=== PATIENT | female | born 1980 | race African-American/Black ===

== ENCOUNTER 2016-04-23 11:37 | Emergency (ER) | payer BC, OTHER ==
[2016-04-23 13:31] VITALS: BP 125/86
--- NOTE | 2016-04-23 13:48 | ED ---
Lower Extremity - History of Current Complaint Chief Complaint: EDExtremityLower Stated Complaint: LEFT KNEE PAIN Hx Obtained From: Patient Mechanism Of Injury: Fall From A Standing Position - tripped over toy and fell to ground this am, was able to amb with pain after fall Onset of Pain: Immediate Onset/Duration: Hours - 3-4 Severity Initially: Moderate Severity Currently: Mild Timing: Intermittent Location: Is Discrete @ - L lat knee Character Of Pain: Throbbing, Stiffness Associated Signs And Symptoms: Positive: Knee Pain. Negative: Swelling, Redness , Bruising Aggravating Factor(s): Other - "flexing knee all the way" Alleviating Factor(s): Rest Able to Bear Weight: Yes - Allergies/Home Medications Allergies/Adverse Reactions: Allergies Allergy/AdvReac Type Severity Reaction Status Date / Time No Known Allergies Allergy Verified 11/12/14 00:53 PMH/Surg Hx/FS Hx/Imm Hx Previously Healthy: Yes Endocrine/Hematology History: Denies: Hx Diabetes, Hx Thyroid Disease Cardiovascular History: Denies: Hx Hypertension Respiratory History: Denies: Hx Asthma Musculoskeletal History: Reports: Other Musculoskeletal History - had L knee surgery in past Neurological History: Denies: Hx Migraine Psychiatric History: Denies: Other Psychiatric Issues/Disorders Infectious Disease History: Denies: Traveled Outside the [place] in Last 30 Days - Social History Alcohol Use: None Substance Use Type: Reports: None Smoking Status (MU): Light Every Day Tobacco Smoker Review of Systems Constitutional: Negative Negative: Fever, Chills Cardiovascular: Negative Respiratory: Negative Positive: Other - see note Skin: Negative Negative: Rash, Bruising Neurological: Negative Negative: Weakness, Numbness Psychological: Normal All Other Systems Reviewed And Are Negative: Yes Physical Exam Triage Information Reviewed: Yes Vital Signs On Initial Exam: Initial Vitals Temp Pulse Resp BP Pulse Ox 98.5 F 65 15 125/86 98 04/23/16 13:23 04/23/16 13:23 04/23/16 13:23 04/23/16 13:23 04/23/16 13:23 Vital Signs Reviewed: Yes Appearance: Positive: Well-Appearing, No Pain Distress, Well-Nourished Skin: Positive: Warm, Skin Color Reflects Adequate Perfusion, Dry Respiratory/Lung Sounds: Positive: Clear to Auscultation Cardiovascular: Positive: Normal Musculoskeletal: Positive: Other - pt demonstrtaes full ROM L knee, with pain on full flexion no swelling, bruising, redness or laxity Neurological: Positive: Normal, Sensory/Motor Intact, Alert, Oriented to Person Place, Time Psychiatric: Positive: Normal Diagnostics - Vital Signs Vital Signs Temp Pulse Resp BP Pulse Ox 04/23/16 13:23 98.5 F 65 15 125/86 98 - Laboratory Lab Statement: Any lab studies that have been ordered have been reviewed, and results considered in the medical decision making process. Lower Extremity Course/Dx - Diagnoses Differential Diagnosis/HQI/PQRI: Positive: Contusion, Fracture (Closed), Sprain , Strain Provider Diagnoses: Knee strain Discharge - Discharge Plan Condition: Stable Disposition: HOME Patient Education Materials: Knee Pain (ED) Referrals: No Primary Care Phys,NOPCP [Primary Care Provider] - Maya Villalta MD [Medical Doctor] - (call tomorrow for appointment) Additional Instructions: Rest knee ice and elevate leg. use knee immobilizer until you see orthopedic doctor Use ibuprofen 600mg every 6 hours as needed for pain (take with food)
--- NOTE | 2016-04-23 14:44 | RAD ---
HISTORY: Left knee pain after fall COMPARISONS: None VIEWS: 4, Frontal, lateral, axial, and oblique views of the left knee FINDINGS: BONE DENSITY: Normal. BONES: There is no displaced fracture. JOINTS: There is no arthropathy. There is no suprapatellar joint effusion or lipohemarthrosis. ALIGNMENT: There is no dislocation. SOFT TISSUES: Unremarkable. OTHER FINDINGS: None. IMPRESSION: NO ACUTE OSSEOUS INJURY. IF SYMPTOMS PERSIST, RECOMMEND REPEAT IMAGING.
[2016-04-23] MEDS ORDERED: HYDROcodone/ACETAMIN 5-325 MG* 1 TAB PO ONE (15:16)
== END 2016-04-23 15:36 | disposition home or self-care (01) ==
LOC: ED 11:37
DX: S83.92XA Sprain of unspecified site of left knee, initial encounter (principal); W18.09XA Striking against other object with subsequent fall, initial encounter; Y92.9 Unspecified place or not applicable; F17.210 Nicotine dependence, cigarettes, uncomplicated

== ENCOUNTER 2016-06-02 16:41 | Emergency (ER) | payer BC, OTHER ==
--- NOTE | 2016-06-02 17:46 | UC ---
Knee Pain HPI - HPI Summary HPI Summary: known history of injury to left knee, was suppose to get surgery and then did not, slipped causing left knee pain increasing pain in the past few days, some swelling - History of Current Complaint Chief Complaint: UC Stated Complaint: KNEE PAIN Time Seen by Provider: 06/02/16 17:23 Hx Obtained From: Patient Hx Last Menstrual Period: May 26 ?: No Onset/Duration: Gradual Onset, Lasting Weeks, Worse Since - this week Severity Initially: Moderate Severity Currently: Moderate Location Of Injury: left knee Pain Intensity: 8 Pain Scale Used: 0-10 Numeric Character: Aching, Throbbing Aggravating Factor(s): Movement, Weight Bearing Alleviating Factor(s): Rest Associated Signs And Symptoms: Positive: Redness Able to Bear Weight: Yes Related History: Similar Episode/Dx as - acl, mcl and meniscus injury - Allergies/Home Medications Allergies/Adverse Reactions: Allergies Allergy/AdvReac Type Severity Reaction Status Date / Time No Known Allergies Allergy Verified 05/01/16 10:40 Home Medications: Home Medications Tramadol HCl [Ultram] 50 mg PO 06/02/16 [History] PMH/Surg Hx/FS Hx/Imm Hx Previously Healthy: No Endocrine History Of: Denies: Diabetes, Thyroid Disease Cardiovascular History Of: Denies: Hypertension, Pacemaker/ICD Respiratory History Of: Denies: Asthma GI/ History Of: Denies: Renal Disease Neurological History Of: Denies: Migraine - Surgical History Surgical History: Yes Surgery Procedure, Year, and Place: LEFT KNEE DISLOCATED/GANGLION CYST 2013. WRIST LEFT VERTICAL TEAR/GANGLION CYCT 2016 - Family History Family History: denies casrdiovascular disease in lineage - Social History Occupation: Unemployed Lives: With Family Alcohol Use: None Substance Use Type: None Smoking Status (MU): Light Every Day Tobacco Smoker Household Exposure Type: Cigarettes Review of Systems Constitutional: Negative Skin: Negative Eyes: Negative ENT: Negative Respiratory: Negative Cardiovascular: Negative Gastrointestinal: Negative Genitourinary: Negative Motor: Weakness - left knee Neurovascular: Negative Musculoskeletal: Arthralgia - left knee, Edema - left knee Neurological: Negative Psychological: Negative All Other Systems Reviewed And Are Negative: Yes Physical Exam Triage Information Reviewed: Yes Appearance: Well-Appearing, No Pain Distress, Well-Nourished Vital Signs: Initial Vital Signs Temp 98.2 F 06/02/16 17:16 Vital Signs Reviewed: Yes Eye Exam: Normal Eyes: Positive: Conjunctiva Clear ENT Exam: Normal ENT: Positive: Normal ENT inspection, Hearing grossly normal. Negative: Nasal congestion, Nasal drainage, Muffled/hoarse voice Neck exam: Normal Neck: Positive: Supple, Nontender Respiratory Exam: Normal Respiratory: Positive: Chest non-tender, No respiratory distress, No accessory muscle use Cardiovascular Exam: Normal Cardiovascular: Positive: RRR, Pulses Normal, Brisk Capillary Refill Musculoskeletal Exam: Other Musculoskeletal: Positive: Strength Limited @ - left knee, ROM Limited @ - left knee, Edema @ - left knee Neurological Exam: Normal Neurological: Positive: Alert Psychological Exam: Normal Skin Exam: Normal Knee Pain Course/Dx - Course Course Of Treatment: alex immobilize, follow sunday with ortho pain med, rice - Differential Dx/Diagnosis Differential Diagnosis/HQI/PQRI: Contusion, Internal Derangement Of Knee, Sprain , Strain Provider Diagnoses: Internal derangement of left knee Discharge - Discharge Plan Condition: Stable Disposition: HOME Prescriptions: Hydrocodone-Acetaminophen [Hydrocodone/Acetaminophen 5-325 mg] 1 tab PO Q6H PRN #15 tab MDD 4 PRN Reason: Pain Hydrocodone-Acetaminophen [Hydrocodone/Acetaminophen 5-325 mg] 1 tab PO QID PRN #15 tab MDD 4 PRN Reason: Pain Patient Education Materials: ACL Injury (ED), Swollen Knee Joint (ED), Knee Immobilizer (ED), RICE Therapy (ED), Hypertension (ED) Referrals: No Primary Care Phys,NOPCP [Primary Care Provider] - Maya Villalta MD [Medical Doctor] - 3 Days
== END 2016-06-02 18:15 | disposition home or self-care (01) ==
LOC: UCEAST 16:41
DX: S89.92XS Unspecified injury of left lower leg, sequela (principal); W18.40XS Slipping, tripping and stumbling without falling, unspecified, sequela; F17.210 Nicotine dependence, cigarettes, uncomplicated
CPT/HCPCS: 99212; G0463

== ENCOUNTER 2016-06-08 10:31 | Emergency (ER) | payer BC, OTHER ==
[2016-06-08 10:37] VITALS: BP 143/109
[2016-06-08] MEDS ORDERED: oxyCODONE/Acetamin 5/325 MG* TAB PO ONE (11:21)
[2016-06-08] MEDS ORDERED: Ibuprofen TAB* 400 MG PO ONE (11:21)
--- NOTE | 2016-06-08 11:44 | ED ---
Lower Extremity - HPI Summary HPI Summary: Patient presents with left knee swelling. She has a known history of ACL tear and had surgery scheduled but her insurance changed and the surgery had to be postponed. Today she presents after her knee locked and she had severe swelling without known insult. She is wearing her brace consistently and has been doing well as she awaited surgery. Today she can not straighten or bend the knee without severe pain, and her knee is most comfortable at 30 degrees. She denies fever, chills, calf pain or SOB. - History of Current Complaint Chief Complaint: EDExtremityLower Stated Complaint: STIFF, SWOLLEN LEG Time Seen by Provider: 06/08/16 11:03 Hx Obtained From: Patient Hx Last Menstrual Period: May 26 Mechanism Of Injury: Unknown Onset of Pain: Immediate Onset/Duration: Minutes Severity Initially: Severe Severity Currently: Severe Pain Intensity: 10 Timing: Constant Character Of Pain: Sharp, Aching, Stiffness Associated Signs And Symptoms: Positive: Swelling, Knee Pain Aggravating Factor(s): Standing, Movement Alleviating Factor(s): Nothing Able to Bear Weight: No - Allergies/Home Medications Allergies/Adverse Reactions: Allergies Allergy/AdvReac Type Severity Reaction Status Date / Time No Known Allergies Allergy Verified 05/01/16 10:40 PMH/Surg Hx/FS Hx/Imm Hx Endocrine/Hematology History: Denies: Hx Diabetes, Hx Thyroid Disease Cardiovascular History: Denies: Hx Hypertension, Hx Pacemaker/ICD Respiratory History: Denies: Hx Asthma History: Denies: Hx Renal Disease Musculoskeletal History: Reports: Other Musculoskeletal History - had L knee surgery in past: ACL and medial meniscus tear awaiting surgery Sensory History: Denies: Hx Hearing Aid Neurological History: Denies: Hx Migraine Psychiatric History: Denies: Hx Panic Disorder, Other Psychiatric Issues/Disorders - Surgical History Surgery Procedure, Year, and Place: LEFT KNEE DISLOCATED/GANGLION CYST 2013. WRIST LEFT VERTICAL TEAR/GANGLION CYCT 2016 Infectious Disease History: No Infectious Disease History: Denies: Traveled Outside the [place] in Last 30 Days - Family History Known Family History: Positive: None Family History: denies casrdiovascular disease in lineage - Social History Occupation: Unemployed Alcohol Use: None Substance Use Type: Reports: None Smoking Status (MU): Light Every Day Tobacco Smoker Cessation Counseling: Patient Advised to Stop Review of Systems Negative: Fever Positive: Arthralgia, Myalgia, Decreased ROM, Edema Negative: Bruising Negative: Weakness, Paresthesia All Other Systems Reviewed And Are Negative: Yes Physical Exam Triage Information Reviewed: Yes Vital Signs On Initial Exam: Initial Vitals Temp Pulse Resp BP Pulse Ox 98.2 F 102 20 143/109 99 06/08/16 10:33 06/08/16 10:33 06/08/16 10:33 06/08/16 10:33 06/08/16 10:33 Vital Signs Reviewed: Yes Appearance: Positive: Well-Appearing, Well-Nourished, Pain Distress Skin: Positive: Warm, Skin Color Reflects Adequate Perfusion, Dry, Soft Head/Face: Positive: Normal Head/Face Inspection Eyes: Positive: EOMI, CLIFF, Conjunctiva Clear ENT: Positive: Hearing grossly normal Respiratory/Lung Sounds: Positive: Breath Sounds Present Cardiovascular: Positive: Tachycardia Musculoskeletal: Positive: Limited @ - knee locked at 30 degree with severe pain with any movement., Pain @ - TTP anterior knee, medial joint line and in popliteal fossa, Edema Left - Severe in anterior, superior and posterior capsule Procedures - Procedure Summary Procedure Summary: Patient's left knee was cleansed with alcohol and .5 cc of 2% lidocaine with epi was injected subcutaneously on the anterolateral aspect where aspiration needle was to be placed. An 18g needle was inserted for aspiration and 100cc of bloody fluid was aspirated. 10cc of 2% lidocaine was injected. Area was cleansed and then dressed with a bandaid. Patient tolerated procedure well. Diagnostics - Vital Signs Vital Signs Temp Pulse Resp BP Pulse Ox 06/08/16 10:33 98.2 F 102 20 143/109 99 - Laboratory Lab Statement: Any lab studies that have been ordered have been reviewed, and results considered in the medical decision making process. Lower Extremity Course/Dx - Course Course Of Treatment: Dr. Friend was contacted and patient will follow-up with her office tomorrow for evaluation and surgical scheduling. - Diagnoses Differential Diagnosis/HQI/PQRI: Positive: Arthritis, Bursitis, Contusion, Dislocation, Fracture (Closed), Infection, Sprain, Strain Provider Diagnoses: Effusion, left knee, History of tear of ACL (anterior cruciate ligament) - Physician Notifications Discussed Care of Patient With: Dr. Friend, orthopedic surgeon Time Discussed With Above Provider: 12:20 Discharge - Discharge Plan Condition: Stable Disposition: HOME Prescriptions: oxyCODONE/Acetamin 5/325 MG* [Percocet 5/325 TAB*] 1 tab PO Q8H PRN #9 tab MDD 3 PRN Reason: Pain Patient Education Materials: Swollen Knee Joint (ED) Referrals: Lacey Friend MD [Medical Doctor] - Additional Instructions: Please call Dr. Friend's office today to be seen tomorrow as per her instruction. Elevate your knee above your heart and take Ibuprofen 600mg three times daily with meals for the next 3-5 days to decrease swelling and pain. Wear your brace at all times. Use the crutches to keep weight off you knee as your swelling and pain improve. Use pain pill as needed. Return to the emergency department if symptoms worsen.
--- NOTE | 2016-06-08 12:09 | RAD ---
HISTORY: History of ACL tear, swollen left leg leg COMPARISONS: May 05, 2016 VIEWS: 2, Frontal and lateral views of the left knee FINDINGS: BONE DENSITY: Normal. BONES: There is no displaced fracture. JOINTS: There is no arthropathy. There is a large suprapatellar joint effusion ALIGNMENT: There is no dislocation. SOFT TISSUES: Unremarkable. OTHER FINDINGS: None. IMPRESSION: LARGE JOINT EFFUSION. NO ACUTE OSSEOUS INJURY. IF SYMPTOMS PERSIST, RECOMMEND REPEAT IMAGING
== END 2016-06-08 13:29 | disposition home or self-care (01) ==
LOC: ED 10:31
DX: M25.462 Effusion, left knee (principal); R60.0 Localized edema; M25.562 Pain in left knee; Z87.828 Personal history of other (healed) physical injury and trauma
CPT/HCPCS: 99282; A9270-GY

== ENCOUNTER 2016-06-10 15:50 | Emergency (ER) | payer BC, OTHER ==
[2016-06-10] MEDS ORDERED: oxyCODONE/Acetamin 5/325 MG* TAB PO ONE (16:32)
[2016-06-10] MEDS ORDERED: Ketorolac INJ* 60 MG/2 ML VIAL ONE (17:05)
[2016-06-10] MEDS ORDERED: Ketorolac INJ* 60 MG/2 ML VIAL IM ONE (17:06)
[2016-06-10 18:38] VITALS: BP 116/76
--- NOTE | 2016-06-10 18:40 | ED ---
Lower Extremity - HPI Summary HPI Summary: Patient arrives to ED with CC of 01/23 left knee effusion and pain. She has a known ACL tear with surgery scheduled with Dr. Friend on June 19. She was seen in the ED 2 days ago with successful arthrocentesis of the L knee by the PA. She notes to immediate relief of pain and today comes back with return of fluid around the knee with knee pain. She desires another arthrocentesis to the knee. Patient is unable to bear weight. She is very tearful on examination and explains she cannot be discharged in this amount of pain. Provider educated patient with risks of infection of tapping the knee again and consulted with Dr. Christy who was of the opinion we should provide pain control and avoid another tap if possible. - History of Current Complaint Chief Complaint: EDExtremityLower Stated Complaint: LT KNEE SWELLING Time Seen by Provider: 06/10/16 15:57 Hx Obtained From: Patient Hx Last Menstrual Period: May 26 Mechanism Of Injury: Twisted Onset of Pain: Days Onset/Duration: Days Severity Initially: Severe Severity Currently: Severe Pain Intensity: 10 Pain Scale Used: 0-10 Numeric Timing: Constant Location: Is Discrete @ - left knee Associated Signs And Symptoms: Positive: Swelling, Knee Pain Aggravating Factor(s): Standing, Ambulation, Movement, Weight Bearing, Stairs Alleviating Factor(s): Rest - only slightly improved Able to Bear Weight: No - Risk Factors Gout Risk Factors: Obesity DVT Risk Factors: Recent Trauma - ACL tear Septic Arthritis Risk Factor: Negative - Allergies/Home Medications Allergies/Adverse Reactions: Allergies Allergy/AdvReac Type Severity Reaction Status Date / Time No Known Allergies Allergy Verified 06/10/16 15:50 PMH/Surg Hx/FS Hx/Imm Hx Previously Healthy: Yes Endocrine/Hematology History: Denies: Hx Diabetes, Hx Thyroid Disease Cardiovascular History: Denies: Hx Hypertension, Hx Pacemaker/ICD Respiratory History: Denies: Hx Asthma History: Denies: Hx Renal Disease Musculoskeletal History: Reports: Other Musculoskeletal History - had L knee surgery in past: ACL and medial meniscus tear awaiting surgery Sensory History: Denies: Hx Hearing Aid Neurological History: Denies: Hx Migraine Psychiatric History: Denies: Hx Panic Disorder, Other Psychiatric Issues/Disorders - Surgical History Surgery Procedure, Year, and Place: LEFT KNEE DISLOCATED/GANGLION CYST 2012. WRIST LEFT VERTICAL TEAR/GANGLION CYCT 2016 Hx Anesthesia Reactions: No - Immunization History Immunizations Up to Date: Unable to Obtain/Confirm Infectious Disease History: No Infectious Disease History: Denies: Traveled Outside the [place] in Last 30 Days - Family History Known Family History: Positive: None Family History: denies casrdiovascular disease in lineage - Social History Occupation: Unemployed Alcohol Use: None Hx Substance Use: No Substance Use Type: Reports: None Hx Tobacco Use: Yes Smoking Status (MU): Light Every Day Tobacco Smoker Review of Systems Constitutional: Negative Cardiovascular: Negative Respiratory: Negative Gastrointestinal: Negative Positive: see HPI Positive: Edema - left knee effusion Positive: Other - swelling/effusion over left knee Neurological: Negative Positive: Anxious All Other Systems Reviewed And Are Negative: Yes Physical Exam Triage Information Reviewed: Yes Vital Signs On Initial Exam: Initial Vitals Temp Pulse Resp BP Pulse Ox 98.2 F 110 20 149/104 100 06/10/16 15:50 06/10/16 15:50 06/10/16 15:50 06/10/16 15:50 06/10/16 15:50 Vital Signs Reviewed: Yes Appearance: Positive: Well-Nourished, Pain Distress Skin: Positive: Warm, Skin Color Reflects Adequate Perfusion, Soft, Other - edelma of left knee Head/Face: Positive: Normal Head/Face Inspection Eyes: Positive: Normal ENT: Positive: Hearing grossly normal Neck: Positive: Supple, Nontender, No Lymphadenopathy Respiratory/Lung Sounds: Positive: Clear to Auscultation, Breath Sounds Present Cardiovascular: Positive: Normal Musculoskeletal: Positive: Limited @ - unable to fully extend/flex knee, Pain @ - left knee/unable to BW, Edema Left - knee Neurological: Positive: Sensory/Motor Intact, Alert, Oriented to Person Place, Time, Speech Normal Psychiatric: Positive: Normal, Affect/Mood Appropriate Diagnostics - Vital Signs Vital Signs Temp Pulse Resp BP Pulse Ox 06/10/16 15:50 98.2 F 110 20 149/104 100 - Laboratory Lab Statement: Any lab studies that have been ordered have been reviewed, and results considered in the medical decision making process. Lower Extremity Course/Dx - Course Course Of Treatment: Patient educated about the risks of retapping the knee and risks of infection. Patient very tearful. Dr. Bullard consulted. Dr. Christy consulted at 5:30p and recommended pain control without retapping the knee. Patient unable to BW and does not want to be DC'd. Dr. Bullard and PA both agree to perform arthrocentesis for relief of pain. Patient will then follow up with Dr. Friend on Sunday and attempt to move up the surgery if possible. Dr. Bullard performed arthrocentesis. Procedure note attached. Provided relief for patient. Pain decreased from 10/10 to 3/10. Now able to walk. [facility]. She has been prescribed a few days worth of pain medication, but a lower dose. Shayne wrapped knee with pressure. Patient has crutches at home. Infections risks explained to patient and return precautions given. Patient agrees with plan. Anxiety medication given as rx as well d/t tearful and fearful presentation on arrival in association with knee injury. Assessment/Plan: Follow up Sunday with Dr. Friend. - Diagnoses Differential Diagnosis/HQI/PQRI: Positive: Bursitis, Infection, Sprain, Strain, Other Provider Diagnoses: Hemarthrosis Discharge - Discharge Plan Condition: Stable Disposition: HOME Prescriptions: LORazepam TAB(*) [Ativan TAB(*)] 1 mg PO Q6H PRN #20 tab MDD 4 PRN Reason: Anxiety oxyCODONE/Acetamin 10/325(NF) [Percocet 10/325 (NF)] 1 tab PO Q4H #30 tab MDD 6 Patient Education Materials: Swollen Knee Joint (ED) Referrals: Patrick Christy MD [Medical Doctor] - No Primary Care Phys,NOPCP [Primary Care Provider] - Lacey Friend MD [Family Provider] - Additional Instructions: Oxycodone as needed for pain. Discharge: Crutches for ambulation given. Ibuprofen 600mg three times daily with meals for pain and inflammation. Continue with shayne wrap around the knee joint until surgery. Call for follow up with orthopedic physician on Sunday. If numbness, tingling, decreased sensation, increased pain, temperature changes or pallor noted in toes, come back to ER immediately. Protect the area. For your comfort level, do not bear weight, pull or push until you can injury is somewhat healed. This may involve the need for immobilization or crutches for a period of time. Rest the involved area, but not too long. You may need to be off your injury for some time to allow for healing, however excessive immobilization of joints can lead to stiffness and delay healing time. Early mobilization is encouraged if it is pain-free. Ice. Not directly on the skin. Cover with a towel. Apply ice no more than 30 minutes at a time Compression: You may use and keep an shayne wrap bandage over the injury to decrease swelling. Again, this should be limited and be taken off periodically to encourage early range of motion and mobilization. Elevate: Try to elevate the injured area above the heart whenever possible.
--- NOTE | 2016-06-10 18:49 | ED ---
Course/Dx - Diagnoses Provider Diagnoses: Hemarthrosis Procedure Note / Orthopedic - Digital Nerve Block Location: Left Anesthesia: Lidocaine - Joint Aspiration Indication: Effusion Location: Left, Other - knee Location/Technique: ant medial Post Joint Aspiration: Fluid Bloody
== END 2016-06-10 18:36 | disposition home or self-care (01) ==
LOC: ED 15:50
DX: M25.00 Hemarthrosis, unspecified joint (principal); M25.462 Effusion, left knee; F17.210 Nicotine dependence, cigarettes, uncomplicated
CPT/HCPCS: 20600; 96374; 96375; 99282; A9270-GY; J1885

== ENCOUNTER 2016-06-17 09:46 | Emergency (ER) | payer BC, MEDICAID, OTHER ==
[2016-06-17] MEDS ORDERED: cefTRIAXone VIAL(*) 1,000 MG VIAL IM ONE (11:20)
[2016-06-17] MEDS ORDERED: Lidocaine 1% MPF* 2 ML VIAL ONE (11:23)
--- NOTE | 2016-06-17 11:52 | UC ---
Bradford Felix Janilya, scribed for Yumiko Dowling MD on 06/17/16 at 1113 . Lower Extremity/Ankle HPI - HPI Summary HPI Summary: A 36 y/o female came in to [facility] presenting w/ a graduate onset of constant left knee swelling and discomfort for about a week. Pt states she has torn ACL/MCL. She has knee surgery scheduled for next Sunday, June 19. The knee was first drained on , Jun 08. However, the fluid was not analyzed. Her knee was last drained last Sunday, Jun 10. Pt reports chills, hot sweats. Pt denies fever. She has been constantly taking Ibuprofen for swelling for a few days now, with no relief. She did not take any Ibuprofen today. She denies having any fevers or chills today. Pt is very anxious and concerned about possible knee infection. Initial blood pressure noted 154/116. Manual blood pressure is 150/100. No allergies to medicine. Pt is accompanied by her 3 kids. She moved to the area 1 month ago and does not have a PCP yet. - History of Current Complaint Stated Complaint: POSSIBLE KNEE INFECTION Hx Obtained From: Patient Hx Last Menstrual Period: 05/23/16 Onset/Duration: Gradual Onset, Lasting Days, Still Present Severity Initially: Moderate Severity Currently: Moderate Aggravating Factor(s): Nothing Alleviating Factor(s): Nothing Able to Bear Weight: Yes - Allergies/Home Medications Allergies/Adverse Reactions: Allergies Allergy/AdvReac Type Severity Reaction Status Date / Time No Known Allergies Allergy Verified 06/17/16 11:03 PMH/Surg Hx/FS Hx/Imm Hx Previously Healthy: Yes Endocrine History Of: Denies: Diabetes, Thyroid Disease Cardiovascular History Of: Denies: Hypertension, Pacemaker/ICD Respiratory History Of: Denies: Asthma GI/ History Of: Denies: Renal Disease Neurological History Of: Denies: Migraine - Surgical History Surgical History: Yes Surgery Procedure, Year, and Place: LEFT KNEE DISLOCATED/GANGLION CYST 2012. WRIST LEFT VERTICAL TEAR/GANGLION CYCT 2015 - Family History Known Family History: Positive: Cardiac Disease - [place] - mother, at 40s. - Social History Lives: With Family Alcohol Use: Rare Substance Use Type: None Smoking Status (MU): Light Every Day Tobacco Smoker Type: Cigarettes Amount Used/How Often: 1/2 ppd Household Exposure Type: Cigarettes Review of Systems Constitutional: Negative - pt denies fever, Chills, Other - pt reports hot sweats Skin: Negative Eyes: Negative ENT: Negative Respiratory: Negative Cardiovascular: Negative Gastrointestinal: Negative Genitourinary: Negative Motor: Negative Neurovascular: Negative Musculoskeletal: Other: - pt reports left knee and left leg swelling and discomfort Neurological: Negative Psychological: Negative All Other Systems Reviewed And Are Negative: Yes Physical Exam Triage Information Reviewed: Yes Appearance: Well-Appearing Vital Signs: Initial Vital Signs Temp 98.0 F 06/17/16 10:55 Pulse 110 06/17/16 10:55 Resp 18 06/17/16 10:55 BP 154/116 06/17/16 10:55 Pulse Ox 98 06/17/16 10:55 Vital Signs Reviewed: Yes Eye Exam: Normal Eyes: Positive: Conjunctiva Clear ENT: Positive: Normal ENT inspection Dental Exam: Normal Neck: Positive: Supple, Nontender, No Lymphadenopathy Respiratory: Positive: Lungs clear, Normal breath sounds, No respiratory distress, No accessory muscle use Cardiovascular: Positive: RRR, No Murmur, Pulses Normal Abdomen Description: Positive: Nontender, Soft Musculoskeletal: Positive: Other: - Mild no-pitting edema of left knee, left anterior leg, and left foot. The entire extremity is cold to touch. There is no discharge, no erythema. No tenderness or swelling of calf. Sensation intact to light touch. Neurological Exam: Normal Psychological Exam: Normal Skin Exam: Normal Lower Extremity Course/Dx - Course Course Of Treatment: Swelling in left knee, erring on side of infection to avoid septic joint. Dx is based on chills last PM, however she has not ahd any today. theer is no erythema or warmth or fever. Discussed this with pt and she is very understanding and agreeable. Dx of HTN made today and discussed in detail and medication choice, side effect and importance of follow up with PCP. - Differential Dx/Diagnosis Differential Diagnosis/HQI/PQRI: Bursitis, Cellulitis, Gout, Infection, Osteomyelitis, Septic Arthritis, Sprain, Strain Provider Diagnoses: Left knee swelling and infection. New onset HTN Discharge - Discharge Plan Condition: Stable Disposition: HOME Prescriptions: Amlodipine Besylate [Norvasc-] 5 mg PO DAILY #30 tab Sulfamethox/Trimethoprim DS* [Bactrim DS 800/160 TAB*] 1 tab PO BID #20 tab Patient Education Materials: Swollen Knee Joint (ED), Hypertension (ED) Referrals: [facility]ERR[facility] [Outside] - 5 Days No Primary Care Phys,NOPCP [Primary Care Provider] - Additional Instructions: We talked about your new diagnosis of hypertension. You have had 3 elevated blood pressures including your recent ER visits. This is meets the diagnosis of hypertension. Treating you r blood pressure is important to avoid risks of stroke, heart attack, kidney and eye disease and vascular disease. Decrease salt intake and avoid the use of NSAID class of medicines that include ibuprofen and also avoid decongestants that are in most cold medicines. Make sure to follow up with a primary care physician for your continuing prescriptions and follow up of the blood pressure. You have been given an injection with the antibiotic rocephin, and you will be starting the oral antibiotic tonight. Take a probiotic or eat yogurt while you are on the antibiotic to prevent complications. If your symptoms worsen, you should follow up in the ER. Please call the professional housing consultant ortho provider today to notify that you have been put on an antibiotic as they may postpone surgery. The documentation as recorded by the Bradford pringle Janilya accurately reflects the service I personally performed and the decisions made by me, Yumiko Dowling MD.
[2016-06-17 11:59] VITALS: BP 150/106
== END 2016-06-17 11:56 | disposition home or self-care (01) ==
LOC: UCEAST 09:46
DX: M00.9 Pyogenic arthritis, unspecified (principal); M25.462 Effusion, left knee; I10 Essential (primary) hypertension; F17.210 Nicotine dependence, cigarettes, uncomplicated
CPT/HCPCS: 96372; 99212; G0463; J0696

== ENCOUNTER 2016-06-19 12:48 | Day surgery (SDC) | payer BC, MEDICAID, OTHER ==
--- NOTE | 2016-05-12 20:03 | HP ---
PREOPERATIVE HISTORY AND PHYSICAL: DATE OF ADMISSION/SURGERY: 05/17/16 ATTENDING SURGEON: Lacey Friend MD PROCEDURE: Left knee arthroscopic partial meniscectomy. CHIEF COMPLAINT: Left knee pain and instability. HISTORY OF PRESENT ILLNESS: Yun is a 36-year-old female who presented to the clinic referred by Jeff Villalta for ongoing left knee pain and instability. The patient states that she had a fall in Dec when she felt a pop, had sudden pain in her knee with weightbearing and had swelling in h er knee. Since then, she has had a constant medial knee pain and instability of the knee. She tommy es catching or locking. She has had a history of prior injury to the knee that required surgery and had evidence of a small incomplete ACL tear. The patient has tried a brace, ibuprofen, and tramado l which have not helped relieve the pain. Since the patient has failed conservative measures, she de la rosa s agreed to undergo a left knee arthroscopic partial meniscectomy with Dr. Friend on 05/17/16. PAST MEDICAL HISTORY: Anxiety and depression. PAST SURGICAL HISTORY: Left knee surgery and right wrist surgery. MEDICATIONS: 1. Naproxen 500 mg 1 by mouth twice a day as needed for pain. 2. Tramadol 50 mg 1 by mouth every 6 hours as needed. ALLERGIES: No known drug allergies. FAMILY HISTORY: Maternal grandmother with diabetes. Mother with heart disease and CA. Maternal au nt with CVA and a maternal aunt with cancer. SOCIAL HISTORY: The patient lives with her spouse. She is a former smoker. She reports occasional alcohol use and denies illegal drug use. REVIEW OF SYSTEMS: A 14-point review of systems was reviewed with the patient and positive for cons tipation, anxiety, and left knee pain and swelling. Otherwise negative. The patient denies a histo ry of DVT, PE, prior anesthesia problems, or bleeding disorder. PHYSICAL EXAMINATION GENERAL: Well-developed, well-nourished 36-year-old female in no acute distress. VITAL SIGNS: Height 62, weight 165, respiratory rate 17, BMI 30.2. HEENT: Normocephalic, atraumatic. NECK: Supple. Throat clear. PULMONARY: Lungs are clear to auscultation bilaterally. No wheezing, rhonchi, or rales. CARDIO: Regular rate and rhythm. S1, S2. No murmurs, rubs, or gallops. No edema. ABDOMEN: Positive bowel sounds. Soft, nontender. NEUROLOGIC: Alert and oriented x3. Cranial nerves grossly intact. Sensation intact to light touch distally. MUSCULOSKELETAL: Left knee: The skin is intact. There is a mild effusion of the knee, tenderness to the medial joint line, nontender of the MCL. Range of motion about 5 to 100 degrees. Stable to varus and valgus stress, Brett, negative posterior drawer, +2 dorsalis pedis pulse. Sensat ion intact to light touch distally. STUDIES: MRI was reviewed today in clinic and revealed a complex ACL tear, high- grade MCL tear, a nd posterior medial meniscus tear. IMPRESSION: Left knee medial meniscus tear, MCL tear, and ACL tear. PLAN: The patient's pain likely is in the medial joint line and therefore, is likely due to the men iscus. Her instability is likely due to her ACL tear; however, the patient is not ready for surgica l intervention for treatment of the ACL. However, she is scheduled to undergo a left knee arthrosco pic partial meniscectomy with Dr. Friend for treatment of the knee pain. She will return to the off ice 10 to 14 days postop for followup and suture removal. Percocet will be used postoperatively for pain management and a stool softener will be used to prevent opioid-induced constipation. SORAYA PHILLIPS [id number]/[facility] #: [id number]
--- NOTE | 2016-06-09 20:09 | HP ---
PREOPERATIVE HISTORY AND PHYSICAL: DATE OF ADMISSION/SURGERY: 06/19/16 PROCEDURE: Left knee arthroscopic partial meniscectomy. CHIEF COMPLAINT: Left knee pain and instability. HISTORY OF PRESENT ILLNESS: Yun is a 36-year-old female who presents to the clinic for ongoing le ft knee pain and instability. She has a history of a fall where she heard a sudden pop and had sign ificant pain in her knee. She had also had a recent episode of swelling in her knee, so she went to the ER where they aspirated joint fluid. Since that time, her knee pain has improved. She tried P ercocet for the pain, which did not help. She also has tried tramadol at night, which helps decreas e the pain. She is using a brace as needed for stability. She denies fever, chills, numbness, ting ling or calf pain. She has failed conservative measures and has therefore, agreed to undergo a left knee arthroscopic partial meniscectomy with Dr. Friend on 06/19/16. PAST MEDICAL HISTORY: Anxiety and depression. PAST SURGICAL HISTORY: Left knee surgery and right wrist surgery. MEDICATIONS: 1. Naproxen 500 mg 1 by mouth twice a day as needed for pain. 2. Tramadol 50 mg 1 to 2 by mouth every 4 to 6 hours as needed for pain. ALLERGIES: No known drug allergies. FAMILY HISTORY: A maternal grandmother with diabetes. Mother with heart disease and AMI. Paternal aunt with CVA and a maternal uncle with cancer. 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 She is a former smoker. Occasional alcohol use. Mick es illegal drug use. REVIEW OF SYSTEMS: A 14-point review of systems was reviewed with the patient and positive for cons tipation, anxiety, and left knee pain and swelling. Otherwise, negative. Denies history of DVT, PE , prior anesthesia problems, and/or bleeding disorder. PHYSICAL EXAMINATION GENERAL: A well-developed, well-nourished 36-year-old female, in no acute distress. VITAL SIGNS: Height 62, weight 165. Pulse 72, respiratory rate 16. BMI is 30.2. HEENT: Normocephalic, atraumatic. Throat clear. NECK: Supple. PULMONARY: Lungs are clear to auscultation bilaterally. No wheezing, rhonchi, or rales. CARDIO: Regular rate and rhythm. S1 and S2. No murmurs, rubs, or gallops. No edema. ABDOMEN: Positive bowel sounds. Soft, nontender. NEURO: Alert and oriented x3. Cranial nerves grossly intact. Sensation intact to light touch dist ally. MUSCULOSKELETAL: Left knee, skin is intact. Mild effusion in the knee. Tenderness to palpation of the medial joint line. Nontender over the MCL. Range of motion for about 100 degrees. Stable to v arus and valgus stress. 2A Brett. Negative posterior drawer. +2 dorsalis pedis pulses. Sensatio n intact to light touch distally. STUDIES: MRI revealed a complex ACL tear and a high-grade MCL tear with a posterior medial meniscu s tear. ASSESSMENT: Left knee medial meniscus tear, MCL tear, and ACL tear. PLAN: The patient's MCL has healed since the injury and she believes that her instability is likely due to her ACL tear; however, her main symptoms of pain and swelling are likely due to her meniscal injury. She is not ready for ACL repair at this time, but would like her meniscus repaired. There fore, she has agreed and is scheduled to undergo a left knee arthroscopic partial meniscectomy with Dr. Friend on 06/19/16. She was given a script today for tramadol in office for pain control to get her through until the surgery. She will follow 10 to 14 days postoperatively for followup and sutu re removal. Percocet will be used postoperatively for pain management and stool softener will be us ed to prevent opioid-induced constipation. SORAYA PHILLIPS [id number]/[facility] #: [id number]
[~2016-06-19 12:48] MED LIST: Buffered Lidocaine 1% SYR 3ML* 3 ML/SYR SYRINGE INTRADERM ONE
[2016-06-19] MEDS ORDERED: ceFAZolin 2 GM PREMIX (*) 2 GM/50 ML BAG IVPB ONE ×2 (13:42)
[2016-06-19] MEDS ORDERED: Bupivacaine 0.25% SDV* 30 ML ONE ×2 (14:53)
[2016-06-19] MEDS ORDERED: Bupivacaine 0.25% EPI 200,000* 30 ML SDV ONE ×2 (14:54)
[2016-06-19] MEDS ORDERED: Propofol* 10 MG/ML 20 ML BTL IV PUSH ONE ×2 (14:57)
[2016-06-19] MEDS ORDERED: fentaNYL* 50 MCG/ML 2 ML VIAL (100 MCG VIAL) ONE ×6 (14:57→16:18)
[2016-06-19] MEDS ORDERED: Midazolam* 1 MG/ML 5 ML VIAL (5 MG) ONE ×2 (14:58)
[2016-06-19] MEDS ORDERED: Dexamethasone IV* 4 MG/ML 1 ML (4 MG) ONE ×2 (15:52)
[2016-06-19] MEDS ORDERED: Ketorolac INJ* 30 MG/ML 1 ML VIAL ONE ×2 (15:52)
[2016-06-19] MEDS ORDERED: Ondansetron INJ* 2 MG/ML VIAL ONE ×2 (15:52)
[2016-06-19] MEDS ORDERED: HYDROcodone/ACETAMIN 5-325 MG* 1 TAB PO PRN (16:12)
[2016-06-19] MEDS ORDERED: Ondansetron INJ* 2 MG/ML VIAL IV PRN (16:12)
[2016-06-19] MEDS ORDERED: HYDROmorphone INJ* 1 MG/ML CARPUJECT SYRINGE IV PRN (16:12)
[2016-06-19] MEDS ORDERED: oxyCODONE TAB* 5 MG TAB PO PRN (16:12)
[2016-06-19] MEDS ORDERED: DiMENhydriNATE IV* 50 MG/ML VIAL IV PUSH PRN (16:12)
[2016-06-19] MEDS ORDERED: fentaNYL* 50 MCG/ML 2 ML VIAL (100 MCG VIAL) IV PRN (16:12)
[2016-06-19] MEDS ORDERED: oxyCODONE/Acetamin 5/325 MG* TAB ONE ×2 (16:18)
[2016-06-19 17:09] VITALS: BP 136/87
--- NOTE | 2016-06-20 09:21 | OP ---
DATE OF OPERATION: 06/19/16 [facility] DATE OF : 84 SURGEON: Lacey Friend MD [employer] OPERATOR: SORAYA Grover. Assistance was needed for the entirety of the case to help with positioning. Retraction was utilized throughout all portions. ANESTHESIOLOGIST: Dr. Small. ANESTHESIA: General. PRE-OP DIAGNOSIS: Left knee grade 3 ACL rupture with medial meniscal tear. POST-OP DIAGNOSIS: Grade 3 ACL rupture with medial meniscal tear and partial tearing of the lateral root of the meniscus. OPERATIVE PROCEDURES: 1. Left knee arthroscopy with debridement of ACL and cyclops lesion. 2. Partial medial meniscectomy. 3. Debridement of the lateral root of the meniscus. COMPLICATIONS: None. ESTIMATED BLOOD LOSS: Minimal. INDICATIONS: Yun Orellana is a 36-year-old female. She twisted her knee falling over a box. She sustained an injury to her knee. She had a previous injury several years ago and has reinjured it subsequently. She has also had a previous history of an arthroscopy, but is unsure which procedure was done. She had persistent catching and locking, required several ED visits with drainage of her hemarthrosis. She has persistent episodes of instability. She would like to proceed with ACL reconstruction, but due to her psychosocial situation, she is unable to do that at this point. She would like to proceed with partial meniscectomy. Risks and benefits of surgery were discussed at length and the patient was advised that when you take the medial portion of the meniscus away, she has a higher risk of arthritis as well as this would function as a backup stabilizer for the ACL tissue, so theoretically increased risk of damage to the knee. Risks include but are not limited to bleeding, infection, damage to nerves, vessels, surrounding structures, wound nonhealing, persistent pain, need for further surgery, persistent instability, arthritis, risks of anesthesia, and risk of DVT. She has elected to proceed. OPERATIVE NOTE: The patient was greeted in the preoperative area by the attending surgeon. The correct extremity was marked, and the consent was confirmed. The patient was then brought back to the operating suite where she was placed in the supine position on the operating room table. She then underwent general anesthesia and LMA intubation which she tolerated without difficulty. An examination of the knee was then done. She had a moderate effusion. Range of motion was about 2 degrees to 130 degrees. Her Brett was 3B, stable to varus and valgus stress. The lateral post was placed and an unsterile tourniquet was placed high on the proximal thigh. After a minute of surgical pause indicating site and side of the procedure, the knee was intra- articularly injected with 0.25% Marcaine with epinephrine. It was noted that there was large hemarthrosis in the knee at this time. The left knee was prepped and draped in the usual sterile fashion with chlorhexidine soap and alcohol wipe and a final prep with ChloraPrep. After appropriate surgical pause indicating site and side of the procedure and administration of antibiotics, the lateral portal was made sharply with an 11 blade. The scope was introduced into the joint. The joint was examined. There was a large hemarthrosis that was apparent. There were hemosiderin deposits all along the knee. The scope was placed in the suprapatellar pouch. The patella had grade 0 to 1 changes, the trochlea had grade 0 to 1 changes. The medial and lateral gutter were intact. There was abundant synovitis anteriorly. There was a large ACL cyclops lesion as well. The medial portal was made after localization using an 18-gauge needle. The shaver was used to debride back the ACL stump and the abundant scar tissue anteriorly. The ACL was found to be completely torn off the femoral side. There was again hemarthrosis all throughout the knee. A thorough lavage was done and the hemarthrosis was carefully debrided back. The medial compartment was examined and there were grade 0 to 1 changes to the cartilage. She had torn posteriorly just adjacent to the root, which resulted in destabilization of the hoop stresses of the meniscus. There was an unstable flap that was brought into the joint that may have been amenable to repair, but the patient chose not to proceed with the repair. The biter and shaver were then used to debride back the meniscus to a stable layer. She is missing the posterior portion of the meniscus as well as part of the root, but she still has the medial aspect of the meniscus. Once the debridement of unstable flap was debrided back, the knee was placed in a [id number] position and the lateral meniscus was evaluated. The lateral meniscus was intact, but there was evidence of partial tearing of the root of the meniscus. There were unstable flaps which were debrided back using the shaver. After this was complete, the remainder of the knee was examined again. Lateral compartment had grade 0 to 1 changes in the femur and grade 1 changes with some mild grade 2 changes to the tibial plateau. The knee was copiously irrigated. All loose debris was removed. The portals were then closed with 3-0 nylon in an interrupted fashion. The knee was then intra-articularly injected with 0.25% Marcaine plain for postop pain control. Sterile dressings were applied as well as a cryo/cuff. The patient was awoken from anesthesia and transferred to the PACU in stable condition. POSTOPERATIVE PLAN: She will be weightbearing as tolerated. She will ice and elevate. She will be discharged on pain medications as well as antibiotics. She has a recent history of high blood pressure that was reasonably treated at her last ED visit. She does not have a primary care provider, so we will help her find one. She will be discharged otherwise on pain medications as well as antibiotics. DVT prophylaxis was considered, but was deferred due to no previous personal or family history. I will see the patient back in about 10 to 14 days. [id number]/[facility] #: [id number] [place]
== END 2016-06-19 17:10 | disposition home or self-care (01) ==
LOC: OR 12:48 → OREAST 12:48
PROVIDERS: ATTEND Orthopaedic Surgery
DX: S83.232A Complex tear of medial meniscus, current injury, left knee, initial encounter (principal); S83.282A Other tear of lateral meniscus, current injury, left knee, initial encounter; S83.512A Sprain of anterior cruciate ligament of left knee, initial encounter; W01.0XXA Fall on same level from slipping, tripping and stumbling without subsequent striking against object, initial encounter; Y92.9 Unspecified place or not applicable; Z87.891 Personal history of nicotine dependence
CPT/HCPCS: 88304; A9270-GY; J0690; J1100; J1885; J2250; J2405; J2704; J3010

== ENCOUNTER 2016-06-21 17:17 | Emergency (ER) | payer MEDICAID, OTHER ==
[2016-06-21 18:25] VITALS: BP 123/82
[2016-06-21] MEDS ORDERED: Al Hydrox/Mg Hydrox/Simet LIQ* 30 ML UDC PO ONE (18:37)
[2016-06-21] MEDS ORDERED: Lidocaine 2% VISCOUS* 15 ML UDC PO ONE (18:37)
--- NOTE | 2016-06-21 18:37 | UC ---
Abdominal Pain Female HPI - HPI Summary HPI Summary: Acid reflux today--has been on Prilosec in the past with good effect--- - History of Current Complaint Chief Complaint: UCGI Stated Complaint: ACID REFLUX Time Seen by Provider: 06/21/16 18:29 Hx Obtained From: Patient Hx Last Menstrual Period: May 2016 ?: No Onset/Duration: Sudden Onset, Lasting Days, Still Present Timing: Constant Severity Initially: Moderate Severity Currently: Moderate Pain Intensity: 5 Pain Scale Used: 0-10 Numeric Location: Epigastric Radiates: No Character: Burning Aggravating Factor(s): Nothing Alleviating Factor(s): Nothing Associated Signs and Symptoms: Positive: Negative Allergies/Adverse Reactions: Allergies Allergy/AdvReac Type Severity Reaction Status Date / Time No Known Allergies Allergy Verified 06/21/16 18:18 Home Medications: Home Medications Aspirin EC TAB* [Ecotrin EC TAB*] 1 tab DAILY 06/21/16 [History Confirmed ] Oxycodone W/ Acetaminophen [Endocet 5-325 mg] 1 tab PRN 06/21/16 [History] PMH/Surg Hx/FS Hx/Imm Hx Previously Healthy: No Endocrine History Of: Denies: Diabetes, Thyroid Disease Cardiovascular History Of: Reports: Hypertension Denies: Pacemaker/ICD Respiratory History Of: Denies: Asthma GI/ History Of: Denies: Renal Disease Neurological History Of: Denies: Migraine Psychological History Of: Reports: Anxiety, Depression - Surgical History Surgical History: Yes Surgery Procedure, Year, and Place: LEFT KNEE DISLOCATED/GANGLION CYST 2012. WRIST LEFT VERTICAL TEAR/GANGLION CYCT 2015. LEFT knee meniscus repair June - Family History Known Family History: Positive: None, Cardiac Disease - [place] - mother, at 40s. Family History: denies casrdiovascular disease in lineage - Social History Occupation: Unemployed Lives: With Family Alcohol Use: Rare Alcohol Amount: socially Substance Use Type: None Smoking Status (MU): Light Every Day Tobacco Smoker Type: Cigarettes Amount Used/How Often: 5 cigs Household Exposure Type: Cigarettes Cessation Counseling: Patient Advised to Stop - Immunization History Most Recent Influenza Vaccination: None Review of Systems Constitutional: Negative Skin: Negative Eyes: Negative ENT: Negative Respiratory: Negative Cardiovascular: Negative Gastrointestinal: Abdominal Pain Genitourinary: Negative Motor: Negative Neurovascular: Negative Musculoskeletal: Negative Neurological: Negative Psychological: Negative All Other Systems Reviewed And Are Negative: Yes Physical Exam Triage Information Reviewed: Yes Appearance: Well-Appearing, No Pain Distress, Well-Nourished Vital Signs: Initial Vital Signs Temp 98.6 F 06/21/16 18:19 Pulse 77 06/21/16 18:19 Resp 18 06/21/16 18:19 BP 123/82 06/21/16 18:19 Pulse Ox 98 06/21/16 18:19 Vital Signs Reviewed: Yes Eye Exam: Normal Eyes: Positive: Conjunctiva Clear ENT Exam: Normal ENT: Positive: Normal ENT inspection, Hearing grossly normal. Negative: Trismus , Muffled/hoarse voice Neck exam: Normal Neck: Positive: Supple, Nontender, No Lymphadenopathy Respiratory Exam: Normal Respiratory: Positive: Chest non-tender, Lungs clear, Normal breath sounds, No respiratory distress, No accessory muscle use Cardiovascular Exam: Normal Cardiovascular: Positive: RRR, No Murmur, Pulses Normal, Brisk Capillary Refill Abdominal Exam: Normal Abdomen Description: Positive: No Organomegaly, Soft, Other: - epigastric discomfort. Negative: CVA Tenderness (R), CVA Tenderness (L) Bowel Sounds: Positive: Present Musculoskeletal Exam: Normal Musculoskeletal: Positive: Strength Intact, ROM Intact, No Edema Neurological Exam: Normal Neurological: Positive: Alert, Muscle Tone Normal Psychological Exam: Normal Psychological: Positive: Normal Response To Family Skin Exam: Normal Re-Evaluation - Re-Evaluation First Eval Change: Improved - relief wit maalox and lidocaine Abd Pain Female Course/Dx - Course Course Of Treatment: Diet changes reccommended, prilosec follow with pcp - Differential Dx/Diagnosis Differential Diagnosis: Gall Bladder Disease, Irritable Bowel Syndrome, Peptic Ulcer Disease, Other - GERD Provider Diagnoses: GERD Discharge - Discharge Plan Condition: Stable Disposition: HOME Prescriptions: Omeprazole 40 mg PO DAILY #30 cap Patient Education Materials: Diet for Ulcers and Gastritis (ED), Gastroesophageal Reflux Disease (ED) Referrals: [facility] [Outside] No Primary Care Phys,NOPCP [Primary Care Provider] - 2 Weeks
== END 2016-06-21 19:03 | disposition home or self-care (01) ==
LOC: UCEAST 17:17
DX: K21.9 Gastro-esophageal reflux disease without esophagitis (principal); F17.210 Nicotine dependence, cigarettes, uncomplicated
CPT/HCPCS: 99212; A9270-GY; G0463

== ENCOUNTER 2016-06-23 00:07 | Emergency (ER) | payer MEDICAID ==
[2016-06-23] MEDS ORDERED: diPHENhydraMINE PO* 50 MG PO ONE (00:41)
[2016-06-23 00:57] VITALS: BP 138/88
--- NOTE | 2016-07-19 23:45 | ED ---
Allergic Reaction/Systemic - HPI Summary HPI Summary: Patient presents with an "itchy tongue" after taking a dose of Prilosec. She recently started this medication and this is only her second dose, so she believes it is the reason she is having this reaction. She denies difficulty breathing, tongue swelling, rash, nausea, abdominal pain or light headedness. She does not have a history of allergies. - History of Current Complaint Chief Complaint: EDAllergicReaction Time Seen by Provider: 06/23/16 00:23 Hx Obtained From: Patient Hx Last Menstrual Period: May 2016 Onset/Duration: Gradual Onset Timing: Constant Severity Initially: Mild Severity Currently: None Pain Intensity: 0 Pain Scale Used: 0-10 Numeric Character: Pruritus - tongue Aggravating Factor(s): Nothing Alleviating Factor(s): Nothing Associated Signs And Symptoms: Positive: Negative - Allergies/Home Medications Allergies/Adverse Reactions: Allergies Allergy/AdvReac Type Severity Reaction Status Date / Time Omeprazole [From Prilosec] Allergy Swelling Verified 07/05/16 16:31 Of Face,Lips,& Throat PMH/Surg Hx/FS Hx/Imm Hx Endocrine/Hematology History: Denies: Hx Diabetes, Hx Thyroid Disease Cardiovascular History: Reports: Hx Hypertension Denies: Hx Pacemaker/ICD Respiratory History: Denies: Hx Asthma GI History: Reports: Hx Gastroesophageal Reflux Disease - on occassion History: Denies: Hx Renal Disease Musculoskeletal History: Reports: Other Musculoskeletal History - had L knee surgery in past: ACL and medial meniscus tear awaiting surgery Sensory History: Denies: Hx Contacts or Glasses, Hx Hearing Aid Opthamlomology History: Denies: Hx Contacts or Glasses Neurological History: Denies: Hx Migraine Psychiatric History: Reports: Hx Anxiety, Hx Depression Denies: Hx Panic Disorder, Other Psychiatric Issues/Disorders - Surgical History Surgery Procedure, Year, and Place: LEFT KNEE DISLOCATED/GANGLION CYST 2012. WRIST LEFT VERTICAL TEAR/GANGLION CYCT 2015. LEFT knee meniscus repair June Hx Anesthesia Reactions: No Infectious Disease History: No Infectious Disease History: Denies: Traveled Outside the [place] in Last 30 Days - Family History Known Family History: Positive: None, Cardiac Disease - [place] - mother, at 40s. Family History: denies casrdiovascular disease in lineage - Social History Occupation: Unemployed Lives: With Family Alcohol Use: Rare Alcohol Amount: socially Hx Substance Use: No Substance Use Type: Reports: None Hx Tobacco Use: Yes Smoking Status (MU): Light Every Day Tobacco Smoker Type: Cigarettes Amount Used/How Often: 5 cigs Review of Systems Positive: Other - "itchy tongue" All Other Systems Reviewed And Are Negative: Yes Physical Exam Triage Information Reviewed: Yes Vital Signs On Initial Exam: Initial Vitals Temp Pulse Resp BP Pulse Ox 98 F 98 18 134/85 99 06/23/16 00:14 06/23/16 00:14 06/23/16 00:14 06/23/16 00:14 06/23/16 00:14 Vital Signs Reviewed: Yes Appearance: Positive: Well-Appearing, No Pain Distress, Well-Nourished Skin: Positive: Warm, Skin Color Reflects Adequate Perfusion, Dry, Soft Head/Face: Positive: Normal Head/Face Inspection Eyes: Positive: EOMI, CLIFF, Conjunctiva Clear ENT: Positive: Hearing grossly normal, Pharynx normal, Other - no swelling of the tongue, uvula or palate. Negative: Tonsillar swelling Neck: Positive: Supple, Nontender, No Lymphadenopathy Respiratory/Lung Sounds: Positive: Clear to Auscultation, Breath Sounds Present Cardiovascular: Positive: RRR Abdomen Description: Positive: Nontender, Soft Bowel Sounds: Positive: Present Musculoskeletal: Negative: Edema Left, Edema Right Neurological: Positive: Sensory/Motor Intact, Alert, Oriented to Person Place, Time, [place] Bundle Intact Distally, Normal Gait Psychiatric: Positive: Affect/Mood Appropriate AVPU Assessment: Alert Diagnostics - Vital Signs Vital Signs Temp Pulse Resp BP Pulse Ox 06/23/16 00:53 104 18 138/88 06/23/16 00:14 98 F 98 18 134/85 99 - Laboratory Lab Statement: Any lab studies that have been ordered have been reviewed, and results considered in the medical decision making process. Allergic Reaction Course/Dx - Diagnoses Differential Diagnosis/HQI/PQRI: Positive: Airway Obstruction, Anaphylaxis, Angioedema, Erythema Multiforme, Local Allergic Reaction, Urticaria Provider Diagnoses: generalized allergic reaction Discharge - Discharge Plan Condition: Stable Disposition: HOME Patient Education Materials: General Allergic Reaction (ED) Referrals: [facility]ang [facility] [employer]INTE[employer]CE [employer]PER[employer]OR [Primary Care Provider] - Additional Instructions: Please take the benadryl once your home. You can use this until your symptoms resolve. Discontinue using the prilosec and discuss your visit with your new PCP tomorrow. Call 911 or return to the emergency department if symptoms worsen.
== END 2016-06-23 00:53 | disposition home or self-care (01) ==
LOC: ED 00:07
DX: T78.40XA Allergy, unspecified, initial encounter (principal); X58.XXXA Exposure to other specified factors, initial encounter; F17.210 Nicotine dependence, cigarettes, uncomplicated
CPT/HCPCS: 99282; A9270-GY

== ENCOUNTER 2016-06-25 12:25 | Emergency (ER) | payer MEDICAID ==
[2016-06-25 12:39] VITALS: BP 111/82
== END 2016-06-25 14:24 | disposition left against medical advice (07) ==
LOC: UCEAST 12:25
DX: R06.02 Shortness of breath (principal)
CPT/HCPCS: 99212; G0463

== ENCOUNTER 2016-06-25 16:51 | Emergency (ER) | payer MEDICAID, OTHER ==
[2016-06-25 18:39] LABS: Albumin 4.5 g/dL (3.2-5.2); BUN/Creatinine Ratio 22.6 (8-20); Calcium 9.8 mg/dL (8.6-10.3); EGFR African American 88.8 (>60); Globulin 3.6 g/dL (2-4); Potassium 4.1 mmol/L (3.5-5.0); Total Bilirubin 0.3 mg/dL (0.2-1.0); Total Protein 8.1 g/dL (6.4-8.9)
[2016-06-25] MEDS ORDERED: Iohexol 350* (CONTRAST) 500 ML MDV IV ONE (18:56)
--- NOTE | 2016-06-25 20:18 | RAD ---
Indication: Evaluate for pulmonary embolus. Contrast:Administered 65.0 ml of OMNIPAQUE 300 mgi/ml CTA of the chest was performed after IV contrast administration. Coronal and sagittal reconstructed images were obtained. The pulmonary arterial tree is well opacified. There are no filling defects present to suggest pulmonary embolus. No evidence of aortic dissection is noted. No aneurysmal dilatation of the aorta is noted. There is no mediastinal or hilar adenopathy noted. The heart demonstrates no pericardial effusion. The trachea and major bronchi appear patent. The lung greenwood demonstrate no evidence of pleural fluid, nodules or masses. The visualized abdominal organs are unremarkable. IMPRESSION: No evidence of pulmonary embolus is noted.
[2016-06-25] MEDS ORDERED: Albuterol HFA INHALER* 8 gm MDI INH ONE (20:24)
[2016-06-25 21:03] VITALS: BP 116/82
--- NOTE | 2016-06-25 21:10 | ED ---
HPI Chest Pain - HPI Summary HPI Summary: Patient arrives to ED with CC of chest pressure and SOB while inhaling for 2 days. She recently had surgery on her knee and is afraid of a blood clot. Patient is otherwise healthy and takes no medications. She has been currently on antibiotics for which she stopped thinking it could be a cause of why she has been having this heaviness in her chest. Denies drug use or control. no recent travel. denies ROGERS, fever, N/V or palpitations. she admits she is a hypochondriac and would like reassurance. Patient is very anxious on exam. - History of Current Complaint Chief Complaint: EDGeneral Time Seen by Provider: 06/25/16 17:12 Hx Obtained From: Patient Onset/Duration: Started Days Ago Timing: Intermittent Initial Severity: Mild Current Severity: Mild Pain Intensity: 0 Pain Scale Used: 0-10 Numeric Chest Pain Location: Mid Sternal Chest Pain Radiates: No Character: Tightness Aggravating Factor(s): Exertion Alleviating Factor(s): Rest Associated Signs and Symptoms: Positive: Shortness of Breath - Risk Factors Pulmonary Embolism Risk Factors: Recent Bedrest, Recent Surgery TAD Risk Factors: Negative AMI/ACS Risk Factors: Obesity - Allergy/Home Medications Allergies/Adverse Reactions: Allergies Allergy/AdvReac Type Severity Reaction Status Date / Time Omeprazole [From Prilosec] Allergy Swelling Verified 06/25/16 12:39 Of Face,Lips,& Throat PMH/Surg Hx/FS Hx/Imm Hx Previously Healthy: Yes Endocrine/Hematology History: Denies: Hx Diabetes, Hx Thyroid Disease Cardiovascular History: Reports: Hx Hypertension Denies: Hx Pacemaker/ICD Respiratory History: Denies: Hx Asthma GI History: Reports: Hx Gastroesophageal Reflux Disease - on occassion History: Denies: Hx Renal Disease Musculoskeletal History: Reports: Other Musculoskeletal History - had L knee surgery in past: ACL and medial meniscus tear awaiting surgery Sensory History: Denies: Hx Contacts or Glasses, Hx Hearing Aid Opthamlomology History: Denies: Hx Contacts or Glasses Neurological History: Denies: Hx Migraine Psychiatric History: Reports: Hx Anxiety, Hx Depression Denies: Hx Panic Disorder, Other Psychiatric Issues/Disorders - Surgical History Surgery Procedure, Year, and Place: LEFT KNEE DISLOCATED/GANGLION CYST 2012. WRIST LEFT VERTICAL TEAR/GANGLION CYCT 2015. LEFT knee meniscus repair June Hx Anesthesia Reactions: No Infectious Disease History: Denies: Traveled Outside the [place] in Last 30 Days - Family History Known Family History: Positive: None, Cardiac Disease - [place] - mother, at 40s. Family History: denies casrdiovascular disease in lineage - Social History Occupation: Unemployed Lives: With Family Alcohol Use: Rare Alcohol Amount: socially Hx Substance Use: No Substance Use Type: Reports: None Hx Tobacco Use: Yes Smoking Status (MU): Light Every Day Tobacco Smoker Type: Cigarettes Amount Used/How Often: 5 cigs Review of Systems Constitutional: Negative Eyes: Negative Cardiovascular: Negative Positive: Shortness Of Breath Gastrointestinal: Negative Positive: no symptoms reported, see HPI Musculoskeletal: Negative Skin: Negative Neurological: Negative Positive: Anxious All Other Systems Reviewed And Are Negative: Yes Physical Exam Triage Information Reviewed: Yes Vital Signs On Initial Exam: Initial Vitals Temp Pulse Resp BP Pulse Ox 97.7 F 98 16 103/88 99 06/25/16 17:00 06/25/16 17:00 06/25/16 17:00 06/25/16 17:00 06/25/16 17:00 Vital Signs Reviewed: Yes Appearance: Positive: Well-Appearing, No Pain Distress, Well-Nourished Skin: Positive: Warm, Skin Color Reflects Adequate Perfusion Eyes: Positive: EOMI, CLIFF, Conjunctiva Clear Neck: Positive: Supple, No Lymphadenopathy Respiratory/Lung Sounds: Positive: Clear to Auscultation, Breath Sounds Present Cardiovascular: Positive: Normal, RRR, Pulses are Symmetrical in both Upper and Lower Extremities Musculoskeletal: Positive: Normal, Strength/ROM Intact Neurological: Positive: Normal, Sensory/Motor Intact Psychiatric: Positive: Affect/Mood Appropriate, Anxious AVPU Assessment: Alert Diagnostics - Vital Signs Vital Signs Temp Pulse Resp BP Pulse Ox 06/25/16 21:01 97.8 F 100 17 116/82 06/25/16 17:00 97.7 F 98 16 103/88 99 - Laboratory Lab Results: Lab Results 06/25/16 06/25/16 Range/Units 18:12 18:12 D-Dimer, Quantitative 565 H (Less Than 230) ng/mL Sodium 132 L (133-145) mmol/L Potassium 4.1 (3.5-5.0) mmol/L Chloride 101 (101-111) mmol/L Carbon Dioxide 23 (22-32) mmol/L Anion Gap 8 (2-11) mmol/L BUN 21 (6-24) mg/dL Creatinine 0.93 (0.51-0.95) mg/dL Est GFR ( Amer) 88.8 (>60) Est GFR (Non-Af Amer) 69.0 (>60) BUN/Creatinine Ratio 22.6 H (8-20) Glucose 93 (70-100) mg/dL Calcium 9.8 (8.6-10.3) mg/dL Total Bilirubin 0.30 (0.2-1.0) mg/dL AST 14 (13-39) U/L ALT 11 (7-52) U/L Alkaline Phosphatase 71 (34-104) U/L Total Protein 8.1 (6.4-8.9) g/dL Albumin 4.5 (3.2-5.2) g/dL Globulin 3.6 (2-4) g/dL Albumin/Globulin Ratio 1.3 (1-3) Result Diagrams: 06/25/16 18:12 Lab Statement: Any lab studies that have been ordered have been reviewed, and results considered in the medical decision making process. Chest Pain Course/Dx - Course Course Of Treatment: d/t recent surgery and bedrest, will r/o PE. low suspician for PE based on wells criteria. D-dimer positive at 534. CT shows: IMPRESSION: No evidence of pulmonary embolus is noted. Patient made aware of results. D/t recent bedrest from surgery, will give albuterol inhaler. patient encouraged to use only if she feels SOB. follow up with PCP this week. Patient agreeable to plan and will be discharged with inhaler. - Chest Pain Differential Diagnosis/HQI/PQRI: ACS, Chest Wall, Lower Respiratory Infection - Diagnoses Provider Diagnoses: Chest wall pain Discharge - Discharge Plan Condition: Stable Disposition: HOME Patient Education Materials: Chest Wall Pain (ED) Referrals: No Primary Care Phys,NOPCP [Primary Care Provider] - Additional Instructions: Follow up with PCP. Use albuterol inhaler as you feel chest heaviness or shortness of breath. If you develop fever, come back to ED.
== END 2016-06-25 21:01 | disposition home or self-care (01) ==
LOC: ED 16:51
DX: R07.89 Other chest pain (principal); R06.02 Shortness of breath; F17.210 Nicotine dependence, cigarettes, uncomplicated
CPT/HCPCS: 36415; 71275; 80053; 85379; 99282; A9270-GY; Q9967

== ENCOUNTER 2016-07-05 16:18 | Emergency (ER) | payer MEDICAID ==
[2016-07-05 16:30] VITALS: BP 138/89
--- NOTE | 2016-07-05 17:14 | UC ---
Skin Complaint HPI - HPI Summary HPI Summary: PT HAS HAD AN ITCHY SPOT ON HER TONGUE SINCE THIS MORNING. HAD SIMILAR SX ABOUT 10 DAYS AGO THAT RESOLVED. WAS SUSPECTED TO BE A REACTION TO PPI. NO RESPIRATORY DISTRESS OR SWELLING. PT IS REALLY CONCERNED ABOUT ALLERGY AND IS REQUESTING AN EPIPEN. - History of Current Complaint Chief Complaint: UCSkin Time Seen by Provider: 07/05/16 17:12 Stated Complaint: ALLERGIC REACTION -TONGUE SWELL Hx Obtained From: Patient Hx Last Menstrual Period: one week Onset/Duration: Sudden Onset, Lasting Hours, Still Present Timing: Constant Onset Severity: Mild Current Severity: Mild Pain Intensity: 0 Pain Scale Used: 0-10 Numeric Location: Other - TIP OF TONGUE Character: Pain Aggravating: Touch Alleviating: Nothing Associated Signs & Symptoms: Positive: Negative - Allergy/Home Medications Allergies/Adverse Reactions: Allergies Allergy/AdvReac Type Severity Reaction Status Date / Time Omeprazole [From Prilosec] Allergy Swelling Verified 07/05/16 16:31 Of Face,Lips,& Throat Home Medications: Home Medications oxyCODONE TAB* [Roxycodone TAB 5 mg*] 07/05/16 [History Confirmed 07/05/16] Review of Systems Constitutional: Negative Skin: Other - ITCHY SPOT ON TIP OF TONGUE Respiratory: Negative Cardiovascular: Negative Gastrointestinal: Negative All Other Systems Reviewed And Are Negative: Yes PMH/Surg Hx/FS Hx/Imm Hx Endocrine History Of: Denies: Diabetes, Thyroid Disease Cardiovascular History Of: Reports: Hypertension Denies: Pacemaker/ICD Respiratory History Of: Denies: Asthma GI/ History Of: Denies: Renal Disease Neurological History Of: Denies: Migraine Psychological History Of: Reports: Anxiety, Depression - Surgical History Surgical History: Yes Surgery Procedure, Year, and Place: LEFT KNEE DISLOCATED/GANGLION CYST 2012. WRIST LEFT VERTICAL TEAR/GANGLION CYCT 2016. LEFT knee meniscus repair June - Family History Known Family History: Positive: Cardiac Disease - [place] - mother, at 40s. - Social History Alcohol Use: Rare Alcohol Amount: socially Substance Use Type: Prescribed Smoking Status (MU): Light Every Day Tobacco Smoker Type: Cigarettes Amount Used/How Often: 5 cigs Household Exposure Type: Cigarettes - Immunization History Most Recent Influenza Vaccination: None Physical Exam Triage Information Reviewed: Yes Appearance: Well-Appearing, No Pain Distress Vital Signs: Initial Vital Signs Temp 97.9 F 07/05/16 16:27 Pulse 104 07/05/16 16:27 Resp 18 07/05/16 16:27 BP 138/89 07/05/16 16:27 Pulse Ox 100 07/05/16 16:27 Vital Signs Reviewed: Yes Eyes: Positive: Conjunctiva Clear ENT: Positive: Hearing grossly normal, Pharynx normal, Other: - 3MM TENDER NODULE TIP OF TONGUE RIGHT SIDE Neck: Positive: Supple Respiratory Exam: Normal Cardiovascular Exam: Normal Abdomen Description: Positive: Soft Musculoskeletal: Positive: No Edema Neurological: Positive: Alert Psychological: Positive: Age Appropriate Behavior Skin: Negative: rashes Course/Dx - Diagnoses Provider Diagnoses: TONGUE LESION Discharge - Discharge Plan Condition: Stable Disposition: HOME Prescriptions: Epinephrine [Epipen 2-Marcelo] 0.3 mg IM ONCE PRN #1 inj PRN Reason: Allergy Symptoms Referrals: No Primary Care Phys,NOPCP [Primary Care Provider] - Additional Instructions: UNCLEAR CAUSE OF LESION ON TONGUE. MAY BE A SIMPLE INFLAMMATORY REACTION AND HOPEFULLY WILL SPONTANEOUSLY RESOLVE. KEEP YOUR FOLLOW-UP APPT WITH YOUR PCP IN 6 DAYS. OKAY TO TAKE ANTIHISTAMINE DAILY. MAINTAIN GOOD ORAL HYGIENE. GO TO ER WITHOUT FAIL IF YOU DEVELOP RESPIRATORY DISTRESS, TONGUE SWELLING, LIP SWELLING OR ANY OTHER CONCERNING SYMPTOMS. EPIPEN RX PER REQUEST SENT TO PHARMACY.
== END 2016-07-05 17:51 | disposition home or self-care (01) ==
LOC: UCEAST 16:18
DX: K13.70 Unspecified lesions of oral mucosa (principal); Z88.8 Allergy status to other drugs, medicaments and biological substances; F17.210 Nicotine dependence, cigarettes, uncomplicated
CPT/HCPCS: 99212; G0463

== ENCOUNTER 2016-07-27 12:22 | Emergency (ER) | payer MEDICAID, OTHER ==
[2016-07-27] MEDS ORDERED: Losartan TAB* 25 MG PO ONE (13:50)
[2016-07-27 14:14] VITALS: BP 141/83
--- NOTE | 2016-07-27 14:28 | ED ---
Belle Felix Alok, scribed for Luis Carlos Barron MD on 07/27/16 at 1332 . Hypertension - HPI Summary HPI Summary: 36 y/o female presents to the ED for HTN following change in HTN medication. Pt has a hx of HTN and was taking Amlodipine until 2 days ago where she was taken off due to allergic reaction consisting of tongue swelling and pruritus. Pt now takes 12.5 mg BID metoprolol and is suppose to move up to 25 mg metoprolol BID tomorrow. However, since starting Amlodipine pt reports dizziness, lightheadedness, diffuse ROGERS, and fatigue consistent with past experiences with HTN. Pt also notes CP on the right side yesterday thought today denies CP as well as neck pain or urinary symptoms. Pt states that she has been eating a relatively healthy low sodium diet. Pt is a tobacco smoker and drinks ETOH rarely. Pt last saw her PCP Dr. Jenkins two days ago and has a follow up for blood pressure in two weeks. - History of Current Complaint Chief Complaint: EDGeneral Stated Complaint: HIGH BLOOD PRESSURE Time Seen by Provider: 07/27/16 13:08 Hx Obtained From: Patient Hx Last Menstrual Period: one week Onset/Duration: Started Days Ago, Atraumatic, Still Present Aggravating Factor(s): Nothing Alleviating Factor(s): Nothing Associated Signs & Symptoms: Chest Pain, Headaches, Dizziness - Allergies/Home Medications Allergies/Adverse Reactions: Allergies Allergy/AdvReac Type Severity Reaction Status Date / Time Amlodipine Allergy Swelling Verified 07/27/16 12:57 Of Face,Lips,& Throat Omeprazole [From Prilosec] Allergy Swelling Verified 07/27/16 12:57 Of Face,Lips,& Throat PMH/Surg Hx/FS Hx/Imm Hx Endocrine/Hematology History: Denies: Hx Diabetes, Hx Thyroid Disease Cardiovascular History: Reports: Hx Hypertension Denies: Hx Pacemaker/ICD Respiratory History: Denies: Hx Asthma GI History: Reports: Hx Gastroesophageal Reflux Disease - on occassion History: Denies: Hx Renal Disease Musculoskeletal History: Reports: Other Musculoskeletal History - had L knee surgery in past: ACL and medial meniscus tear awaiting surgery Sensory History: Denies: Hx Contacts or Glasses, Hx Hearing Aid Opthamlomology History: Denies: Hx Contacts or Glasses Neurological History: Denies: Hx Migraine Psychiatric History: Reports: Hx Anxiety, Hx Depression Denies: Hx Panic Disorder, Other Psychiatric Issues/Disorders - Surgical History Surgery Procedure, Year, and Place: LEFT KNEE DISLOCATED/GANGLION CYST 2012. WRIST LEFT VERTICAL TEAR/GANGLION CYCT 2015. LEFT knee meniscus repair June Hx Anesthesia Reactions: No Infectious Disease History: No Infectious Disease History: Denies: Traveled Outside the [place] in Last 30 Days - Family History Known Family History: Positive: Cardiac Disease - [place] - mother, at 40s. - Social History Occupation: Employed Full-time Lives: With Family Alcohol Use: Rare Alcohol Amount: socially Hx Substance Use: No Substance Use Type: Reports: Prescribed Hx Tobacco Use: Yes Smoking Status (MU): Light Every Day Tobacco Smoker Type: Cigarettes Amount Used/How Often: 5 cigs Review of Systems Negative: Fever Positive: Chest Pain - Yesterday Positive: no symptoms reported Negative: Other - Neck Pain Neurological: Other - Dizziness Positive: Headache All Other Systems Reviewed And Are Negative: Yes Physical Exam - Summary Physical Exam Summary: The patient is well-nourished in no acute distress and in no acute pain. The skin is warm and dry and skin color reflects adequate perfusion. HEENT: The head is normocephalic and atraumatic. The pupils are equal and reactive. The conjunctivae are clear and without drainage. Nares are patent and without drainage. Mouth reveals moist mucous membranes and the throat is without erythema and exudate. The external ears are intact. The ear canals are patent and without drainage. The tympanic membranes are intact. Neck is supple with full range of motion and non-tender. There are no carotid bruits. There is no neck vein distension. Respiratory: Chest is non-tender. Lungs are clear to auscultation and breath sounds are symmetrical and equal. Cardiovascular: Hear is regular rate and rhythm at about 60 or 70 bpm. There is no murmur or rub auscultated. There is no peripheral edema and pulses are symmetrical and equal. Abdomen: The abdomen is obese, sofe and non-tender. There are normal bowel sounds heard in all four quadrants and there is no organomegaly palpated. Musculoskeletal: There is no back pain noted. Extremities are non-tender with full range of motion. There is good capillary refill. There is no peripheral edema or calf tenderness elicited. Neurological: Patient is alert and oriented to person, place and time. The patient has symmetrical motor strength in all four extremities. Cranial nerves are grossly intact. Deep tendon reflexes are symmetrical and equal in all four extremities. Psychiatric: The patient has an appropriate affect. Pt exhibits slight anxiety. Triage Information Reviewed: Yes Vital Signs On Initial Exam: Initial Vitals Temp Pulse Resp BP Pulse Ox 98.3 F 72 20 159/107 100 07/27/16 12:28 07/27/16 12:28 07/27/16 12:28 07/27/16 12:28 07/27/16 12:28 Vital Signs Reviewed: Yes - Lake Coma Scale Coma Scale Total: 15 Diagnostics - Vital Signs Vital Signs Temp Pulse Resp BP Pulse Ox 07/27/16 13:01 98.7 F 62 18 151/88 100 07/27/16 12:28 98.3 F 72 20 159/107 100 - Laboratory Lab Statement: Any lab studies that have been ordered have been reviewed, and results considered in the medical decision making process. Re-Evaluation - Re-Evaluation First Eval Re-Evaluation Time: 14:00 Hypertension Course/Dx - Course Course Of Treatment: Will switch the pt from Metroplol to Losartan and have her fu with PCP. - Diagnoses Provider Diagnoses: Chronic hypertension, Adverse reaction to metoprolol Provider Diagnoses: (Ruled Out): - Physician Notifications Discussed Care Of Patient With: Dr Jenkins (Pt PCP) @ 1340 and he recommends Losartan 50 mg daily. pt is to stop metoprolol. pt was given the first dose in the ED. Discharge - Discharge Plan Condition: Stable Disposition: HOME Prescriptions: Losartan TAB* [Cozaar TAB*] 50 mg PO DAILY #30 tab Patient Education Materials: Losartan (By mouth), Chronic Hypertension (ED) Referrals: Pedrito Jenkins MD [Primary Care Provider] - The documentation as recorded by the Belle pringle Alok accurately reflects the service I personally performed and the decisions made by , Luis Carlos Barron MD.
== END 2016-07-27 14:11 | disposition home or self-care (01) ==
LOC: ED 12:22
DX: I10 Essential (primary) hypertension (principal); T44.7X5A Adverse effect of beta-adrenoreceptor antagonists, initial encounter; Y92.9 Unspecified place or not applicable; F17.210 Nicotine dependence, cigarettes, uncomplicated
CPT/HCPCS: 99282; A9270-GY

== ENCOUNTER 2016-08-07 15:54 | Emergency (ER) | payer OTHER ==
[2016-08-07] MEDS ORDERED: NS 0.9% 1000 ML* 1,000 ML IV ONE (19:55)
[2016-08-07] MEDS ORDERED: Acetaminophen TAB* 325 MG PO ONE (20:22)
--- NOTE | 2016-08-07 20:23 | RAD ---
INDICATION: Weakness. COMPARISON: There are no prior studies available for comparison. TECHNIQUE: A portable view of the chest was obtained. FINDINGS: Cardiac and mediastinal contours appear to be within normal limits. The lungs are clear. No pleural effusion is seen. IMPRESSION: NO EVIDENCE FOR ACUTE DISEASE.
[2016-08-07 20:24] LABS: Hematocrit 43 % (35-47); Hemoglobin 14.2 g/dl (12.0-16.0); Mean Corpuscular HGB Conc 33 g/dl (31-36); Mean Corpuscular Hemoglobin 28 pg (27-31); Mean Corpuscular Volume 85 fL (80-97); Mean Platelet Volume 8 um3 (7.4-10.4); Red Blood Count 5.03 10^6/ul (4.0-5.4); Red Cell Distribution Width 14 % (10.5-15); White Blood Count 8.4 10^3/ul (3.5-10.8)
[2016-08-07 20:42] LABS: Anion Gap 8 mmol/L (2-11); BUN/Creatinine Ratio 24.6 (8-20); Blood Urea Nitrogen 17 mg/dL (6-24); CO2 Carbon Dioxide 27 mmol/L (22-32); Chloride 100 mmol/L (101-111); EGFR Non-African American 97.4 (>60); Glucose 90 mg/dL (70-100); Potassium 3.8 mmol/L (3.5-5.0); Sodium 135 mmol/L (133-145)
[2016-08-07 20:43] LABS: ALT 10 U/L (7-52); AST 14 U/L (13-39); Albumin 4.5 g/dL (3.2-5.2); Alkaline Phosphatase 75 U/L (34-104); EGFR African American 125.3 (>60); Globulin 3.5 g/dL (2-4)
[2016-08-07 21:09] LABS: TSH (Thyroid Stimulating Horm) 0.36 mcIU/mL (0.34-5.60)
[2016-08-07 22:04] LABS: Urine Bacteria Absent (Absent); Urine Bilirubin Negative (Negative); Urine Glucose Negative (Negative); Urine Nitrite Negative (Negative)
[2016-08-07 22:26] VITALS: BP 132/85
--- NOTE | 2016-08-10 20:52 | ED ---
I, Oh,Sosolomon, scribed for Martina Bullard MD on 08/07/16 at 1945 . Dizziness - HPI Summary HPI Summary: This 36 y/o female presents to ED for lightheaded dizziness since 1400 PM. Pt was shopping at [employer] at time of onset. Positive near syncope, dyspnea, palpitation, and nausea. Negative vomiting, fever, or chills. Lying down did not make dizziness better. PMHx include HTN with hx of med change. Pt states that it feels similar to dizziness she experienced when she was on metoprolol as her old hypertension medications. . Pt denies any likelihood of . - History Of Current Complaint Chief Complaint: EDDizziness Stated Complaint: HEADACHE/PALPITATION/DIZZY Time Seen by Provider: 08/07/16 17:45 Hx Obtained From: Patient Onset/Duration: Still Present Timing: Constant Severity Initially: Moderate Severity Currently: Moderate Character: Lightheaded Aggravating Factor(s): Nothing Alleviating Factor(s): Nothing Associated Signs And Symptoms: Positive: Nausea, Palpitations. Negative: Vomiting, Chest Pain, Fever - Allergies/Home Medications Allergies/Adverse Reactions: Allergies Allergy/AdvReac Type Severity Reaction Status Date / Time Amlodipine Allergy Swelling Verified 07/27/16 12:57 Of Face,Lips,& Throat Omeprazole [From Prilosec] Allergy Swelling Verified 07/27/16 12:57 Of Face,Lips,& Throat PMH/Surg Hx/FS Hx/Imm Hx Endocrine/Hematology History: Denies: Hx Diabetes, Hx Thyroid Disease Cardiovascular History: Reports: Hx Hypertension Denies: Hx Pacemaker/ICD Respiratory History: Denies: Hx Asthma GI History: Reports: Hx Gastroesophageal Reflux Disease - on occassion History: Denies: Hx Renal Disease Musculoskeletal History: Reports: Other Musculoskeletal History - had L knee surgery in past: ACL and medial meniscus tear awaiting surgery Sensory History: Denies: Hx Contacts or Glasses, Hx Hearing Aid Opthamlomology History: Denies: Hx Contacts or Glasses Neurological History: Denies: Hx Migraine Psychiatric History: Reports: Hx Anxiety, Hx Depression Denies: Hx Panic Disorder, Other Psychiatric Issues/Disorders - Surgical History Surgery Procedure, Year, and Place: LEFT KNEE DISLOCATED/GANGLION CYST 2012. WRIST LEFT VERTICAL TEAR/GANGLION CYCT 2015. LEFT knee meniscus repair June Hx Anesthesia Reactions: No Infectious Disease History: No Infectious Disease History: Denies: Traveled Outside the US in Last 30 Days - Family History Known Family History: Positive: Cardiac Disease - [place] - mother, at 40s. - Social History Alcohol Use: Rare Alcohol Amount: socially Hx Substance Use: No Substance Use Type: Reports: Prescribed Hx Tobacco Use: Yes Smoking Status (MU): Light Every Day Tobacco Smoker Type: Cigarettes Amount Used/How Often: 5 cigs Review of Systems Negative: Fever Positive: Palpitations Positive: Nausea. Negative: Vomiting Neurological: Other - Positive for lightheaded dizziness All Other Systems Reviewed And Are Negative: Yes Physical Exam Triage Information Reviewed: Yes Vital Signs On Initial Exam: Initial Vitals Temp Pulse Resp BP Pulse Ox 98.2 F 116 20 135/85 100 08/07/16 15:55 08/07/16 15:55 08/07/16 15:55 08/07/16 15:55 08/07/16 15:55 Vital Signs Reviewed: Yes Appearance: Positive: Well-Appearing, No Pain Distress Skin: Positive: Warm, Skin Color Reflects Adequate Perfusion, Dry Head/Face: Positive: Normal Head/Face Inspection Eyes: Positive: EOMI, CLIFF Neck: Positive: Supple, Nontender Respiratory/Lung Sounds: Positive: Clear to Auscultation, Breath Sounds Present Cardiovascular: Positive: RRR, Pulses are Symmetrical in both Upper and Lower Extremities. Negative: Murmur, Rub, Other - gallops Musculoskeletal: Positive: Strength/ROM Intact Neurological: Positive: Sensory/Motor Intact, Alert, Oriented to Person Place, Time, CN Intact II-III - Lake Coma Scale Coma Scale Total: 15 Diagnostics - Vital Signs Vital Signs Temp Pulse Resp BP Pulse Ox 08/07/16 18:07 97.5 F 102 20 124/94 99 08/07/16 18:05 71 17 100 08/07/16 15:55 98.2 F 116 20 135/85 100 - Laboratory Lab Results: Lab Results 08/07/16 08/07/16 08/07/16 Range/Units 19:45 19:45 21:35 WBC 8.4 (3.5-10.8) 10^3/ul RBC 5.03 (4.0-5.4) 10^6/ul Hgb 14.2 (12.0-16.0) g/dl Hct 43 (35-47) % MCV 85 (80-97) fL MCH 28 (27-31) pg MCHC 33 (31-36) g/dl RDW 14 (10.5-15) % Plt Count 239 (150-450) 10^3/ul MPV 8 (7.4-10.4) um3 Neut % (Auto) 50.2 (38-83) % Lymph % (Auto) 40.6 (25-47) % Sunflower % (Auto) 6.4 (1-9) % Eos % (Auto) 2.4 (0-6) % Baso % (Auto) 0.4 (0-2) % Absolute Neuts (auto) 4.2 (1.5-7.7) 10^3/ul Absolute Lymphs (auto) 3.4 (1.0-4.8) 10^3/ul Absolute Monos (auto) 0.5 (0-0.8) 10^3/ul Absolute Eos (auto) 0.2 (0-0.6) 10^3/ul Absolute Basos (auto) 0 (0-0.2) 10^3/ul Absolute Nucleated RBC 0.02 10^3/ul Nucleated RBC % 0.2 Sodium 135 (133-145) mmol/L Potassium 3.8 (3.5-5.0) mmol/L Chloride 100 L (101-111) mmol/L Carbon Dioxide 27 (22-32) mmol/L Anion Gap 8 (2-11) mmol/L BUN 17 (6-24) mg/dL Creatinine 0.69 (0.51-0.95) mg/dL Est GFR ( Amer) 125.3 (>60) Est GFR (Non-Af Amer) 97.4 (>60) BUN/Creatinine Ratio 24.6 H (8-20) Glucose 90 (70-100) mg/dL Calcium 10.0 (8.6-10.3) mg/dL Magnesium 2.0 (1.9-2.7) mg/dL Total Bilirubin 0.30 (0.2-1.0) mg/dL AST 14 (13-39) U/L ALT 10 (7-52) U/L Alkaline Phosphatase 75 (34-104) U/L Troponin I 0.00 (<0.04) ng/mL Total Protein 8.0 (6.4-8.9) g/dL Albumin 4.5 (3.2-5.2) g/dL Globulin 3.5 (2-4) g/dL Albumin/Globulin Ratio 1.3 (1-3) TSH 0.36 (0.34-5.60) mcIU/mL Beta HCG, Quant < 0.60 mIU/mL Urine Color Straw Urine Appearance Clear Urine pH 6.0 (5-9) Ur Specific [place] 1.010 (1.010-1.030) Urine Protein Negative (Negative) Urine Ketones Negative (Negative) Urine Blood 1+ H (Negative) Urine Nitrate Negative (Negative) Urine Bilirubin Negative (Negative) Urine Urobilinogen Negative (Negative) Ur Leukocyte Esterase Negative (Negative) Urine WBC (Auto) Trace(0-5/hpf) (Absent) Urine RBC (Auto) Absent (Absent) Ur Squamous Epith Cells Present H (Absent) Urine Bacteria Absent (Absent) Urine Glucose Negative (Negative) Result Diagrams: 08/07/16 19:45 08/07/16 19:45 Lab Statement: Any lab studies that have been ordered have been reviewed, and results considered in the medical decision making process. - Radiology CXR Radiology Interpretation Completed By: Radiologist - EKG 1603 Cardiac Rate: NL - 82 bpm EKG Rhythm: Sinus Rhythm 2015 Cardiac Rate: NL - 67 bpm EKG Rhythm: Sinus Rhythm Re-Evaluation - Re-Evaluation First Eval Re-Evaluation Time: 21:47 Comment: in room to update pt on bloodwork results. Plan of care involving discharge and outpatient f/u with primary care provider is discussed. Dizzy Course/Dx - Course Course Of Treatment: pt feels much better after fluids, normal neuro exam, symptoms seem very tied to near syncope as opposed to vertigo. Upon questioning pt admits to a big change in her diet eating healthy but much less despite the fact that she is still breast feeding her toddler and that today was hot out. Pt agrees to eat a bit more but will continue to eat healthy - Diagnoses Provider Diagnoses: Dizziness Discharge - Discharge Plan Condition: Stable Disposition: HOME Patient Education Materials: Dizziness (ED) Referrals: Pedrito Jenkins MD [Primary Care Provider] - 2 Days The documentation as recorded by the Rudolph pringle Soohyun accurately reflects the service I personally performed and the decisions made by me, Martina Bullard MD.
== END 2016-08-07 22:25 | disposition home or self-care (01) ==
LOC: ED 15:54
DX: R42 Dizziness and giddiness (principal); R11.0 Nausea; R00.2 Palpitations; F17.210 Nicotine dependence, cigarettes, uncomplicated
CPT/HCPCS: 36415; 71010; 80053; 81003; 81015; 83735; 84443; 84484; 84702; 85025; 93005; 99283; A9270-GY

== ENCOUNTER 2016-09-26 21:07 | Emergency (ER) | payer OTHER ==
[2016-09-26] MEDS ORDERED: NS 0.9% 1000 ML* 1,000 ML IV ONE (21:51)
[2016-09-26 22:08] LABS: Hematocrit 39 % (35-47); Hemoglobin 13.3 g/dl (12.0-16.0); Mean Corpuscular HGB Conc 34 g/dl (31-36); Mean Corpuscular Hemoglobin 29 pg (27-31); Mean Corpuscular Volume 85 fL (80-97); Mean Platelet Volume 8 um3 (7.4-10.4); Red Blood Count 4.63 10^6/ul (4.0-5.4); Red Cell Distribution Width 14 % (10.5-15); White Blood Count 7.4 10^3/ul (3.5-10.8)
[2016-09-26 22:19] LABS: ALT 11 U/L (7-52); Albumin 4.1 g/dL (3.2-5.2); Alkaline Phosphatase 76 U/L (34-104); BUN/Creatinine Ratio 23.9 (8-20); Blood Urea Nitrogen 16 mg/dL (6-24); CO2 Carbon Dioxide 24 mmol/L (22-32); Calcium 9.4 mg/dL (8.6-10.3); Chloride 107 mmol/L (101-111); EGFR African American 129.6 (>60); EGFR Non-African American 100.8 (>60); Glucose 99 mg/dL (70-100); Magnesium 1.8 mg/dL (1.9-2.7); Sodium 140 mmol/L (133-145); Total Protein 7.1 g/dL (6.4-8.9)
[2016-09-26 22:51] LABS: AST 16 U/L (13-39); Anion Gap 9 mmol/L (2-11); Potassium 3.4 mmol/L (3.5-5.0)
[2016-09-26] MEDS ORDERED: Potassium Chlor TAB* 20 MEQ TAB.ER PO ONE (22:52)
[2016-09-26 22:57] LABS: TSH (Thyroid Stimulating Horm) 0.63 mcIU/mL (0.34-5.60)
[2016-09-26 23:05] VITALS: BP 116/83
--- NOTE | 2016-09-27 11:01 | ED ---
Jennifer Felix Edward, scribed for Tl Márquez MD on 09/26/16 at 2133 . Palpitations / Dysrhythmia - HPI Summary HPI Summary: 36 y/o female presents to ED with palpitations and tachycardia. Patient stated that she felt palpitations and her "heart pounding out of her chest" while cleaning her house a little over an hour ago. Patient found her HR to be 177, measured at home. Patient's heart rate calmed down [address] drive to the ED, and in ED, she states she feels much better. Assoc sx: ROGERS at noon earlier today (took an aspirin). Denies CP, SOB, weakness in arms and recent travel. Patient states her home is warm. - History of Current Complaint Chief Complaint: EDDysrhythmPalp Time Seen by Provider: 09/26/16 21:21 Hx Obtained From: Patient Onset/Duration: Sudden Onset - A little over an hour ago, Resolved - Calmed down [address] to ED Character: Fast - HR 177 (measured at home), Pounding - "Pounding out of chest" Aggravating: Exertion - Cleaning home - mopping, sweeping Associated Signs & Symptoms: Negative - Allergy/Home Medications Allergies/Adverse Reactions: Allergies Allergy/AdvReac Type Severity Reaction Status Date / Time Amlodipine Allergy Swelling Verified 09/26/16 22:06 Of Face,Lips,& Throat Omeprazole [From Prilosec] Allergy Swelling Verified 09/26/16 22:06 Of Face,Lips,& Throat Home Medications: Home Medications NK [No Home Medications Reported] 09/26/16 [History Confirmed 09/26/16] PMH/Surg Hx/FS Hx/Imm Hx Previously Healthy: No Endocrine/Hematology History: Denies: Hx Diabetes, Hx Thyroid Disease Cardiovascular History: Reports: Hx Hypertension - CONTROLLED W/MEDS Denies: Hx Pacemaker/ICD Respiratory History: Denies: Hx Asthma GI History: Reports: Hx Gastroesophageal Reflux Disease - on occassion History: Denies: Hx Renal Disease Musculoskeletal History: Reports: Other Musculoskeletal History - had L knee surgery in past: ACL and medial meniscus tear awaiting surgery Sensory History: Denies: Hx Contacts or Glasses, Hx Hearing Aid Opthamlomology History: Denies: Hx Contacts or Glasses Neurological History: Denies: Hx Migraine Psychiatric History: Reports: Hx Anxiety, Hx Depression Denies: Hx Panic Disorder, Other Psychiatric Issues/Disorders - Surgical History Surgery Procedure, Year, and Place: LEFT KNEE DISLOCATED/GANGLION CYST 2012. WRIST LEFT VERTICAL TEAR/GANGLION CYCT 2015. LEFT knee meniscus repair June Hx Anesthesia Reactions: No Infectious Disease History: Denies: Traveled Outside the US in Last 30 Days - Family History Known Family History: Positive: Cardiac Disease - [place] - mother, at 40s. - Social History Occupation: Unemployed - OTHER Lives: With Family Alcohol Use: Rare Alcohol Amount: socially Hx Substance Use: Yes Substance Use Type: Reports: Prescribed Hx Tobacco Use: Yes Smoking Status (MU): Light Every Day Tobacco Smoker Type: Cigarettes Amount Used/How Often: 5 cigs Review of Systems Constitutional: Negative Eyes: Negative ENT: Negative Positive: Palpitations - Heart "pounding out of chest". Negative: Chest Pain Respiratory: Negative Negative: Shortness Of Breath Gastrointestinal: Negative Genitourinary: Negative Musculoskeletal: Negative Skin: Negative Positive: Headache - earlier in day, hours prior to palpitations. Negative: Weakness Psychological: Normal All Other Systems Reviewed And Are Negative: Yes Physical Exam Triage Information Reviewed: Yes Vital Signs On Initial Exam: Initial Vitals Temp Pulse Resp BP Pulse Ox 97.5 F 106 20 134/92 100 09/26/16 21:11 09/26/16 21:11 09/26/16 21:11 09/26/16 21:11 09/26/16 21:11 Vital Signs Reviewed: Yes Appearance: Positive: Well-Appearing, No Pain Distress Skin: Positive: Warm, Skin Color Reflects Adequate Perfusion, Dry Head/Face: Positive: Normal Head/Face Inspection Eyes: Positive: Normal ENT: Positive: Normal ENT inspection Neck: Positive: Supple, Nontender Respiratory/Lung Sounds: Positive: Clear to Auscultation, Breath Sounds Present Cardiovascular: Positive: Tachycardia Abdomen Description: Positive: Nontender, Soft Bowel Sounds: Positive: Present Musculoskeletal: Positive: Normal Neurological: Positive: Normal Psychiatric: Positive: Normal Diagnostics - Vital Signs Vital Signs Temp Pulse Resp BP Pulse Ox 09/26/16 21:11 97.5 F 106 20 134/92 100 - Laboratory Lab Results: Lab Results 09/26/16 09/26/16 09/26/16 Range/Units 21:55 21:55 21:55 WBC 7.4 (3.5-10.8) 10^3/ul RBC 4.63 (4.0-5.4) 10^6/ul Hgb 13.3 (12.0-16.0) g/dl Hct 39 (35-47) % MCV 85 (80-97) fL MCH 29 (27-31) pg MCHC 34 (31-36) g/dl RDW 14 (10.5-15) % Plt Count 191 (150-450) 10^3/ul MPV 8 (7.4-10.4) um3 Neut % (Auto) 43.7 (38-83) % Lymph % (Auto) 45.6 (25-47) % Wal[place] % (Auto) 6.5 (1-9) % Eos % (Auto) 3.1 (0-6) % Baso % (Auto) 1.1 (0-2) % Absolute Neuts (auto) 3.2 (1.5-7.7) 10^3/ul Absolute Lymphs (auto) 3.4 (1.0-4.8) 10^3/ul Absolute Monos (auto) 0.5 (0-0.8) 10^3/ul Absolute Eos (auto) 0.2 (0-0.6) 10^3/ul Absolute Basos (auto) 0.1 (0-0.2) 10^3/ul Absolute Nucleated RBC 0.01 10^3/ul Nucleated RBC % 0.2 D-Dimer, Quantitative (Less Than 230) ng/mL Sodium 140 (133-145) mmol/L Potassium 3.4 L (3.5-5.0) mmol/L Chloride 107 (101-111) mmol/L Carbon Dioxide 24 (22-32) mmol/L Anion Gap 9 (2-11) mmol/L BUN 16 (6-24) mg/dL Creatinine 0.67 (0.51-0.95) mg/dL Est GFR ( Amer) 129.6 (>60) Est GFR (Non-Af Amer) 100.8 (>60) BUN/Creatinine Ratio 23.9 H (8-20) Glucose 99 (70-100) mg/dL Lactic Acid 0.7 (0.5-2.0) mmol/L Calcium 9.4 (8.6-10.3) mg/dL Magnesium 1.8 L (1.9-2.7) mg/dL Total Bilirubin 0.20 (0.2-1.0) mg/dL AST 16 (13-39) U/L ALT 11 (7-52) U/L Alkaline Phosphatase 76 (34-104) U/L Troponin I 0.00 (<0.04) ng/mL Total Protein 7.1 (6.4-8.9) g/dL Albumin 4.1 (3.2-5.2) g/dL Globulin 3.0 (2-4) g/dL Albumin/Globulin Ratio 1.4 (1-3) TSH 0.63 (0.34-5.60) mcIU/mL Beta HCG, Quant < 0.60 mIU/mL 09/26/16 Range/Units 21:55 WBC (3.5-10.8) 10^3/ul RBC (4.0-5.4) 10^6/ul Hgb (12.0-16.0) g/dl Hct (35-47) % MCV (80-97) fL MCH (27-31) pg MCHC (31-36) g/dl RDW (10.5-15) % Plt Count (150-450) 10^3/ul MPV (7.4-10.4) um3 Neut % (Auto) (38-83) % Lymph % (Auto) (25-47) % [place] % (Auto) (1-9) % Eos % (Auto) (0-6) % Baso % (Auto) (0-2) % Absolute Neuts (auto) (1.5-7.7) 10^3/ul Absolute Lymphs (auto) (1.0-4.8) 10^3/ul Absolute Monos (auto) (0-0.8) 10^3/ul Absolute Eos (auto) (0-0.6) 10^3/ul Absolute Basos (auto) (0-0.2) 10^3/ul Absolute Nucleated RBC 10^3/ul Nucleated RBC % D-Dimer, Quantitative < 200 (Less Than 230) ng/mL Sodium (133-145) mmol/L Potassium (3.5-5.0) mmol/L Chloride (101-111) mmol/L Carbon Dioxide (22-32) mmol/L Anion Gap (2-11) mmol/L BUN (6-24) mg/dL Creatinine (0.51-0.95) mg/dL Est GFR ( Amer) (>60) Est GFR (Non-Af Amer) (>60) BUN/Creatinine Ratio (8-20) Glucose (70-100) mg/dL Lactic Acid (0.5-2.0) mmol/L Calcium (8.6-10.3) mg/dL Magnesium (1.9-2.7) mg/dL Total Bilirubin (0.2-1.0) mg/dL AST (13-39) U/L ALT (7-52) U/L Alkaline Phosphatase (34-104) U/L Troponin I (<0.04) ng/mL Total Protein (6.4-8.9) g/dL Albumin (3.2-5.2) g/dL Globulin (2-4) g/dL Albumin/Globulin Ratio (1-3) TSH (0.34-5.60) mcIU/mL Beta HCG, Quant mIU/mL Result Diagrams: 09/26/16 21:55 09/26/16 21:55 Lab Statement: Any lab studies that have been ordered have been reviewed, and results considered in the medical decision making process. - EKG 1 EKG Interpretation: 21:19 Sinus Tachycardia Course/Dx - Course Course Of Treatment: Yun Orellana felt her heart race and timed it at 177, got worried and came to the ED. She was otherwise asymptomatic. She had been out in the heat without drinking much and was found to be a bit dehydrated and to have a slightly low potassium. She was kept on the monitor, rehydrated and her. k was replaced and she felt fine and had no dysrythmia. I encouraged hydration, lots of fruits and vegetables and return for any recurrence. - Diagnoses Provider Diagnoses: Palpitations, Dehydration, Hypokalemia Discharge - Discharge Plan Condition: Stable Disposition: HOME Patient Education Materials: Palpitations (ED), Dehydration (ED), Hypokalemia ( ED) Referrals: Pedrito Jenkins MD [Primary Care Provider] - 3 Days (Please follow up in 2-3 days) The documentation as recorded by the Jennifer pringle Edward accurately reflects the service I personally performed and the decisions made by me, Tl Márquez MD.
== END 2016-09-26 23:06 | disposition home or self-care (01) ==
LOC: ED 21:07
DX: R00.2 Palpitations (principal); E87.6 Hypokalemia; E86.0 Dehydration; Z32.02 Encounter for pregnancy test, result negative; I10 Essential (primary) hypertension; K21.9 Gastro-esophageal reflux disease without esophagitis; Z88.8 Allergy status to other drugs, medicaments and biological substances; F17.210 Nicotine dependence, cigarettes, uncomplicated
CPT/HCPCS: 36415; 80053; 83605; 83735; 84443; 84484; 84702; 85025; 85379; 93005; 96360; 99284; A9270-GY

== ENCOUNTER 2016-10-08 22:00 | Emergency (ER) | payer OTHER ==
[2016-10-08] MEDS ORDERED: NS 0.9% 1000 ML* 1,000 ML IV ONE (22:45)
--- NOTE | 2016-10-08 22:46 | ED ---
Jennifer Felix Edward, scribed for Sukhdev Mckeon MD on 10/08/16 at 2214 . Palpitations / Dysrhythmia - HPI Summary HPI Summary: 36 y/o female presents to ED c/o palpitations throughout the day. Patient states she usually only has 1-2 episodes per day. PMHx palpitations, heart murmurs and HTN (medication-controlled). - History of Current Complaint Chief Complaint: EDDysrhythmPalp Time Seen by Provider: 10/08/16 22:12 Hx Obtained From: Patient Onset/Duration: Lasting Days - All day long Timing: Constant Related History: Similar Episode/Dx as - Usually only has one or two episodes of palpitations per day - Allergy/Home Medications Allergies/Adverse Reactions: Allergies Allergy/AdvReac Type Severity Reaction Status Date / Time Amlodipine Allergy Swelling Verified 09/26/16 22:06 Of Face,Lips,& Throat Omeprazole [From Prilosec] Allergy Swelling Verified 09/26/16 22:06 Of Face,Lips,& Throat PMH/Surg Hx/FS Hx/Imm Hx Previously Healthy: No Endocrine/Hematology History: Denies: Hx Diabetes, Hx Thyroid Disease Cardiovascular History: Reports: Hx Hypertension - CONTROLLED W/MEDS Denies: Hx Pacemaker/ICD Respiratory History: Denies: Hx Asthma GI History: Reports: Hx Gastroesophageal Reflux Disease - on occassion History: Denies: Hx Renal Disease Musculoskeletal History: Reports: Other Musculoskeletal History - had L knee surgery in past: ACL and medial meniscus tear awaiting surgery Sensory History: Denies: Hx Contacts or Glasses, Hx Hearing Aid Opthamlomology History: Denies: Hx Contacts or Glasses Neurological History: Denies: Hx Migraine Psychiatric History: Reports: Hx Anxiety, Hx Depression Denies: Hx Panic Disorder, Other Psychiatric Issues/Disorders - Surgical History Surgery Procedure, Year, and Place: LEFT KNEE DISLOCATED/GANGLION CYST 2013. WRIST LEFT VERTICAL TEAR/GANGLION CYCT 2016. LEFT knee meniscus repair June Hx Anesthesia Reactions: No Infectious Disease History: Denies: Traveled Outside the [place] in Last 30 Days - Family History Known Family History: Positive: Cardiac Disease - [place] - mother, at 40s. - Social History Alcohol Use: Rare Alcohol Amount: socially Hx Substance Use: Yes Substance Use Type: Reports: Prescribed Hx Tobacco Use: Yes Smoking Status (MU): Light Every Day Tobacco Smoker Type: Cigarettes Amount Used/How Often: 5 cigs Review of Systems Constitutional: Negative Eyes: Negative ENT: Negative Positive: Palpitations - "All day long" Respiratory: Negative Gastrointestinal: Negative Genitourinary: Negative Musculoskeletal: Negative Skin: Negative Neurological: Negative Psychological: Normal All Other Systems Reviewed And Are Negative: Yes Physical Exam Triage Information Reviewed: Yes Vital Signs On Initial Exam: Initial Vitals Temp Pulse Resp BP Pulse Ox 98 F 92 20 139/95 99 10/08/16 22:02 10/08/16 22:02 10/08/16 22:02 10/08/16 22:02 10/08/16 22:02 Vital Signs Reviewed: Yes Appearance: Positive: No Pain Distress, Thin Skin: Positive: Warm Head/Face: Positive: Normal Head/Face Inspection Eyes: Positive: CLIFF ENT: Positive: Hearing grossly normal Neck: Positive: Supple Respiratory/Lung Sounds: Positive: Clear to Auscultation, Breath Sounds Present Cardiovascular: Positive: RRR. Negative: Murmur Abdomen Description: Positive: Nontender, Soft Bowel Sounds: Positive: Present Musculoskeletal: Positive: Strength/ROM Intact Neurological: Positive: Alert, Oriented to Person Place, Time Psychiatric: Positive: Affect/Mood Appropriate Diagnostics - Vital Signs Vital Signs Temp Pulse Resp BP Pulse Ox 10/08/16 22:02 98 F 92 20 139/95 99 - Laboratory Result Diagrams: 10/08/16 22:42 10/08/16 22:42 Lab Statement: Any lab studies that have been ordered have been reviewed, and results considered in the medical decision making process. Re-Evaluation - Re-Evaluation First Eval Change: Improved - no ectopy, results d/w pt Course/Dx - Course Assessment/Plan: 36 y/o female presents to ED c/o palpitations throughout the day. Patient states she usually only has 1-2 episodes per day. PMHx palpitations , heart murmurs and HTN (medication-controlled). EKG showed NSR. Patient will be discharged with Palpitations and instructed to follow-up with her PCP in 2-3 days. - Diagnoses Provider Diagnoses: Palpitations Discharge - Discharge Plan Condition: Stable Disposition: HOME Patient Education Materials: Palpitations (ED) Referrals: Pedrito Jenkins MD [Primary Care Provider] - 3 Days (F/U with PCP in 2-3 days please.) The documentation as recorded by the tiaibJennifer amaya Edward accurately reflects the service I personally performed and the decisions made by me, Sukhdev Mckeon MD.
[2016-10-08 22:52] LABS: Hematocrit 37 % (35-47); Hemoglobin 12.6 g/dl (12.0-16.0); Mean Corpuscular HGB Conc 34 g/dl (31-36); Mean Corpuscular Hemoglobin 29 pg (27-31); Mean Corpuscular Volume 87 fL (80-97); Mean Platelet Volume 8 um3 (7.4-10.4); Red Blood Count 4.28 10^6/ul (4.0-5.4); Red Cell Distribution Width 15 % (10.5-15); White Blood Count 8.1 10^3/ul (3.5-10.8)
[2016-10-08 23:18] LABS: ALT 9 U/L (7-52); AST 12 U/L (13-39); Albumin 3.7 g/dL (3.2-5.2); Alkaline Phosphatase 66 U/L (34-104); Anion Gap 5 mmol/L (2-11); Blood Urea Nitrogen 18 mg/dL (6-24); CO2 Carbon Dioxide 25 mmol/L (22-32); Calcium 8.9 mg/dL (8.6-10.3); Chloride 107 mmol/L (101-111); EGFR African American 102.6 (>60); EGFR Non-African American 79.8 (>60); Globulin 2.7 g/dL (2-4); Glucose 88 mg/dL (70-100); Magnesium 1.8 mg/dL (1.9-2.7); Potassium 3.5 mmol/L (3.5-5.0); Sodium 137 mmol/L (133-145); Total Protein 6.4 g/dL (6.4-8.9)
[2016-10-08 23:34] LABS: TSH (Thyroid Stimulating Horm) 0.63 mcIU/mL (0.34-5.60)
[2016-10-09 00:05] VITALS: BP 131/80
== END 2016-10-09 00:05 | disposition home or self-care (01) ==
LOC: ED 22:00
DX: R00.2 Palpitations (principal); Z32.02 Encounter for pregnancy test, result negative; I10 Essential (primary) hypertension; K21.9 Gastro-esophageal reflux disease without esophagitis; F41.9 Anxiety disorder, unspecified; F32.9 Major depressive disorder, single episode, unspecified; Z88.8 Allergy status to other drugs, medicaments and biological substances; F17.210 Nicotine dependence, cigarettes, uncomplicated
CPT/HCPCS: 36415; 80053; 83605; 83735; 84443; 84484; 84702; 85025; 93005; 96360; 99284

== ENCOUNTER 2016-10-10 03:14 | Emergency (ER) | payer OTHER ==
[2016-10-10 05:08] LABS: Magnesium 1.9 mg/dL (1.9-2.7); Potassium 3.4 mmol/L (3.5-5.0)
[2016-10-10] MEDS ORDERED: Potassium Chlor TAB* 20 MEQ TAB.ER PO ONE (05:28)
[2016-10-10] MEDS ORDERED: Magnesium Oxide TAB* 400 MG PO ONE (05:29)
[2016-10-10] MEDS ORDERED: LORazepam TAB(*) 0.5 MG PO ONE (05:34)
--- NOTE | 2016-10-10 05:34 | ED ---
Jennifer Felix Edward, scribed for Martina Bullard MD on 10/10/16 at 0327 . Palpitations / Dysrhythmia - HPI Summary HPI Summary: 36 y/o female presents to ED with palpitations tonight. The palpitations have been going on for 2 days and she notices them more at night. However, the patient says the palpitations are resolved whenever the patient is in the ED. Patient was seen last night in the ED for the same sx. PMHx anxiety. SHx knee surgery, wrist surgery (vertical tear). No HTN, no HLD. FHx patient's mother had a ND at 47 y/o. - History of Current Complaint Chief Complaint: EDDysrhythmPalp Hx Obtained From: Patient Onset/Duration: Lasting Days - 2 days straight, Resolved - Resolved whenever she is in the ED Timing: Constant Character: Fast - Allergy/Home Medications Allergies/Adverse Reactions: Allergies Allergy/AdvReac Type Severity Reaction Status Date / Time Amlodipine Allergy Swelling Verified 09/26/16 22:06 Of Face,Lips,& Throat Omeprazole [From Prilosec] Allergy Swelling Verified 09/26/16 22:06 Of Face,Lips,& Throat PMH/Surg Hx/FS Hx/Imm Hx Previously Healthy: No Endocrine/Hematology History: Denies: Hx Diabetes, Hx Thyroid Disease Cardiovascular History: Reports: Hx Hypertension - CONTROLLED W/MEDS Denies: Hx Pacemaker/ICD Respiratory History: Denies: Hx Asthma GI History: Reports: Hx Gastroesophageal Reflux Disease - on occassion History: Denies: Hx Renal Disease Musculoskeletal History: Reports: Other Musculoskeletal History - had L knee surgery in past: ACL and medial meniscus tear awaiting surgery Sensory History: Denies: Hx Contacts or Glasses, Hx Hearing Aid Opthamlomology History: Denies: Hx Contacts or Glasses Neurological History: Denies: Hx Migraine Psychiatric History: Reports: Hx Anxiety, Hx Depression Denies: Hx Panic Disorder, Other Psychiatric Issues/Disorders - Surgical History Surgery Procedure, Year, and Place: LEFT KNEE DISLOCATED/GANGLION CYST 2012. WRIST LEFT VERTICAL TEAR/GANGLION CYCT 2015. LEFT knee meniscus repair June Hx Anesthesia Reactions: No Infectious Disease History: No Infectious Disease History: Denies: Traveled Outside the [place] in Last 30 Days - Family History Known Family History: Positive: Cardiac Disease - [place] - mother, at 40s. - Social History Lives: With Family - Lives with her children Alcohol Use: Rare Alcohol Amount: socially Hx Substance Use: Yes Substance Use Type: Reports: Prescribed Hx Tobacco Use: Yes Smoking Status (MU): Light Every Day Tobacco Smoker Type: Cigarettes Amount Used/How Often: 5 cigs Review of Systems Constitutional: Negative Eyes: Negative ENT: Negative Positive: Palpitations Respiratory: Negative Gastrointestinal: Negative Genitourinary: Negative Musculoskeletal: Negative Skin: Negative Neurological: Negative Positive: Anxious All Other Systems Reviewed And Are Negative: Yes Physical Exam Triage Information Reviewed: Yes Vital Signs On Initial Exam: Initial Vitals Temp Pulse Resp BP Pulse Ox 98.5 F 89 16 133/92 100 10/10/16 03:22 10/10/16 03:22 10/10/16 03:22 10/10/16 03:22 10/10/16 03:22 Vital Signs Reviewed: Yes Appearance: Positive: Well-Appearing, No Pain Distress Skin: Positive: Warm, Skin Color Reflects Adequate Perfusion, Dry Eyes: Positive: EOMI, CLIFF ENT: Positive: Pharynx normal, TMs normal Neck: Positive: Supple, Nontender Respiratory/Lung Sounds: Positive: Clear to Auscultation, Breath Sounds Present. Negative: Rales, Rhonchi, Wheezes Cardiovascular: Positive: RRR, Other - No gallops. Negative: Murmur, Rub Abdomen Description: Positive: Nontender, Soft, Other: - No rebound. Negative: Distended, Guarding Bowel Sounds: Positive: Present Musculoskeletal: Positive: Strength/ROM Intact. Negative: Edema Left, Edema Right Neurological: Positive: Sensory/Motor Intact, Alert, Oriented to Person Place, Time, CN Intact II-III Psychiatric: Positive: Affect/Mood Appropriate Diagnostics - Vital Signs Vital Signs Temp Pulse Resp BP Pulse Ox 10/10/16 03:22 98.5 F 89 16 133/92 100 - Laboratory Lab Results: Lab Results 10/10/16 Range/Units 04:32 Potassium 3.4 L (3.5-5.0) mmol/L Magnesium 1.9 (1.9-2.7) mg/dL Result Diagrams: 10/10/16 04:32 Lab Statement: Any lab studies that have been ordered have been reviewed, and results considered in the medical decision making process. - Radiology No standard instances Xray Interpretation: No Acute Changes Radiology Interpretation Completed By: ED Physician - EKG 1 EKG Interpretation: 04:00 - Normal, especially when compared to previous EKG () Course/Dx - Course Course Of Treatment: 36 yo female who describes palpitations and anxiety after long discussion the plan is for the pt to get potassium and mag here to replete her borderline low values. She will also be given low dose ativan to help in the short term with her anxiety and then start her on low dose zoloft. Her mom had early cad, she reports a recent normal holter monitor but need an echo/ stress test to feel better about her own situation - Diagnoses Provider Diagnoses: Palpitations, Anxiety Discharge - Discharge Plan Condition: Stable Disposition: HOME Prescriptions: LORazepam TAB(*) [Ativan 0.5 MG TAB (*)] 0.5 mg PO QID PRN #10 tab MDD 2 PRN Reason: Anxiety Potassium Chlor TAB* [Klor Con ER TAB*] 20 meq PO DAILY #7 tab.er Sertraline* [Zoloft*] 25 mg PO BEDTIME #14 tab The documentation as recorded by the Jennifer pringle Edward accurately reflects the service I personally performed and the decisions made by me, Martina Bullard MD.
[2016-10-10 05:55] VITALS: BP 113/73
--- NOTE | 2016-10-10 07:47 | RAD ---
INDICATION: Palpitations COMPARISON: Chest x-ray dated August 07, 2016 TECHNIQUE: Single AP portable view of the chest was obtained. FINDINGS: Image quality is compromised due to the relative inferiority of a portable chest x-ray. The heart and mediastinum exhibit normal size and contour. The lungs are grossly clear. There is no evidence of a large pleural effusion. Visualized bones are normal for the patient's age. IMPRESSION: No radiographic evidence for acute cardiopulmonary abnormality on this portable chest x-ray.
== END 2016-10-10 05:54 | disposition home or self-care (01) ==
LOC: ED 03:14
DX: R00.2 Palpitations (principal); F41.9 Anxiety disorder, unspecified; F17.210 Nicotine dependence, cigarettes, uncomplicated
CPT/HCPCS: 36415; 71010; 83735; 84132; 93005; 99283; A9270-GY

== ENCOUNTER 2016-11-02 23:17 | Emergency (ER) | payer OTHER ==
[2016-11-03 00:47] LABS: Hematocrit 38 % (35-47); Hemoglobin 12.7 g/dl (12.0-16.0); Mean Corpuscular HGB Conc 33 g/dl (31-36); Mean Corpuscular Hemoglobin 29 pg (27-31); Mean Corpuscular Volume 88 fL (80-97); Mean Platelet Volume 8 um3 (7.4-10.4); Red Blood Count 4.36 10^6/ul (4.0-5.4); Red Cell Distribution Width 15 % (10.5-15)
[2016-11-03 01:02] LABS: ALT 9 U/L (7-52); AST 13 U/L (13-39); Albumin 3.8 g/dL (3.2-5.2); Alkaline Phosphatase 74 U/L (34-104); Anion Gap 5 mmol/L (2-11); BUN/Creatinine Ratio 21.3 (8-20); Blood Urea Nitrogen 13 mg/dL (6-24); CO2 Carbon Dioxide 24 mmol/L (22-32); Calcium 8.9 mg/dL (8.6-10.3); Chloride 105 mmol/L (101-111); EGFR African American 144.4 (>60); EGFR Non-African American 112.3 (>60); Globulin 2.8 g/dL (2-4); Glucose 83 mg/dL (70-100); Potassium 3.9 mmol/L (3.5-5.0); Sodium 134 mmol/L (133-145); Total Protein 6.6 g/dL (6.4-8.9)
[2016-11-03 01:24] LABS: TSH (Thyroid Stimulating Horm) 0.99 mcIU/mL (0.34-5.60)
[2016-11-03 02:27] VITALS: BP 115/74
--- NOTE | 2016-11-03 02:35 | ED ---
leatha Felix Timothy, scribed for Alok Coulter on 11/02/16 at 2352 . HPI Chest Pain - HPI Summary HPI Summary: Yun Orellana is a 36 yo female presenting to [facility] with 3/10 intermittent CP lasting seconds for the past 2 days. Pt states she was told she has mitral prolapse and a heart murmur. She has an EKG scheduled for a few weeks from now. Her MHx includes , delivered at 33 and 35 weeks, HTN, heart murmur, GERD, depression, anxiety, substance use, tobacco use. - History of Current Complaint Chief Complaint: EDChestPainROMI Time Seen by Provider: 11/02/16 23:48 Hx Obtained From: Patient Onset/Duration: Started Days Ago, Still Present Timing: Intermittent, Lasting Seconds Initial Severity: Moderate Current Severity: Moderate Pain Intensity: 3 Pain Scale Used: 0-10 Numeric Chest Pain Location: Diffuse Chest Pain Radiates: Yes Chest Pain Radiates To:: Back, Arm - right Associated Signs and Symptoms: Positive: Chest Pain - Allergy/Home Medications Allergies/Adverse Reactions: Allergies Allergy/AdvReac Type Severity Reaction Status Date / Time Amlodipine Allergy Swelling Verified 11/02/16 23:27 Of Face,Lips,& Throat Omeprazole [From Prilosec] Allergy Swelling Verified 11/02/16 23:27 Of Face,Lips,& Throat PMH/Surg Hx/FS Hx/Imm Hx Endocrine/Hematology History: Denies: Hx Diabetes, Hx Thyroid Disease Cardiovascular History: Reports: Hx Hypertension - CONTROLLED W/MEDS Denies: Hx Pacemaker/ICD Respiratory History: Denies: Hx Asthma GI History: Reports: Hx Gastroesophageal Reflux Disease - on occassion History: Denies: Hx Renal Disease Musculoskeletal History: Reports: Other Musculoskeletal History - had L knee surgery in past: ACL and medial meniscus tear awaiting surgery Sensory History: Denies: Hx Contacts or Glasses, Hx Hearing Aid Opthamlomology History: Denies: Hx Contacts or Glasses Neurological History: Denies: Hx Migraine Psychiatric History: Reports: Hx Anxiety, Hx Depression Denies: Hx Panic Disorder, Other Psychiatric Issues/Disorders - Surgical History Surgery Procedure, Year, and Place: LEFT KNEE DISLOCATED/GANGLION CYST 2012. WRIST LEFT VERTICAL TEAR/GANGLION CYCT 2015. LEFT knee meniscus repair June Hx Anesthesia Reactions: No Infectious Disease History: No Infectious Disease History: Denies: Traveled Outside the [place] in Last 30 Days - Family History Known Family History: Positive: Cardiac Disease - [place] - mother, at 40s., Hypertension - both parents, Diabetes - Social History Alcohol Use: Rare Alcohol Amount: socially Hx Substance Use: Yes Substance Use Type: Reports: Prescribed Hx Tobacco Use: Yes Smoking Status (MU): Light Every Day Tobacco Smoker Type: Cigarettes Amount Used/How Often: 5 cigs Review of Systems Constitutional: Negative Eyes: Negative ENT: Negative Positive: Chest Pain Respiratory: Negative Gastrointestinal: Negative Genitourinary: Negative Musculoskeletal: Negative Skin: Negative Neurological: Negative Psychological: Normal All Other Systems Reviewed And Are Negative: Yes Physical Exam Triage Information Reviewed: Yes Vital Signs On Initial Exam: Initial Vitals Temp Pulse Resp BP Pulse Ox 98.1 F 74 16 130/84 99 11/02/16 23:27 11/02/16 23:27 11/02/16 23:27 11/02/16 23:27 11/02/16 23:27 Vital Signs Reviewed: Yes Appearance: Positive: Well-Appearing, No Pain Distress, Well-Nourished Skin: Positive: Warm, Skin Color Reflects Adequate Perfusion, Dry Head/Face: Positive: Normal Head/Face Inspection Eyes: Positive: EOMI, CLIFF ENT: Positive: Normal ENT inspection, Hearing grossly normal. Negative: Muffled /hoarse voice Neck: Positive: Supple, Nontender Respiratory/Lung Sounds: Positive: Clear to Auscultation, Breath Sounds Present Cardiovascular: Positive: RRR, Pulses are Symmetrical in both Upper and Lower Extremities, Murmur Abdomen Description: Positive: Nontender, Soft Bowel Sounds: Positive: Present Musculoskeletal: Positive: Normal, Strength/ROM Intact Neurological: Positive: Normal, Sensory/Motor Intact, Alert, Oriented to Person Place, Time Psychiatric: Positive: Normal, Affect/Mood Appropriate Diagnostics - Vital Signs Vital Signs Temp Pulse Resp BP Pulse Ox 11/02/16 23:30 98.1 F 74 16 130/84 99 11/02/16 23:27 98.1 F 74 16 130/84 99 - Laboratory Result Diagrams: 11/03/16 00:35 11/03/16 00:35 Lab Statement: Any lab studies that have been ordered have been reviewed, and results considered in the medical decision making process. - Radiology CXR Xray Interpretation: No Acute Changes - No active cardiopulmonary disease Radiology Interpretation Completed By: ED Physician - EKG 9323 Cardiac Rate: NL - 70 BPM EKG Interpretation: NSR @ 70 BPM, no acute changes Chest Pain Course/Dx - Course Assessment/Plan: Yun Orellana is a 36 yo female presenting to [facility] with 3/10 intermittent CP lasting 3-4 seconds, radiating to her back and right arm for the past 2 days. Pt medication list reviewed this visit. Her EKG suggests NSR with no acute changes. Her CXR suggests no active cardiopulmonary disease. After clinical examination and review of her lab and imaging studies, she will be discharged home with atypical chest pain with appropriate instructions and follow up. - Chest Pain Differential Diagnosis/HQI/PQRI: Other: - chest pain - Diagnoses Provider Diagnoses: Atypical chest pain Discharge - Discharge Plan Condition: Stable Disposition: HOME Patient Education Materials: Chest Pain (ED) Referrals: Pedrito Jenkins MD [Primary Care Provider] - 2 Days Additional Instructions: Please follow up with your primary care physician regarding your visit to the emergency department today. Return to the emergency department with any new or recurring symptoms. The documentation as recorded by the leatha pringle Timothy accurately reflects the service I personally performed and the decisions made by , Alok Coulter.
--- NOTE | 2016-11-03 07:37 | RAD ---
INDICATION: Chest pain. COMPARISON: Comparison is made with prior study from October 10, 2016. TECHNIQUE: A portable view of the chest was obtained. FINDINGS: Cardiac and mediastinal contours appear to be within normal limits. The lungs are clear. No pleural effusion is seen. IMPRESSION: NO EVIDENCE FOR ACUTE DISEASE.
== END 2016-11-03 02:29 | disposition home or self-care (01) ==
LOC: ED 23:17
DX: R07.89 Other chest pain (principal); F17.210 Nicotine dependence, cigarettes, uncomplicated
CPT/HCPCS: 36415; 71010; 80053; 83036; 83880; 84443; 84484; 84702; 85025; 85379; 85610; 85730; 93005; 99282

== ENCOUNTER 2016-11-27 20:54 | Emergency (ER) | payer OTHER ==
--- NOTE | 2016-11-27 21:46 | ED ---
I, Oh,Mendy, scribed for Sukhdev Mckeon MD on 11/27/16 at 2130 . Palpitations / Dysrhythmia - HPI Summary HPI Summary: This 36 y/o female presents to ED for acute onset of racing palpitation and chest tightness since an hour ago. Positive anxiety. Pt states that she was very busy today. Pt is currently following up with a clinical pharmacologist and recently had echocardiogram done 3 days ago. PMHx includes HTN and known anxiety with palpitations. - History of Current Complaint Chief Complaint: EDDysrhythmPalp Time Seen by Provider: 11/27/16 21:21 Hx Obtained From: Patient, Medical Records Onset/Duration: Sudden Onset Character: Fast Aggravating: Nothing Alleviating: Nothing Associated Signs & Symptoms: Chest Pain - chest tightness - Allergy/Home Medications Allergies/Adverse Reactions: Allergies Allergy/AdvReac Type Severity Reaction Status Date / Time Amlodipine Allergy Swelling Verified 11/02/16 23:27 Of Face,Lips,& Throat PMH/Surg Hx/FS Hx/Imm Hx Endocrine/Hematology History: Denies: Hx Diabetes, Hx Thyroid Disease Cardiovascular History: Reports: Hx Hypertension - CONTROLLED W/MEDS Denies: Hx Pacemaker/ICD Respiratory History: Denies: Hx Asthma GI History: Reports: Hx Gastroesophageal Reflux Disease - on occassion History: Denies: Hx Renal Disease Musculoskeletal History: Reports: Other Musculoskeletal History - had L knee surgery in past: ACL and medial meniscus tear awaiting surgery Sensory History: Denies: Hx Contacts or Glasses, Hx Hearing Aid Opthamlomology History: Denies: Hx Contacts or Glasses Neurological History: Denies: Hx Migraine Psychiatric History: Reports: Hx Anxiety, Hx Depression Denies: Hx Panic Disorder, Other Psychiatric Issues/Disorders - Surgical History Surgery Procedure, Year, and Place: LEFT KNEE DISLOCATED/GANGLION CYST 2013. WRIST LEFT VERTICAL TEAR/GANGLION CYCT 2016. LEFT knee meniscus repair June Hx Anesthesia Reactions: No Infectious Disease History: No Infectious Disease History: Denies: Traveled Outside the [place] in Last 30 Days - Family History Known Family History: Positive: Cardiac Disease - [place] - mother, at 40s., Hypertension - both parents, Diabetes - Social History Alcohol Use: Rare Alcohol Amount: socially Hx Substance Use: Yes Substance Use Type: Reports: Prescribed Hx Tobacco Use: Yes Smoking Status (MU): Light Every Day Tobacco Smoker Type: Cigarettes Amount Used/How Often: 5 cigs Review of Systems Negative: Fever Positive: Palpitations - racing, Chest Pain Positive: Anxious All Other Systems Reviewed And Are Negative: Yes Physical Exam Triage Information Reviewed: Yes Vital Signs On Initial Exam: Initial Vitals Temp Pulse Resp BP Pulse Ox 98.1 F 121 16 134/91 99 11/27/16 20:57 11/27/16 20:57 11/27/16 20:57 11/27/16 20:57 11/27/16 20:57 Vital Signs Reviewed: Yes Appearance: Positive: Well-Appearing, No Pain Distress Skin: Positive: Warm Head/Face: Positive: Normal Head/Face Inspection Eyes: Positive: CLIFF ENT: Positive: Hearing grossly normal Neck: Positive: Supple Respiratory/Lung Sounds: Positive: Clear to Auscultation, Breath Sounds Present Cardiovascular: Positive: RRR Abdomen Description: Positive: Nontender, Soft Bowel Sounds: Positive: Present Musculoskeletal: Positive: Strength/ROM Intact Neurological: Positive: Alert, Oriented to Person Place, Time Diagnostics - Vital Signs Vital Signs Temp Pulse Resp BP Pulse Ox 11/27/16 20:57 98.1 F 121 16 134/91 99 - Laboratory Result Diagrams: 11/27/16 22:06 11/27/16 22:06 Lab Statement: Any lab studies that have been ordered have been reviewed, and results considered in the medical decision making process. 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 PMHx is significant for HTN and known anxiety with palpitations. EKG is noted normal. Bloodwork is unremarkable. Pt stays stable throughout ED course. - Diagnoses Provider Diagnoses: Palpitation Discharge - Discharge Plan Condition: Stable Disposition: HOME Patient Education Materials: Palpitations (ED) Referrals: Pedrito Jenkins MD [Primary Care Provider] - 2 Days The documentation as recorded by the Rudolph pringle Soohyun accurately reflects the service I personally performed and the decisions made by me, Sukhdev Mckeon MD.
[2016-11-27 22:19] LABS: Hematocrit 43 % (35-47); Hemoglobin 14.6 g/dl (12.0-16.0); Mean Corpuscular HGB Conc 34 g/dl (31-36); Mean Corpuscular Hemoglobin 29 pg (27-31); Mean Corpuscular Volume 86 fL (80-97); Mean Platelet Volume 8 um3 (7.4-10.4); Red Blood Count 5.05 10^6/ul (4.0-5.4); Red Cell Distribution Width 14 % (10.5-15); White Blood Count 8.9 10^3/ul (3.5-10.8)
[2016-11-27 22:33] LABS: Albumin 4.6 g/dL (3.2-5.2); BUN/Creatinine Ratio 21.1 (8-20); Calcium 9.7 mg/dL (8.6-10.3); EGFR Non-African American 87.1 (>60); Globulin 3.3 g/dL (2-4); Potassium 3.7 mmol/L (3.5-5.0); Total Bilirubin 0.3 mg/dL (0.2-1.0); Total Protein 7.9 g/dL (6.4-8.9)
[2016-11-27 22:59] VITALS: BP 131/76
== END 2016-11-27 22:58 | disposition home or self-care (01) ==
LOC: ED 20:54
DX: R00.2 Palpitations (principal); R07.89 Other chest pain; F41.9 Anxiety disorder, unspecified; I10 Essential (primary) hypertension; K21.9 Gastro-esophageal reflux disease without esophagitis; F17.210 Nicotine dependence, cigarettes, uncomplicated
CPT/HCPCS: 36415; 80053; 83735; 85025; 93005; 99282

== ENCOUNTER 2017-01-11 08:43 | Emergency (ER) | payer OTHER ==
[2017-01-11 09:16] VITALS: BP 125/84
--- NOTE | 2017-01-11 10:06 | UC ---
Skin Complaint HPI - HPI Summary HPI Summary: 36 yo female went on deck to briefly yesterday bent over they laid down on couch and undid her niya took a nap on left side awoke with 6 pruritic insect bites on right hip no pain redness has worsened states she has alway been sensitive to insect bites - History of Current Complaint Chief Complaint: UCSkin Time Seen by Provider: 01/11/17 09:48 Stated Complaint: SKIN ISSUE Hx Obtained From: Patient Hx Last Menstrual Period: 12/21/16 Onset/Duration: Sudden Onset, Lasting Hours Skin Exposure Onset/Duration: Hours Ago Timing: Constant Onset Severity: Mild Current Severity: Mild Pain Intensity: 0 Character: Pruritus, Redness, Raised Aggravating Factor(s): Nothing Alleviating Factor(s): Nothing Associated Signs & Symptoms: Positive: Rash Related History: Insect Bite/Sting - Allergy/Home Medications Allergies/Adverse Reactions: Allergies Allergy/AdvReac Type Severity Reaction Status Date / Time Amlodipine Allergy Swelling Verified 11/02/16 23:27 Of Face,Lips,& Throat Losartan Allergy Hives/Diff. Verified 01/11/17 09:16 Breathing/I tching Review of Systems Constitutional: Negative Skin: Rash Eyes: Negative ENT: Negative Respiratory: Negative Cardiovascular: Negative Gastrointestinal: Negative Genitourinary: Negative Motor: Negative Neurovascular: Negative Musculoskeletal: Negative Neurological: Negative Psychological: Negative Is Patient Immunocompromised?: No All Other Systems Reviewed And Are Negative: Yes PMH/Surg Hx/FS Hx/Imm Hx Previously Healthy: Yes Psychological History: Anxiety - Surgical History Surgical History: Yes Surgery Procedure, Year, and Place: LEFT KNEE DISLOCATED/GANGLION CYST 2012. WRIST LEFT VERTICAL TEAR/GANGLION CYCT 2015. LEFT knee meniscus repair June - Family History Known Family History: Positive: Cardiac Disease - [place] - mother, at 40s., Hypertension - both parents, Diabetes - Social History Alcohol Use: Rare Alcohol Amount: socially Substance Use Type: None Smoking Status (MU): Light Every Day Tobacco Smoker Type: Cigarettes Amount Used/How Often: 5 cigs Household Exposure Type: Cigarettes - Immunization History Most Recent Influenza Vaccination: None Physical Exam Triage Information Reviewed: Yes Appearance: Well-Appearing, No Pain Distress, Well-Nourished Vital Signs: Initial Vital Signs Temp 97.8 F 01/11/17 09:09 Pulse 86 01/11/17 09:09 Resp 20 01/11/17 09:09 BP 125/84 01/11/17 09:09 Pulse Ox 100 01/11/17 09:09 Vital Signs Reviewed: Yes Eyes: Positive: Conjunctiva Clear ENT: Positive: Hearing grossly normal. Negative: Nasal congestion, Nasal drainage, Trismus, Muffled/hoarse voice Neck: Positive: Supple, Nontender Respiratory: Positive: Lungs clear, Normal breath sounds, No respiratory distress Cardiovascular: Positive: RRR, No Murmur Musculoskeletal: Positive: ROM Intact, No Edema Neurological: Positive: Alert Psychological Exam: Normal Skin Exam: Other - see imabe Course/Dx - Diagnoses Provider Diagnoses: local reaction to insect stings Discharge - Discharge Plan Condition: Stable Disposition: HOME Patient Education Materials: Insect Bite or Sting (ED) Referrals: Pedrito Jenkins MD [Primary Care Provider] - If Needed Images Front/Back of Body, Lg ([place]): 1 - red/slightly indurated 2 - red slightly indurated/no vesicle
== END 2017-01-11 10:10 | disposition home or self-care (01) ==
LOC: UCEAST 08:43
DX: T63.481A Toxic effect of venom of other arthropod, accidental (unintentional), initial encounter (principal); F41.9 Anxiety disorder, unspecified; F17.210 Nicotine dependence, cigarettes, uncomplicated; W57.XXXA Bitten or stung by nonvenomous insect and other nonvenomous arthropods, initial encounter; Y92.89 Other specified places as the place of occurrence of the external cause
CPT/HCPCS: 99211; G0463

== ENCOUNTER 2017-01-19 12:10 | Emergency (ER) | payer OTHER ==
[2017-01-19 12:17] VITALS: BP 150/99
== END 2017-01-19 13:11 | disposition left against medical advice (07) ==
LOC: ED 12:10
DX: R42 Dizziness and giddiness (principal); R51 Headache; Z53.21 Procedure and treatment not carried out due to patient leaving prior to being seen by health care provider

== ENCOUNTER 2017-01-19 20:38 | Emergency (ER) | payer OTHER ==
[2017-01-19 23:16] LABS: Hematocrit 40 % (35-47); Hemoglobin 13.7 g/dl (12.0-16.0); Mean Corpuscular HGB Conc 35 g/dl (31-36); Mean Corpuscular Hemoglobin 29 pg (27-31); Mean Corpuscular Volume 85 fL (80-97); Mean Platelet Volume 7 um3 (7.4-10.4); Red Blood Count 4.67 10^6/ul (4.0-5.4); Red Cell Distribution Width 14 % (10.5-15); White Blood Count 6.8 10^3/ul (3.5-10.8)
[2017-01-19 23:32] LABS: ALT 10 U/L (7-52); AST 13 U/L (13-39); Albumin 4.1 g/dL (3.2-5.2); Alkaline Phosphatase 55 U/L (34-104); Anion Gap 7 mmol/L (2-11); BUN/Creatinine Ratio 15.3 (8-20); Blood Urea Nitrogen 11 mg/dL (6-24); CO2 Carbon Dioxide 27 mmol/L (22-32); Calcium 9.3 mg/dL (8.6-10.3); Chloride 102 mmol/L (101-111); EGFR African American 119.2 (>60); EGFR Non-African American 92.7 (>60); Globulin 3.1 g/dL (2-4); Glucose 119 mg/dL (70-100); Potassium 3.8 mmol/L (3.5-5.0); Sodium 136 mmol/L (133-145); Total Protein 7.2 g/dL (6.4-8.9)
[2017-01-20] MEDS ORDERED: Butalb/Acetamin/Caff TAB* 1 TAB PO ONE (01:05)
[2017-01-20 01:20] VITALS: BP 149/87
--- NOTE | 2017-01-20 06:30 | ED ---
Germán Felix Rebecca, scribed for Hamida Coulteruel on 01/19/17 at 2222 . Complex/Multi-Sys Presentation - HPI Summary HPI Summary: Pt is a 36 y/o F who presents to ED c/o ROGERS, generalized weakness and fatigue. Sx have been present for about 4 days, gradually worsening. On triage, pt reported that her pain was not present, ranked 0/10. Pt reports ROGERS to have been located in the bilateral orthodox, facial and frontal regions. Sx aggravated and alleviated by nothing. Additionally c/o mild CP and SOB. Denies fever. Pt report she is on Amoxicillin and has been for 2 days, prescribed by her dentist for a possible dental infection. Is not on oral contraceptives. PMHx anxiety with the pt stating 'I just always feel like there is something wrong with me." - History Of Current Complaint Chief Complaint: EDGeneral Time Seen by Provider: 01/19/17 22:05 Hx Obtained From: Patient Onset/Duration: Still Present Severity Currently: None - On triage Location: Pain At: - ROGERS - bilateral temporal, frontal and facial Aggravating Factor(s): Nothing Alleviating Factor(s): Nothing Associated Signs And Symptoms: Positive: Weakness - Generalized, SOB, Chest Pain - mild, Other - Fatigue - Allergies/Home Medications Allergies/Adverse Reactions: Allergies Allergy/AdvReac Type Severity Reaction Status Date / Time Amlodipine Allergy Swelling Verified 01/19/17 12:17 Of Face,Lips,& Throat Losartan Allergy Hives/Diff. Verified 01/19/17 12:17 Breathing/I tching PMH/Surg Hx/FS Hx/Imm Hx Endocrine/Hematology History: Denies: Hx Diabetes, Hx Thyroid Disease Cardiovascular History: Reports: Hx Hypertension - Is not on medication Denies: Hx Pacemaker/ICD Respiratory History: Denies: Hx Asthma GI History: Reports: Hx Gastroesophageal Reflux Disease - on occassion History: Denies: Hx Renal Disease Musculoskeletal History: Reports: Other Musculoskeletal History - had L knee surgery in past: ACL and medial meniscus tear awaiting surgery Sensory History: Denies: Hx Contacts or Glasses, Hx Hearing Aid Opthamlomology History: Denies: Hx Contacts or Glasses Neurological History: Denies: Hx Migraine Psychiatric History: Reports: Hx Anxiety, Hx Depression Denies: Hx Panic Disorder, Other Psychiatric Issues/Disorders - Surgical History Surgery Procedure, Year, and Place: LEFT KNEE DISLOCATED/GANGLION CYST 2013. WRIST LEFT VERTICAL TEAR/GANGLION CYCT 2016. LEFT knee meniscus repair June Hx Anesthesia Reactions: No Infectious Disease History: No Infectious Disease History: Denies: Traveled Outside the [place] in Last 30 Days - Family History Known Family History: Positive: Cardiac Disease - [place] - mother, at 40s., Hypertension - both parents, Diabetes - Social History Alcohol Use: Rare Alcohol Amount: socially Hx Substance Use: Yes Substance Use Type: Reports: None Hx Tobacco Use: Yes Smoking Status (MU): Light Every Day Tobacco Smoker Type: Cigarettes Amount Used/How Often: 5 cigs Review of Systems Positive: Fatigue. Negative: Fever Positive: Chest Pain - mild Positive: Shortness Of Breath Positive: Headache, Weakness - Generalized All Other Systems Reviewed And Are Negative: Yes Physical Exam - Summary Physical Exam Summary: Appearance: Well appearing, no pain distress Skin: warm, dry, reflects adequate perfusion Head/face: normal Eyes: EOMI, CLIFF ENT: normal Neck: supple, nontender Respiratory: CTA, breath sounds present Cardiovascular: RRR, pulses symmetrical Abdomen: nontender, soft Bowel: present Musculoskeletal: normal, strength/ROM intact Neuro: normal, sensory motor intact, A&Ox3 Triage Information Reviewed: Yes Vital Signs On Initial Exam: Initial Vitals Temp Pulse Resp BP Pulse Ox 97.8 F 88 14 157/107 98 01/19/17 20:42 01/19/17 20:42 01/19/17 20:42 01/19/17 20:42 01/19/17 20:42 Vital Signs Reviewed: Yes - [place] Com[place] Scale Best Eye Response: 4 - Spontaneous Best Motor Response: 6 - Obeys Commands Best Verbal Response: 5 - Oriented [place] Coma Scale Comments: 15 Diagnostics - Vital Signs Vital Signs Temp Pulse Resp BP Pulse Ox 01/19/17 20:42 97.8 F 88 14 157/107 98 - Laboratory Result Diagrams: 01/19/17 23:06 01/19/17 23:06 Lab Statement: Any lab studies that have been ordered have been reviewed, and results considered in the medical decision making process. - Radiology CXR Xray Interpretation: No Acute Changes Radiology Interpretation Completed By: ED Physician - CT Brain CT CT Interpretation: No Acute Changes - No acute brain parenchymal abnormality. No hemorrhage, mass or acute territorial infarct. Clear visualized paranasal sinuses. Visualzied mastoid air cells clear. ED physician reviewed radiology report and agrees. CT Interpretation Completed By: Radiologist - EKG 2233 Cardiac Rate: NL - 73 bpm EKG Rhythm: Sinus Rhythm EKG Interpretation: No acute changes Re-Evaluation - Re-Evaluation First Eval Re-Evaluation Time: 01:05 Comment: Discussed results and D/C plan with the pt. She is feeling improved. Complex Multi-Symp Course/Dx Assessment/Plan: Pt is a 36 y/o F who presents to ED c/o ROGERS, generalized weakness and fatigue for about 4 days, gradually worsening. On triage, pt reported that her pain was not present, ranked 0/10. Pt reports ROGERS to have been located in the bilateral orthodox, facial and frontal regions. Additionally c/o mild CP and SOB. Denies fever. Pt report she is on Amoxicillin and has been for 2 days, prescribed by her dentist for a possible dental infection. Is not on oral contraceptives. PMHx anxiety with the pt stating 'I just always feel like there is something wrong with me." Brain CT and CXR reveal no acute findings. In the ED course, pt was given Fioricet which improved sx. She will be D/C to home with Dx of ROGERS and anxiety with Rx for Fioricet and a follow up with her PCP. She understands and agrees. Allergies noted. Elevated BP noted. - Diagnoses Provider Diagnoses: Headache, Anxiety Discharge - Discharge Plan Condition: Stable Disposition: HOME Prescriptions: Butalb/Acetamin/Caff TAB* [Fioricet TAB*] 1 tab PO TID #15 tab MDD 3 Patient Education Materials: Acute Headache (ED), Anxiety (ED) Referrals: Pedrito Jenkins MD [Primary Care Provider] - 3 Days The documentation as recorded by the Germán pringle Rebecca accurately reflects the service I personally performed and the decisions made by me, Alok Coulter.
--- NOTE | 2017-01-20 08:09 | RAD ---
HISTORY: Chest pain COMPARISONS: November 02, 2016 VIEWS: 4: Frontal dual-energy and lateral views of the chest. FINDINGS: CARDIOMEDIASTINAL SILHOUETTE: The cardiomediastinal silhouette is normal. RAVI: The ravi are normal. PLEURA: The costophrenic angles are sharp. No pleural abnormalities are noted. LUNG PARENCHYMA: The lungs are clear. A density overlying the left lung apex is felt to represent superposition artifact. ABDOMEN: The upper abdomen is clear. There is no subphrenic gas. BONES AND SOFT TISSUES: No bone or soft tissue abnormalities are noted. OTHER: None. IMPRESSION: NO ACTIVE CARDIOPULMONARY DISEASE.
--- NOTE | 2017-01-20 08:13 | RAD ---
HISTORY: Headache, dizziness, weakness COMPARISONS: None TECHNIQUE: Multiple contiguous axial CT scans were obtained of the head without intravenous contrast. FINDINGS: HEMORRHAGE/INFARCT: There is no hemorrhage or acute infarct. MASSES/SHIFT: There is no mass or shift. EXTRA-AXIAL SPACES: There are no extra-axial fluid collections. SULCI AND VENTRICLES: The sulci and ventricles are normal in size and position for the patient's stated age. CEREBRUM: There are no focal parenchymal abnormalities. BRAINSTEM: There are no focal parenchymal abnormalities. CEREBELLUM: There are no focal parenchymal abnormalities. VESSELS: The vessels are grossly normal. PARANASAL SINUSES: The paranasal sinuses are clear. ORBITS: The orbits are unremarkable. BONES AND SOFT TISSUE: No bone or soft tissue abnormalities are noted. OTHER: None IMPRESSION: NO ACUTE INTRACRANIAL PATHOLOGY.
== END 2017-01-20 01:22 | disposition home or self-care (01) ==
LOC: ED 20:38
DX: R51 Headache (principal); R06.02 Shortness of breath; R07.9 Chest pain, unspecified; F17.210 Nicotine dependence, cigarettes, uncomplicated; R53.83 Other fatigue; F41.9 Anxiety disorder, unspecified
CPT/HCPCS: 36415; 70450; 71020; 80053; 84484; 84702; 85025; 93005; 99283; A9270-GY

== ENCOUNTER 2017-01-24 11:06 | Emergency (ER) | payer OTHER ==
[2017-01-24 11:31] VITALS: BP 109/73
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
== END 2017-01-24 12:09 | disposition home or self-care (01) ==
LOC: UCEAST 11:06
DX: T26.02XA Burn of left eyelid and periocular area, initial encounter (principal); X08.8XXA Exposure to other specified smoke, fire and flames, initial encounter; Y92.9 Unspecified place or not applicable; R68.84 Jaw pain
CPT/HCPCS: 99212; G0463

== ENCOUNTER 2017-01-30 00:17 | Emergency (ER) | payer OTHER ==
[2017-01-30 00:21] VITALS: BP 138/97
[2017-01-30] MEDS ORDERED: oxyCODONE/Acetamin 5/325 MG* TAB PO ONE (01:59)
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
== END 2017-01-30 02:17 | disposition home or self-care (01) ==
LOC: ED 00:17
DX: R51 Headache (principal); M54.2 Cervicalgia; I10 Essential (primary) hypertension; K21.9 Gastro-esophageal reflux disease without esophagitis; F41.9 Anxiety disorder, unspecified; F32.9 Major depressive disorder, single episode, unspecified; Z87.891 Personal history of nicotine dependence
CPT/HCPCS: 99282; A9270-GY

== ENCOUNTER 2017-02-02 17:44 | Emergency (ER) | payer OTHER ==
--- NOTE | 2017-02-02 20:48 | RAD ---
Indication: Headaches and blurry vision. CT of the brain was performed without IV contrast. Ventricular structures are midline. No midline shift is noted. The extraction spaces are unremarkable. There is no evidence of intracranial mass or hemorrhage. No other high or low density lesions are identified. When compared to previous exam of January 19, 2017 no significant change is noted. Mastoid air cells and paranasal sinuses are otherwise unremarkable. IMPRESSION: No intracranial mass or hemorrhage is noted.
[2017-02-02] MEDS ORDERED: Ibuprofen TAB* 800 MG PO ONE (21:27)
[2017-02-02 22:10] VITALS: BP 131/86
--- NOTE | 2017-02-03 05:24 | ED ---
Christin Felix Emily, scribed for Alok Coulter on 02/02/17 at 1928 . Headache - HPI Summary HPI Summary: This patient is a 36 year old F presenting to [facility] accompanied by family with a chief complaint of daily temporal headaches that began 2 weeks ago. The patient rates the pain 6/10 in severity. Symptoms aggravated by nothing. Symptoms not alleviated by ibuprofen. Patient reports L peripheral blurriness, neck pain, heavy L eye upon movement of head. Patient denies photophobia and difficulty seeing. PMHx includes anxiety. - History Of Current Complaint Chief Complaint: EDHeadache Stated Complaint: HEADACHE/2 WEEKS, LEFT EYE HEAVINESS Time Seen by Provider: 02/02/17 19:17 Hx Obtained From: Patient Hx Last Menstrual Period: 01/22/17 Onset/Duration: Sudden Onset, Started weeks ago, Still Present Initially Headache Was: Moderate Currently Pain Is: Moderate Timing: Constant, Weeks Location of Headache: Temporal Aggravating Factor: Nothing Allevating Factors: Nothing Associated Signs And Symptoms: Neck Pain, Other (Noted In Comments) - Positive L peripheral blurriness and heavy L eye upon movement of head. Negative photophobia and difficulty seeing - Allergies/Home Medications Allergies/Adverse Reactions: Allergies Allergy/AdvReac Type Severity Reaction Status Date / Time Amlodipine Allergy Swelling Verified 01/30/17 00:22 Of Face,Lips,& Throat Losartan Allergy Hives/Diff. Verified 01/30/17 00:22 Breathing/I tching PMH/Surg Hx/FS Hx/Imm Hx Previously Healthy: No Endocrine/Hematology History: Denies: Hx Diabetes, Hx Thyroid Disease Cardiovascular History: Reports: Hx Hypertension - Is not on medication Denies: Hx Pacemaker/ICD Respiratory History: Denies: Hx Asthma GI History: Reports: Hx Gastroesophageal Reflux Disease - on occassion History: Denies: Hx Renal Disease Musculoskeletal History: Reports: Other Musculoskeletal History - had L knee surgery in past: ACL and medial meniscus tear awaiting surgery Sensory History: Denies: Hx Contacts or Glasses, Hx Hearing Aid Opthamlomology History: Denies: Hx Contacts or Glasses Neurological History: Denies: Hx Migraine Psychiatric History: Reports: Hx Anxiety, Hx Depression Denies: Hx Panic Disorder, Other Psychiatric Issues/Disorders - Surgical History Surgery Procedure, Year, and Place: LEFT KNEE DISLOCATED/GANGLION CYST 2012. WRIST LEFT VERTICAL TEAR/GANGLION CYCT 2016. LEFT knee meniscus repair June Hx Anesthesia Reactions: No Infectious Disease History: No Infectious Disease History: Denies: History Other Infectious Disease, Traveled Outside the [place] in Last 30 Days - Family History Known Family History: Positive: Cardiac Disease - [place] - mother, at 40s., Hypertension - both parents, Diabetes - Social History Lives: Alone Alcohol Use: Occasionally Alcohol Amount: socially Hx Substance Use: Yes Substance Use Type: Reports: None Hx Tobacco Use: Yes Smoking Status (MU): Former Smoker Type: Cigarettes Amount Used/How Often: 5 cigs Review of Systems Positive: Blurred Vision - L peripheral, Other - Positive "heavy L eye". Negative: Photophobia Positive: Other - Positive neck pain Neurological: Other - Negative photophobia Positive: Headache All Other Systems Reviewed And Are Negative: Yes Physical Exam Triage Information Reviewed: Yes Vital Signs On Initial Exam: Initial Vitals Temp Pulse Resp BP Pulse Ox 98.3 F 99 20 143/96 99 02/02/17 17:52 02/02/17 17:52 02/02/17 17:52 02/02/17 17:52 02/02/17 17:52 Vital Signs Reviewed: Yes Appearance: Positive: Well-Appearing, No Pain Distress Skin: Positive: Warm, Skin Color Reflects Adequate Perfusion, Dry Head/Face: Positive: Normal Head/Face Inspection Eyes: Positive: EOMI, CLIFF ENT: Positive: Normal ENT inspection Neck: Positive: Supple, Nontender Respiratory/Lung Sounds: Positive: Clear to Auscultation, Breath Sounds Present Cardiovascular: Positive: RRR, Pulses are Symmetrical in both Upper and Lower Extremities Abdomen Description: Positive: Nontender, Soft Bowel Sounds: Positive: Present Musculoskeletal: Positive: Normal, Strength/ROM Intact Neurological: Positive: Normal, Sensory/Motor Intact, Alert, Oriented to Person Place, Time Diagnostics - Vital Signs Vital Signs Temp Pulse Resp BP Pulse Ox 02/02/17 17:52 98.3 F 99 20 143/96 99 - Laboratory Lab Statement: Any lab studies that have been ordered have been reviewed, and results considered in the medical decision making process. - CT Brain CT Interpretation Completed By: Radiologist - A CT brain read by radiologist reveals no intracranial mass or hemorrhage is noted. ED physician has reviewed this radiology report and agrees. Headache Course/Dx - Course Assessment/Plan: This patient is a 36 year old F presenting to [facility] accompanied by family with a chief complaint of daily temporal headaches that began 2 weeks ago. The patient rates the pain 6/10 in severity. Symptoms aggravated by nothing. Symptoms not alleviated by ibuprofen. Patient reports L peripheral blurriness, neck pain, heavy L eye upon movement of head. Patient denies photophobia and difficulty seeing. PMHx includes anxiety. Physical Exam Findings. Negative exam. Medical Decision Making. A CT brain read by radiologist reveals no intracranial mass or hemorrhage is noted. Patient will be discharged with a prescription for ibuprofen and with follow up from Dr. Hooks (neurology). The patient is agreeable with this plan. - Diagnoses Differential Diagnosis/HQI/PQRI: TIA, Migraine, Sinus Headache, Tension Headache Provider Diagnoses: Headache Discharge - Discharge Plan Condition: Stable Disposition: HOME Prescriptions: Ibuprofen TAB* [Motrin TAB* 600 MG] 600 mg PO Q8H PRN #20 tab MDD 3 PRN Reason: Pain Patient Education Materials: General Headache (ED), Ibuprofen (By mouth) Referrals: Pavithra Hooks MD [Medical Doctor] - 3 Days Pedrito Jenkins MD [Primary Care Provider] - 3 Days Additional Instructions: RETURN TO THE EMERGENCY DEPARTMENT FOR CHANGING OR WORSENING SYMPTOMS. The documentation as recorded by the Christin pringle Emily accurately reflects the service I personally performed and the decisions made by , Alok Coulter.
== END 2017-02-02 22:09 | disposition home or self-care (01) ==
LOC: ED 17:44
DX: R51 Headache (principal); Z87.891 Personal history of nicotine dependence; I10 Essential (primary) hypertension; Z88.8 Allergy status to other drugs, medicaments and biological substances
CPT/HCPCS: 70450; 99282; A9270-GY

== ENCOUNTER 2017-05-06 18:35 | Emergency (ER) | payer OTHER ==
[2017-05-06 20:05] VITALS: BP 0/0
== END 2017-05-06 20:05 | disposition left against medical advice (07) ==
LOC: ED 18:35
DX: R42 Dizziness and giddiness (principal); Z53.21 Procedure and treatment not carried out due to patient leaving prior to being seen by health care provider

== ENCOUNTER 2017-05-06 20:03 | Emergency (ER) | payer OTHER ==
[2017-05-06 20:13] VITALS: BP 125/73
--- NOTE | 2017-05-06 21:00 | UC ---
Throat Pain/Nasal Yevgeniy HPI - HPI Summary HPI Summary: Nasal congestion, heaviness in the chest, fatigue starting 3 days ago. Was exposed to sick partner 7 days ago; subjective fever last night. Denies cough or wheezing. Reports she often has anxiety about her breathing and illness. Children have had nasal congestion and coughing on and off. - History of Current Complaint Chief Complaint: UCRespiratory Stated Complaint: FLU-LIKE SYMPTOMS Time Seen by Provider: 05/06/17 20:34 Hx Obtained From: Patient Hx Last Menstrual Period: 04/11/17 ?: No Onset/Duration: Gradual Onset, Lasting Days Severity: Mild Cough: None Associated Signs & Symptoms: Positive: Nasal Discharge, Fever - not measured, "felt hot" - Allergies/Home Medications Allergies/Adverse Reactions: Allergies Allergy/AdvReac Type Severity Reaction Status Date / Time Amlodipine Allergy Swelling Verified 05/06/17 20:13 Of Face,Lips,& Throat Losartan Allergy Hives/Diff. Verified 05/06/17 20:13 Breathing/I tching PMH/Surg Hx/FS Hx/Imm Hx Previously Healthy: Yes - Surgical History Surgical History: Yes Surgery Procedure, Year, and Place: LEFT KNEE DISLOCATED/GANGLION CYST 2012. WRIST LEFT VERTICAL TEAR/GANGLION CYCT 2015. LEFT knee meniscus repair June - Family History Known Family History: Positive: Cardiac Disease - [place] - mother, at 40s., Hypertension - both parents, Diabetes - Social History Lives: With Family Alcohol Use: Occasionally Alcohol Amount: socially Substance Use Type: None Smoking Status (MU): Light Every Day Tobacco Smoker Type: Cigarettes Amount Used/How Often: 5 cigs Household Exposure Type: Cigarettes - Immunization History Most Recent Influenza Vaccination: None Review of Systems Constitutional: Fatigue Skin: Negative Eyes: Negative ENT: Nasal Discharge Respiratory: Shortness Of Breath Cardiovascular: Negative Gastrointestinal: Negative Genitourinary: Negative Motor: Negative Neurovascular: Negative Musculoskeletal: Negative Neurological: Negative Psychological: Negative Is Patient Immunocompromised?: No All Other Systems Reviewed And Are Negative: Yes Physical Exam Triage Information Reviewed: Yes Appearance: Well-Appearing, No Pain Distress, Well-Nourished Vital Signs: Initial Vital Signs Temp 98.5 F 05/06/17 20:10 Pulse 86 05/06/17 20:10 Resp 18 05/06/17 20:10 BP 125/73 05/06/17 20:10 Pulse Ox 100 05/06/17 20:10 Vital Signs Reviewed: Yes Eye Exam: Normal Eyes: Positive: Conjunctiva Clear ENT: Positive: Pharynx normal, Nasal congestion, TMs normal Dental Exam: Normal Neck exam: Normal Neck: Positive: Supple, Nontender, No Lymphadenopathy Respiratory Exam: Other - no cough noted Respiratory: Positive: Chest non-tender, Lungs clear, Normal breath sounds, No respiratory distress, No accessory muscle use Cardiovascular Exam: Normal Cardiovascular: Positive: RRR, No Murmur Musculoskeletal Exam: Normal Musculoskeletal: Positive: Strength Intact, ROM Intact Neurological Exam: Normal Neurological: Positive: Alert Psychological Exam: Normal Skin Exam: Normal Throat Pain/Nasal Course/Dx - Differential Dx/Diagnosis Provider Diagnoses: URI, likely viral Discharge - Discharge Plan Condition: Stable Disposition: HOME Patient Education Materials: Upper Respiratory Infection (ED) Referrals: Pedrito Jenkins MD [Primary Care Provider] - Additional Instructions: Your symptoms appear viral and should eventually go away on their own. As you fight the illness, it is normal to have many days of symptoms. However, if you have new fevers over 100.5F, trouble breathing, or sudden worsening, please see your primary care provider or return here.
== END 2017-05-06 21:04 | disposition home or self-care (01) ==
LOC: UCEAST 20:03
DX: J06.9 Acute upper respiratory infection, unspecified (principal); F17.210 Nicotine dependence, cigarettes, uncomplicated
CPT/HCPCS: 99211; G0463

== ENCOUNTER 2017-05-10 19:39 | Emergency (ER) | payer OTHER ==
[2017-05-10 20:34] VITALS: BP 124/88
--- NOTE | 2017-05-10 20:41 | UC ---
Respiratory Complaint HPI - HPI Summary HPI Summary: Pt presents with runny nose and body aches for the last 4 days. She developed a dry "annoying" cough that began this morning. She tells me that she was seen her about 4 days ago and was told she had a viral URI and her symptoms would improve. She is quite upset that she was not tested for anything and not given any treatment - per her. She admits that she is a very anxious person in general and has been trying not to "freak out" about all the "stuff on the news about flu outbreaks". She has not taken anything for her symptoms. Denies fever , chills, SOB, chest pain, abdominal pain, n/v/d/c. - History of Current Complaint Chief Complaint: UCRespiratory Stated Complaint: cough Time Seen by Provider: 05/10/17 20:36 Hx Obtained From: Patient Hx Last Menstrual Period: 04/12/17 Onset/Duration: Gradual Onset Timing: Constant Severity Currently: None Pain Intensity: 0 Character: Cough: Nonproductive - Allergies/Home Medications Allergies/Adverse Reactions: Allergies Allergy/AdvReac Type Severity Reaction Status Date / Time Amlodipine Allergy Swelling Verified 05/10/17 20:34 Of Face,Lips,& Throat Losartan Allergy Hives/Diff. Verified 05/10/17 20:34 Breathing/I tching PMH/Surg Hx/FS Hx/Imm Hx Previously Healthy: Yes Psychological History: Anxiety - Surgical History Surgical History: Yes Surgery Procedure, Year, and Place: LEFT KNEE DISLOCATED/GANGLION CYST 2012. WRIST LEFT VERTICAL TEAR/GANGLION CYCT 2015. LEFT knee meniscus repair June - Family History Known Family History: Positive: Cardiac Disease - [place] - mother, at 40s., Hypertension - both parents, Diabetes - Social History Alcohol Use: Occasionally Alcohol Amount: socially Substance Use Type: None Smoking Status (MU): Former Smoker Type: Cigarettes Amount Used/How Often: 5 cigs Household Exposure Type: Cigarettes - Immunization History Most Recent Influenza Vaccination: None Review of Systems Constitutional: Other - Body aches Skin: Negative Eyes: Negative ENT: Negative Respiratory: Cough Cardiovascular: Negative Gastrointestinal: Negative Musculoskeletal: Negative Neurological: Negative Psychological: Negative All Other Systems Reviewed And Are Negative: Yes Physical Exam Triage Information Reviewed: Yes Appearance: Well-Appearing, No Pain Distress, Well-Nourished Vital Signs: Initial Vital Signs Temp 99.4 F 05/10/17 20:31 Pulse 89 05/10/17 20:31 Resp 18 05/10/17 20:31 BP 124/88 05/10/17 20:31 Pulse Ox 100 05/10/17 20:31 Vital Signs Reviewed: Yes Eyes: Positive: Conjunctiva Clear. Negative: Conjunctiva Inflamed, Discharge ENT: Positive: Hearing grossly normal, Pharynx normal, TMs normal, Uvula midline. Negative: Pharyngeal erythema, Nasal congestion, Nasal drainage, TM bulging, TM dull, TM red, Tonsillar swelling, Tonsillar exudate, Hoarse voice, Sinus tenderness Neck: Positive: Supple, Nontender, No Lymphadenopathy Respiratory: Positive: Chest non-tender, Lungs clear, Normal breath sounds, No respiratory distress, No accessory muscle use Cardiovascular: Positive: RRR, No Murmur, Pulses Normal Neurological: Positive: Alert Psychological: Positive: Age Appropriate Behavior Skin: Negative: rashes UC Diagnostic Evaluation - Laboratory O2 Sat by Pulse Oximetry: 100 Respiratory Course/Dx - Course Course Of Treatment: Reference #: [id number] iSTOP ok. POC flu negative. CXR: IMPRESSION: No active cardiopulmonary disease is noted. Suspect viral URI - Differential Dx/Diagnosis Provider Diagnoses: Viral URI Discharge - Discharge Plan Condition: Stable Disposition: HOME Prescriptions: Benzonatate CAP* [Tessalon 100 MG CAP*] 100 mg PO TID PRN #21 cap PRN Reason: Cough Guaifenesin-Codeine [G Tussin AC 100-10 mg/5Ml] 5 ml PO BEDTIME PRN #35 ml MDD 5 mL PRN Reason: Cough Patient Education Materials: Acute Bronchitis (ED) Referrals: Pedrito Jenkins MD [Primary Care Provider] - Additional Instructions: If you develop a fever, shortness of breath, chest pain, new or worsening symptoms - please call your PCP or go to the ED.
--- NOTE | 2017-05-10 21:11 | RAD ---
Indication: Cough. 2 views of the chest including dual energy PA views demonstrate no mediastinal shift. Heart is of normal size and configuration. Lung greenwood are clear. When compared to previous exam dated January 19, 2017 no significant change is noted. IMPRESSION: No active cardiopulmonary disease is noted.
== END 2017-05-10 21:29 | disposition home or self-care (01) ==
LOC: UCEAST 19:39
DX: J06.9 Acute upper respiratory infection, unspecified (principal); Z87.891 Personal history of nicotine dependence; Z88.8 Allergy status to other drugs, medicaments and biological substances
CPT/HCPCS: 71046; 87502; 99212; G0463

== ENCOUNTER 2017-06-07 09:38 | Emergency (ER) | payer OTHER ==
[2017-06-07 09:52] VITALS: BP 127/85
--- NOTE | 2017-06-07 11:14 | UC ---
Yosef Felix Gabriel, scribed for Mary Gómez MD on 06/07/17 at 1017 . Abdominal Pain Female HPI - HPI Summary HPI Summary: This patient is a 37 year old F presenting to [facility] accompanied by her children with a chief complaint of epigastric pain since 06-04-17. The patient rates the pain 4/10 in severity. Symptoms aggravated by eating and lying down. Patient reports ABD bloating, RUQ pain that radiates into her back, irregular BM, trouble urinating, nausea, and GERD. Patient denies sleep disturbance. Pt had a prior UTI 15 years ago. LNMP was 3 weeks ago; she denies any chance of . - History of Current Complaint Chief Complaint: UCAbdominalPain Stated Complaint: ABD PAIN BACK PAIN Time Seen by Provider: 06/07/17 09:53 Hx Obtained From: Patient Hx Last Menstrual Period: 05/13/17 Onset/Duration: Lasting Days, Still Present Timing: Constant Severity Initially: Moderate Severity Currently: Moderate Pain Intensity: 4 Pain Scale Used: 0-10 Numeric Location: Discrete At: RUQ, Epigastric Radiates: Yes Radiates to: Flank Aggravating Factor(s): Food, Other: - lying down Associated Signs and Symptoms: Positive: Negative - sleep disturbance,, Other: - ABD bloating, pain under her right breast that radiates into her back, irregular BM, trouble urinating, nausea, GERD, Allergies/Adverse Reactions: Allergies Allergy/AdvReac Type Severity Reaction Status Date / Time amlodipine Allergy Rash Verified 06/07/17 09:48 losartan Allergy Swelling Verified 06/07/17 09:48 PMH/Surg Hx/FS Hx/Imm Hx Cardiovascular History: Other Other Cardiovascular History: mitral valve prolapse murmur GI/ History: Gastroesophageal Reflux - treated in past with PPI Psychological History: Anxiety - Surgical History Surgical History: Yes Surgery Procedure, Year, and Place: LEFT KNEE DISLOCATED/GANGLION CYST 2012. WRIST LEFT VERTICAL TEAR/GANGLION CYCT 2015. LEFT knee meniscus repair June - Family History Known Family History: Positive: Cardiac Disease - [place] - mother, at 40s., Hypertension - both parents, Diabetes - Social History Lives: With Family Alcohol Use: Occasionally Alcohol Amount: socially Substance Use Type: None Smoking Status (MU): Former Smoker Type: Cigarettes Amount Used/How Often: 5 cigs Household Exposure Type: Cigarettes - Immunization History Most Recent Influenza Vaccination: None Review of Systems Constitutional: Negative - fever Gastrointestinal: Abdominal Pain, Nausea, Other - ABD bloating, irregular BM and GERD Genitourinary: Dysuria All Other Systems Reviewed And Are Negative: Yes Physical Exam Triage Information Reviewed: Yes Appearance: Well-Appearing, Pain Distress - mild Vital Signs: Initial Vital Signs Temp 97.2 F 06/07/17 09:49 Pulse 90 06/07/17 09:49 Resp 16 06/07/17 09:49 BP 127/85 06/07/17 09:49 Pulse Ox 100 06/07/17 09:49 Eyes: Positive: Conjunctiva Clear ENT: Positive: Pharynx normal Neck: Positive: Supple, Nontender, No Lymphadenopathy Respiratory: Positive: Lungs clear, Normal breath sounds Cardiovascular: Positive: RRR, No Murmur Abdomen Description: Positive: Nontender, No Organomegaly, Soft. Negative: Guarding Bowel Sounds: Positive: Present Musculoskeletal: Positive: Strength Intact, ROM Intact Neurological Exam: Normal Skin Exam: Normal Diagnostics - Laboratory Diagnostic Studies Completed/Ordered: trace blood on UA (nearly ready to menstruate) Abd Pain Female Course/Dx - Course Course Of Treatment: Patients medication reviewed during this visit. ranitidine for possible acid reflux. low fat diet. follow up with pmd after labs - Differential Dx/Diagnosis Differential Diagnosis: Gall Bladder Disease, Renal Colic, Urinary Tract Infection Provider Diagnoses: reflux esophagitis. possible gallbladder disease. Discharge - Discharge Plan Condition: Stable Disposition: HOME Prescriptions: Ranitidine TAB (NF) [Zantac TAB (NF)] 300 mg PO DAILY #30 tab Patient Education Materials: Esophagitis (ED), Biliary Colic (ED) Referrals: Pedrito Jnekins MD [Primary Care Provider] - Additional Instructions: Follow up with Dr. Zazueta to review labs and consider further testing. Because of increased reflux, you have been given a prescription for ranitidine. Eat lightly, low fats in your diet, and increase fluids. If the pain becomes severe, please go to the emergency room. The documentation as recorded by the Yosef pringle Gabriel accurately reflects the service I personally performed and the decisions made by me, Mary Gómez MD.
[2017-06-07 16:36] LABS: ABS Basophils 0 10^3/ul (0-0.2); ABS Eosinophils 0.1 10^3/ul (0-0.6); ABS Lymphocytes 2.6 10^3/ul (1.0-4.8); ABS Monocytes 0.6 10^3/ul (0-0.8); ABS Neutrophils 2.7 10^3/ul (1.5-7.7); ABS Nucleated RBC 0 10^3/ul; Eosinophil % 1.6 % (0-6); Hematocrit 40 % (35-47); Hemoglobin 13.7 g/dl (12.0-16.0); Lymphocyte % 43.3 % (25-47); Mean Corpuscular HGB Conc 34 g/dl (31-36); Mean Corpuscular Hemoglobin 29 pg (27-31); Mean Corpuscular Volume 87 fL (80-97); Mean Platelet Volume 8 um3 (7.4-10.4); Nucleated Red Blood Cells % 0.1; Platelet Count 188 10^3/ul (150-450); Red Blood Count 4.64 10^6/ul (4.0-5.4); Red Cell Distribution Width 14 % (10.5-15)
[2017-06-07 16:52] LABS: EGFR Non-African American 96.8 (>60)
== END 2017-06-07 11:41 | disposition home or self-care (01) ==
LOC: UCEAST 09:38
DX: K21.9 Gastro-esophageal reflux disease without esophagitis (principal); Z87.891 Personal history of nicotine dependence
CPT/HCPCS: 36415; 80053; 81003; 85025; 86140; 99212; G0463

== ENCOUNTER 2017-07-15 11:21 | Emergency (ER) | payer OTHER ==
[2017-07-15] MEDS ORDERED: Ketorolac INJ* 60 MG/2 ML VIAL IM ONE (12:26)
--- NOTE | 2017-07-15 12:32 | ED ---
Headache - HPI Summary HPI Summary: Pt here w/ ROGERS x 5 days. Reports this started as muscle tension about her neck and shoulder region and progressed up the back of her head and feels like a band around her forehead. She has tried ibuprofen, naproxen and acetaminophen without relief. No change with position. Today she is starting to have nausea along with the headache but denies vomiting. Denies are, visual change, numbness, tingling, weakness, slurred speech, neck stiffness, fever, chills, URI symptoms. She admits she's had headaches on and off for the past few years - her PCP and neurologist have not identified the source of her headaches. She admits she's under a great deal of stress with 3 small children and 2 teenagers and her sole care as her is incarcerated and has been for the past 3 years. Furthermore, patient reveals she participates in keeping her kids active with sports, clubs, volunteering, etc. She has limited support - her mother helps for about a day at a time occasionally however her mother has her own issues to deal with so as not a consecutively helpful person in her life. She denies head injury and no history of aneurysms of which she is aware. No family history of aneurysm. Mom had a heart attack in her late 40s however patient admits mom abused alcohol, tobacco and crack cocaine. Patient denies chest pain, shortness of breath, dental pain, dyspnea on exertion, fatigue. She admits she has excessive anxiety and is afraid to take medication for this as she had an allergic reaction in the past to losartan and amlodipine. She reports her tongue and lips swelled and she was told she was having allergic reaction. She denies history of angioedema and has used NSAIDs since this episode without lip or tongue swelling. She had tried these medications about a year ago for a brief stent of hypertension - BP has improved since she's made lifestyle changes including but not limited to exercise and weight loss through better nutrition. 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 - 3 children present w/ her today Hx Last Menstrual Period: 05/13/17 - Allergies/Home Medications Allergies/Adverse Reactions: Allergies Allergy/AdvReac Type Severity Reaction Status Date / Time amlodipine Allergy Rash Verified 07/15/17 11:23 losartan Allergy Swelling Verified 07/15/17 11:23 PMH/Surg Hx/FS Hx/Imm Hx Previously Healthy: Yes Endocrine/Hematology History: Denies: Hx Anticoagulant Therapy, Hx Blood Disorders, Hx Diabetes, Hx Thyroid Disease Cardiovascular History: Reports: Hx Hypertension - h/o - controlled w/ lifetsyle changes (weight loss, nutritional changes) Denies: Hx Aneurysm, Hx Myocardial Infarction, Hx Pacemaker/ICD Respiratory History: Denies: Hx Asthma GI History: Reports: Hx Gastroesophageal Reflux Disease - on occassion History: Denies: Hx Renal Disease Musculoskeletal History: Reports: Other Musculoskeletal History - had L knee surgery in past: ACL and medial meniscus tear awaiting surgery Sensory History: Denies: Hx Contacts or Glasses, Hx Hearing Aid Opthamlomology History: Denies: Hx Contacts or Glasses Neurological History: Denies: Hx Migraine Psychiatric History: Reports: Hx Anxiety - untreated - felt "fight or flight" w / sertraline 25mg - reluctant to try , Hx Depression Denies: Hx Panic Disorder, Other Psychiatric Issues/Disorders - Surgical History Surgery Procedure, Year, and Place: LEFT KNEE DISLOCATED/GANGLION CYST 2012. WRIST LEFT VERTICAL TEAR/GANGLION CYCT 2016. LEFT knee meniscus repair June Hx Anesthesia Reactions: No Infectious Disease History: No Infectious Disease History: Denies: History Other Infectious Disease, Traveled Outside the [place] in Last 30 Days - Family History Known Family History: Positive: Cardiac Disease - [place] - mother, at 40s - heavy use of ETOH, tob and crack cocaine, Hypertension - both parents, Diabetes - Social History Occupation: Unemployed - disabled from ACL tear - can't have surgery until is out of long term Lives: With Family - children Alcohol Use: Occasionally Alcohol Amount: socially once a month Hx Substance Use: Yes Substance Use Type: Reports: None Hx Tobacco Use: Yes Smoking Status (MU): Current Some Day Smoker Type: Cigarettes Amount Used/How Often: 3-5 cigs Review of Systems Constitutional: Negative Negative: Fever, Chills, Fatigue Eyes: Negative - no aura Negative: Photophobia, Blurred Vision, Diplopia, Drainage, Erythema ENT: Negative Negative: Epistaxis, Dental Pain, Sore Throat, Ear Ache, Nasal Discharge Cardiovascular: Negative Negative: Palpitations, Chest Pain Respiratory: Negative Negative: Shortness Of Breath, Cough Positive: Nausea - has improved since here. Negative: Abdominal Pain, Vomiting , Diarrhea Positive: no symptoms reported Positive: Arthralgia, Myalgia. Negative: Decreased ROM Skin: Negative Positive: Headache. Negative: Weakness, Paresthesia, Numbness, Syncope, Slurred Speech Positive: Anxious - no SI/HI All Other Systems Reviewed And Are Negative: Yes Physical Exam Triage Information Reviewed: Yes Vital Signs On Initial Exam: Initial Vitals Temp Pulse Resp BP Pulse Ox 97.9 F 83 14 108/71 95 07/15/17 11:23 07/15/17 11:23 07/15/17 11:23 07/15/17 11:23 07/15/17 11:23 Vital Signs Reviewed: Yes Appearance: Positive: Well-Appearing, No Pain Distress, Well-Nourished Skin: Positive: Warm, Skin Color Reflects Adequate Perfusion, Dry Head/Face: Positive: Normal Head/Face Inspection - atraumatic. Negative: TMJ Tenderness Eyes: Positive: Normal, EOMI, CLIFF - no photophobia, Conjunctiva Clear. Negative: Conjunctiva Inflammed, Discharge ENT: Positive: Normal ENT inspection, Hearing grossly normal, Pharynx normal, TMs normal, Uvula midline. Negative: Sinus tenderness Neck: Positive: Supple, No Lymphadenopathy, Tenderness @ - paracervical mm and trapezius mm TTP and hyerptonic, Lt > Rt Respiratory/Lung Sounds: Positive: Clear to Auscultation, Breath Sounds Present Cardiovascular: Positive: RRR, S1, S2. Negative: Rub, Leg Edema Left, Leg Edema Right Abdomen Description: Positive: Soft Bowel Sounds: Positive: Present Musculoskeletal: Positive: Strength/ROM Intact, Pain @ - paracervical muscle tenderness as above. Negative: Limited @ Neurological: Positive: Normal, Sensory/Motor Intact, Alert, Oriented to Person Place, Time, CN Intact II-III, Facial Symmetry, Speech Normal. Negative: Pronator Drift Present Psychiatric: Positive: Anxious - admits she's anxious, hyperverbal, pressured speech however pt is pleasant, cooperative - juggling 3 kids while in room - 1 is a toddler and climbing aroud room - other 2 interrupt her on occasion but she is able to respectfully redirect them. Everyone is well kempt w/ good hygiene. Diagnostics - Vital Signs Vital Signs Temp Pulse Resp BP Pulse Ox 07/15/17 11:23 97.9 F 83 14 108/71 95 - Laboratory Lab Statement: Any lab studies that have been ordered have been reviewed, and results considered in the medical decision making process. Headache Course/Dx - Course Course Of Treatment: Suspect tension ROGERS based on pt's HPI and PE (anxieyt w/ neck/shoulder pain/tension leading to band-like ROGERS). No neuro deficits nor s/sx of hemorrhage, infection, mass, etc. Explained we may try toradol and a muscle relaxer for a couple of nights to help w/ pain and anxiety however she needs to f/u with PCP to report outcomes of treatment (i.e. if helpful, provider may agree to continue some form of anxiety medication/muscle relaxation medication; if not helpful, continue to assist patient with controlling her pain and anxiety - may refer to PT or massage as needed). Currently, she reports her nausea has dissipated since arriving to the hospital and her headache pain is about a 4 out of 10. We did discuss her history of anaphylaxis with losartan and amlodipine - she denies being diagnosed with angioedema and her labs do not reveal testing for this condition. She also admits she's had ibuprofen and Aleve since this episode of allergic reaction and has not had any lip or tongue or face swelling with these NSAIDs. Will trial Toradol IM today and patient will try diazepam tonight. She declined, migraine cocktail and I think this is fine as some of her symptoms have resolved and reduced. Explained danger signs and symptoms of adverse reactions to medications along with worsening of headache, neuro deficits, etc. - she will return to the ED if these present. Pt is happy with care plan. - Diagnoses Provider Diagnoses: Tension headache, Anxiety Discharge - Sign-Out/Discharge Documenting (check all that apply): Discharge - Discharge Plan Condition: Stable Disposition: HOME Prescriptions: Diazepam TAB(*) [Valium TAB(*)] 5 mg PO BEDTIME PRN #5 tab MDD 1 PRN Reason: Pain Ibuprofen TAB* [Motrin TAB* 600 MG] 600 mg PO Q6H PRN #20 tab PRN Reason: Pain Patient Education Materials: Tension Headache (ED), Anxiety (ED) Referrals: Pedrito Jenkins MD [Primary Care Provider] - Additional Instructions: Stay hydrated - avoid caffeine - try heat packs with gentle neck stretches and massage Use medications as directed Follow-up with PCP this week - call tomorrow to schedule an appointment NOTE: Diazepam may make you sleepy - do not drive while taking and do not take with alcohol *If you develop drooping face, slurred speech, change in vision, weakness, numbness, facial swelling, chest pain, shortness of breath or vomiting, return to ED - Billing Disposition and Condition Condition: STABLE Disposition: HOME
[2017-07-15 13:16] VITALS: BP 121/84
== END 2017-07-15 13:12 | disposition home or self-care (01) ==
LOC: ED 11:21
DX: G44.209 Tension-type headache, unspecified, not intractable (principal); I10 Essential (primary) hypertension; F41.9 Anxiety disorder, unspecified; F17.210 Nicotine dependence, cigarettes, uncomplicated; Z88.8 Allergy status to other drugs, medicaments and biological substances
CPT/HCPCS: 96372; 99282; J1885

== ENCOUNTER 2017-10-19 22:28 | Emergency (ER) | payer OTHER ==
[2017-10-20 01:24] VITALS: BP 123/74
--- NOTE | 2017-10-20 01:25 | ED ---
Christin Felix Emily, scribed for Carlos Deluna MD on 10/20/17 at 0048 . Complex/Multi-Sys Presentation - HPI Summary HPI Summary: This patient is a 37 year old F presenting to [facility] accompanied by children with a chief complaint of cold and wet feeling in RLE that began yesterday. The patient rates the pain 0/10 in severity. Symptoms aggravated by nothing. Symptoms alleviated by nothing. Patient reports L eye twitch (began 3 months ago ). - History Of Current Complaint Chief Complaint: EDExtremityLower Time Seen by Provider: 10/20/17 00:40 Hx Obtained From: Patient Onset/Duration: Sudden Onset, Lasting Days, Still Present Timing: Constant Severity Currently: Mild Severity Initially: Mild Aggravating Factor(s): Nothing Alleviating Factor(s): Nothing Associated Signs And Symptoms: Positive: Other - Positive L eye twitch - Allergies/Home Medications Allergies/Adverse Reactions: Allergies Allergy/AdvReac Type Severity Reaction Status Date / Time amlodipine Allergy Rash Verified 07/15/17 11:23 losartan Allergy Swelling Verified 07/15/17 11:23 PMH/Surg Hx/FS Hx/Imm Hx Previously Healthy: No Endocrine/Hematology History: Denies: Hx Anticoagulant Therapy, Hx Blood Disorders, Hx Diabetes, Hx Thyroid Disease Cardiovascular History: Reports: Hx Hypertension - h/o - controlled w/ lifetsyle changes (weight loss, nutritional changes) Denies: Hx Aneurysm, Hx Myocardial Infarction, Hx Pacemaker/ICD Respiratory History: Denies: Hx Asthma GI History: Reports: Hx Gastroesophageal Reflux Disease - on occassion History: Denies: Hx Renal Disease Musculoskeletal History: Reports: Other Musculoskeletal History - had L knee surgery in past: ACL and medial meniscus tear awaiting surgery Sensory History: Denies: Hx Contacts or Glasses, Hx Hearing Aid Opthamlomology History: Denies: Hx Contacts or Glasses Neurological History: Denies: Hx Migraine Psychiatric History: Reports: Hx Anxiety - untreated - felt "fight or flight" w / sertraline 25mg - reluctant to try , Hx Depression Denies: Hx Panic Disorder, Other Psychiatric Issues/Disorders - Surgical History Surgery Procedure, Year, and Place: LEFT KNEE DISLOCATED/GANGLION CYST 2012. WRIST LEFT VERTICAL TEAR/GANGLION CYCT 2015. LEFT knee meniscus repair June Hx Anesthesia Reactions: No - Immunization History Immunizations Up to Date: Yes Infectious Disease History: No Infectious Disease History: Denies: History Other Infectious Disease, Traveled Outside the US in Last 30 Days - Family History Known Family History: Positive: Cardiac Disease - [place] - mother, at 40s - heavy use of ETOH, tob and crack cocaine, Hypertension - both parents, Diabetes - Social History Occupation: Employed Full-time Lives: With Family Alcohol Use: Occasionally Alcohol Amount: socially once a month Hx Substance Use: Yes Substance Use Type: Reports: None Hx Tobacco Use: Yes Smoking Status (MU): Current Some Day Smoker Type: Cigarettes Amount Used/How Often: 3-5 cigs Review of Systems Positive: Other - Positive L eye twitch Positive: Other - Positive "cold and wet feeling" in RLE All Other Systems Reviewed And Are Negative: Yes Physical Exam - Summary Physical Exam Summary: VITAL SIGNS: Reviewed. GENERAL: Patient is a well-developed and nourished female who is lying comfortable in the stretcher. Patient is not in any acute respiratory distress. HEAD AND FACE: No signs of trauma. No ecchymosis, hematomas or skull depressions. No sinus tenderness. EYES: PERRLA, EOMI x 2, No injected conjunctiva, no nystagmus. EARS: Hearing grossly intact. Ear canals and tympanic membranes are within normal limits. MOUTH: Oropharynx within normal limits. NECK: Supple, trachea is midline, no adenopathy, no JVD, no carotid bruit, no c- spine tenderness, neck with full ROM. CHEST: Symmetric, no tenderness at palpation LUNGS: Clear to auscultation bilaterally. No wheezing or crackles. CVS: Regular rate and rhythm, S1 and S2 present, no murmurs or gallops appreciated. ABDOMEN: Soft, non-tender. No signs of distention. No rebound no guarding, and no masses palpated. Bowel sounds are normal. EXTREMITIES: FROM in all major joints, no edema, no cyanosis or clubbing. NEURO: Alert and oriented x 3. No acute neurological deficits. Speech is normal and follows commands. SKIN: Dry and warm Triage Information Reviewed: Yes Vital Signs On Initial Exam: Initial Vitals Temp Pulse Resp BP Pulse Ox 98.1 F 89 16 132/93 100 10/19/17 22:37 10/19/17 22:37 10/19/17 22:37 10/19/17 22:37 10/19/17 22:37 Vital Signs Reviewed: Yes Diagnostics - Vital Signs Vital Signs Temp Pulse Resp BP Pulse Ox 10/19/17 22:37 98.1 F 89 16 132/93 100 - Laboratory Lab Statement: Any lab studies that have been ordered have been reviewed, and results considered in the medical decision making process. Complex Multi-Symp Course/Dx Course Of Treatment: This patient is a 37 year old F presenting to [facility] accompanied by children with a chief complaint of cold and wet feeling in RLE that began yesterday. Pt has a history of anxiety. The physical exam was normal. Patient will be discharged with follow up from PCP. The patient is agreeable with this plan. - Diagnoses Provider Diagnoses: Anxiety Discharge - Sign-Out/Discharge Documenting (check all that apply): Discharge/Admit/Transfer - Discharge home - Discharge Plan Condition: Stable Disposition: HOME Patient Education Materials: Anxiety (ED) Referrals: Pedrito Jenkins MD [Primary Care Provider] - 3 Days Additional Instructions: RETURN TO THE EMERGENCY DEPARTMENT FOR THE NEW OR WORSENING SYMPTOMS The documentation as recorded by the Christin pringle Emily accurately reflects the service I personally performed and the decisions made by , Carlos Deluna MD.
== END 2017-10-20 01:05 | disposition home or self-care (01) ==
LOC: ED 22:28
DX: F41.9 Anxiety disorder, unspecified (principal); Z72.0 Tobacco use; I10 Essential (primary) hypertension
CPT/HCPCS: 99282

== ENCOUNTER 2017-10-23 09:42 | Emergency (ER) | payer OTHER ==
[2017-10-23 09:57] VITALS: BP 144/93
--- NOTE | 2017-10-23 10:01 | UC ---
Abdominal Pain Female HPI - HPI Summary HPI Summary: 37 yo female presents with epigastric abdominal pain. She had 4-5 instances of loose stools and felt nauseous. Didn't eat much yesterday. Woke up this morning and had one loose still and is still nauseous, but abdominal pain is gone. She admits to being very anxious about this and is concerned she has salmonella, shigella, or some other bacteria. Denies fever, chills, SOB, chest pain, vomiting, blood in stool, dysuria, or flank pain. She is also concerned that she might be . Her LMP was 2 weeks ago, but about a week ago had unprotected intercourse and did not take plan B. - History of Current Complaint Chief Complaint: UCGI Stated Complaint: NAUSEA ABD PAIN Hx Obtained From: Patient Hx Last Menstrual Period: 10/11/17 Severity Initially: Mild Severity Currently: Mild Pain Intensity: 3 Pain Scale Used: 0-10 Numeric Allergies/Adverse Reactions: Allergies Allergy/AdvReac Type Severity Reaction Status Date / Time amlodipine Allergy Rash Verified 10/23/17 09:58 losartan Allergy Swelling Verified 10/23/17 09:58 Home Medications: Home Medications Butalb/Acetamin/Caff TAB* [Fioricet TAB*] 1 tab PO ONCE 10/23/17 [History Confirmed 10/23/17] Potassium Bicarbonate/Cit AC [Potassium 25 Meq Tablet Eff] 1 unit PO DAILY 10/23 [History Confirmed 10/23/17] PMH/Surg Hx/FS Hx/Imm Hx - Additional Past Medical History Additional PMH: Migraines Anxiety Other History Of: Negative For: Anticoagulant Therapy - Surgical History Surgical History: Yes Surgery Procedure, Year, and Place: LEFT KNEE DISLOCATED/GANGLION CYST 2012. WRIST LEFT VERTICAL TEAR/GANGLION CYCT 2015. LEFT knee meniscus repair June - Family History Known Family History: Positive: Cardiac Disease - [place] - mother, at 40s - heavy use of ETOH, tob and crack cocaine, Hypertension - both parents, Diabetes - Social History Occupation: Unemployed Lives: With Family Alcohol Use: Rare Alcohol Amount: socially once a month Substance Use Type: None Smoking Status (MU): Current Some Day Smoker Type: Cigarettes Amount Used/How Often: 2-3 cigs Household Exposure Type: Cigarettes - Immunization History Most Recent Influenza Vaccination: None Review of Systems Constitutional: Negative Skin: Negative Respiratory: Negative Cardiovascular: Negative Gastrointestinal: Abdominal Pain, Nausea Genitourinary: Negative Neurovascular: Negative Neurological: Negative Psychological: Negative All Other Systems Reviewed And Are Negative: Yes Physical Exam - Summary Physical Exam Summary: GENERAL: NAD. WDWN. No pain distress. SKIN: No rashes, sores, lesions, or open wounds. NECK: Supple. Nontender. No lymphadenopathy. CHEST: CTAB. No r/r/w. No accessory muscle use. Breathing comfortably and in no distress. CV: RRR. Without m/r/g. Pulses intact. Brisk cap refill. ABDOMEN: Soft. NTTP. No distention or guarding. No organomegaly. No CVA tenderness. Bowel sounds present NEURO: Alert. CN II-XII grossly intact. PSYCH: Age appropriate behavior. Triage Information Reviewed: Yes Vital Signs: Initial Vital Signs Temp 97.9 F 10/23/17 09:49 Pulse 83 10/23/17 09:49 Resp 18 10/23/17 09:49 BP 144/93 10/23/17 09:49 Pulse Ox 98 10/23/17 09:49 Laboratory Tests 10/23/17 10/23/17 10:24 10:26 POC Urine Color Yellow POC Urine Clarity Clear POC Urine pH 6.0 POC Ur Specif [place] <= 1.005 L POC Urine Protein Negative POC Ur Glucose (UA) Negative POC Urine Ketones Negative POC Urine Blood Trace-lysed A POC Urine Nitrite Negative POC Urine Bilirubin Negative POC Urine Urobilinogen 0.2 POC U Leukocyte Esteras Negative POC Ur Test Negative Abd Pain Female Course/Dx - Course Course Of Treatment: Suspect gastroenteritis. She is asking for blood work and for a blood test. Will rx for Zofran and draw CBC, CMP, and HCG. - Differential Dx/Diagnosis Provider Diagnoses: Gastroenteritis Discharge - Sign-Out/Discharge Documenting (check all that apply): Discharge/Admit/Transfer - Discharge Plan Condition: Stable Disposition: HOME Prescriptions: Ondansetron ODT TAB* [Zofran 4 MG Odt TAB*] 4 mg PO Q8H PRN #12 tab.odt PRN Reason: Nausea Patient Education Materials: Gastroenteritis (DC) Referrals: Pedrito eJnkins MD [Primary Care Provider] - Additional Instructions: If you develop a fever, shortness of breath, chest pain, new or worsening symptoms - please call your PCP or go to the ED. Your blood pressure was mildly elevated at todays visit. Please see your primary provider within 4 weeks for recheck and re-evaluation. - Billing Disposition and Condition Condition: STABLE Disposition: Home
[2017-10-23] MEDS ORDERED: Ondansetron ODT TAB* 4 MG PO ONE (10:27)
[2017-10-23 15:42] LABS: ABS Basophils 0.1 10^3/ul (0-0.2); ABS Eosinophils 0.1 10^3/ul (0-0.6); ABS Lymphocytes 2.3 10^3/ul (1.0-4.8); ABS Monocytes 0.6 10^3/ul (0-0.8); ABS Neutrophils 3.4 10^3/ul (1.5-7.7); ABS Nucleated RBC 0 10^3/ul; Eosinophil % 1.9 % (0-6); Hematocrit 40 % (35-47); Hemoglobin 13.6 g/dl (12.0-16.0); Lymphocyte % 35.4 % (25-47); Mean Corpuscular HGB Conc 34 g/dl (31-36); Mean Corpuscular Hemoglobin 29 pg (27-31); Mean Corpuscular Volume 87 fL (80-97); Mean Platelet Volume 8.4 um3 (7.4-10.4); Nucleated Red Blood Cells % 0.1; Platelet Count 198 10^3/ul (150-450); Red Blood Count 4.63 10^6/ul (4.00-5.40); Red Cell Distribution Width 15 % (10.5-15); White Blood Count 6.4 10^3/ul (3.5-10.8)
[2017-10-23 16:10] LABS: EGFR Non-African American 90.7 (>60)
== END 2017-10-23 10:45 | disposition home or self-care (01) ==
LOC: UCEAST 09:42
DX: K52.9 Noninfective gastroenteritis and colitis, unspecified (principal); Z88.8 Allergy status to other drugs, medicaments and biological substances; F17.210 Nicotine dependence, cigarettes, uncomplicated
CPT/HCPCS: 36415; 80053; 81003; 84702; 85025; 99212; A9270-GY; G0463

== ENCOUNTER → 2017-10-24 09:49 | Emergency (ER) | payer OTHER | END | disposition home or self-care (01) | LOC: ED 09:49 | DX: R11.0 Nausea (principal); Z53.21 Procedure and treatment not carried out due to patient leaving prior to being seen by health care provider ==

== ENCOUNTER 2017-11-26 20:08 | Emergency (ER) | payer OTHER ==
--- OUTSIDE RECORDS SUMMARY | 2017-11-26 21:12 | XMS REPORT ---
:1980 External Reference #:[id number] Author Organization [facility] [employer] Address [address] [place] [address] Phone [phone] Care Team Providers Name Role Phone Pedrito Jenkins M.D. Primary Care Physician Unavailable Payers Type Date Identification Numbers Payment Provider Subscriber Commercial Policy Number: [id number] [employer] Yun Orellana PayID: [id number] [email or web address] [address] Problems Date Description Provider Status Onset: Anxiety Active Onset: Heart murmur Active Onset: 11/23/2017 Generalized visual field constriction Mary Azul O.D. Active Family History Date Family Member(s) Problem(s) Comments Father No Current Problems Mother No Current Problems Grandfather Glaucoma cataract Social History Type Date Description Comments Marital Status Single Work Status Unemployed ETOH Use Occasionally consumes alcohol Smoking Light tobacco smoker (10 or fewer cigarettes/day) Recreational Drug Use Denies Drug Use Daily Caffeine Does Not Consume Caffeine Allergies, Adverse Reactions, Alerts Date Description Reaction Status Severity Comments 11/23/2017 Amlodipine active 11/23/2017 Losartan active 11/23/2017 NKDA inactive Medications Medication Date Status Form Strength Qnty SIG Indications Ordering Provider Norethindrone Active Tablets 0.35mg Unknown 0 Diazepam Active Tablets 5mg David Jenkins M.D. K-Effervescent Active Tablets 25Meq Unknown 0 Efferv Results Description No Information Procedures Description No Information Plan of Care 11/23/2017 - Mary Azul O.D.[id number] Generalized contraction of visual field , left eyeComments:Smoking can increase the risk of developing or worsening any eye related disease, as well as affect your overall health. If you are a smoker , we strongly recommend that you quit.If you are not a smoker, we strongly recommend that you do not start. I did not find any cause for the headaches, the visual field loss or your lid spasm on your examination today. I recommend following up with a neurologist.Follow up:next available VF 30-2 only next available neuro eval
[2017-11-26] MEDS ORDERED: ALPRAZolam TAB* 0.5 MG PO ONE (22:28)
[2017-11-26 22:44] LABS: ABS Basophils 0.1 10^3/ul (0-0.2); ABS Eosinophils 0.1 10^3/ul (0-0.6); ABS Lymphocytes 2.3 10^3/ul (1.0-4.8); ABS Monocytes 0.6 10^3/ul (0-0.8); ABS Neutrophils 4.9 10^3/ul (1.5-7.7); ABS Nucleated RBC 0 10^3/ul; Eosinophil % 1.1 % (0-6); Hematocrit 39 % (35-47); Hemoglobin 13.1 g/dl (12.0-16.0); Lymphocyte % 29.3 % (25-47); Mean Corpuscular HGB Conc 34 g/dl (31-36); Mean Corpuscular Hemoglobin 30 pg (27-31); Mean Corpuscular Volume 88 fL (80-97); Mean Platelet Volume 7.5 um3 (7.4-10.4); Nucleated Red Blood Cells % 0.1; Platelet Count 184 10^3/ul (150-450); Red Blood Count 4.45 10^6/ul (4.00-5.40); Red Cell Distribution Width 15 % (10.5-15)
[2017-11-26 22:55] LABS: INR 0.87 (0.77-1.02)
[2017-11-26 22:59] LABS: EGFR Non-African American 64.6 (>60)
--- NOTE | 2017-11-26 23:00 | ED ---
HPI Chest Pain - HPI Summary HPI Summary: This is scribe Juve Maciel documenting for attending Carlos Deluna MD. A 37 y/o female presents to ED c/o mild chest pain reaching 2/10 in severity. In the ED room, the patient has a pulse of 66 BPM, O2 saturation of 99% and blood pressure fo 171/101 (although coming down). As per triage, "Pt brought immediately to for EKG. Pt c/o left chest wall pain radiating to her left arm since this weekend. States she was seen and treated at [facility] early Sunday morning for "SVT" EKg completed with noted NSR and HR 67". She noted that she has been experiencing mild chest since yesterday coupled with weakness, but she believes it could be due to her anxiety. She noted that she was treated 2 days ago in [place], [place] for SVT. She came into ED today because she wants to make sure everything is alright and she is normal. She had SVT a year ago (only one) when she was drinking very heavily at a democr[employer] as her alcohol level was 4x the normal amount. She was given no prescribed medications for her SVT, although she was given something in the hospital. Current medications include Potassium tablets. PMHx of Mitral valve, murmer and anxiety (since 17 y/o), denies HBP. Capture Manager is Dr. Kiran. I, Dr. Deluna, personally performed the services described in this documentation as scribed in my presence and it is both accurate and complete. - History of Current Complaint Chief Complaint: EDChestWallPain Time Seen by Provider: 11/26/17 22:10 Hx Obtained From: Patient Hx Last Menstrual Period: 10/11/17 Onset/Duration: Started Days Ago, Still Present Timing: Constant Initial Severity: Mild Current Severity: Mild Pain Intensity: 2 Pain Scale Used: 0-10 Numeric Chest Pain Location: Discrete at: - Left Chest Pain Radiates: Yes Chest Pain Radiates To:: Arm - Left Aggravating Factor(s): Nothing Alleviating Factor(s): Nothing Associated Signs and Symptoms: Positive: Chest Pain, Weakness - Allergy/Home Medications Allergies/Adverse Reactions: Allergies Allergy/AdvReac Type Severity Reaction Status Date / Time amlodipine Allergy Rash Verified 11/26/17 20:24 losartan Allergy Swelling Verified 11/26/17 20:24 PMH/Surg Hx/FS Hx/Imm Hx Endocrine/Hematology History: Denies: Hx Anticoagulant Therapy, Hx Blood Disorders, Hx Diabetes, Hx Thyroid Disease Cardiovascular History: Reports: Hx Hypertension - h/o - controlled w/ lifetsyle changes (weight loss, nutritional changes) Denies: Hx Aneurysm, Hx Myocardial Infarction, Hx Pacemaker/ICD Respiratory History: Denies: Hx Asthma GI History: Reports: Hx Gastroesophageal Reflux Disease - on occassion History: Denies: Hx Renal Disease Musculoskeletal History: Reports: Other Musculoskeletal History - had L knee surgery in past: ACL and medial meniscus tear awaiting surgery Sensory History: Denies: Hx Contacts or Glasses, Hx Hearing Aid Opthamlomology History: Denies: Hx Contacts or Glasses Neurological History: Denies: Hx Migraine Psychiatric History: Reports: Hx Anxiety - untreated - felt "fight or flight" w / sertraline 25mg - reluctant to try , Hx Depression Denies: Hx Panic Disorder, Other Psychiatric Issues/Disorders - Surgical History Surgery Procedure, Year, and Place: LEFT KNEE DISLOCATED/GANGLION CYST 2012. WRIST LEFT VERTICAL TEAR/GANGLION CYCT 2015. LEFT knee meniscus repair June Hx Anesthesia Reactions: No Infectious Disease History: No Infectious Disease History: Denies: History Other Infectious Disease, Traveled Outside the [place] in Last 30 Days - Family History Known Family History: Positive: Cardiac Disease - [place] - mother, at 40s - heavy use of ETOH, tob and crack cocaine, Hypertension - both parents, Diabetes - Social History Alcohol Use: Rare Alcohol Amount: socially once a month Hx Substance Use: Yes Substance Use Type: Reports: None Hx Tobacco Use: Yes Smoking Status (MU): Light Every Day Tobacco Smoker Type: Cigarettes Amount Used/How Often: 2-3 cigs Review of Systems Negative: Fever Positive: Chest Pain Positive: Weakness Positive: Anxious All Other Systems Reviewed And Are Negative: Yes Physical Exam - Summary Physical Exam Summary: VITAL SIGNS: Reviewed. GENERAL: Patient is a well-developed and nourished female who is lying comfortable in the stretcher. Patient is not in any acute respiratory distress. Patient is somewhat anxious. HEAD AND FACE: No signs of trauma. No ecchymosis, hematomas or skull depressions. No sinus tenderness. EYES: PERRLA, EOMI x 2, No injected conjunctiva, no nystagmus. EARS: Hearing grossly intact. Ear canals and tympanic membranes are within normal limits. MOUTH: Oropharynx within normal limits. NECK: Supple, trachea is midline, no adenopathy, no JVD, no carotid bruit, no c- spine tenderness, neck with full ROM. CHEST: Symmetric, no tenderness at palpation LUNGS: Clear to auscultation bilaterally. No wheezing or crackles. CVS: Regular rate and rhythm, S1 and S2 present, no murmurs or gallops appreciated. ABDOMEN: Soft, non-tender. No signs of distention. No rebound no guarding, and no masses palpated. Bowel sounds are normal. EXTREMITIES: FROM in all major joints, no edema, no cyanosis or clubbing. NEURO: Alert and oriented x 3. No acute neurological deficits. Speech is normal and follows commands. SKIN: Dry and warm Triage Information Reviewed: Yes Vital Signs On Initial Exam: Initial Vitals Temp Pulse Resp BP Pulse Ox 98.0 F 67 20 157/104 100 11/26/17 20:18 11/26/17 20:18 11/26/17 20:18 11/26/17 20:18 11/26/17 20:18 Vital Signs Reviewed: Yes Diagnostics - Vital Signs Vital Signs Temp Pulse Resp BP Pulse Ox 11/26/17 22:26 29 149/94 11/26/17 22:24 70 19 171/107 100 11/26/17 20:18 98.0 F 67 20 157/104 100 - Laboratory Lab Results: Lab Results 11/26/17 11/26/17 Range/Units 22:35 22:36 WBC 8.0 (3.5-10.8) 10^3/ul RBC 4.45 (4.00-5.40) 10^6/ul Hgb 13.1 (12.0-16.0) g/dl Hct 39 (35-47) % MCV 88 (80-97) fL MCH 30 (27-31) pg MCHC 34 (31-36) g/dl RDW 15 (10.5-15) % Plt Count 184 (150-450) 10^3/ul MPV 7.5 (7.4-10.4) um3 Neut % (Auto) 61.3 (38-83) % Lymph % (Auto) 29.3 (25-47) % Routt % (Auto) 7.3 H (0-7) % Eos % (Auto) 1.1 (0-6) % Baso % (Auto) 1.0 (0-2) % Absolute Neuts (auto) 4.9 (1.5-7.7) 10^3/ul Absolute Lymphs (auto) 2.3 (1.0-4.8) 10^3/ul Absolute Monos (auto) 0.6 (0-0.8) 10^3/ul Absolute Eos (auto) 0.1 (0-0.6) 10^3/ul Absolute Basos (auto) 0.1 (0-0.2) 10^3/ul Absolute Nucleated RBC 0 10^3/ul Nucleated RBC % 0.1 INR (Anticoag Therapy) 0.87 (0.77-1.02) APTT 36.0 (26.0-36.3) seconds Result Diagrams: 11/26/17 22:36 11/26/17 22:36 Lab Statement: Any lab studies that have been ordered have been reviewed, and results considered in the medical decision making process. - EKG 2014 Cardiac Rate: NL - 67 BPM EKG Rhythm: Sinus Rhythm EKG Interpretation: Normal axis, normal interval, no ischemic changes. Re-Evaluation - Re-Evaluation First Eval Re-Evaluation Time: 23:49 Comment: Patient is refusing medications (Clonidine) as per nursing staff. Chest Pain Course/Dx - Course Course Of Treatment: A 37 y/o female presents to ED c/o mild chest pain reaching 2/10 in severity. In the ED room, the patient has a pulse of 66 BPM, O2 saturation of 99% and blood pressure fo 171/101 (although coming down). An EKG revealed NSR of 67 BPM, normal axis, normal interval, no ischemic changes. Patient refused some medications in ED course. In the ED course, the patient recieved Catapres and Xanax. Patient will be discharged with a diagnosis of palpitations and anxiety. Patient is to follow up with her opener, Dr. Kiran, in 1-2 days. Patient is agreeable with this plan. - Diagnoses Provider Diagnoses: Palpitations, Anxiety Discharge - Sign-Out/Discharge Documenting (check all that apply): Patient Departure - DISCHARGE - Discharge Plan Condition: Stable Disposition: HOME Patient Education Materials: Heart Palpitations (ED), Anxiety (ED) Referrals: Pedrito Jenkins MD [Primary Care Provider] - Arnaud Kiran MD [Medical Doctor] - 2 Days Additional Instructions: FOLLOW UP WITH CHANNEL PROGRAM MANAGER, DR. KIRAN, IN 1-2 DAYS. RETURN TO ED FOR ANY NEW OR WORSENING SYMPTOMS.
[2017-11-26] MEDS ORDERED: cloNIDine TAB* 0.1 MG PO ONE (23:40)
[2017-11-26] MEDS ORDERED: cloNIDine TAB* 0.1 MG ONE (23:42)
[2017-11-27 00:57] VITALS: BP 146/87
== END 2017-11-27 00:55 | disposition home or self-care (01) ==
LOC: ED 20:08
DX: R07.9 Chest pain, unspecified (principal); R00.2 Palpitations; F41.9 Anxiety disorder, unspecified; R53.1 Weakness; F17.210 Nicotine dependence, cigarettes, uncomplicated
CPT/HCPCS: 36415; 80053; 83735; 84484; 84702; 85025; 85610; 85730; 93005; 99284; A9270-GY

== ENCOUNTER 2017-12-11 13:05 | Emergency (ER) | payer OTHER ==
--- NOTE | 2017-12-11 13:10 | UC ---
General HPI - HPI Summary HPI Summary: 37 yo female presents with 4 days late on her period. She tells me that 1 month ago she started the minipill and admits that she hasn't been great at taking it everyday or at the same time everyday. 2 weeks ago she had unprotected sex at a [employer] party. Over the last 3 days has been feeling more tired and dizzy at times. She tells me that about a month or two ago she was at a [employer] party and drank "way too much" and developed SVT that converted chemically at the hospital. She was due for her menstrual cycle on 12/07, but it did not happen. She took two OTC tests and one was negative and says the other one had a "super faint" line on the positive section, but only if you held it in the right light. She is asking for a blood test today. Currently, denies fever, chills, headache, dizziness, SOB, chest pain, palpitations, abdominal pain, n/v/d/c, dysuria, or vaginal discharge. - History of Current Complaint Stated Complaint: FATIGUED DIZZY Time Seen by Provider: 12/11/17 13:08 Hx Obtained From: Patient Hx Last Menstrual Period: 10/11/17 Current Severity: None - Allergy/Home Medications Allergies/Adverse Reactions: Allergies Allergy/AdvReac Type Severity Reaction Status Date / Time amlodipine Allergy Rash Verified 12/11/17 13:14 losartan Allergy Swelling Verified 12/11/17 13:14 PMH/Surg Hx/FS Hx/Imm Hx - Additional Past Medical History Additional PMH: SVT Migraines Anxiety Other History Of: Negative For: Anticoagulant Therapy - Surgical History Surgical History: Yes Surgery Procedure, Year, and Place: LEFT KNEE DISLOCATED/GANGLION CYST 2012. WRIST LEFT VERTICAL TEAR/GANGLION CYCT 2015. LEFT knee meniscus repair June - Family History Known Family History: Positive: Cardiac Disease - [place] - mother, at 40s - heavy use of ETOH, tob and crack cocaine, Hypertension - both parents, Diabetes - Social History Occupation: Employed Full-time Lives: With Family Alcohol Use: Rare Alcohol Amount: socially once a month Substance Use Type: None Smoking Status (MU): Light Every Day Tobacco Smoker Type: Cigarettes Amount Used/How Often: 2-3 cigs Household Exposure Type: Cigarettes - Immunization History Most Recent Influenza Vaccination: None Review of Systems Constitutional: Negative Skin: Negative Eyes: Negative ENT: Negative Respiratory: Negative Cardiovascular: Negative Gastrointestinal: Negative Neurovascular: Negative Musculoskeletal: Negative Neurological: Negative Psychological: Negative All Other Systems Reviewed And Are Negative: Yes Physical Exam - Summary Physical Exam Summary: GENERAL: NAD. Anxious and speaking quickly. SKIN: No rashes, sores, lesions, or open wounds. NECK: Supple. Nontender. No lymphadenopathy. CHEST: CTAB. No r/r/w. No accessory muscle use. Breathing comfortably and in no distress. CV: RRR. Without m/r/g. Pulses intact. Cap refill <2seconds ABDOMEN: Soft. NTTP. No distention or guarding. No CVA tenderness. Bowel sounds present NEURO: Alert. CN II-XII grossly intact. PSYCH: Age appropriate behavior. Triage Information Reviewed: Yes Vital Signs: Vital Signs: Temp Pulse Resp BP Pulse Ox 98.1 F 79 18 125/83 100 12/11/17 13:11 12/11/17 13:11 12/11/17 13:11 12/11/17 13:11 12/11/17 13:11 Laboratory Tests 12/11/17 12/11/17 13:33 13:35 POC Urine Color Yellow POC Urine Clarity Clear POC Urine pH 7.0 POC Ur Specif [place] 1.010 POC Urine Protein Negative POC Ur Glucose (UA) Negative POC Urine Ketones Negative POC Urine Blood Trace-lysed A POC Urine Nitrite Negative POC Urine Bilirubin Negative POC Urine Urobilinogen 0.2 POC U Leukocyte Esteras Negative POC Ur Test Negative Vital Signs Reviewed: Yes Course/Dx - Course Course Of Treatment: EKG compared to 11/26/17 NSR rate of 70bpm. No ST changes as read by Dr. Valdez. UA and urine preg negative. Will draw for blood HCG and call pt with results. - Differential Dx - Multi-Symptom Provider Diagnoses: Missed period. Fatigue Discharge - Sign-Out/Discharge Documenting (check all that apply): Patient Departure All imaging exams completed and their final reports reviewed: No Studies - Discharge Plan Condition: Stable Disposition: HOME Referrals: Pedrito Jenkins MD [Medical Doctor] - Additional Instructions: If you develop a fever, shortness of breath, chest pain, new or worsening symptoms - please call your PCP or go to the ED. 1) Call us tomorrow evening to ask about your lab results - Billing Disposition and Condition Condition: STABLE Disposition: Home
--- OUTSIDE RECORDS SUMMARY | 2017-12-11 13:11 | XMS REPORT ---
:1980 External Reference #:[id number] Author Organization [employer] Address [address] [place] [address] Phone [phone] Care Team Providers Name Role Phone Pedrito Jenkins M.D. Primary Care Physician Unavailable Payers Type Date Identification Numbers Payment Provider Subscriber Commercial Policy Number: [id number] [employer] Yun Orellana PayID: [id number] [place] [address] Problems Date Description Provider Status Onset: Anxiety [...] 0 Efferv Results Description No Information Procedures Date CPT Code Description Status 11/23/2017 54368 New Patient Comprehensive Exam Completed
--- OUTSIDE RECORDS SUMMARY | 2017-12-11 13:11 | XMS REPORT ---
:1980 External Reference #:[id number] Author Organization [employer] Address [address] [place] [address] Phone [phone] Care Team Providers Name Role Phone Pedrito Jenkins MD Primary Care Physician Unavailable Payers Type Date Identification Numbers Payment Provider Subscriber Commercial Policy Number: [id number] [employer] Medicaid Jean Claude Orellana PayID: [id number] [address] [address] [place] [address] Medigap Part B Effective: 2016 Policy Number: [id number] Medicaid Jean Claude Orellana Expires: 2016 PayID: [id number] [address] [place] [address] Advance Directives Type Date Description Status Comment Other Directive 02/06/2017 Health Care Proxy Current and Verified Problems Date Description Provider Status Onset: 04/24/2016 Sprain of medial collateral ligament Maya Villalta M.D. Active of knee Onset: 05/10/2016 Derangement of knee Maya Villalta M.D. Active Onset: 05/12/2016 Current tear of medial cartilage Lacey Friend MD Active AND/OR meniscus of knee Onset: 06/29/2016 Sprain of anterior cruciate ligament Lacey Friend MD Active of left knee, subs Onset: 07/11/2016 Angioedema Pedrito Jenkins M.D. Active Onset: 07/11/2016 Essential hypertension Pedrito Jenkins M.D. Active Onset: 07/11/2016 Skin sensation disturbance Pedrito Jenkins M.D. Active Onset: 08/01/2016 Pain in limb Pedrito Jenkins M.D. Active Onset: 08/08/2016 Dizziness and giddiness Pedrito Jenkins M.D. Active Onset: 08/29/2016 Anxiety state Pedrito Jenkins M.D. Active Onset: 10/16/2016 Panic disorder with agoraphobia Pedrito Jenkins M.D. Active Onset: 01/09/2017 Eruption Pedrito Jenkins M.D. Active Onset: 01/25/2017 Headache Pedrito Jenkins M.D. Active Onset: 02/16/2017 Obesity Pedrito Jenkins M.D. Active Onset: 05/01/2017 HPV - Human papillomavirus test Elise Tripp M.D. Active positive Family History Date Family Member(s) Problem(s) Comments General Diabetes General Heart Disease General Stroke General Cancer Father Hypertension Father Osteoarthritis Mother [place] Mother Hypercholesterolemia Mother Hypertension Siblings 1 No known CAD Social History Type Date Description Comments Marital Status Lives With Spouse Occupation Unemployed getting job at [employer] Cigarette Use Former Cigarette Smoker 1-5 quit August 2017 Cigarettes Daily ETOH Use Occasionally consumes alcohol 1x month Recreational Drug Use Denies Drug Use Smoking Patient is a former smoker quit August 2017 Smoking Light tobacco smoker (10 or fewer cigarettes/day) Daily Caffeine Does Not Consume Caffeine Exercise Type/Frequency Exercises regularly walking 4 days a week. no less than 2 miles. General Hx Text 4 kids Allergies, Adverse Reactions, Alerts Date Description Reaction Status Severity Comments 10/31/2016 Losartan Anaphylaxis active 10/31/2016 Amlodipine Anaphylaxis active 04/24/2016 NKDA inactive Medications Medication Date Status Form Strength Qnty SIG Indications Ordering Provider Effer-K 11/29/ Active Tablets 25Meq 90tab Dissolve one E87.6 Lesley Richey 2018 Efferv s tab daily Reji, N.P. Magnesium Oxide 11/29/ Active Capsules 500mg 30cap 1 tab by E87.6 Lesley Richey (Antacid) 2018 s mouth daily Reji, N.P. Alprazolam 11/27/ Active Tablets 0.5mg 20tab take 1 Estuardo 2018 s tablet by Colleen Harris, mouth 2 M.DMonae,FACP times daily as needed Pantoprazole 10/26/ Active Tablets DR 40mg 30tab 1 in the R10.10 Pedrito Sodium 2018 s morning Gregory moran M.D. stomach Epipen 2-Marcelo 07/11/ Active Solution 0.3mg/0.3 2unit use as T78.3xxA Pedrito 2017 Auto-Injec ML s directed Gregory santo M.D. Blood Pressure 07/11/ Active Misc 1unit check bp I10 Pedrito Monitor Auto 2017 s daily Gregory Harrison M.D. Butalbital/Acet / Active Tablets 50-325-40 14tab take 1 Pedrito aminophen/Caffe 0000 mg s tablets by Gregory ine mouth every , M.D. 6 hours if needed max 4/day Plan B One-Step 10/16/ Hx Tablets 1.5mg 1tabs by mouth x 1 Pedrito 2018 - Pachikara 10/26/ , M.DMonae 2018 Triamcinolone 08/29/ Hx Cream 0.1% 80gm apply thin R21 Abner Acetonide 2018 - film twice Marquita, [place] 10/26/ daily 2018 Diazepam 07/30/ Hx Tablets 5mg 30tab may take 1 Pedrito 2017 - tab by mouth Mitraikara 11/27/ 1-2 times a , M.D. 2017 day for anxiety as needed (30day supply) Oseltamivir 05/14/ Hx Capsules 75mg 10cap 1 tab twice J06.9 Elise Phosphate 2017 - s a day x 5 Tripp, 05/19/ days M.D. 2018 Guaifenesin-Cod 05/14/ Hx Syrup 100-10mg/ 120ml 5 J06.9 Elise eine 2018 - 5ML milliliters Qasim, 09/17/ every 8 M.D. 2018 hours as needed for cough Naproxen 03/13/ Hx Tablets 500mg 60tab 1 twice a R51 Niko S. 2016 - s day as Va 10/26/ needed for M.D. 2018 headache Escitalopram 01/31/ Hx Tablets 5mg 30tab 1 by mouth Pedrito Oxalate 2016 - s every day Pachchantell 03/12/ , M.D. 2017 Sumatriptan 01/25/ Hx Tablets 100mg 9tabs use at onset R51 [place] Succinate 2017 - of head Pachikara 03/12/ ache,august , M.DMonae 2016 repeat after 2h as needed Amitriptyline 01/25/ Hx Tablets 25mg 30tab 1 by mouth R51 [place] HCL 2017 - s every night Pachikara 01/25/ at bedtime , M.Colleen 2017 Metoprolol 01/25/ Hx Tablets 25mg 60tab 1 by mouth R51 Pedrito Tartrate 2016 twice a day Pachikara 03/12/ Jorge 2016 Docusate Sodium 01/09/ Hx Capsules 100mg 60cap 2 cap at R10.9 [place] 2017 bedtime as Pachikara 05/14/ needed , Jorge 2018 Effer-K 10/31/ Hx Tablets 25Meq 90tab 1 by mouth E87.6 Arnaud 2017 - Efferv s daily F. 03/13/ Magno, 2017 MMonaeD. Sertraline HCL 10/18/ Hx Tablets 50mg 30tab 1 by mouth F40.01 Pedrito 2016 - every day Pachikara 01/31/ Jorge 2017 Sertraline HCL 10/16/ Hx Tablets 25mg 60tab 1 by mouth F40.01 Pedrito 2016 every day x Pachikara 10/18/ week then Jorge 2017 2 tab daily Lorazepam 10/16/ Hx Tablets 0.5mg 30tab 1 tablet F40.01 Perdito 2016 - every 12 Pachikara 08/08/ hours as Jorge 2018 needed(30 day supply) mdd 2 Tramadol HCL 09/01/ Hx Tablets 50mg 40tab 1 tablet by Lacey 2016 mouth every Yase, 03/12/ 8 hours as 2016 needed pain Acetaminophen 08/08/ Hx Tablets 500mg 180ta 1-2 tab 3 Estuardo 2017 - bs times daily Colleen Harris, 05/14/ as needed Jorge,FACP 2018 Triamterene/Hyd 08/04/ Hx Tablets 37.5-25mg 14tab 1/2 tab by Pedrito rochlorothiazid 2016 - mouth every Pachikara e 08/29/ day in am , MCatherine. 2017 Losartan 07/27/ Hx Tablets 50mg 30tab 1 by mouth Other Potassium 2017 - s every day Ordering 08/08/ Provider 2017 Metoprolol 07/25/ Hx Tablets 25mg 60tab 1 by mouth I10 Pedrito Tartrate 2016 - twice a day Pachikara 07/28/ Jorge 2017 Ibuprofen 06/29/ Hx Tablets 600mg 60tab Not taking S83.231D Zaneb 2017 - s take 1 by Ronna, 07/11/ mouth every MD 2016 8 hours as needed for pain Keflex 06/19/ Hx Capsules 500mg 40cap 1 tab by Pino 2016 - s mouth four Tad, 07/11/ times a day M.DMonae 2017 Tramadol HCL 06/09/ Hx Tablets 50mg 60tab 1-2 tablet Joelleneb 2016 - s by mouth Ronna, 07/11/ every 4-6 MD 2016 hours as needed pain Oxycodone-Aceta 05/12/ Hx Tablets 5-325mg 40tab take 1 tab M23.612 Zapanchob minophen 2016 - s every 8 Ronna, 10/16/ hours as 2016 needed for pain Naproxen 04/24/ Hx Tablets 500mg 30tab Not taking. M25.562 Maya 2017 - s 1 tablet Pawan, 07/11/ with food by Jorge 2017 mouth twice a day Tramadol HCL 04/24/ Hx Tablets 50mg 60tab 1 tablet by M25.562 Maya 2017 - s mouth every Pawan, 04/11/ 6 hours as M.Colleen 2017 needed pain Modere Burn / Hx 2 tablets Unknown 0000 - daily 2016 Oxycodone-Aceta / Hx Solution 5-325mg/5 take 5-10 Unknown minophen 0000 - ML milliliters 03/12/ every 4-6 2016 hours as needed for pain. mdd of 40 milliliters- all out K-Effervescent / Hx Tablets 25Meq 30tab 1 by mouth Pedrito 0000 - Efferv s every day Pachika 11/29/ , Jorge 2017 Benzonatate / Hx Capsules 100mg prn Unknown 0000 - 2017 Cheratussin ac / Hx Syrup 100-10mg/ prn Unknown 0000 - 5ML 2017 Vital Signs Date Vital Result Comment 11/29/2017 Height 61 inches 5'1" Weight 155.31 lb with shoes Heart Rate 70 /min BP Systolic Sitting 140 mmHg Lue reg cuff BP Diastolic Sitting 90 mmHg Lue reg cuff BP Systolic Standing 132 mmHg Lue reg cuff BP Diastolic Standing 90 mmHg Lue reg cuff Respiratory Rate 16 /min BMI (Body Mass Index) 29.3 kg/m2 10/26/2017 Height 61 inches 5'1" Weight 154.00 lb Heart Rate 77 /min BP Systolic Sitting 110 mmHg BP Diastolic Sitting 68 mmHg Body Temperature 97.9 F O2 % BldC Oximetry 99 % BMI (Body Mass Index) 29.1 kg/m2 09/18/2017 Height 61 inches 5'1" Weight 153.00 lb w/shoes Heart Rate 80 /min BP Systolic Sitting 110 mmHg LA reg cuff BP Diastolic Sitting 84 mmHg LA reg cuff BMI (Body Mass Index) 28.9 kg/m2 Ejection Fraction 55-60% Echo 11/24/16 08/29/2017 Height 61 inches 5'1" Weight 156.00 lb Heart Rate 79 /min BP Systolic Sitting 115 mmHg BP Diastolic Sitting 84 mmHg Body Temperature 97.9 F O2 % BldC Oximetry 98 % BMI (Body Mass Index) 29.5 kg/m2 07/30/2017 Weight 155.00 lb Heart Rate 94 /min BP Systolic 124 mmHg BP Diastolic 80 mmHg Body Temperature 97.0 F O2 % BldC Oximetry 98 % 06/13/2017 Weight 156.00 lb Heart Rate 91 /min BP Systolic Sitting 120 mmHg BP Diastolic Sitting 70 mmHg Body Temperature 97.7 F O2 % BldC Oximetry 97 % 05/15/2017 Height 62 inches 5'2" Weight 158.75 lb Heart Rate 62 /min BP Systolic Sitting 120 mmHg LA, reg cuff BP Diastolic Sitting 80 mmHg LA, reg cuff BMI (Body Mass Index) 29.0 kg/m2 Ejection Fraction 55%-60% echo 11/24/16 05/14/2017 Heart Rate 88 /min BP Systolic Sitting 102 mmHg BP Diastolic Sitting 64 mmHg O2 % BldC Oximetry 98 % 03/13/2017 Height 61 inches 5'1" Weight 161.00 lb Heart Rate 70 /min BP Systolic Sitting 112 mmHg BP Diastolic Sitting 66 mmHg Respiratory Rate 16 /min BMI (Body Mass Index) 30.4 kg/m2 02/16/2017 Height 61 inches 5'1" Weight 165.50 lb Heart Rate 82 /min BP Systolic 126 mmHg BP Diastolic 72 mmHg Body Temperature 97.2 F O2 % BldC Oximetry 99 % BMI (Body Mass Index) 31.3 kg/m2 02/06/2017 Weight 164.00 lb Heart Rate 82 /min BP Systolic Sitting 117 mmHg BP Diastolic Sitting 83 mmHg Body Temperature 98.4 F O2 % BldC Oximetry 99 % 01/25/2017 Height 61 inches 5'1" Weight 166.38 lb Heart Rate 69 /min BP Systolic 128 mmHg BP Diastolic 76 mmHg Body Temperature 98.4 F O2 % BldC Oximetry 98 % BMI (Body Mass Index) 31.4 kg/m2 01/09/2017 Height 61 inches 5'1" Weight 164.00 lb Heart Rate 102 /min BP Systolic 112 mmHg BP Diastolic 72 mmHg Body Temperature 97.8 F O2 % BldC Oximetry 97 % BMI (Body Mass Index) 31.0 kg/m2 12/28/2016 Height 61 inches 5'1" Weight 160.00 lb Heart Rate 87 /min BP Systolic 127 mmHg BP Diastolic 81 mmHg Body Temperature 96.4 F Pain Level 6 BMI (Body Mass Index) 30.2 kg/m2 12/13/2016 Height 61 inches 5'1" Weight 163.00 lb with shoes Heart Rate 81 /min BP Systolic Sitting 116 mmHg LA reg cuff BP Diastolic Sitting 82 mmHg LA reg cuff BMI (Body Mass Index) 30.8 kg/m2 Ejection Fraction 55% - 60% echo 11/24/16 11/23/2016 Weight 161.00 lb Heart Rate 78 /min BP Systolic Sitting 136 mmHg BP Diastolic Sitting 84 mmHg Body Temperature 97.0 F O2 % BldC Oximetry 98 % 10/31/2016 Height 61 inches 5'1" Weight 159.25 lb with shoes Heart Rate 74 /min BP Systolic Sitting 128 mmHg LA reg cuff BP Diastolic Sitting 84 mmHg LA reg cuff BMI (Body Mass Index) 30.1 kg/m2 10/16/2016 Weight 159.12 lb Heart Rate 93 /min BP Systolic 124 mmHg BP Diastolic 78 mmHg Body Temperature 97.7 F O2 % BldC Oximetry 98 % 08/29/2016 Weight 157.38 lb Heart Rate 90 /min BP Systolic 118 mmHg BP Diastolic 80 mmHg Body Temperature 96.7 F O2 % BldC Oximetry 98 % 08/08/2016 Weight 159.50 lb Heart Rate 94 /min BP Systolic Sitting 122 mmHg BP Diastolic Sitting 80 mmHg Body Temperature 96.9 F O2 % BldC Oximetry 99 % 08/01/2016 Heart Rate 88 /min BP Systolic Sitting 124 mmHg BP Diastolic Sitting 78 mmHg Body Temperature 97.9 F O2 % BldC Oximetry 99 % 07/27/2016 Height 62 inches 5'2" Weight 160.00 lb Heart Rate 79 /min BP Systolic 134 mmHg BP Diastolic 98 mmHg Respiratory Rate 16 /min Pain Level 7 BMI (Body Mass Index) 29.3 kg/m2 07/25/2016 Height 62 inches 5'2" Weight 163.38 lb Heart Rate 72 /min BP Systolic Sitting 142 mmHg BP Diastolic Sitting 93 mmHg Body Temperature 97.7 F O2 % BldC Oximetry 98 % BMI (Body Mass Index) 29.9 kg/m2 07/11/2016 Height 62 inches 5'2" Weight 162.25 lb Heart Rate 68 /min BP Systolic Sitting 127 mmHg BP Diastolic Sitting 99 mmHg Body Temperature 96.8 F O2 % BldC Oximetry 98 % BMI (Body Mass Index) 29.7 kg/m2 06/29/2016 Height 62 inches 5'2" Weight 165.00 lb Heart Rate 72 /min BP Systolic Sitting 126 mmHg BP Diastolic Sitting 82 mmHg Respiratory Rate 16 /min Body Temperature 96.8 F Pain Level 0 BMI (Body Mass Index) 30.2 kg/m2 06/09/2016 Height 62 inches 5'2" Weight 165.00 lb Heart Rate 72 /min Respiratory Rate 16 /min Pain Level 2 BMI (Body Mass Index) 30.2 kg/m2 05/12/2016 Height 62 inches 5'2" Weight 165.00 lb Respiratory Rate 17 /min Pain Level 9 BMI (Body Mass Index) 30.2 kg/m2 05/10/2016 Height 61 inches 5'1" Weight 165.00 lb Pain Level 5 BMI (Body Mass Index) 31.2 kg/m2 04/24/2016 Height 61 inches 5'1" Weight 165.00 lb Heart Rate 83 /min BP Systolic 122 mmHg BP Diastolic 85 mmHg BMI (Body Mass Index) 31.2 kg/m2 Results Test Date Test Result H/L Range Note CBC Auto Diff 11/26/2017 White Blood Count 8.0 10^3/uL 3.5-10.8 Red Blood Count 4.45 10^6/uL 4.00-5.40 Hemoglobin 13.1 g/dL 12.0-16.0 Hematocrit 39 % 35-47 Mean Corpuscular Volume 88 fL 80-97 Mean Corpuscular Hemoglobin 30 pg 27-31 Mean Corpuscular HGB Conc 34 g/dL 31-36 Red Cell Distribution Width 15 % 10.5-15 Platelet Count 184 10^3/uL 150-450 Mean Platelet Volume 7.5 um3 7.4-10.4 Abs Neutrophils 4.9 10^3/uL 1.5-7.7 Abs Lymphocytes 2.3 10^3/uL 1.0-4.8 Abs Monocytes 0.6 10^3/uL 0-0.8 Abs Eosinophils 0.1 10^3/uL 0-0.6 Abs Basophils 0.1 10^3/uL 0-0.2 Abs Nucleated RBC 0 10^3/uL Granulocyte % 61.3 % 38-83 Lymphocyte % 29.3 % 25-47 Monocyte % 7.3 % High 0-7 Eosinophil % 1.1 % 0-6 Basophil % 1.0 % 0-2 Nucleated Red Blood Cells % 0.1 Inr/Protime 11/26/2017 Inr 0.87 0.77-1.02 Laboratory test finding 11/26/2017 Partial Thrombo Time 36.0 seconds 26.0 -36.3 PTT Comp Metabolic Panel 11/26/2017 Sodium 137 mmol/L 135-145 Potassium 3.6 mmol/L 3.5-5.0 Chloride 105 mmol/L 101-111 Co2 Carbon Dioxide 27 mmol/L 22-32 Anion Gap 5 mmol/L 2-11 Glucose 101 mg/dL High 70-100 Blood Urea Nitrogen 18 mg/dL 6-24 Creatinine 0.98 mg/dL High 0.51-0.95 BUN/Creatinine Ratio 18.4 8-20 Calcium 9.0 mg/dL 8.6-10.3 Total Protein 6.9 g/dL 6.4-8.9 Albumin 4.1 g/dL 3.2-5.2 Globulin 2.8 g/dL 2-4 Albumin/Globulin Ratio 1.5 1-3 Total Bilirubin 0.30 mg/dL 0.2-1.0 Alkaline Phosphatase 54 U/L 34-104 Alt 10 U/L 7-52 Ast 14 U/L 13-39 Egfr Non- 64.6 >60 Egfr 78.1 >60 1 Laboratory test finding 11/26/2017 Magnesium 1.9 mg/dL 1.9-2.7 Troponin-I (TnI) 0.00 ng/mL <0.04 HCG < 0.60 mIU/mL 2 Laboratory test finding 10/23/2017 Poc , Urine Negative Negative 3 Poc Urinalysis 10/23/2017 Poc Glucose, Urine Negative Negative Poc Bilirubin, Urine Negative Negative Poc Ketone, Urine Negative Negative Poc Specific [place], Urine <=1.005 Low 1.010-1.030 Poc Blood, Urine Trace-lysed Negative Poc pH, Urine 6.0 5-9 Poc Protein, Urine Negative Negative Poc Urobilinogen, Urine 0.2 Negative Poc Nitrite, Urine Negative Negative Poc Leukocytes, Urine Negative Negative Poc Color, Urine Yellow Poc Clarity, Urine Clear 4 CBC Auto Diff 09/28/2017 White Blood Count 6.9 10^3/uL 3.5-10.8 Red Blood Count 4.58 10^6/uL 4.00-5.40 Hemoglobin 13.3 g/dL 12.0-16.0 Hematocrit 40 % 35-47 Mean Corpuscular Volume 87 fL 80-97 Mean Corpuscular Hemoglobin 29 pg 27-31 Mean Corpuscular HGB Conc 34 g/dL 31-36 Red Cell Distribution Width 14 % 10.5-15 Platelet Count 194 10^3/uL 150-450 Mean Platelet Volume 8.1 um3 7.4-10.4 Abs Neutrophils 2.8 10^3/uL 1.5-7.7 Abs Lymphocytes 3.3 10^3/uL 1.0-4.8 Abs Monocytes 0.7 10^3/uL 0-0.8 Abs Eosinophils 0.1 10^3/uL 0-0.6 Abs Basophils 0.1 10^3/uL 0-0.2 Abs Nucleated RBC 0 10^3/uL Granulocyte % 40.4 % 38-83 Lymphocyte % 47.7 % High 25-47 Monocyte % 9.5 % High 0-7 Eosinophil % 1.4 % 0-6 Basophil % 1.0 % 0-2 Nucleated Red Blood Cells % 0.1 Comp Metabolic Panel 09/28/2017 Sodium 137 mmol/L 135-145 Potassium 4.2 mmol/L 3.5-5.0 Chloride 104 mmol/L 101-111 Co2 Carbon Dioxide 25 mmol/L 22-32 Anion Gap 8 mmol/L 2-11 Glucose 73 mg/dL 70-100 Blood Urea Nitrogen 14 mg/dL 6-24 Creatinine 0.77 mg/dL 0.51-0.95 BUN/Creatinine Ratio 18.2 8-20 Calcium 9.3 mg/dL 8.6-10.3 Total Protein 7.0 g/dL 6.4-8.9 Albumin 4.2 g/dL 3.2-5.2 Globulin 2.8 g/dL 2-4 Albumin/Globulin Ratio 1.5 1-3 Total Bilirubin 0.50 mg/dL 0.2-1.0 Alkaline Phosphatase 46 U/L 34-104 Alt 10 U/L 7-52 Ast 14 U/L 13-39 Egfr Non- 85.3 >60 Egfr 109.7 >60 5 Laboratory test finding 09/28/2017 Magnesium 2.0 mg/dL 1.9-2.7 TSH (Thyroid Stim Horm) 0.42 mcIU/mL 0.34-5.60 CBC Auto Diff 06/07/2017 White Blood Count 6.0 10^3/uL 3.5-10.8 6 Red Blood Count 4.64 10^6/uL 4.0-5.4 6 Hemoglobin 13.7 g/dL 12.0-16.0 6 Hematocrit 40 % 35-47 6 Mean Corpuscular Volume 87 fL 80-97 6 Mean Corpuscular Hemoglobin 29 pg 27-31 6 Mean Corpuscular HGB Conc 34 g/dL 31-36 6 Red Cell Distribution Width 14 % 10.5-15 6 Platelet Count 188 10^3/uL 150-450 6 Mean Platelet Volume 8 um3 7.4-10.4 6 Abs Neutrophils 2.7 10^3/uL 1.5-7.7 6 Abs Lymphocytes 2.6 10^3/uL 1.0-4.8 6 Abs Monocytes 0.6 10^3/uL 0-0.8 6 Abs Eosinophils 0.1 10^3/uL 0-0.6 6 Abs Basophils 0 10^3/uL 0-0.2 6 Abs Nucleated RBC 0 10^3/uL 6 Granulocyte % 45.0 % 38-83 6 Lymphocyte % 43.3 % 25-47 6 Monocyte % 9.4 % High 0-7 6 Eosinophil % 1.6 % 0-6 6 Basophil % 0.7 % 0-2 6 Nucleated Red Blood Cells % 0.1 6 Comp Metabolic Panel 06/07/2017 Sodium 135 mmol/L 133-145 6 Potassium 4.4 mmol/L 3.5-5.0 6 Chloride 105 mmol/L 101-111 6 Co2 Carbon Dioxide 26 mmol/L 22-32 6 Anion Gap 4 mmol/L 2-11 6 Glucose 85 mg/dL 70-100 6 Blood Urea Nitrogen 14 mg/dL 6-24 6 Creatinine 0.69 mg/dL 0.51-0.95 6 BUN/Creatinine Ratio 20.3 High 8-20 6 Calcium 9.5 mg/dL 8.6-10.3 6 Total Protein 7.2 g/dL 6.4-8.9 6 Albumin 4.3 g/dL 3.2-5.2 6 Globulin 2.9 g/dL 2-4 6 Albumin/Globulin Ratio 1.5 1-3 6 Total Bilirubin 0.50 mg/dL 0.2-1.0 6 Alkaline Phosphatase 55 U/L 34-104 6 Alt 10 U/L 7-52 6 Ast 14 U/L 13-39 6 Egfr Non- 96.8 >60 6 Egfr 124.5 >60 6, 7 Laboratory test finding 06/07/2017 C Reactive Protein 1.50 mg/L < 5.00 6 , 8 Poc Urinalysis 06/07/2017 Poc Glucose, Urine Negative Negative Poc Bilirubin, Urine Negative Negative Poc Ketone, Urine Negative Negative Poc Specific [place], Urine 1.010 1.010-1.030 Poc Blood, Urine Trace-intact Negative Poc pH, Urine 6.0 5-9 Poc Protein, Urine Negative Negative Poc Urobilinogen, Urine 0.2 Negative Poc Nitrite, Urine Negative Negative Poc Leukocytes, Urine Negative Negative Poc Color, Urine Yellow Poc Clarity, Urine Clear 9 CBC Auto Diff 05/28/2017 White Blood Count 5.9 10^3/uL 3.5-10.8 Red Blood Count 4.66 10^6/uL 4.0-5.4 Hemoglobin 13.6 g/dL 12.0-16.0 Hematocrit 40 % 35-47 Mean Corpuscular Volume 86 fL 80-97 Mean Corpuscular Hemoglobin 29 pg 27-31 Mean Corpuscular HGB Conc 34 g/dL 31-36 Red Cell Distribution Width 14 % 10.5-15 Platelet Count 202 10^3/uL 150-450 Mean Platelet Volume 8 um3 7.4-10.4 Abs Neutrophils 2.8 10^3/uL 1.5-7.7 Abs Lymphocytes 2.3 10^3/uL 1.0-4.8 Abs Monocytes 0.5 10^3/uL 0-0.8 Abs Eosinophils 0.1 10^3/uL 0-0.6 Abs Basophils 0.1 10^3/uL 0-0.2 Abs Nucleated RBC 0 10^3/uL Granulocyte % 48.1 % 38-83 Lymphocyte % 39.8 % 25-47 Monocyte % 8.8 % 1-9 Eosinophil % 2.2 % 0-6 Basophil % 1.1 % 0-2 Nucleated Red Blood Cells % 0 Basic Metabolic Panel 05/28/2017 Sodium 136 mmol/L 133-145 Potassium 4.5 mmol/L 3.5-5.0 Chloride 103 mmol/L 101-111 Co2 Carbon Dioxide 27 mmol/L 22-32 Anion Gap 6 mmol/L 2-11 Glucose 78 mg/dL 70-100 Blood Urea Nitrogen 15 mg/dL 6-24 Creatinine 0.66 mg/dL 0.51-0.95 BUN/Creatinine Ratio 22.7 High 8-20 Calcium 9.3 mg/dL 8.6-10.3 Egfr Non- 101.9 >60 Egfr 131.1 >60 10 Laboratory test finding 05/28/2017 Magnesium 1.9 mg/dL 1.9-2.7 Rapid Influenza A & B 05/14/2017 Influenza A Molecular NEGATIVE Negative 11 Molecular Influenza B Molecular POSITIVE Negative Laboratory test 05/14/2017 Influenza A & B SEE RESULT BELOW 12 finding Request Rapid Influenza A & B 05/10/2017 Influenza A NEGATIVE Negative 13 Molecular Molecular Influenza B Molecular NEGATIVE Negative GC/Chlamydia Amplified Rna 04/26/2017 Chlamydia trachomatis Negative Negative 14 Rna Neisseria gonorrhoeae (GC) Rna Negative Negative 14 HPV 16, 18/45 Genotype 04/26/2017 HPV 16 Genotype Negative Negative 14 HPV 18/45 Genotype Negative Negative 14 Laboratory test finding 04/26/2017 Cytology SEE RESULT BELOW 14, 15 Laboratory test finding 02/16/2017 Hemoglobin A1c 5.8 5-7 Comp Metabolic Panel 01/19/2017 Sodium 136 mmol/L 133-145 Potassium 3.8 mmol/L 3.5-5.0 Chloride 102 mmol/L 101-111 Co2 Carbon Dioxide 27 mmol/L 22-32 Anion Gap 7 mmol/L 2-11 Glucose 119 mg/dL High 70-100 Blood Urea Nitrogen 11 mg/dL 6-24 Creatinine 0.72 mg/dL 0.51-0.95 BUN/Creatinine Ratio 15.3 8-20 Calcium 9.3 mg/dL 8.6-10.3 Total Protein 7.2 g/dL 6.4-8.9 Albumin 4.1 g/dL 3.2-5.2 Globulin 3.1 g/dL 2-4 Albumin/Globulin Ratio 1.3 1-3 Total Bilirubin 0.40 mg/dL 0.2-1.0 Alkaline Phosphatase 55 U/L 34-104 Alt 10 U/L 7-52 Ast 13 U/L 13-39 Egfr Non- 92.7 >60 Egfr 119.2 >60 16 Laboratory test finding 01/19/2017 Troponin-I (TnI) 0.00 ng/mL <0.04 HCG < 0.60 mIU/mL 17 CBC Auto Diff 11/27/2016 White Blood Count 8.9 10^3/uL 3.5-10.8 Red Blood Count 5.05 10^6/uL 4.0-5.4 Hemoglobin 14.6 g/dL 12.0-16.0 Hematocrit 43 % 35-47 Mean Corpuscular Volume 86 fL 80-97 Mean Corpuscular Hemoglobin 29 pg 27-31 Mean Corpuscular HGB Conc 34 g/dL 31-36 Red Cell Distribution Width 14 % 10.5-15 Platelet Count 207 10^3/uL 150-450 Mean Platelet Volume 8 um3 7.4-10.4 Abs Neutrophils 4.6 10^3/uL 1.5-7.7 Abs Lymphocytes 3.4 10^3/uL 1.0-4.8 Abs Monocytes 0.6 10^3/uL 0-0.8 Abs Eosinophils 0.2 10^3/uL 0-0.6 Abs Basophils 0.1 10^3/uL 0-0.2 Abs Nucleated RBC 0.01 10^3/uL Granulocyte % 51.5 % 38-83 Lymphocyte % 37.7 % 25-47 Monocyte % 7.2 % 1-9 Eosinophil % 2.5 % 0-6 Basophil % 1.1 % 0-2 Nucleated Red Blood Cells % 0.1 Comp Metabolic Panel 11/27/2016 Sodium 138 mmol/L 133-145 Potassium 3.7 mmol/L 3.5-5.0 Chloride 104 mmol/L 101-111 Co2 Carbon Dioxide 27 mmol/L 22-32 Anion Gap 7 mmol/L 2-11 Glucose 96 mg/dL 70-100 Blood Urea Nitrogen 16 mg/dL 6-24 Creatinine 0.76 mg/dL 0.51-0.95 BUN/Creatinine Ratio 21.1 High 8-20 Calcium 9.7 mg/dL 8.6-10.3 Total Protein 7.9 g/dL 6.4-8.9 Albumin 4.6 g/dL 3.2-5.2 Globulin 3.3 g/dL 2-4 Albumin/Globulin Ratio 1.4 1-3 Total Bilirubin 0.30 mg/dL 0.2-1.0 Alkaline Phosphatase 82 U/L 34-104 Alt 9 U/L 7-52 Ast 15 U/L 13-39 Egfr Non- 87.1 >60 Egfr 112.0 >60 18 Laboratory test finding 11/27/2016 Magnesium 2.0 mg/dL 1.9-2.7 Basic Metabolic Panel 11/14/2016 Sodium 135 mmol/L 133-145 Potassium 4.3 mmol/L 3.5-5.0 Chloride 104 mmol/L 101-111 Co2 Carbon Dioxide 24 mmol/L 22-32 Anion Gap 7 mmol/L 2-11 Glucose 85 mg/dL 70-100 Blood Urea Nitrogen 13 mg/dL 6-24 Creatinine 0.67 mg/dL 0.51-0.95 BUN/Creatinine Ratio 19.4 8-20 Calcium 9.0 mg/dL 8.6-10.3 Egfr Non- 100.8 >60 Egfr 129.6 >60 19 CBC Auto Diff 11/03/2016 White Blood Count 8.0 10^3/uL 3.5-10.8 Red Blood Count 4.36 10^6/uL 4.0-5.4 Hemoglobin 12.7 g/dL 12.0-16.0 Hematocrit 38 % 35-47 Mean Corpuscular Volume 88 fL 80-97 Mean Corpuscular Hemoglobin 29 pg 27-31 Mean Corpuscular HGB Conc 33 g/dL 31-36 Red Cell Distribution Width 15 % 10.5-15 Platelet Count 191 10^3/uL 150-450 Mean Platelet Volume 8 um3 7.4-10.4 Abs Neutrophils 3.4 10^3/uL 1.5-7.7 Abs Lymphocytes 3.6 10^3/uL 1.0-4.8 Abs Monocytes 0.7 10^3/uL 0-0.8 Abs Eosinophils 0.3 10^3/uL 0-0.6 Abs Basophils 0.1 10^3/uL 0-0.2 Abs Nucleated RBC 0.01 10^3/uL Granulocyte % 42.3 % 38-83 Lymphocyte % 44.3 % 25-47 Monocyte % 9.2 % High 1-9 Eosinophil % 3.3 % 0-6 Basophil % 0.9 % 0-2 Nucleated Red Blood Cells % 0.1 Laboratory test 11/03/2016 B-Type Natriuretic 11 pg/mL 20 finding Peptide BNP Inr/Protime 11/03/2016 Inr 0.84 Low 0.89-1.11 Laboratory test 11/03/2016 Partial Thrombo Time 38.6 seconds High 26.0- 36.3 finding PTT D Dimer Quantitative < 200 ng/mL Less Than 230 21 Comp Metabolic Panel 11/03/2016 Sodium 134 mmol/L 133-145 Potassium 3.9 mmol/L 3.5-5.0 Chloride 105 mmol/L 101-111 Co2 Carbon Dioxide 24 mmol/L 22-32 Anion Gap 5 mmol/L 2-11 Glucose 83 mg/dL 70-100 Blood Urea Nitrogen 13 mg/dL 6-24 Creatinine 0.61 mg/dL 0.51-0.95 BUN/Creatinine Ratio 21.3 High 8-20 Calcium 8.9 mg/dL 8.6-10.3 Total Protein 6.6 g/dL 6.4-8.9 Albumin 3.8 g/dL 3.2-5.2 Globulin 2.8 g/dL 2-4 Albumin/Globulin Ratio 1.4 1-3 Total Bilirubin 0.20 mg/dL 0.2-1.0 Alkaline Phosphatase 74 U/L 34-104 Alt 9 U/L 7-52 Ast 13 U/L 13-39 Egfr Non- 112.3 >60 Egfr 144.4 >60 22 Laboratory test finding 11/03/2016 Troponin-I (TnI) 0.00 ng/mL <0.04 TSH (Thyroid Stim Horm) 0.99 mcIU/mL 0.34-5.60 HCG < 0.60 mIU/mL 23 Hemoglobin A1c (Glyco HGB) 8.7 % High Less than 6.0 24 Laboratory test finding 10/10/2016 Potassium 3.4 mmol/L Low 3.5-5.0 Magnesium 1.9 mg/dL 1.9-2.7 Laboratory test finding 10/08/2016 Lactic Acid 1.0 mmol/L 0.5-2.0 25 CBC Auto Diff 10/08/2016 White Blood Count 8.1 10^3/uL 3.5-10.8 Red Blood Count 4.28 10^6/uL 4.0-5.4 Hemoglobin 12.6 g/dL 12.0-16.0 Hematocrit 37 % 35-47 Mean Corpuscular Volume 87 fL 80-97 Mean Corpuscular Hemoglobin 29 pg 27-31 Mean Corpuscular HGB Conc 34 g/dL 31-36 Red Cell Distribution Width 15 % 10.5-15 Platelet Count 190 10^3/uL 150-450 Mean Platelet Volume 8 um3 7.4-10.4 Abs Neutrophils 3.7 10^3/uL 1.5-7.7 Abs Lymphocytes 3.3 10^3/uL 1.0-4.8 Abs Monocytes 0.7 10^3/uL 0-0.8 Abs Eosinophils 0.3 10^3/uL 0-0.6 Abs Basophils 0.1 10^3/uL 0-0.2 Abs Nucleated RBC 0.01 10^3/uL Granulocyte % 45.4 % 38-83 Lymphocyte % 41.2 % 25-47 Monocyte % 8.6 % 1-9 Eosinophil % 3.7 % 0-6 Basophil % 1.1 % 0-2 Nucleated Red Blood Cells % 0.1 Comp Metabolic Panel 10/08/2016 Sodium 137 mmol/L 133-145 Potassium 3.5 mmol/L 3.5-5.0 Chloride 107 mmol/L 101-111 Co2 Carbon Dioxide 25 mmol/L 22-32 Anion Gap 5 mmol/L 2-11 Glucose 88 mg/dL 70-100 Blood Urea Nitrogen 18 mg/dL 6-24 Creatinine 0.82 mg/dL 0.51-0.95 BUN/Creatinine Ratio 22.0 High 8-20 Calcium 8.9 mg/dL 8.6-10.3 Total Protein 6.4 g/dL 6.4-8.9 Albumin 3.7 g/dL 3.2-5.2 Globulin 2.7 g/dL 2-4 Albumin/Globulin Ratio 1.4 1-3 Total Bilirubin 0.20 mg/dL 0.2-1.0 Alkaline Phosphatase 66 U/L 34-104 Alt 9 U/L 7-52 Ast 12 U/L Low 13-39 Egfr Non- 79.8 >60 Egfr 102.6 >60 26 Laboratory test finding 10/08/2016 Magnesium 1.8 mg/dL Low 1.9-2.7 Troponin-I (TnI) 0.00 ng/mL <0.04 TSH (Thyroid Stim Horm) 0.63 mcIU/mL 0.34-5.60 HCG < 0.60 mIU/mL 27 CBC Auto Diff 08/07/2016 White Blood Count 8.4 10^3/uL 3.5-10.8 Red Blood Count 5.03 10^6/uL 4.0-5.4 Hemoglobin 14.2 g/dL 12.0-16.0 Hematocrit 43 % 35-47 Mean Corpuscular Volume 85 fL 80-97 Mean Corpuscular Hemoglobin 28 pg 27-31 Mean Corpuscular HGB Conc 33 g/dL 31-36 Red Cell Distribution Width 14 % 10.5-15 Platelet Count 239 10^3/uL 150-450 Mean Platelet Volume 8 um3 7.4-10.4 Abs Neutrophils 4.2 10^3/uL 1.5-7.7 Abs Lymphocytes 3.4 10^3/uL 1.0-4.8 Abs Monocytes 0.5 10^3/uL 0-0.8 Abs Eosinophils 0.2 10^3/uL 0-0.6 Abs Basophils 0 10^3/uL 0-0.2 Abs Nucleated RBC 0.02 10^3/uL Granulocyte % 50.2 % 38-83 Lymphocyte % 40.6 % 25-47 Monocyte % 6.4 % 1-9 Eosinophil % 2.4 % 0-6 Basophil % 0.4 % 0-2 Nucleated Red Blood Cells % 0.2 Laboratory test finding 08/07/2016 Troponin-I (TnI) 0.00 ng/mL <0.04 28 Comp Metabolic Panel 08/07/2016 Sodium 135 mmol/L 133-145 Potassium 3.8 mmol/L 3.5-5.0 Chloride 100 mmol/L Low 101-111 Co2 Carbon Dioxide 27 mmol/L 22-32 Anion Gap 8 mmol/L 2-11 Glucose 90 mg/dL 70-100 Blood Urea Nitrogen 17 mg/dL 6-24 Creatinine 0.69 mg/dL 0.51-0.95 BUN/Creatinine Ratio 24.6 High 8-20 Calcium 10.0 mg/dL 8.6-10.3 Total Protein 8.0 g/dL 6.4-8.9 Albumin 4.5 g/dL 3.2-5.2 Globulin 3.5 g/dL 2-4 Albumin/Globulin Ratio 1.3 1-3 Total Bilirubin 0.30 mg/dL 0.2-1.0 Alkaline Phosphatase 75 U/L 34-104 Alt 10 U/L 7-52 Ast 14 U/L 13-39 Egfr Non- 97.4 >60 Egfr 125.3 >60 29 Laboratory test finding 08/07/2016 Magnesium 2.0 mg/dL 1.9-2.7 TSH (Thyroid Stim Horm) 0.36 mcIU/mL 0.34-5.60 HCG < 0.60 mIU/mL 30 Urinalysis Profile 08/07/2016 Urine Color Straw Urine Appearance Clear Urine Specific [place] 1.010 1.010-1.030 Urine pH 6.0 5-9 Urine Urobilinogen Negative Negative Urine Ketones Negative Negative Urine Protein Negative Negative Urine Leukocytes Negative Negative Urine Blood 1+ Negative Urine Nitrite Negative Negative Urine Bilirubin Negative Negative Urine Glucose Negative Negative Urine White Blood Cell Trace(0-5/hpf) Absent Urine Red Blood Cell Absent Absent Urine Bacteria Absent Absent Urine Squamous Epithelial Cell Present Absent Laboratory test finding 08/02/2016 Uric Acid 5.9 mg/dL 2.3-6.6 Vitamin B12 And Folate Serum 07/19/2016 Vitamin B12 424 pg/mL 180-914 31 Folic Acid (Folate) > 20.00 ng/mL >3.99 CBC Auto Diff 07/12/2016 White Blood Count 6.4 10^3/uL 3.5-10.8 Red Blood Count 4.48 10^6/uL 4.0-5.4 Hemoglobin 12.7 g/dL 12.0-16.0 Hematocrit 39 % 35-47 Mean Corpuscular Volume 86 fL 80-97 Mean Corpuscular Hemoglobin 28 pg 27-31 Mean Corpuscular HGB Conc 33 g/dL 31-36 Red Cell Distribution Width 14 % 10.5-15 Platelet Count 215 10^3/uL 150-450 Mean Platelet Volume 8 um3 7.4-10.4 Abs Neutrophils 2.8 10^3/uL 1.5-7.7 Abs Lymphocytes 2.9 10^3/uL 1.0-4.8 Abs Monocytes 0.5 10^3/uL 0-0.8 Abs Eosinophils 0.1 10^3/uL 0-0.6 Abs Basophils 0 10^3/uL 0-0.2 Abs Nucleated RBC 0.01 10^3/uL Granulocyte % 44.6 % 38-83 Lymphocyte % 45.2 % 25-47 Monocyte % 7.9 % 1-9 Eosinophil % 1.9 % 0-6 Basophil % 0.4 % 0-2 Nucleated Red Blood Cells % 0.1 Connective Tissue Panel 07/12/2016 Anti-Nuclear Antibody 0.4 U 32 Cyclic Citrullinated Peptide <15.6 U 33 Interpretation See Comment 34 Comp Metabolic Panel 07/12/2016 Sodium 135 mmol/L 133-145 Potassium 3.7 mmol/L 3.5-5.0 Chloride 103 mmol/L 101-111 Co2 Carbon Dioxide 26 mmol/L 22-32 Anion Gap 6 mmol/L 2-11 Glucose 86 mg/dL 70-100 Blood Urea Nitrogen 9 mg/dL 6-24 Creatinine 0.64 mg/dL 0.51-0.95 BUN/Creatinine Ratio 14.1 8-20 Calcium 9.2 mg/dL 8.6-10.3 Total Protein 6.9 g/dL 6.4-8.9 Albumin 4.2 g/dL 3.2-5.2 Globulin 2.7 g/dL 2-4 Albumin/Globulin Ratio 1.6 1-3 Total Bilirubin 0.40 mg/dL 0.2-1.0 Alkaline Phosphatase 64 U/L 34-104 Alt 10 U/L 7-52 Ast 13 U/L 13-39 Egfr Non- 106.2 >60 Egfr 136.6 >60 35 Lipid Profile (Trig/Chol/HDL) 07/12/2016 Triglycerides 63 mg/dL 36 Cholesterol 144 mg/dL 37 HDL Cholesterol 53.4 mg/dL 38 LDL Cholesterol 78 mg/dL 39 Laboratory test finding 06/19/2016 Surgical Pathology SEE RESULT BELOW 40 1 Because ethnic data is not always readily available, this report includes an eGFR for both -Americans and non- Americans. The National Kidney Disease Education Program (NKDEP) does not endorse the use of the MDRD equation for patients that are not between the ages of 18 and 70, are , have extremes of body size, muscle mass, or nutritional status, or are non- or non-. According to the National Kidney Foundation, irrespective of diagnosis, the stage of the disease is based on the level of kidney function: Stage Description GFR(mL/min/1.73 m(2)) 1 Kidney damage with normal or decreased GFR 90 2 Kidney damage with mild decrease in GFR 60-89 3 Moderate decrease in GFR 30-59 4 Severe decrease in GFR 15-29 5 Kidney failure <15 (or dialysis) 2 <5.0 Negative 5.0 - 25.0 Indeterminate (Repeat testing recommended after 72 hours) >25.0 Positive Perimenopausal women can display HCG levels of up to 20 mIU/mL 3 Procedures Nurse: [id number] If is still suspected, please repeat test after 48 to 72 hours. 4 Procedures Nurse: [id number] 5 Because ethnic data is not always readily available, this report includes an eGFR for both -Americans and non- Americans. The National Kidney Disease Education Program (NKDEP) does not endorse the use of the MDRD equation for patients that are not between the ages of 18 and 70, are , have extremes of body size, muscle mass, or nutritional status, or are non- or non-. According to the National Kidney Foundation, irrespective of diagnosis, the stage of the disease is based on the level of kidney function: Stage Description GFR(mL/min/1.73 m(2)) 1 Kidney damage with normal or decreased GFR 90 2 Kidney damage with mild decrease in GFR 60-89 3 Moderate decrease in GFR 30-59 4 Severe decrease in GFR 15-29 5 Kidney failure <15 (or dialysis) 6 [id number] 7 Because ethnic data is not always readily available, this report includes an eGFR for both -Americans and non- Americans. The National Kidney Disease Education Program (NKDEP) does not endorse the use of the MDRD equation for patients that are not between the ages of 18 and 70, are , have extremes of body size, muscle mass, or nutritional status, or are non- or non-. According to the National Kidney Foundation, irrespective of diagnosis, the stage of the disease is based on the level of kidney function: Stage Description GFR(mL/min/1.73 m(2)) 1 Kidney damage with normal or decreased GFR 90 2 Kidney damage with mild decrease in GFR 60-89 3 Moderate decrease in GFR 30-59 4 Severe decrease in GFR 15-29 5 Kidney failure <15 (or dialysis) 8 Acute inflammation: >10.00 9 Procedures Nurse: [id number] 10 Because ethnic data is not always readily available, this report includes an eGFR for both -Americans and non- Americans. The National Kidney Disease Education Program (NKDEP) does not endorse the use of the MDRD equation for patients that are not between the ages of 18 and 70, are , have extremes of body size, muscle mass, or nutritional status, or are non- or non-. According to the National Kidney Foundation, irrespective of diagnosis, the stage of the disease is based on the level of kidney function: Stage Description GFR(mL/min/1.73 m(2)) 1 Kidney damage with normal or decreased GFR 90 2 Kidney damage with mild decrease in GFR 60-89 3 Moderate decrease in GFR 30-59 4 Severe decrease in GFR 15-29 5 Kidney failure <15 (or dialysis) 11 Procedures Nurse: [id number] 12 SEE RESULT BELOW Name: JEAN CLAUDE ORELLANA : [address]: Elise Tripp MD Acct: [id number] Unit: [id number] AGE: 37 Location: [facility] Re05/14/17 SEX: F Status: REG REF SPEC: [id number] JIMMY: 05/14/17-1150 [facility] DR: Elise Tripp MD REQ: [id number] RECD: 05/14/17 STATUS: COMP _ SOURCE: [facility]: ORDERED: Flu A B Request COMMENTS: [id number] Procedure Result Reported Site Rapid Influenza A B Request Final 05/14/171927 ML Specimen received for Influenza A/B Molecular testing * ML - MAIN LAB (PSC1) . END OF REPORT * ML=Testing performed at Main Lab DEPARTMENT OF PATHOLOGY, [address] [place] [address] Remington Pruitt M.D. Director [facility] # [id number] 13 Procedures Nurse: [id number] 15 SEE RESULT BELOW Name: JEAN CLAUDE ORELLANA : [address]: Alexander Sands MD Acct: [id number] Unit: [id number] AGE: 37 Location: [facility] Re04/26/17 SEX: F Status: REG REF SPEC: [id number] JIMMY: 04/26/17-[address]: Alexander Sands MD REQ: [id number] RECD: 04/26/17 STATUS: MAGO YANEZ DR: Pedrito Jenkins MD _ ORDERED: TP IMAGE ANAL, HPV/Thin Prep, HPV 16/18 GENE COMMENTS: [id number] Negative for Intraepithelial lesion or Malignancy A. Ectocervical/Endocervical Specimen Adequacy: Satisfactory of evaluation Transformation zone component identified Patient Information: HPV: High risk HPV RNA testing regardless of pap results. HPV 16/18 Genotype Reflex Actual Specimen Date: 04/26/17 Last Menstrual Date: 04/12/17 ?: N Post Menopausal?: N Hysterectomy?: N Previous Abnormal Pap Smears?:N Date Time Test Result Flag (u) Normal Range 04/26/17 1430 @ HPV RNA RFLX GE POSITIVE H Negative @ @ The high-risk HPV types detected by the assay include: 16, @ 18, 31, 33, 35, 39, 45, 51, 52, 56, 58, 59, 66, and 68. Signed (signature on file) LSIA Mckeon(ASC) 04/30 9986 This Pap test was evaluated with the assistance of the ?Prep Test Imaging System. Due to cytologic findings at the gericare aide teacher microscope, comprehensive manual rescreening by a Clinical Quality Rn may be required. The Pap Smear is a screening test designed to aid in the detection of premalignant and malignant conditions of the uterine cervix. It is not a diagnostic procedure and should not be used as the sole means of detecting cervical cancer. Both false- positive and false- negative reports do occur. Depending on your risk status, a Pap smear should be obtained and evaluated every 1-3 years. END OF REPORT * ML=Testing performed at [facility] DEPARTMENT OF PATHOLOGY, [address] [place] [address] Remington Pruitt M.D. Director [facility] # [id number] 16 Because ethnic data is not always readily available, this report includes an eGFR for both -Americans and non- Americans. The National Kidney Disease Education Program (NKDEP) does not endorse the use of the MDRD equation for patients that are not between the ages of 18 and 70, are , have extremes of body size, muscle mass, or nutritional status, or are non- or non-. According to the National Kidney Foundation, irrespective of diagnosis, the stage of the disease is based on the level of kidney function: Stage Description GFR(mL/min/1.73 m(2)) 1 Kidney damage with normal or decreased GFR 90 2 Kidney damage with mild decrease in GFR 60-89 3 Moderate decrease in GFR 30-59 4 Severe decrease in GFR 15-29 5 Kidney failure <15 (or dialysis) 17 <5.0 Negative 5.0 - 25.0 Indeterminate (Repeat testing recommended after 72 hours) >25.0 Positive Perimenopausal women can display HCG levels of up to 20 mIU/mL 18 Because ethnic data is not always readily available, this report includes an eGFR for both -Americans and non- Americans. The National Kidney Disease Education Program (NKDEP) does not endorse the use of the MDRD equation for patients that are not between the ages of 18 and 70, are , have extremes of body size, muscle mass, or nutritional status, or are non- or non-. According to the National Kidney Foundation, irrespective of diagnosis, the stage of the disease is based on the level of kidney function: Stage Description GFR(mL/min/1.73 m(2)) 1 Kidney damage with normal or decreased GFR 90 2 Kidney damage with mild decrease in GFR 60-89 3 Moderate decrease in GFR 30-59 4 Severe decrease in GFR 15-29 5 Kidney failure <15 (or dialysis) 19 Because ethnic data is not always readily available, this report includes an eGFR for both -Americans and non- Americans. The National Kidney Disease Education Program (NKDEP) does not endorse the use of the MDRD equation for patients that are not between the ages of 18 and 70, are , have extremes of body size, muscle mass, or nutritional status, or are non- or non-. According to the National Kidney Foundation, irrespective of diagnosis, the stage of the disease is based on the level of kidney function: Stage Description GFR(mL/min/1.73 m(2)) 1 Kidney damage with normal or decreased GFR 90 2 Kidney damage with mild decrease in GFR 60-89 3 Moderate decrease in GFR 30-59 4 Severe decrease in GFR 15-29 5 Kidney failure <15 (or dialysis) 20 >100 to <200 pg/mL: likely compensated congestive heart failure (CHF) 200 to 400 pg/mL: likely moderate CHF >400 pg/mL: likely moderate to severe CHF 21 Please note: The following may produce a false positive D Dimer test: - Rheumatoid factor greater than 60 IU/ml - Plasma hemoglobin greater than 0.05 gm/dl - Bilirubin greater than 50 mg/dl - Lipids greater than 1000 mg/dl - FDP greater than 20 ug/ml 22 Because ethnic data is not always readily available, this report includes an eGFR for both -Americans and non- Americans. The National Kidney Disease Education Program (NKDEP) does not endorse the use of the MDRD equation for patients that are not between the ages of 18 and 70, are , have extremes of body size, muscle mass, or nutritional status, or are non- or non-. According to the National Kidney Foundation, irrespective of diagnosis, the stage of the disease is based on the level of kidney function: Stage Description GFR(mL/min/1.73 m(2)) 1 Kidney damage with normal or decreased GFR 90 2 Kidney damage with mild decrease in GFR 60-89 3 Moderate decrease in GFR 30-59 4 Severe decrease in GFR 15-29 5 Kidney failure <15 (or dialysis) 23 <5.0 Negative 5.0 - 25.0 Indeterminate (Repeat testing recommended after 72 hours) >25.0 Positive Perimenopausal women can display HCG levels of up to 20 mIU/mL 24 Therapeutic target for the treatment of diabetes Mellitus patients is <7% HBA1C, and in selective patients <6.0%.Please refer to [place] [employer] Diabetic care guidelines for further information. 25 [facility] Severe Sepsis and Septic Shock Management Bundle Measure requires all lactic acids initially measuring >2.0 mmol/L be repeated. 26 Because ethnic data is not always readily available, this report includes an eGFR for both -Americans and non- Americans. The National Kidney Disease Education Program (NKDEP) does not endorse the use of the MDRD equation for patients that are not between the ages of 18 and 70, are , have extremes of body size, muscle mass, or nutritional status, or are non- or non-. According to the National Kidney Foundation, irrespective of diagnosis, the stage of the disease is based on the level of kidney function: Stage Description GFR(mL/min/1.73 m(2)) 1 Kidney damage with normal or decreased GFR 90 2 Kidney damage with mild decrease in GFR 60-89 3 Moderate decrease in GFR 30-59 4 Severe decrease in GFR 15-29 5 Kidney failure <15 (or dialysis) 27 <5.0 Negative 5.0 - 25.0 Indeterminate (Repeat testing recommended after 72 hours) >25.0 Positive Perimenopausal women can display HCG levels of up to 20 mIU/mL 28 99th percentile=0.04 ng/mL Troponin results at [facility] and [facility] are not interchangeable. 29 Because ethnic data is not always readily available, this report includes an eGFR for both -Americans and non- Americans. The National Kidney Disease Education Program (NKDEP) does not endorse the use of the MDRD equation for patients that are not between the ages of 18 and 70, are , have extremes of body size, muscle mass, or nutritional status, or are non- or non-. According to the National Kidney Foundation, irrespective of diagnosis, the stage of the disease is based on the level of kidney function: Stage Description GFR(mL/min/1.73 m(2)) 1 Kidney damage with normal or decreased GFR 90 2 Kidney damage with mild decrease in GFR 60-89 3 Moderate decrease in GFR 30-59 4 Severe decrease in GFR 15-29 5 Kidney failure <15 (or dialysis) 30 <5.0 Negative 5.0 - 25.0 Indeterminate (Repeat testing recommended after 72 hours) >25.0 Positive Perimenopausal women can display HCG levels of up to 20 mIU/mL 31 Normal Range 180 to 914 Indeterminate Range 145 to 180 Deficient Range <145 32 REFERENCE VALUE <=1.0 (Negative) 33 REFERENCE VALUE <20.0 (Negative) 34 Tests for antibodies to dsDNA and LEON antigens are not performed automatically unless the ALINA result is > or= 3.0 U. Studies performed at [facility] indicate that positive ALINA results <3.0 U are rarely accompanied by positive second order tests. Test Performed by: [facility] - [address] [address] 35 Because ethnic data is not always readily available, this report includes an eGFR for both -Americans and non- Americans. The National Kidney Disease Education Program (NKDEP) does not endorse the use of the MDRD equation for patients that are not between the ages of 18 and 70, are , have extremes of body size, muscle mass, or nutritional status, or are non- or non-. According to the National Kidney Foundation, irrespective of diagnosis, the stage of the disease is based on the level of kidney function: Stage Description GFR(mL/min/1.73 m(2)) 1 Kidney damage with normal or decreased GFR 90 2 Kidney damage with mild decrease in GFR 60-89 3 Moderate decrease in GFR 30-59 4 Severe decrease in GFR 15-29 5 Kidney failure <15 (or dialysis) 36 Desirable <150 Borderline high 150-199 High 200-499 Very High >500 37 Desirable <200 Borderline high 200-239 High >239 38 Low <40 Desirable: 40-60 High: >60 39 Desirable: <100 mg/dL Near Optimal: 100-129 mg/dL Borderline High: 130-159 mg/dL High: 160-189 mg/dL Very High: >189 mg/dL 40 SEE RESULT BELOW Name: JEAN CLAUDE ORELLANA : [address]: Lacey Friend MD Acct: [id number] Unit: [id number] AGE: 36 Location: [facility] Re06/19/16 SEX: F Status: REG SD SPEC: JIMMY: 06/19/[address]: Lacey Friend MD REQ: [id number] RECD: 06/19/16 STATUS: SOUT _ ORDERED: LEVEL III FINAL DIAGNOSIS Knee, left, arthroscopic shavings: -- Benign synovial tissue fragments with reactive change. CLINICAL HISTORY No history given GROSS DESCRIPTION The specimen is received in formalin labeled, Left Knee Shavings, and consists of a 3.5 x 2.7 x 0.5 cm aggregate of yellow-white to brown tissue fragments. 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 Signed (signature on file) Peggy Palafox MD 11/30 1312 END OF REPORT * ML=Testing performed at Main Lab DEPARTMENT OF PATHOLOGY, [address] [place] [address] Remington Pruitt M.D. Director [facility] # [id number] Procedures Date CPT Code Description Status Comment 11/29/2017 66469 EKG Tracing & Interpretation Completed 11/23/2017 Diabetic Retinal Eye Exam Completed Document: 11/23/17 - Consult Ophthalmology-Jorge Alberto 09/18/2017 49784 EKG Tracing & Interpretation Completed 05/15/2017 70513 EKG Tracing & Interpretation Completed 12/13/2016 49046 EKG Tracing & Interpretation Completed 11/24/2016 44173 ECHO Transthoracic, Real-Time 2D Completed With Doppler And Color Flow 10/31/2016 54241 EKG Tracing & Interpretation Completed 08/15/2016 67801 Holter Monitor Review (24 hr)dr Completed review & interp only 08/09/2016 29319 ECG Monitor/Recording W/Visual Completed Superimposition Scanning 06/19/2016 25892 Arthroscopy,Unlisted Procedure Completed 06/19/2016 89716 Arthroscopy,Knee,Meniscectomy Completed Media & Lateral 06/19/2016 58721 Arthroscopy,Knee,Meniscectomy Completed Media & Lateral Encounters Type Date Location Provider CPT E/M Dx Office Visit 10/26/2017 10:00a [facility] Internal [place], [address] R10.10 Medicine - Tboralia Cee M.D. K59.09 Office Visit 09/18/2017 10:40a [facility] Arnaud Kiran M.D. 79274 F41.9 R00.2 I49.3 Office Visit 08/29/2017 9:00a [facility] Internal [place] - Abner Juá[place] [address] R25.3 [place] R21 Office Visit 07/30/2017 1:40p [facility] [place] [address] F41.9 - [address] Office Visit 06/13/2017 9:40a [facility] Internal Medicine JEANETTE Nicholson [address] R14.3 - [address] R10.13 Office Visit 05/15/2017 10:20a [facility] Arnaud Kiran M.D. 58610 R00.2 I49.3 I34.0 Office Visit 05/14/2017 11:30a [facility] Internal Medicine - Elise Tripp, 01557 J06.9 Alecia Patel Office Visit 03/13/2017 9:00a [facility] Niko De Dios, [address] R51 Services Of Linda Patel Office Visit 02/16/2017 8:40a [facility] Internal Medicine Bayron Jenkins, [address]46 F41.9 [place] Patel F40.01 E66.8 R79.9 Office Visit 01/25/2017 9:40a [facility] Internal Medicine Pedrito Jenkins M.D. 77635 R51 - [address] M67.442 F41.9 Office Visit 01/10/2017 10:00a [facility] [place] [address] L21.8 L70.0 Office Visit 01/09/2017 1:40p [facility] Internal Medicine Pedrito Jenkins M.D. 05483 R21 - [address] R10.9 F41.9 Office Visit 12/28/2016 10:15a [facility] [place] [address] S83.512D C.M.A. Office Visit 12/13/2016 9:00a [facility] SORAYA Tuttle 05168 R00.2 I34.0 E87.6 Office Visit 11/23/2016 10:20a [facility] Internal Estuardo Harris, [address]99 S83.512D Medicine - [place] Coleman aPtel,FACP R00.2 Office Visit 10/31/2016 2:00p [facility] Arnaud Kiran M.D. 62361 E87.6 R00.2 F41.9 F17.210 G47.9 R01.1 Office Visit 10/16/2016 3:00p [facility] Internal Pedrito Jenkins 00660 F40.01 Medicine - [place] Coleman Patel E87.6 R00.2 Office Visit 08/29/2016 9:20a [facility] Internal Pedrito Jenkins M.D. 00780 F41.9 Medicine - [address] F17.210 Office Visit 08/08/2016 8:40a [facility] Internal Elyssa Jenkins M.D. 75905 I10 - [address] R42 Office Visit 08/01/2016 2:20p [facility] Internal Elyssa Jenkins M.D. 88659 I10 - [address] M79.676 Office Visit 07/25/2016 9:40a [facility] Elyssa Jenkins M.D. 22555 I10 - [address] G63 Office Visit 07/11/2016 1:40p [facility] Network Internal Pedrito Jenkins, [address] T78.3xxA Medicine - [place] Patel I10 R20.2 Office Visit 06/09/2016 8:15a [facility] [place] [address] S83.231A C.M.A. S83.412A S83.512A S83.232A Office Visit 05/12/2016 11:00a [facility] [place] [address] S83.231A C.M.A. S83.242A S83.412A S83.512A Office Visit 05/10/2016 11:15a [facility]alta M.D. 87175 M25.562 C.M.A. M25.462 S83.412D M23.612 Office Visit 04/24/2016 10:15a [facility] M.D. 87714 M25.562 C.M.A. M25.462 S83.412A Plan of Care Future Appointment(s):01/29/2018 11:00 am - Lesley Mendoza N.P. at [facility]12/14/2017 2:00 pm - Nurse Visit IC at [facility]12/13/2017 2:15 pm - Nurse Visit IC at [facility]02/19/2018 9 :00 am - Niko De Dios M.D. at [facility]11/29/2017 - Lesley Mendoza N.P.I47.1 Supraventricular tachycardiaNew Orders:Holter MonitorFollow up:2 mo Lesley after holterRecommendations:Limit alcohol intake. Take KCl and MG Continue anxiety medication.E87.6 HypokalemiaNew Medication: Effer-K 25 MeqMagnesium Oxide (Antacid) 500 mgR00.2 YyxtzslqrpulA04.3 Ventricular premature depolarization
--- OUTSIDE RECORDS SUMMARY | 2017-12-11 13:12 | XMS REPORT ---
:1980 External Reference #:[id number] Author Organization [employer] Address [address] [place] [address] [place] [address] Phone [phone] Care Team Providers Name Role Phone Pedrito Jenkins MD Primary Care Physician Unavailable Payers Type Date Identification Numbers Payment Provider Subscriber Commercial Policy Number: [id number] [employer] Medicaid Jean Claude Orellana PayID: [id number] [address] [address] [place] [address] Medigap Part B Effective: 2016 Policy Number: [id number] Medicaid Jean Claude Orellana Expires: 2016 PayID: [id number] [address] [place] [address] Advance Directives Type Date Description Status Comment [...] General Cancer Father Hypertension Father Osteoarthritis Mother [place] Mother Hypercholesterolemia Mother Hypertension Siblings 1 No known CAD Social History Type Date Description Comments Marital Status Lives With Spouse Occupation Unemployed getting job at [employer] Cigarette Use Former Cigarette Smoker 1-5 quit [...] Tablets 100mg 9tabs use at onset R51 [place] Succinate 2017 - of head Pachikara 03/12/ ache,august , M.DMonae 2016 repeat after 2h as needed Amitriptyline 01/25/ Hx Tablets 25mg 30tab 1 by mouth R51 [place] HCL 2017 - s every night Pachikara 01/25/ at bedtime , M.Colleen 2017 Metoprolol 01/25/ Hx Tablets 25mg 60tab 1 by mouth R51 Pedrito Tartrate 2016 twice a day Pachikara 03/12/ Jorge 2016 Docusate Sodium 01/09/ Hx Capsules 100mg 60cap 2 cap at R10.9 [place] 2017 bedtime as Pachikara 05/14/ needed , [...] Hx Tablets 0.5mg 30tab 1 tablet F40.01 Pedrito 2016 - every 12 Pachikara 08/08/ hours [...] Poc Ketone, Urine Negative Negative Poc Specific [place], Urine <=1.005 Low 1.010-1.030 Poc Blood, Urine [...] Poc Ketone, Urine Negative Negative Poc Specific [place], Urine 1.010 1.010-1.030 Poc Blood, Urine Trace-intact [...] Color Straw Urine Appearance Clear Urine Specific [place] 1.010 1.010-1.030 Urine pH 6.0 5-9 Urine [...] levels of up to 20 mIU/mL 3 Forklift Wheel Loader: [id number] If is still suspected, please repeat test after 48 to 72 hours. 4 Forklift Wheel Loader: [id number] 5 Because ethnic data is not always [...] 5 Kidney failure <15 (or dialysis) 6 [id number] 7 Because ethnic data is not always [...] (or dialysis) 8 Acute inflammation: >10.00 9 Forklift Wheel Loader: [id number] 10 Because ethnic data is not always [...] 5 Kidney failure <15 (or dialysis) 11 Forklift Wheel Loader: [id number] 12 SEE RESULT BELOW Name: JEAN CLAUDE ORELLANA : [address]: Elise Tripp MD Acct: [id number] Unit: [id number] AGE: 37 Location: [facility] Re05/14/17 SEX: F Status: REG REF SPEC: [id number] JIMMY: 05/14/17-[address]: Elise Tripp MD REQ: [id number] RECD: 05/14/17 STATUS: COMP _ SOURCE: [facility]: ORDERED: Flu A B Request COMMENTS: [id number] Procedure Result Reported Site Rapid Influenza A B Request Final 05/14/171927 ML Specimen received for Influenza A/B Molecular testing * ML - MAIN LAB (PSC1) . END OF REPORT * ML=Testing performed at Main Lab DEPARTMENT OF PATHOLOGY, [address] [place] [address] Remington Pruitt M.D. Director SONALI # [id number] 13 Forklift Wheel Loader: [id number] 14 [id number] 15 SEE RESULT BELOW Name: JEAN CLAUDE ORELLANA : [address]: Alexander Sands MD Acct: [id number] Unit: [id number] AGE: 37 Location: [facility] Re04/26/17 SEX: F Status: REG REF SPEC: [id number] JIMMY: 04/26/17-[address]: Alexander Sands MD REQ: [id number] RECD: 04/26/17 STATUS: MAGO YANEZ DR: Pedrito Jenkins MD _ ORDERED: TP IMAGE ANAL, HPV/Thin Prep, HPV 16/18 GENE COMMENTS: [id number] Negative for Intraepithelial lesion or Malignancy A. [...] 66, and 68. Signed (signature on file) LISA Mckeon(ASC) 04/30 0762 This Pap test was evaluated with the assistance of the VyoptaPrep Test Imaging System. Due to cytologic findings at the data center solutions architect microscope, comprehensive manual rescreening by a Cardiothoracic Anesthesia Technician may be required. The Pap Smear is [...] END OF REPORT * ML=Testing performed at [facility] Lab DEPARTMENT OF PATHOLOGY, [address] [place] [address] Remington Pruitt M.D. Director [facility] # [id number] 16 Because ethnic data is not always [...] and in selective patients <6.0%.Please refer to [place] [employer] Diabetic care guidelines for further information. 25 [facility] Severe Sepsis and Septic Shock Management Bundle [...] 28 99th percentile=0.04 ng/mL Troponin results at [facility] are not interchangeable. 29 Because ethnic data [...] > or= 3.0 U. Studies performed at [facility] indicate that positive ALINA results <3.0 U are rarely accompanied by positive second order tests. Test Performed by: [facility] - [address] [address] 35 Because ethnic data is not always [...] [address]: Lacey Friend MD Acct: [id number] Unit: [id number] AGE: 36 Location: [facility] Re06/19/16 SEX: F Status: REG SD SPEC: JIMMY: 06/19/[address]: Lacey Friend MD REQ: [id number] RECD: 06/19/16 STATUS: SOUT _ ORDERED: LEVEL III FINAL DIAGNOSIS Knee, left, arthroscopic shavings: -- Benign synovial tissue fragments with reactive change. CLINICAL HISTORY No history given GROSS DESCRIPTION The specimen is received in formalin labeled, Left Knee Shavings, and consists of a 3.5 x 2.7 x 0.5 cm aggregate of yellow-white to brown tissue fragments. B Operator sections, one cassette. Signed (signature on file) Peggy Palafox MD 11/30 1312 END OF REPORT * ML=Testing performed at Main Lab DEPARTMENT OF PATHOLOGY, [address] [place] [address] Remington Pruitt M.D. Director [facility] # [id number] Procedures Date CPT Code Description Status Comment 11/29/2017 53056 EKG Tracing & Interpretation Completed 11/23/2017 Diabetic Retinal Eye Exam Completed Document: 11/23/17 - Consult Ophthalmology-Jorge Alberto 09/18/2017 00270 EKG Tracing & Interpretation Completed 05/15/2017 31787 EKG Tracing & Interpretation Completed 12/13/2016 73802 EKG Tracing & Interpretation Completed 11/24/2016 48841 ECHO Transthoracic, Real-Time 2D Completed With Doppler And Color Flow 10/31/2016 67883 EKG Tracing & Interpretation Completed 08/15/2016 48745 Holter Monitor Review (24 hr)dr Completed review & interp only 08/09/2016 30883 ECG Monitor/Recording W/Visual Completed Superimposition Scanning 06/19/2016 52491 Arthroscopy,Unlisted Procedure Completed 06/19/2016 28486 Arthroscopy,Knee,Meniscectomy Completed Media & Lateral 06/19/2016 50270 Arthroscopy,Knee,Meniscectomy Completed Media & Lateral Encounters Type Date Location Provider CPT E/M Dx Office Visit 11/29/2017 [facility] Lesley Mendoza, N.PMonae 34648 I47.1 11:00a [facility] E87.6 R00.2 I49.3 Office Visit 10/26/2017 10:00a [facility] Internal [place] Jenkins, 78221 R10.10 Medicine - [place] Patel K59.09 Office Visit 09/18/2017 10:40a [facility] Arnaud Kiran M.D. 74127 F41.9 R00.2 I49.3 Office Visit 08/29/2017 9:00a [facility] Internal [place] - Abner Juá[place] [address] R25.3 [place] R21 Office Visit 07/30/2017 1:40p [facility] [place] [address] F41.9 - [address] Office Visit 06/13/2017 9:40a [facility] Internal Medicine JEANETTE Nicholson [address] R14.3 - [address] R10.13 Office Visit 05/15/2017 10:20a [facility] Arnaud Kiran M.D. 98582 R00.2 I49.3 I34.0 Office Visit 05/14/2017 11:30a [facility] Internal Medicine - Elise Tripp 48424 J06.9 Alecia Patel Office Visit 03/13/2017 9:00a [facility] Niko De Dios, 71053 R51 Services Of Linda Patel Office Visit 02/16/2017 8:40a [facility] Internal Medicine Pedrito Jenkins, 39587 F41.9 [place] Patel F40.01 E66.8 R79.9 Office Visit 01/25/2017 9:40a [facility] Internal Medicine Pedrito Jenkins M.D. 5[address]20 R51 - [address] M67.442 F41.9 Office Visit 01/10/2017 10:00a [facility] [place] [address] L21.8 L70.0 Office Visit 01/09/2017 1:40p [facility] Internal Medicine Pedrito Jenkins M.D. 24909 R21 - [address] R10.9 F41.9 Office Visit 12/28/2016 10:15a [facility] [place] [address] S83.512D C.M.A. Office Visit 12/13/2016 9:00a [facility] SORAYA Tuttle 82171 R00.2 I34.0 E87.6 Office Visit 11/23/2016 10:20a [facility] Internal Estuardo Harris, 12336 S83.512D Medicine - [place] Patel,FACP R00.2 Office Visit 10/31/2016 2:00p [facility] Arnaud Kiran M.D. 60252 E87.6 R00.2 F41.9 F17.210 G47.9 R01.1 Office Visit 10/16/2016 3:00p [facility] Internal Pedrito Jenkins, 93699 F40.01 Medicine - [place] Patel E87.6 R00.2 Office Visit 08/29/2016 9:20a [facility] Internal Pedrito Jenkins M.D. 49037 F41.9 Medicine - [address] F17.210 Office Visit 08/08/2016 8:40a [facility] Internal Medicine Pedrito Jenkins M.D. 25641 I10 - [address] R42 Office Visit 08/01/2016 2:20p [facility] Internal Medicine Pedrito Jenkins M.D. 43150 I10 - [address] M79.676 Office Visit 07/25/2016 9:40a [facility] Internal Medicine Pedrito Jenkins M.D. 79776 I10 - [address] G63 Office Visit 07/11/2016 1:40p [facility] Internal Pedrito Jenkins, 73047 T78.3xxA Medicine - [place] Patel I10 R20.2 Office Visit 06/09/2016 8:15a [facility] [place] [address] S83.231A C.M.A. S83.412A S83.512A S83.232A Office Visit 05/12/2016 11:00a [facility] [place] [address] S83.231A C.M.A. S83.242A S83.412A S83.512A Office Visit 05/10/2016 11:15a [facility] Villalta M.D. 85089 M25.562 C.M.A. M25.462 S83.412D M23.612 Office Visit 04/24/2016 10:15a [facility] M.D. 23712 M25.562 C.M.A. M25.462 S83.412A Plan of Care Future Appointment(s):01/29/2018 11:00 am - Lesley Mendoza, N.P. at [facility]12/14/2017 2:00 pm - Nurse Visit IC at [facility]12/13/2017 2:15 pm - Nurse Visit IC at [facility]02/19/2018 9 :00 am - Niko De Dios M.D. at [facility]11/29/2017 - Lesley Mendoza N.P.I47.1 Supraventricular tachycardiaNew Orders:Holter MonitorFollow up:2 mo Lesley after holterRecommendations:Limit alcohol intake. Take KCl and MG Continue anxiety medication.E87.6 HypokalemiaNew Medication: Effer-K 25 MeqMagnesium Oxide (Antacid) 500 mgR00.2 RwkjeymuptssH74.3 Ventricular premature depolarization
[2017-12-11 13:14] VITALS: BP 125/83
--- NOTE | 2017-12-12 08:39 | ED ---
Progress - Progress Note Progress Note: INDETERMINATE SERUM HCG OF 10.38 ON 12/11/17. NURSING TO CALL PATIENT; RECHECK THE SERUM HCG 72 HOURS LATER. RECHECK SERUM HCG ON 12/14/17 WITH PMD OR PLANNED PARENTHOOD OR HERE. Discharge - Sign-Out/Discharge Documenting (check all that apply): Patient Departure All imaging exams completed and their final reports reviewed: No Studies - Discharge Plan Condition: Stable Disposition: HOME Referrals: Pedrito Jenkins MD [Medical Doctor] - Additional Instructions: If you develop a fever, shortness of breath, chest pain, new or worsening symptoms - please call your PCP or go to the ED. 1) Call us tomorrow evening to ask about your lab results - Billing Disposition and Condition Condition: STABLE Disposition: Home
== END 2017-12-11 13:58 | disposition home or self-care (01) ==
LOC: UCEAST 13:05
DX: R53.83 Other fatigue (principal); N92.6 Irregular menstruation, unspecified; F17.210 Nicotine dependence, cigarettes, uncomplicated; R42 Dizziness and giddiness; Z88.8 Allergy status to other drugs, medicaments and biological substances
CPT/HCPCS: 36415; 81003; 84702; 93005; 99211; G0463

== ENCOUNTER 2017-12-12 15:35 | Emergency (ER) | payer OTHER ==
--- NOTE | 2017-12-12 19:09 | ED ---
Abdominal Pain/Female - HPI Summary HPI Summary: Patient is a 37-year-old female who presents emergency department for lower abdominal pain and concern for . Pt. states she recent started OCP and states she was late on a few doses. Pt. states she is several days late for her period. She denies vaginal bleeding or discharge. Pain is intermittent. Pt. seen at just prior to arrival and had a negative urine. Symptoms are moderate in severity. No current modifying factors. - History of Current Complaint Chief Complaint: EDAbdPain Stated Complaint: ABD PAIN Time Seen by Provider: 12/12/17 18:47 Hx Obtained From: Patient Hx Last Menstrual Period: 10/11/17 Pain Intensity: 7 Allergies/Adverse Reactions: Allergies Allergy/AdvReac Type Severity Reaction Status Date / Time amlodipine Allergy Rash Verified 12/12/17 15:43 losartan Allergy Swelling Verified 12/12/17 15:43 PMH/Surg Hx/FS Hx/Imm Hx Previously Healthy: Yes Endocrine/Hematology History: Denies: Hx Anticoagulant Therapy, Hx Blood Disorders, Hx Diabetes, Hx Thyroid Disease Cardiovascular History: Reports: Hx Hypertension - h/o - controlled w/ lifetsyle changes (weight loss, nutritional changes) Denies: Hx Aneurysm, Hx Myocardial Infarction, Hx Pacemaker/ICD Respiratory History: Denies: Hx Asthma GI History: Reports: Hx Gastroesophageal Reflux Disease - on occassion History: Denies: Hx Renal Disease Musculoskeletal History: Reports: Other Musculoskeletal History - had L knee surgery in past: ACL and medial meniscus tear awaiting surgery Sensory History: Denies: Hx Contacts or Glasses, Hx Hearing Aid Opthamlomology History: Denies: Hx Contacts or Glasses Neurological History: Denies: Hx Migraine Psychiatric History: Reports: Hx Anxiety - untreated - felt "fight or flight" w / sertraline 25mg - reluctant to try , Hx Depression Denies: Hx Panic Disorder, Other Psychiatric Issues/Disorders - Surgical History Surgery Procedure, Year, and Place: LEFT KNEE DISLOCATED/GANGLION CYST 2012. WRIST LEFT VERTICAL TEAR/GANGLION CYCT 2015. LEFT knee meniscus repair June Hx Anesthesia Reactions: No Infectious Disease History: No Infectious Disease History: Denies: History Other Infectious Disease, Traveled Outside the [place] in Last 30 Days - Family History Known Family History: Positive: Cardiac Disease - [place] - mother, at 40s - heavy use of ETOH, tob and crack cocaine, Hypertension - both parents, Diabetes - Social History Occupation: Unemployed Lives: With Family Alcohol Use: Rare Alcohol Amount: socially once a month Hx Substance Use: Yes Substance Use Type: Reports: None Hx Tobacco Use: Yes Smoking Status (MU): Light Every Day Tobacco Smoker Type: Cigarettes Amount Used/How Often: 2-3 cigs Review of Systems Constitutional: Negative Negative: Fever, Chills Eyes: Negative ENT: Negative Cardiovascular: Negative Respiratory: Negative Positive: Abdominal Pain. Negative: Vomiting, Diarrhea, Nausea Genitourinary: Negative Negative: burning, dysuria, discharge, frequency, flank pain, hematuria Neurological: Negative All Other Systems Reviewed And Are Negative: Yes Physical Exam Triage Information Reviewed: Yes Vital Signs On Initial Exam: Initial Vitals Temp Pulse Resp BP Pulse Ox 98 F 103 20 123/88 98 12/12/17 15:38 12/12/17 15:38 12/12/17 15:38 12/12/17 15:38 12/12/17 15:38 Vital Signs Reviewed: Yes Appearance: Positive: Well-Appearing - Pt. lying on bed in NAD. Family present. Skin: Positive: Warm, Dry Head/Face: Positive: Normal Head/Face Inspection Eyes: Positive: Normal, EOMI Neck: Positive: Supple Respiratory/Lung Sounds: Positive: Clear to Auscultation, Breath Sounds Present Cardiovascular: Positive: Normal, RRR Abdomen Description: Positive: Other: - Abdomen is soft with minimal tenderness to lower quadrants. No rebound tenderness or guarding. Neurological: Positive: Normal, CN Intact II-III Psychiatric: Positive: Affect/Mood Appropriate Diagnostics - Vital Signs Vital Signs Temp Pulse Resp BP Pulse Ox 12/12/17 17:32 98 F 80 18 116/80 98 12/12/17 15:38 98 F 103 20 123/88 98 - Laboratory Result Diagrams: 12/12/17 19:17 12/12/17 19:17 Lab Statement: Any lab studies that have been ordered have been reviewed, and results considered in the medical decision making process. Abdominal Pain Fem Course/Dx - Course Course Of Treatment: Pt. presenting for lower abd. pain. She is afebrile and well appearing. She has a benign abd. exam. Basic labs and ordered. CBC and CMP are unremarkable. level is minimally elevated at 25.74. Results were discussed with pt. Advised her she needs to call her INSULATOR TECHNICIAN tomorrow for repeat beta hcg in 48 hours. Pt. understands and agrees with plan. Will return to ER if sxs change or worsen. - Diagnoses Provider Diagnoses: Discharge - Sign-Out/Discharge Documenting (check all that apply): Patient Departure - Discharge Plan Condition: Good Disposition: HOME Patient Education Materials: (ED) Referrals: No Primary Care Phys,NOPCP [Primary Care Provider] - Michael Burgess MD [Medical Doctor] - Additional Instructions: level was minimally elevate at 25.74 (over 25 is considered positive) Call your INSULATOR TECHNICIAN tomorrow to have the level recheck in 48 hours Return to ER for increased pain, fever, vomiting - Billing Disposition and Condition Condition: GOOD Disposition: Home
[2017-12-12 19:32] LABS: ABS Basophils 0.1 10^3/ul (0-0.2); ABS Eosinophils 0.1 10^3/ul (0-0.6); ABS Lymphocytes 2.8 10^3/ul (1.0-4.8); ABS Monocytes 0.5 10^3/ul (0-0.8); ABS Neutrophils 3.4 10^3/ul (1.5-7.7); ABS Nucleated RBC 0 10^3/ul; Eosinophil % 1.4 % (0-6); Hematocrit 43 % (35-47); Hemoglobin 14.5 g/dl (12.0-16.0); Lymphocyte % 40.4 % (25-47); Mean Corpuscular HGB Conc 34 g/dl (31-36); Mean Corpuscular Hemoglobin 30 pg (27-31); Mean Corpuscular Volume 89 fL (80-97); Mean Platelet Volume 7.6 um3 (7.4-10.4); Nucleated Red Blood Cells % 0.1; Platelet Count 198 10^3/ul (150-450); Red Cell Distribution Width 15 % (10.5-15); White Blood Count 6.9 10^3/ul (3.5-10.8)
[2017-12-12 19:43] LABS: EGFR Non-African American 96.8 (>60)
[2017-12-12 20:17] VITALS: BP 154/74
== END 2017-12-12 20:16 | disposition home or self-care (01) ==
LOC: ED 15:35
DX: O26.899 Other specified pregnancy related conditions, unspecified trimester (principal); R10.30 Lower abdominal pain, unspecified; O99.330 Smoking (tobacco) complicating pregnancy, unspecified trimester; F17.210 Nicotine dependence, cigarettes, uncomplicated; Z3A.00 Weeks of gestation of pregnancy not specified; Z88.8 Allergy status to other drugs, medicaments and biological substances
CPT/HCPCS: 36415; 80053; 84702; 85025; 99282

== ENCOUNTER 2017-12-14 13:26 | Emergency (ER) | payer OTHER ==
[2017-12-14 13:39] VITALS: BP 124/80
--- NOTE | 2017-12-14 14:12 | UC ---
General HPI - HPI Summary HPI Summary: PATIENT IS HERE FOR REPEAT SERUM HCG. WAS CONCERNED ABOUT AND SO HAD SERUM HCG DRAWN 12/11 WHICH WAS 10.38. 12/12 IT WAS 25.74. PATIENT WAS ADVISED TO HAVE HCG CHECKED AGAIN TODAY. SHE IS SCHEDULED FOR TERMINATION NEXT WEEK. SHE CURRENTLY FEELS WELL DENYING ABDOMINAL PAIN, NAUSEA, FEVER. - History of Current Complaint Chief Complaint: UCGU Stated Complaint: REPEAT TEST Time Seen by Provider: 12/14/17 13:39 Hx Obtained From: Patient Hx Last Menstrual Period: [id number] Current Severity: None Pain Intensity: 0 - Allergy/Home Medications Allergies/Adverse Reactions: Allergies Allergy/AdvReac Type Severity Reaction Status Date / Time amlodipine Allergy Rash Verified 12/14/17 13:39 losartan Allergy Swelling Verified 12/14/17 13:39 Home Medications: Home Medications ALPRAZolam TAB* [Xanax TAB*] 0.25 mg PO Q6H PRN 12/14/17 [History Confirmed ] Magnesium 400 mg PO DAILY 12/14/17 [History Confirmed 12/14/17] PMH/Surg Hx/FS Hx/Imm Hx Cardiovascular History: Hypertension Other History Of: Negative For: Anticoagulant Therapy - Surgical History Surgical History: Yes Surgery Procedure, Year, and Place: LEFT KNEE DISLOCATED/GANGLION CYST 2012. WRIST LEFT VERTICAL TEAR/GANGLION CYCT 2015. LEFT knee meniscus repair June - Family History Known Family History: Positive: Cardiac Disease - [place] - mother, at 40s - heavy use of ETOH, tob and crack cocaine, Hypertension - both parents, Diabetes - Social History Alcohol Use: Rare Alcohol Amount: socially once a month Substance Use Type: None Smoking Status (MU): Light Every Day Tobacco Smoker Type: Cigarettes Amount Used/How Often: 2-3 cigs Household Exposure Type: Cigarettes - Immunization History Most Recent Influenza Vaccination: None Review of Systems Constitutional: Negative Skin: Negative Respiratory: Negative Cardiovascular: Negative Gastrointestinal: Negative All Other Systems Reviewed And Are Negative: Yes Physical Exam Triage Information Reviewed: Yes Appearance: Well-Appearing, No Pain Distress, Well-Nourished Vital Signs: Initial Vital Signs Temp 98.1 F 12/14/17 13:34 Pulse 80 12/14/17 13:34 Resp 18 12/14/17 13:34 BP 124/80 12/14/17 13:34 Pulse Ox 100 12/14/17 13:34 Vital Signs Reviewed: Yes Eyes: Positive: Conjunctiva Clear ENT: Positive: Hearing grossly normal Neck: Positive: Supple Respiratory: Positive: No respiratory distress, No accessory muscle use Cardiovascular: Positive: Pulses Normal Abdomen Description: Positive: Soft Musculoskeletal: Positive: No Edema Neurological: Positive: Alert Psychological: Positive: Age Appropriate Behavior Skin: Negative: rashes Course/Dx - Differential Dx - Multi-Symptom Provider Diagnoses: ELEVATED HCG - REPEAT SERUM HCG Discharge - Sign-Out/Discharge Documenting (check all that apply): Patient Departure All imaging exams completed and their final reports reviewed: No Studies - Discharge Plan Condition: Stable Disposition: HOME Referrals: Pedrito Jenkins MD [Medical Doctor] - If Needed Additional Instructions: REPEAT SERUM HCG DRAWN TODAY. FOLLOW-UP WITH YOUR PROVIDER SCHEDULED. - Billing Disposition and Condition Condition: STABLE Disposition: Home
--- NOTE | 2017-12-15 12:52 | UC ---
- Progress Note Progress Note: Patient at [facility] to check bHCG; following these values. Test returned at 97.42. CALL PATIENT WITH RESULT. SHE SHOULD FOLLOW UP WIT HER DOCTOR PLANNED. Go to ED for any change in your condition. Discharge - Sign-Out/Discharge Documenting (check all that apply): Post-Discharge Follow Up All imaging exams completed and their final reports reviewed: No Studies - Discharge Plan Condition: Stable Disposition: HOME Referrals: Pedrito Jenkins MD [Medical Doctor] - If Needed Additional Instructions: REPEAT SERUM HCG DRAWN TODAY. FOLLOW-UP WITH YOUR PROVIDER SCHEDULED. - Billing Disposition and Condition Condition: STABLE Disposition: Home
== END 2017-12-14 14:12 | disposition home or self-care (01) ==
LOC: UCEAST 13:26
DX: Z32.00 Encounter for pregnancy test, result unknown (principal); F17.210 Nicotine dependence, cigarettes, uncomplicated
CPT/HCPCS: 36415; 84702; 99211; G0463

== ENCOUNTER 2018-01-04 07:55 | Emergency (ER) | payer OTHER ==
--- NOTE | 2018-01-04 08:40 | ED ---
Complex/Multi-Sys Presentation - HPI Summary HPI Summary: A 37 y/o F presents to ED for anxiety onset 2100 yesterday. She felt extremely anxious and tossed and turned all night. It felt her head was "in a vice." She woke up and still felt anxious, tense, was pacing. She has not taken her Xanax for two days and believes she is going through withdrawal. She is prescribed Xanax 0.5 mg once a day from Dr. Jenkins. She is scheduled to see him on 12/09. She left her meds in [place] when she was helping her daughter move in to college two days ago. Associated sx: mild bilat ear pain, nausea. At bedside , pt feels "wired." - History Of Current Complaint Chief Complaint: EDNauseaVomitDiarrh Time Seen by Provider: 01/04/18 08:23 Hx Obtained From: Patient Onset/Duration: Sudden Onset, Lasting Hours, Still Present Timing: Constant Severity Currently: Moderate Severity Initially: Moderate Associated Signs And Symptoms: Positive: Nausea, Other - pos: mild bilat ear pain; feeling tense/wired - Allergies/Home Medications Allergies/Adverse Reactions: Allergies Allergy/AdvReac Type Severity Reaction Status Date / Time amlodipine Allergy Rash Verified 01/04/18 08:04 losartan Allergy Swelling Verified 01/04/18 08:04 PMH/Surg Hx/FS Hx/Imm Hx Previously Healthy: No Endocrine/Hematology History: Denies: Hx Anticoagulant Therapy, Hx Blood Disorders, Hx Diabetes, Hx Thyroid Disease Cardiovascular History: Reports: Hx Hypertension - h/o - controlled w/ lifetsyle changes (weight loss, nutritional changes) Denies: Hx Aneurysm, Hx Myocardial Infarction, Hx Pacemaker/ICD Respiratory History: Denies: Hx Asthma GI History: Reports: Hx Gastroesophageal Reflux Disease - on occassion History: Denies: Hx Renal Disease Musculoskeletal History: Reports: Other Musculoskeletal History - had L knee surgery in past: ACL and medial meniscus tear awaiting surgery Sensory History: Denies: Hx Contacts or Glasses, Hx Hearing Aid Opthamlomology History: Denies: Hx Contacts or Glasses Neurological History: Denies: Hx Migraine Psychiatric History: Reports: Hx Anxiety - untreated - felt "fight or flight" w / sertraline 25mg - reluctant to try , Hx Depression Denies: Hx Panic Disorder, Other Psychiatric Issues/Disorders - Surgical History Surgery Procedure, Year, and Place: LEFT KNEE DISLOCATED/GANGLION CYST 2013. WRIST LEFT VERTICAL TEAR/GANGLION CYCT 2016. LEFT knee meniscus repair June Hx Anesthesia Reactions: No Infectious Disease History: No Infectious Disease History: Denies: History Other Infectious Disease, Traveled Outside the [place] in Last 30 Days - Family History Known Family History: Positive: Cardiac Disease - OR - mother, at 40s - heavy use of ETOH, tob and crack cocaine, Hypertension - both parents, Diabetes - Social History Occupation: Unemployed - HOMEM[employer] Lives: With Family Alcohol Use: Rare Alcohol Amount: socially once a month Hx Substance Use: Yes Substance Use Type: Reports: None Hx Tobacco Use: Yes Smoking Status (MU): Light Every Day Tobacco Smoker Type: Cigarettes Amount Used/How Often: 2-3 cigs Review of Systems Negative: Fever, Chills Negative: Erythema Positive: Ear Ache - mild bilat ear pain. Negative: Sore Throat Negative: Chest Pain Negative: Shortness Of Breath, Cough Positive: Nausea. Negative: Abdominal Pain, Vomiting Negative: dysuria, hematuria Negative: Myalgia Negative: Rash Neurological: Other - neg: dizziness Psychological: Other - pos: wired, tense Positive: Anxious All Other Systems Reviewed And Are Negative: Yes Physical Exam - Summary Physical Exam Summary: Constitutional: Well-developed, Well-nourished, Alert. (-) Distressed Skin: Warm, Dry HENT: Normocephalic; Atraumatic Eyes: Conjunctiva normal Neck: Musculoskeletal ROM normal neck. (-) JVD, (-) Stridor, (-) Tracheal deviation Cardio: Rhythm regular, rate normal, Heart sounds normal; Intact distal pulses; The pedal pulses are 2+ and symmetric. Radial pulses are 2+ and symmetric. (-) Murmur Pulmonary/Chest wall: Effort normal. (-) Respiratory distress, (-) Wheezes, (-) Rales Abd: Soft, (-) epigastric tenderness, (-) Distension, (-) Guarding, (-) Rebound Musculoskeletal: (-) Edema Lymph: (-) Cervical adenopathy Neuro: Alert, Oriented x3 Psych: Mood and affect Normal Triage Information Reviewed: Yes Vital Signs On Initial Exam: Initial Vitals Temp Pulse Resp BP Pulse Ox 97.6 F 88 18 141/88 99 01/04/18 08:05 01/04/18 08:05 01/04/18 08:05 01/04/18 08:05 01/04/18 08:05 Vital Signs Reviewed: Yes Diagnostics - Vital Signs Vital Signs Temp Pulse Resp BP Pulse Ox 01/04/18 08:05 97.6 F 88 18 141/88 99 - Laboratory Lab Statement: Any lab studies that have been ordered have been reviewed, and results considered in the medical decision making process. Complex Multi-Symp Course/Dx Assessment/Plan: Per iSTOP report: Pt had an early fill of Xanax in November and was prescribed 30-day supply of Xanax by Dr. Jenkins on 12/12/17. Pt has had early fills of her Xanax, and not kept close watch over her medication. I reinforced that she needs to keep her medications with her at all time. Pt is attempting to use multiple arguments for why she needs to receive her prescription in ED. I reviewed the patient chart, and her most recently visit was for abd pain, possible . Beta HcG that were trending up. Upon additional conversation with the patient, it was made known that pt terminated her earlier this month. She prefers to detox herself and is declining a [facility] referral due to stigma. She is requesting something to help her sleep. - Diagnoses Provider Diagnoses: Benzodiazepine withdrawal, Anxiety Discharge - Sign-Out/Discharge Documenting (check all that apply): Patient Departure - dc - Discharge Plan Condition: Stable Disposition: HOME Prescriptions: hydrOXYzine HCL TAB* [Atarax TAB 50 MG *] 50 mg PO BID #30 tab Patient Education Materials: Anxiety (ED) Referrals: Pedrito Jenkins MD [Primary Care Provider] - 2 Days Additional Instructions: Return to the emergency department for changing or worsening symptoms. - Attestation Statements Document Initiated by Scribe: Yes Documenting Scribe: Efraín Moore Provider For Whom Scribe is Documenting (Include Credential): Dr. Sen Quintana MD Scribe Attestation: Efraín Felix, scribed for Dr. Sen Quintana MD on 01/04/18 at 1018.
[2018-01-04 10:14] VITALS: BP 123/71
== END 2018-01-04 10:17 | disposition home or self-care (01) ==
LOC: ED 07:55
DX: F19.939 Other psychoactive substance use, unspecified with withdrawal, unspecified (principal); F41.9 Anxiety disorder, unspecified; H92.03 Otalgia, bilateral; R11.0 Nausea; Z88.8 Allergy status to other drugs, medicaments and biological substances; F17.210 Nicotine dependence, cigarettes, uncomplicated
CPT/HCPCS: 99282

== ENCOUNTER 2018-04-05 11:00 | Emergency (ER) | payer OTHER ==
--- OUTSIDE RECORDS SUMMARY | 2018-04-05 11:29 | XMS REPORT | Continuity of Care Document ---
:1980 External Reference #:[id number] Author Name Jania Jacques Care Team Providers Name Role Phone Pedrito Jenkins MD Primary Care Physician Unavailable Payers Type Date Identification Numbers Payment Provider Subscriber Policy Number: [id number] [employer] Medicaid Jean Claude Orellana PayID: [id number] [address] [address] [place] [address] Effective: 2016 Policy Number: [id number] Medicaid Jean Claude Orellana Expires: 2016 PayID: [id number] [address] [place] [address] Advance Directives Type Date Description Status Comment [...] Lacey Friend MD Active of left knee, subsequent encounter Onset: 07/11/2016 Angioedema Pedrito Jenkins M.D. Active [...] General Cancer Father Hypertension Father Osteoarthritis Mother [place] Mother Hypercholesterolemia Mother Hypertension Siblings 1 No known CAD Social History Type Date Description Comments Sex Unknown Marital Status Lives With Spouse Occupation Unemployed getting job at [employer] ETOH Use Occasionally consumes 1x month alcohol Recreational Drug Use Denies Drug Use Tobacco Use Start: Unknown Light tobacco smoker (10 or fewer cigarettes/day) Smoking Status Reviewed: 03/13/18 Light tobacco smoker (10 or fewer cigarettes/day) Exercise Type/Frequency Exercises regularly walking 4 days a week. no less than 2 miles. Allergies, Adverse Reactions, Alerts Date Description Reaction Status Severity Comments 10/31/2016 Losartan Anaphylaxis Active 10/31/2016 Amlodipine Anaphylaxis Active 04/24/2016 NKDA Inactive Medications Medication Date Status Form Strength Qnty SIG Indications Ordering Provider Hydroxyzine HCL 01/09/ Active Tablets 10mg 90tab take 2 tabs F41.9 Zsofia 2018 s by mouth Luiz, twice daily [employer] as needed for anxiety. Effer-K 11/29/ Active Tablets 25Meq 90tab Dissolve one E87.6 Lesley S. 2018 Efferv s tab daily Reji, N.P. Magnesium Oxide 11/29/ Active Capsules 500mg 30cap 1 tab by E87.6 Zsofia (Antacid) 2018 s mouth daily Luiz, [employer] Alprazolam 11/27/ Active Tablets 0.5mg 30tab take 1 F41.9 Zsofia 2018 s tablet by Luiz, mouth in the [employer] evening only as needed for anxiety Epipen 2-Marcelo 07/11/ Active Solution 0.3mg/0.3 2unit use as T78.3xxA Pedrito 2016 Auto-Injec ML s directed Gregory santo M.D. Blood Pressure 07/11/ Active Misc 1unit check bp I10 Pedrito Monitor Auto 2017 s daily Gregory Harrison M.D. Butalbital/Acet / Active Tablets 50-325-40 30tab take 1 Zsofia aminophen/Caffe 0000 mg s tablets by Luiz, ine mouth every [employer] 6 hours if needed max 3/day 01/09/ Hx Tablets 28-0.8mg 90tab 1 tab po Z30.09 Zsofia Vitamin And 2017 - qday Luiz, Mineral 01/28/ [employer] 2018 Magnesium 12/14/ Hx Tablets 30mg Every Day Unknown 2017 - 2017 Xanax 12/14/ Hx Tablets 0.25mg Twice Daily Unknown 2017 - 2017 Pantoprazole 10/26/ Hx Tablets DR 40mg 30tab 1 in the R10.10 Pedrito Sodium 2017 morning Pachikara 01/28/ empty , M.DMonae 2018 stomach Plan B One-Step 10/16/ Hx Tablets 1.5mg 1tabs by mouth x 1 Pedrito 2018 - Pachikara 10/26/ , M.D. 2018 Triamcinolone 08/29/ Hx Cream 0.1% 80gm apply thin R21 Abner Acetonide 2018 - film twice [place] Juárez 10/26/ daily 2018 Diazepam 07/30/ Hx Tablets 5mg 30tab may take 1 Pedrito 2017 - tab by mouth Pachikara 11/27/ 1-2 times a , M.D. 2017 day for anxiety as needed (30day supply) Oseltamivir 05/14/ Hx Capsules 75mg 10cap 1 tab twice J06.9 Elise Phosphate 2017 - a day x 5 Tripp, 05/19/ days M.D. 2018 Guaifenesin-Cod 05/14/ Hx Syrup 100-10mg/ 120ml 5 J06.9 Elise eine 2018 - 5ML milliliters Tripp, 09/17/ every 8 M.D. 2018 hours as needed for cough Naproxen 03/13/ Hx Tablets 500mg 60tab 1 twice a R51 Niko SMonae 2016 - day as Va, 10/26/ needed for M.D. 2018 headache Escitalopram 01/31/ Hx Tablets 5mg 30tab 1 by mouth Wilbur Oxalate 2016 every day Pachikara 03/12/ , MRay 2017 Sumatriptan 01/25/ Hx Tablets 100mg 9tabs use at onset R51 Pedrito Succinate 2017 - of head Pachikara 03/12/ ache,august , MCatherine. 2017 repeat after 2h as needed Amitriptyline 01/25/ Hx Tablets 25mg 30tab 1 by mouth R51 Pedrito HCL 2016 every night Pachikara 01/25/ at bedtime , M.Colleen 2017 Metoprolol 01/25/ Hx Tablets 25mg 60tab 1 by mouth R51 Pedrito Tartrate 2016 - twice a day Pachikara 03/12/ Jorge 2017 Docusate Sodium 01/09/ Hx Capsules 100mg 60cap 2 cap at R10.9 Pedrito 2016 bedtime as Pachikara 05/14/ needed , Jorge 2018 Effer-K 10/31/ Hx Tablets 25Meq 90tab 1 by mouth E87.6 Arnaud 2017 - Efferv s daily F. 03/13/ Magno 2017 MMonaeD. Sertraline HCL 10/18/ Hx Tablets 50mg 30tab 1 by mouth F40.01 Pedrito 2016 every day Pachikara 01/31/ , Jorge 2017 Sertraline HCL 10/16/ Hx Tablets 25mg 60tab 1 by mouth F40.01 Pedrito 2016 every day x Pachikara 10/18/ week then , MRay 2017 2 tab daily Lorazepam 10/16/ Hx Tablets 0.5mg 30tab 1 tablet F40.01 Pedrito 2016 every 12 Pachikara 25/ hours as Jorge 2018 needed(30 day supply) mdd 2 Tramadol HCL 09/01/ Hx Tablets 50mg 40tab 1 tablet by Lacey 2016 mouth every Yase, 03/12/ 8 hours as 2017 needed pain Acetaminophen 08/08/ Hx Tablets 500mg 180ta 1-2 tab 3 Estuardo 2017 - bs times daily Colleen Harris, 05/14/ as needed MRay,FACP 2018 Triamterene/Hyd 08/04/ Hx Tablets 37.5-25mg 14tab 1/2 tab by Pedrito rochlorothiazid 2017 - s mouth every Pachikara e 08/29/ day in am , Jorge 2017 Losartan 07/27/ Hx Tablets 50mg 30tab 1 by mouth Other Potassium 2017 - s every day Ordering 08/08/ 2017 Metoprolol 07/25/ Hx Tablets 25mg 60tab 1 by mouth I10 Pedrito Tartrate 2017 - s twice a day Gregory 07/28/ , Jorge 2016 Ibuprofen 06/29/ Hx Tablets 600mg 60tab Not taking S83.231D Zaneb 2016 - take 1 by Ronna, 07/11/ mouth every 2016 8 hours as needed for pain Keflex 06/19/ Hx Capsules 500mg 40cap 1 tab by Pino 2016 - mouth four Tad, 07/11/ times a day M.Colleen 2016 Tramadol HCL 06/09/ Hx Tablets 50mg 60tab 1-2 tablet Zaneb 2016 - s by mouth Ronna, 07/11/ every 4-6 MD 2016 hours as needed pain Oxycodone-Aceta 05/12/ Hx Tablets 5-325mg 40tab take 1 tab M23.612 Zaneb minophen 2016 - s every 8 Ronna, 10/16/ hours as MD 2016 needed for pain Naproxen 04/24/ Hx Tablets 500mg 30tab Not taking. M25.562 Maya 2016 - s 1 tablet Pawan, 07/11/ with food by Jorge 2017 mouth twice a day Tramadol HCL 04/24/ Hx Tablets 50mg 60tab 1 tablet by M25.562 Maya 2016 - s mouth every Pawan, 04/11/ 6 hours as M.Colleen 2016 needed pain Modere Burn / Hx 2 tablets Unknown 0000 - daily 2016 Oxycodone-Aceta / Hx Solution 5-325mg/5 take 5-10 Unknown minophen 0000 - ML milliliters 03/12/ every 4-6 2016 hours as needed for pain. mdd of 40 milliliters- all out K-Effervescent / Hx Tablets 25Meq 30tab 1 by mouth Pedrito 0000 - Efferv s every day Pachika 11/29/ Jorge 2017 Benzonatate / Hx Capsules 100mg prn Unknown 0000 - 2017 Cheratussin ac 00/00/ Hx Syrup 100-10mg/ prn Unknown 0000 - 5ML 2017 Immunizations Description No Information Available Vital Signs Date Vital Result Comment 03/13/2018 11:29am Height 61 inches 5'1" Weight 158.00 lb Heart Rate 86 /min BP Systolic 116 mmHg BP Diastolic 78 mmHg O2 % BldC Oximetry 98 % BMI (Body Mass Index) 29.9 kg/m2 01/29/2018 10:40am Height 61 inches 5'1" Weight 154.00 lb Heart Rate 80 /min BP Systolic Sitting 100 mmHg rue reg cuff BP Diastolic Sitting 54 mmHg rue reg cuff BP Systolic Standing 102 mmHg BP Diastolic Standing 58 mmHg Respiratory Rate 16 /min BMI (Body Mass Index) 29.1 kg/m2 Ejection Fraction 55-60% 11/24/2016 echo 01/09/2018 11:04am Height 61 inches 5'1" Weight 153.50 lb Heart Rate 92 /min BP Systolic Sitting 132 mmHg BP Diastolic Sitting 78 mmHg O2 % BldC Oximetry 99 % BMI (Body Mass Index) 29.0 kg/m2 11/29/2017 10:45am Height 61 inches 5'1" Weight 155.31 lb with shoes Heart Rate 70 /min BP Systolic Sitting 140 mmHg Lue reg cuff BP Diastolic Sitting 90 mmHg Lue reg cuff BP Systolic Standing 132 mmHg Lue reg cuff BP Diastolic Standing 90 mmHg Lue reg cuff Respiratory Rate 16 /min BMI (Body Mass Index) 29.3 kg/m2 10/26/2017 9:48am Height 61 inches 5'1" Weight 154.00 lb Heart Rate 77 /min BP Systolic Sitting 110 mmHg BP Diastolic Sitting 68 mmHg Body Temperature 97.9 F O2 % BldC Oximetry 99 % BMI (Body Mass Index) 29.1 kg/m2 09/18/2017 10:13am Height 61 inches 5'1" Weight 153.00 lb w/shoes Heart Rate 80 /min BP Systolic Sitting 110 mmHg LA reg cuff BP Diastolic Sitting 84 mmHg LA reg cuff BMI (Body Mass Index) 28.9 kg/m2 Ejection Fraction 55-60% Echo 11/24/16 08/29/2017 9:19am Height 61 inches 5'1" Weight 156.00 lb Heart Rate 79 /min BP Systolic Sitting 115 mmHg BP Diastolic Sitting 84 mmHg Body Temperature 97.9 F O2 % BldC Oximetry 98 % BMI (Body Mass Index) 29.5 kg/m2 07/30/2017 1:42pm Weight 155.00 lb Heart Rate 94 /min BP Systolic 124 mmHg BP Diastolic 80 mmHg Body Temperature 97.0 F O2 % BldC Oximetry 98 % 06/13/2017 9:38am Weight 156.00 lb Heart Rate 91 /min BP Systolic Sitting 120 mmHg BP Diastolic Sitting 70 mmHg Body Temperature 97.7 F O2 % BldC Oximetry 97 % 05/15/2017 10:32am Height 62 inches 5'2" Weight 158.75 lb Heart Rate 62 /min BP Systolic Sitting 120 mmHg LA, reg cuff BP Diastolic Sitting 80 mmHg LA, reg cuff BMI (Body Mass Index) 29.0 kg/m2 Ejection Fraction 55%-60% echo 11/24/16 05/14/2017 11:17am Heart Rate 88 /min BP Systolic Sitting 102 mmHg BP Diastolic Sitting 64 mmHg O2 % BldC Oximetry 98 % 03/13/2017 9:13am Height 61 inches 5'1" Weight 161.00 lb Heart Rate 70 /min BP Systolic Sitting 112 mmHg BP Diastolic Sitting 66 mmHg Respiratory Rate 16 /min BMI (Body Mass Index) 30.4 kg/m2 02/16/2017 8:42am Height 61 inches 5'1" Weight 165.50 lb Heart Rate 82 /min BP Systolic 126 mmHg BP Diastolic 72 mmHg Body Temperature 97.2 F O2 % BldC Oximetry 99 % BMI (Body Mass Index) 31.3 kg/m2 02/06/2017 12:01pm Weight 164.00 lb Heart Rate 82 /min BP Systolic Sitting 117 mmHg BP Diastolic Sitting 83 mmHg Body Temperature 98.4 F O2 % BldC Oximetry 99 % 01/25/2017 10:00am Height 61 inches 5'1" Weight 166.38 lb Heart Rate 69 /min BP Systolic 128 mmHg BP Diastolic 76 mmHg Body Temperature 98.4 F O2 % BldC Oximetry 98 % BMI (Body Mass Index) 31.4 kg/m2 01/09/2017 1:19pm Height 61 inches 5'1" Weight 164.00 lb Heart Rate 102 /min BP Systolic 112 mmHg BP Diastolic 72 mmHg Body Temperature 97.8 F O2 % BldC Oximetry 97 % BMI (Body Mass Index) 31.0 kg/m2 12/28/2016 10:00am Height 61 inches 5'1" Weight 160.00 lb Heart Rate 87 /min BP Systolic 127 mmHg BP Diastolic 81 mmHg Body Temperature 96.4 F Pain Level 6 BMI (Body Mass Index) 30.2 kg/m2 12/13/2016 8:52am Height 61 inches 5'1" Weight 163.00 lb with shoes Heart Rate 81 /min BP Systolic Sitting 116 mmHg LA reg cuff BP Diastolic Sitting 82 mmHg LA reg cuff BMI (Body Mass Index) 30.8 kg/m2 Ejection Fraction 55% - 60% echo 11/24/16 11/23/2016 10:29am Weight 161.00 lb Heart Rate 78 /min BP Systolic Sitting 136 mmHg BP Diastolic Sitting 84 mmHg Body Temperature 97.0 F O2 % BldC Oximetry 98 % 10/31/2016 1:36pm Height 61 inches 5'1" Weight 159.25 lb with shoes Heart Rate 74 /min BP Systolic Sitting 128 mmHg LA reg cuff BP Diastolic Sitting 84 mmHg LA reg cuff BMI (Body Mass Index) 30.1 kg/m2 10/16/2016 2:17pm Weight 159.12 lb Heart Rate 93 /min BP Systolic 124 mmHg BP Diastolic 78 mmHg Body Temperature 97.7 F O2 % BldC Oximetry 98 % 08/29/2016 9:12am Weight 157.38 lb Heart Rate 90 /min BP Systolic 118 mmHg BP Diastolic 80 mmHg Body Temperature 96.7 F O2 % BldC Oximetry 98 % 08/08/2016 8:29am Weight 159.50 lb Heart Rate 94 /min BP Systolic Sitting 122 mmHg BP Diastolic Sitting 80 mmHg Body Temperature 96.9 F O2 % BldC Oximetry 99 % 08/01/2016 1:52pm Heart Rate 88 /min BP Systolic Sitting 124 mmHg BP Diastolic Sitting 78 mmHg Body Temperature 97.9 F O2 % BldC Oximetry 99 % 07/27/2016 10:48am Height 62 inches 5'2" Weight 160.00 lb Heart Rate 79 /min BP Systolic 134 mmHg BP Diastolic 98 mmHg Respiratory Rate 16 /min Pain Level 7 BMI (Body Mass Index) 29.3 kg/m2 07/25/2016 9:38am Height 62 inches 5'2" Weight 163.38 lb Heart Rate 72 /min BP Systolic Sitting 142 mmHg BP Diastolic Sitting 93 mmHg Body Temperature 97.7 F O2 % BldC Oximetry 98 % BMI (Body Mass Index) 29.9 kg/m2 07/11/2016 1:13pm Height 62 inches 5'2" Weight 162.25 lb Heart Rate 68 /min BP Systolic Sitting 127 mmHg BP Diastolic Sitting 99 mmHg Body Temperature 96.8 F O2 % BldC Oximetry 98 % BMI (Body Mass Index) 29.7 kg/m2 06/29/2016 10:33am Height 62 inches 5'2" Weight 165.00 lb Heart Rate 72 /min BP Systolic Sitting 126 mmHg BP Diastolic Sitting 82 mmHg Respiratory Rate 16 /min Body Temperature 96.8 F Pain Level 0 BMI (Body Mass Index) 30.2 kg/m2 06/09/2016 8:34am Height 62 inches 5'2" Weight 165.00 lb Heart Rate 72 /min Respiratory Rate 16 /min Pain Level 2 BMI (Body Mass Index) 30.2 kg/m2 05/12/2016 11:10am Height 62 inches 5'2" Weight 165.00 lb Respiratory Rate 17 /min Pain Level 9 BMI (Body Mass Index) 30.2 kg/m2 05/10/2016 11:51am Height 61 inches 5'1" Weight 165.00 lb Pain Level 5 BMI (Body Mass Index) 31.2 kg/m2 04/24/2016 11:06am Height 61 inches 5'1" Weight 165.00 lb Heart Rate 83 /min BP Systolic 122 mmHg BP Diastolic 85 mmHg BMI (Body Mass Index) 31.2 kg/m2 Results Test Date Facility Test Result H/L Range Note Basic Metabolic 12/27/2017 [facility] Sodium 136 mmol/L N 135- 145 1 Panel [address] [place] [address] [phone] Potassium 4.3 mmol/L N 3.5-5.0 Chloride 105 mmol/L N 101-111 Co2 Carbon Dioxide 25 mmol/L N 22-32 Anion Gap 6 mmol/L N 2-11 Glucose 85 mg/dL N 70-100 Blood Urea Nitrogen 13 mg/dL N 6-24 Creatinine 0.66 mg/dL N 0.51-0.95 BUN/Creatinine Ratio 19.7 N 8-20 Calcium 8.8 mg/dL N 8.6-10.3 Egfr Non- 101.9 >60 Egfr 123.3 >60 2 Laboratory test 12/27/2017 [facility] Magnesium 2.0 mg/dL N 1.9-2.7 [address] [place] [id number] [phone] Laboratory test 12/11/2017 [facility] Poc , Negative Negative [address] [place] [address] [phone] Poc Urinalysis 12/11/2017 [facility] Poc Glucose, Negative Negative [address] [place] [address] [phone] Poc Bilirubin, Urine Negative Negative Poc Ketone, Urine Negative Negative Poc Specific [place], Urine 1.010 N 1.010-1.030 Poc Blood, Urine Trace-lysed Abnormal Negative Poc pH, Urine 7.0 N 5-9 Poc Protein, Urine Negative Negative Poc Urobilinogen, Urine 0.2 Negative Poc Nitrite, Urine Negative Negative Poc Leukocytes, Urine Negative Negative Poc Color, Urine Yellow Poc Clarity, Urine Clear 5 CBC Auto Diff 11/26/2017 [facility] White Blood 8.0 10^3/uL N 3.5-10.[address] [place] [address] [phone] Red Blood Count 4.45 10^6/uL N 4.00-5.40 Hemoglobin 13.1 g/dL N 12.0-16.0 Hematocrit 39 % N 35-47 Mean Corpuscular Volume 88 fL N 80-97 Mean Corpuscular Hemoglobin 30 pg N 27-31 Mean Corpuscular HGB Conc 34 g/dL N 31-36 Red Cell Distribution Width 15 % N 10.5-15 Platelet Count 184 10^3/uL N 150-450 Mean Platelet Volume 7.5 um3 N 7.4-10.4 Abs Neutrophils 4.9 10^3/uL N 1.5-7.7 Abs Lymphocytes 2.3 10^3/uL N 1.0-4.8 Abs Monocytes 0.6 10^3/uL N 0-0.8 Abs Eosinophils 0.1 10^3/uL N 0-0.6 Abs Basophils 0.1 10^3/uL N 0-0.2 Abs Nucleated RBC 0 10^3/uL Granulocyte % 61.3 % N 38-83 Lymphocyte % 29.3 % N 25-47 Monocyte % 7.3 % High 0-7 Eosinophil % 1.1 % N 0-6 Basophil % 1.0 % N 0-2 Nucleated Red Blood Cells % 0.1 Inr/Protime 11/26/2017 [facility] Inr 0.87 N 0.77-1.[address] [place] [address] [phone] Laboratory test 11/26/2017 [facility] Partial 36.0 seconds N 26.0-36.[address] [place] [address] PTT [phone] Comp Metabolic 11/26/2017 [facility] Sodium 137 mmol/L N 135- [address] [place] [address] [phone] Potassium 3.6 mmol/L N 3.5-5.0 Chloride 105 mmol/L N 101-111 Co2 Carbon Dioxide 27 mmol/L N 22-32 Anion Gap 5 mmol/L N 2-11 Glucose 101 mg/dL High 70-100 Blood Urea Nitrogen 18 mg/dL N 6-24 Creatinine 0.98 mg/dL High 0.51-0.95 BUN/Creatinine Ratio 18.4 N 8-20 Calcium 9.0 mg/dL N 8.6-10.3 Total Protein 6.9 g/dL N 6.4-8.9 Albumin 4.1 g/dL N 3.2-5.2 Globulin 2.8 g/dL N 2-4 Albumin/Globulin Ratio 1.5 N 1-3 Total Bilirubin 0.30 mg/dL N 0.2-1.0 Alkaline Phosphatase 54 U/L N 34-104 Alt 10 U/L N 7-52 Ast 14 U/L N 13-39 Egfr Non- 64.6 >60 Egfr 78.1 >60 6 Laboratory test 11/26/2017 [facility] Magnesium 1.9 mg/dL N 1.9-2.[address] [place] [address] [phone] Troponin-I (TnI) 0.00 ng/mL <0.04 HCG < 0.60 mIU/mL 7 Poc Urinalysis 10/23/2017 [facility] Poc Glucose, Negative Negative [address] [place] [address] [phone] Poc Bilirubin, Urine Negative Negative Poc Ketone, Urine Negative Negative Poc Specific [place], Urine <=1.005 Low 1.010-1.030 Poc Blood, Urine Trace-lysed Abnormal Negative Poc pH, Urine 6.0 N 5-9 Poc Protein, Urine Negative Negative Poc Urobilinogen, Urine 0.2 Negative Poc Nitrite, Urine Negative Negative Poc Leukocytes, Urine Negative Negative Poc Color, Urine Yellow Poc Clarity, Urine Clear 8 Laboratory test 10/23/2017 [facility] Poc , Negative Negative [address] [place] [address] [phone] Laboratory test 09/28/2017 [facility] Magnesium 2.0 mg/dL N 1.9-2.[address] [place] [address] [phone] TSH (Thyroid Stim Horm) 0.42 mcIU/mL N 0.34-5.60 Comp Metabolic Panel 09/28/2017 [facility] Sodium 137 mmol/L N 135-[address] [place] [address] [phone] Potassium 4.2 mmol/L N 3.5-5.0 Chloride 104 mmol/L N 101-111 Co2 Carbon Dioxide 25 mmol/L N 22-32 Anion Gap 8 mmol/L N 2-11 Glucose 73 mg/dL N 70-100 Blood Urea Nitrogen 14 mg/dL N 6-24 Creatinine 0.77 mg/dL N 0.51-0.95 BUN/Creatinine Ratio 18.2 N 8-20 Calcium 9.3 mg/dL N 8.6-10.3 Total Protein 7.0 g/dL N 6.4-8.9 Albumin 4.2 g/dL N 3.2-5.2 Globulin 2.8 g/dL N 2-4 Albumin/Globulin Ratio 1.5 N 1-3 Total Bilirubin 0.50 mg/dL N 0.2-1.0 Alkaline Phosphatase 46 U/L N 34-104 Alt 10 U/L N 7-52 Ast 14 U/L N 13-39 Egfr Non- 85.3 >60 Egfr 109.7 >60 10 CBC Auto Diff 09/28/2017 [facility] White Blood 6.9 10^3/uL N 3.5-10.[address] [place] [address] [phone] Red Blood Count 4.58 10^6/uL N 4.00-5.40 Hemoglobin 13.3 g/dL N 12.0-16.0 Hematocrit 40 % N 35-47 Mean Corpuscular Volume 87 fL N 80-97 Mean Corpuscular Hemoglobin 29 pg N 27-31 Mean Corpuscular HGB Conc 34 g/dL N 31-36 Red Cell Distribution Width 14 % N 10.5-15 Platelet Count 194 10^3/uL N 150-450 Mean Platelet Volume 8.1 um3 N 7.4-10.4 Abs Neutrophils 2.8 10^3/uL N 1.5-7.7 Abs Lymphocytes 3.3 10^3/uL N 1.0-4.8 Abs Monocytes 0.7 10^3/uL N 0-0.8 Abs Eosinophils 0.1 10^3/uL N 0-0.6 Abs Basophils 0.1 10^3/uL N 0-0.2 Abs Nucleated RBC 0 10^3/uL Granulocyte % 40.4 % N 38-83 Lymphocyte % 47.7 % High 25-47 Monocyte % 9.5 % High 0-7 Eosinophil % 1.4 % N 0-6 Basophil % 1.0 % N 0-2 Nucleated Red Blood Cells % 0.1 Poc Urinalysis 06/07/2017 [facility] Poc Glucose, Negative Negative [address] [place] [address] [phone] Poc Bilirubin, Urine Negative Negative Poc Ketone, Urine Negative Negative Poc Specific [place], Urine 1.010 N 1.010-1.030 Poc Blood, Urine Trace-intact Abnormal Negative Poc pH, Urine 6.0 N 5-9 Poc Protein, Urine Negative Negative Poc Urobilinogen, Urine 0.2 Negative Poc Nitrite, Urine Negative Negative Poc Leukocytes, Urine Negative Negative Poc Color, Urine Yellow Poc Clarity, Urine Clear 11 Laboratory test 06/07/2017 [facility] C Reactive 1.50 mg/L N < 5.00 12, [address] [place] [address] [phone] Comp Metabolic 06/07/2017 [facility] Sodium 135 N 133-[address] mmol/[place] [address] [phone] Potassium 4.4 mmol/L N 3.5-5.0 Chloride 105 mmol/L N 101-111 Co2 Carbon Dioxide 26 mmol/L N 22-32 Anion Gap 4 mmol/L N 2-11 Glucose 85 mg/dL N 70-100 Blood Urea Nitrogen 14 mg/dL N 6-24 Creatinine 0.69 mg/dL N 0.51-0.95 BUN/Creatinine Ratio 20.3 High 8-20 Calcium 9.5 mg/dL N 8.6-10.3 Total Protein 7.2 g/dL N 6.4-8.9 Albumin 4.3 g/dL N 3.2-5.2 Globulin 2.9 g/dL N 2-4 Albumin/Globulin Ratio 1.5 N 1-3 Total Bilirubin 0.50 mg/dL N 0.2-1.0 Alkaline Phosphatase 55 U/L N 34-104 Alt 10 U/L N 7-52 Ast 14 U/L N 13-39 Egfr Non- 96.8 >60 Egfr 124.5 >60 14 CBC Auto Diff 06/07/2017 [facility] White Blood 6.0 10^3/uL N 3.5-10.[address] [place] [address] [phone] Red Blood Count 4.64 10^6/uL N 4.0-5.4 Hemoglobin 13.7 g/dL N 12.0-16.0 Hematocrit 40 % N 35-47 Mean Corpuscular Volume 87 fL N 80-97 Mean Corpuscular Hemoglobin 29 pg N 27-31 Mean Corpuscular HGB Conc 34 g/dL N 31-36 Red Cell Distribution Width 14 % N 10.5-15 Platelet Count 188 10^3/uL N 150-450 Mean Platelet Volume 8 um3 N 7.4-10.4 Abs Neutrophils 2.7 10^3/uL N 1.5-7.7 Abs Lymphocytes 2.6 10^3/uL N 1.0-4.8 Abs Monocytes 0.6 10^3/uL N 0-0.8 Abs Eosinophils 0.1 10^3/uL N 0-0.6 Abs Basophils 0 10^3/uL N 0-0.2 Abs Nucleated RBC 0 10^3/uL Granulocyte % 45.0 % N 38-83 Lymphocyte % 43.3 % N 25-47 Monocyte % 9.4 % High 0-7 Eosinophil % 1.6 % N 0-6 Basophil % 0.7 % N 0-2 Nucleated Red Blood Cells % 0.1 Laboratory test 05/28/2017 [facility] Magnesium 1.9 mg/dL N 1.9-2.[address] [place] [address] [phone] Basic Metabolic 05/28/2017 [facility] Sodium 136 mmol/L N 133- [address] [place] [address] [phone] Potassium 4.5 mmol/L N 3.5-5.0 Chloride 103 mmol/L N 101-111 Co2 Carbon Dioxide 27 mmol/L N 22-32 Anion Gap 6 mmol/L N 2-11 Glucose 78 mg/dL N 70-100 Blood Urea Nitrogen 15 mg/dL N 6-24 Creatinine 0.66 mg/dL N 0.51-0.95 BUN/Creatinine Ratio 22.7 High 8-20 Calcium 9.3 mg/dL N 8.6-10.3 Egfr Non- 101.9 >60 Egfr 131.1 >60 15 CBC Auto Diff 05/28/2017 [facility] White Blood 5.9 10^3/uL N 3.5-10.[address] [place] [address] [phone] Red Blood Count 4.66 10^6/uL N 4.0-5.4 Hemoglobin 13.6 g/dL N 12.0-16.0 Hematocrit 40 % N 35-47 Mean Corpuscular Volume 86 fL N 80-97 Mean Corpuscular Hemoglobin 29 pg N 27-31 Mean Corpuscular HGB Conc 34 g/dL N 31-36 Red Cell Distribution Width 14 % N 10.5-15 Platelet Count 202 10^3/uL N 150-450 Mean Platelet Volume 8 um3 N 7.4-10.4 Abs Neutrophils 2.8 10^3/uL N 1.5-7.7 Abs Lymphocytes 2.3 10^3/uL N 1.0-4.8 Abs Monocytes 0.5 10^3/uL N 0-0.8 Abs Eosinophils 0.1 10^3/uL N 0-0.6 Abs Basophils 0.1 10^3/uL N 0-0.2 Abs Nucleated RBC 0 10^3/uL Granulocyte % 48.1 % N 38-83 Lymphocyte % 39.8 % N 25-47 Monocyte % 8.8 % N 1-9 Eosinophil % 2.2 % N 0-6 Basophil % 1.1 % N 0-2 Nucleated Red Blood Cells % 0 Rapid Influenza 05/14/2017 [facility] Influenza A NEGATIVE Negative 16 A & B Molecular [address] [place] [address] [phone] Influenza B Molecular POSITIVE Abnormal Negative Laboratory test 05/14/2017 [facility] Influenza A & SEE RESULT [address] [place] [address] [phone] Rapid Influenza 05/10/2017 [facility] Influenza A NEGATIVE Negative 18 A & B Molecular [address] [place] [address] [phone] Influenza B Molecular NEGATIVE Negative GC/Chlamydia 04/26/2017 [facility] Chlamydia Negative Negative [address] [place] [address] [phone] Neisseria gonorrhoeae (GC) Rna Negative Negative HPV 16, 18/45 04/26/2017 [facility] HPV 16 Genotype Negative Negative Genotype [address] [place] [address] [phone] HPV 18/45 Genotype Negative Negative Laboratory test 04/26/2017 [facility] Cytology SEE RESULT [address] [place] [address] [phone] Laboratory test 02/16/2017 [facility] Hemoglobin A1c 5.8 5-7 finding Laboratory test 01/19/2017 [facility] Troponin-I (TnI) 0.00 ng/ mL N <0.[address] [place] [address] [phone] HCG < 0.60 mIU/mL N 21 Comp Metabolic Panel 01/19/2017 [facility] Sodium 136 mmol/L N 133-[address] [place] [address] [phone] Potassium 3.8 mmol/L N 3.5-5.0 Chloride 102 mmol/L N 101-111 Co2 Carbon Dioxide 27 mmol/L N 22-32 Anion Gap 7 mmol/L N 2-11 Glucose 119 mg/dL High 70-100 Blood Urea Nitrogen 11 mg/dL N 6-24 Creatinine 0.72 mg/dL N 0.51-0.95 BUN/Creatinine Ratio 15.3 N 8-20 Calcium 9.3 mg/dL N 8.6-10.3 Total Protein 7.2 g/dL N 6.4-8.9 Albumin 4.1 g/dL N 3.2-5.2 Globulin 3.1 g/dL N 2-4 Albumin/Globulin Ratio 1.3 N 1-3 Total Bilirubin 0.40 mg/dL N 0.2-1.0 Alkaline Phosphatase 55 U/L N 34-104 Alt 10 U/L N 7-52 Ast 13 U/L N 13-39 Egfr Non- 92.7 N >60 Egfr 119.2 N >60 22 Laboratory test 11/27/2016 [facility] Magnesium 2.0 mg/dL N 1.9-2.[address] [place] [address] [phone] Comp Metabolic 11/27/2016 [facility] Sodium 138 mmol/L N 133- [address] [place] [address] [phone] Potassium 3.7 mmol/L N 3.5-5.0 Chloride 104 mmol/L N 101-111 Co2 Carbon Dioxide 27 mmol/L N 22-32 Anion Gap 7 mmol/L N 2-11 Glucose 96 mg/dL N 70-100 Blood Urea Nitrogen 16 mg/dL N 6-24 Creatinine 0.76 mg/dL N 0.51-0.95 BUN/Creatinine Ratio 21.1 High 8-20 Calcium 9.7 mg/dL N 8.6-10.3 Total Protein 7.9 g/dL N 6.4-8.9 Albumin 4.6 g/dL N 3.2-5.2 Globulin 3.3 g/dL N 2-4 Albumin/Globulin Ratio 1.4 N 1-3 Total Bilirubin 0.30 mg/dL N 0.2-1.0 Alkaline Phosphatase 82 U/L N 34-104 Alt 9 U/L N 7-52 Ast 15 U/L N 13-39 Egfr Non- 87.1 N >60 Egfr 112.0 N >60 23 CBC Auto Diff 11/27/2016 [facility] White Blood 8.9 10^3/uL N 3.5-10.[address] [place] [address] [phone] Red Blood Count 5.05 10^6/uL N 4.0-5.4 Hemoglobin 14.6 g/dL N 12.0-16.0 Hematocrit 43 % N 35-47 Mean Corpuscular Volume 86 fL N 80-97 Mean Corpuscular Hemoglobin 29 pg N 27-31 Mean Corpuscular HGB Conc 34 g/dL N 31-36 Red Cell Distribution Width 14 % N 10.5-15 Platelet Count 207 10^3/uL N 150-450 Mean Platelet Volume 8 um3 N 7.4-10.4 Abs Neutrophils 4.6 10^3/uL N 1.5-7.7 Abs Lymphocytes 3.4 10^3/uL N 1.0-4.8 Abs Monocytes 0.6 10^3/uL N 0-0.8 Abs Eosinophils 0.2 10^3/uL N 0-0.6 Abs Basophils 0.1 10^3/uL N 0-0.2 Abs Nucleated RBC 0.01 10^3/uL N Granulocyte % 51.5 % N 38-83 Lymphocyte % 37.7 % N 25-47 Monocyte % 7.2 % N 1-9 Eosinophil % 2.5 % N 0-6 Basophil % 1.1 % N 0-2 Nucleated Red Blood Cells % 0.1 N Basic Metabolic Panel 11/14/2016 [facility] Sodium 135 mmol/L N 133-[address] [place] [address] [phone] Potassium 4.3 mmol/L N 3.5-5.0 Chloride 104 mmol/L N 101-111 Co2 Carbon Dioxide 24 mmol/L N 22-32 Anion Gap 7 mmol/L N 2-11 Glucose 85 mg/dL N 70-100 Blood Urea Nitrogen 13 mg/dL N 6-24 Creatinine 0.67 mg/dL N 0.51-0.95 BUN/Creatinine Ratio 19.4 N 8-20 Calcium 9.0 mg/dL N 8.6-10.3 Egfr Non- 100.8 N >60 Egfr 129.6 N >60 24 CBC Auto Diff 11/03/2016 [facility] White Blood 8.0 10^3/uL N 3.5-10.[address] [place] [address] [phone] Red Blood Count 4.36 10^6/uL N 4.0-5.4 Hemoglobin 12.7 g/dL N 12.0-16.0 Hematocrit 38 % N 35-47 Mean Corpuscular Volume 88 fL N 80-97 Mean Corpuscular Hemoglobin 29 pg N 27-31 Mean Corpuscular HGB Conc 33 g/dL N 31-36 Red Cell Distribution Width 15 % N 10.5-15 Platelet Count 191 10^3/uL N 150-450 Mean Platelet Volume 8 um3 N 7.4-10.4 Abs Neutrophils 3.4 10^3/uL N 1.5-7.7 Abs Lymphocytes 3.6 10^3/uL N 1.0-4.8 Abs Monocytes 0.7 10^3/uL N 0-0.8 Abs Eosinophils 0.3 10^3/uL N 0-0.6 Abs Basophils 0.1 10^3/uL N 0-0.2 Abs Nucleated RBC 0.01 10^3/uL N Granulocyte % 42.3 % N 38-83 Lymphocyte % 44.3 % N 25-47 Monocyte % 9.2 % High 1-9 Eosinophil % 3.3 % N 0-6 Basophil % 0.9 % N 0-2 Nucleated Red Blood Cells % 0.1 N Laboratory test 11/03/2016 [facility] B-Type 11 pg/mL N [address] [place] [address] Peptide BNP [phone] Inr/Protime 11/03/2016 [facility] Inr 0.84 Low 0.[address] -1.1 [place] [address] 4 [phone] Laboratory test 11/03/2016 [facility] Partial Thrombo 38.6 seconds High 26.[address] Time PTT -36. [place] [address] 3 [phone] D Dimer Quantitative < 200 ng/mL N Less Than 230 26 Comp Metabolic Panel 11/03/2016 [facility] Sodium 134 mmol/L N 133-[address] [place] [address] [phone] Potassium 3.9 mmol/L N 3.5-5.0 Chloride 105 mmol/L N 101-111 Co2 Carbon Dioxide 24 mmol/L N 22-32 Anion Gap 5 mmol/L N 2-11 Glucose 83 mg/dL N 70-100 Blood Urea Nitrogen 13 mg/dL N 6-24 Creatinine 0.61 mg/dL N 0.51-0.95 BUN/Creatinine Ratio 21.3 High 8-20 Calcium 8.9 mg/dL N 8.6-10.3 Total Protein 6.6 g/dL N 6.4-8.9 Albumin 3.8 g/dL N 3.2-5.2 Globulin 2.8 g/dL N 2-4 Albumin/Globulin Ratio 1.4 N 1-3 Total Bilirubin 0.20 mg/dL N 0.2-1.0 Alkaline Phosphatase 74 U/L N 34-104 Alt 9 U/L N 7-52 Ast 13 U/L N 13-39 Egfr Non- 112.3 N >60 Egfr 144.4 N >60 27 Laboratory test 11/03/2016 [facility] Troponin-I (TnI) 0.00 ng/ mL N <0.04 finding [address] [place] [address] [phone] TSH (Thyroid Stim Horm) 0.99 mcIU/mL N 0.34-5.60 HCG < 0.60 mIU/mL N 28 Hemoglobin A1c (Glyco HGB) 8.7 % High Less than 6.0 29 Laboratory test 10/10/2016 [facility] Potassium 3.4 mmol/L Low 3.5-5.0 finding [address] [place] [address] [phone] Magnesium 1.9 mg/dL N 1.9-2.7 Laboratory test 10/08/2016 [facility] Lactic Acid 1.0 mmol/L N 0.5-2.[address] [place] [address] [phone] CBC Auto Diff 10/08/2016 [facility] White Blood 8.1 10^3/uL N 3.5-10.[address] [place] [address] [phone] Red Blood Count 4.28 10^6/uL N 4.0-5.4 Hemoglobin 12.6 g/dL N 12.0-16.0 Hematocrit 37 % N 35-47 Mean Corpuscular Volume 87 fL N 80-97 Mean Corpuscular Hemoglobin 29 pg N 27-31 Mean Corpuscular HGB Conc 34 g/dL N 31-36 Red Cell Distribution Width 15 % N 10.5-15 Platelet Count 190 10^3/uL N 150-450 Mean Platelet Volume 8 um3 N 7.4-10.4 Abs Neutrophils 3.7 10^3/uL N 1.5-7.7 Abs Lymphocytes 3.3 10^3/uL N 1.0-4.8 Abs Monocytes 0.7 10^3/uL N 0-0.8 Abs Eosinophils 0.3 10^3/uL N 0-0.6 Abs Basophils 0.1 10^3/uL N 0-0.2 Abs Nucleated RBC 0.01 10^3/uL N Granulocyte % 45.4 % N 38-83 Lymphocyte % 41.2 % N 25-47 Monocyte % 8.6 % N 1-9 Eosinophil % 3.7 % N 0-6 Basophil % 1.1 % N 0-2 Nucleated Red Blood Cells % 0.1 N Comp Metabolic Panel 10/08/2016 [facility] Sodium 137 mmol/L N 133-145 [address] [place] [address] [phone] Potassium 3.5 mmol/L N 3.5-5.0 Chloride 107 mmol/L N 101-111 Co2 Carbon Dioxide 25 mmol/L N 22-32 Anion Gap 5 mmol/L N 2-11 Glucose 88 mg/dL N 70-100 Blood Urea Nitrogen 18 mg/dL N 6-24 Creatinine 0.82 mg/dL N 0.51-0.95 BUN/Creatinine Ratio 22.0 High 8-20 Calcium 8.9 mg/dL N 8.6-10.3 Total Protein 6.4 g/dL N 6.4-8.9 Albumin 3.7 g/dL N 3.2-5.2 Globulin 2.7 g/dL N 2-4 Albumin/Globulin Ratio 1.4 N 1-3 Total Bilirubin 0.20 mg/dL N 0.2-1.0 Alkaline Phosphatase 66 U/L N 34-104 Alt 9 U/L N 7-52 Ast 12 U/L Low 13-39 Egfr Non- 79.8 N >60 Egfr 102.6 N >60 31 Laboratory test 10/08/2016 [facility] Magnesium 1.8 mg/dL Low 1.9-2.[address] [place] [address] [phone] Troponin-I (TnI) 0.00 ng/mL N <0.04 TSH (Thyroid Stim Horm) 0.63 mcIU/mL N 0.34-5.60 HCG < 0.60 mIU/mL N 32 CBC Auto Diff 08/07/2016 [facility] White Blood 8.4 10^3/uL N 3.5-10.[address] [place] [address] [phone] Red Blood Count 5.03 10^6/uL N 4.0-5.4 Hemoglobin 14.2 g/dL N 12.0-16.0 Hematocrit 43 % N 35-47 Mean Corpuscular Volume 85 fL N 80-97 Mean Corpuscular Hemoglobin 28 pg N 27-31 Mean Corpuscular HGB Conc 33 g/dL N 31-36 Red Cell Distribution Width 14 % N 10.5-15 Platelet Count 239 10^3/uL N 150-450 Mean Platelet Volume 8 um3 N 7.4-10.4 Abs Neutrophils 4.2 10^3/uL N 1.5-7.7 Abs Lymphocytes 3.4 10^3/uL N 1.0-4.8 Abs Monocytes 0.5 10^3/uL N 0-0.8 Abs Eosinophils 0.2 10^3/uL N 0-0.6 Abs Basophils 0 10^3/uL N 0-0.2 Abs Nucleated RBC 0.02 10^3/uL N Granulocyte % 50.2 % N 38-83 Lymphocyte % 40.6 % N 25-47 Monocyte % 6.4 % N 1-9 Eosinophil % 2.4 % N 0-6 Basophil % 0.4 % N 0-2 Nucleated Red Blood Cells % 0.2 N Laboratory test 08/07/2016 [facility] Troponin-I 0.00 ng/mL N <0.[address] (TnI) [place] [address] [phone] Comp Metabolic 08/07/2016 [facility] Sodium 135 mmol/L N 133- [address] [place] [address] [phone] Potassium 3.8 mmol/L N 3.5-5.0 Chloride 100 mmol/L Low 101-111 Co2 Carbon Dioxide 27 mmol/L N 22-32 Anion Gap 8 mmol/L N 2-11 Glucose 90 mg/dL N 70-100 Blood Urea Nitrogen 17 mg/dL N 6-24 Creatinine 0.69 mg/dL N 0.51-0.95 BUN/Creatinine Ratio 24.6 High 8-20 Calcium 10.0 mg/dL N 8.6-10.3 Total Protein 8.0 g/dL N 6.4-8.9 Albumin 4.5 g/dL N 3.2-5.2 Globulin 3.5 g/dL N 2-4 Albumin/Globulin Ratio 1.3 N 1-3 Total Bilirubin 0.30 mg/dL N 0.2-1.0 Alkaline Phosphatase 75 U/L N 34-104 Alt 10 U/L N 7-52 Ast 14 U/L N 13-39 Egfr Non- 97.4 N >60 Egfr 125.3 N >60 34 Laboratory test 08/07/2016 [facility] Magnesium 2.0 mg/dL N 1.9-2.7 finding [address] [place] [address] [phone] TSH (Thyroid Stim Horm) 0.36 mcIU/mL N 0.34-5.60 HCG < 0.60 mIU/mL N 35 Urinalysis Profile 08/07/2016 [facility] Urine Color Straw N [address] [place] [address] [phone] Urine Appearance Clear N Urine Specific [place] 1.010 N 1.010-1.030 Urine pH 6.0 N 5-9 Urine Urobilinogen Negative N Negative Urine Ketones Negative N Negative Urine Protein Negative N Negative Urine Leukocytes Negative N Negative Urine Blood 1+ Abnormal Negative Urine Nitrite Negative N Negative Urine Bilirubin Negative N Negative Urine Glucose Negative N Negative Urine White Blood Cell Trace(0-5/hpf) N Absent Urine Red Blood Cell Absent N Absent Urine Bacteria Absent N Absent Urine Squamous Epithelial Cell Present Abnormal Absent Laboratory test 08/02/2016 [facility] Uric Acid 5.9 mg/dL N 2.3-6.6 finding [address] [place] [address] [phone] Vitamin B12 And 07/19/2016 [facility] Vitamin B12 424 pg/mL N 180-914 36 Folate Serum [address] [place] [address] [phone] Folic Acid (Folate) > 20.00 ng/mL N >3.99 CBC Auto Diff 07/12/2016 [facility] White Blood 6.4 10^3/uL N 3.5-10.[address] [place] [address] [phone] Red Blood Count 4.48 10^6/uL N 4.0-5.4 Hemoglobin 12.7 g/dL N 12.0-16.0 Hematocrit 39 % N 35-47 Mean Corpuscular Volume 86 fL N 80-97 Mean Corpuscular Hemoglobin 28 pg N 27-31 Mean Corpuscular HGB Conc 33 g/dL N 31-36 Red Cell Distribution Width 14 % N 10.5-15 Platelet Count 215 10^3/uL N 150-450 Mean Platelet Volume 8 um3 N 7.4-10.4 Abs Neutrophils 2.8 10^3/uL N 1.5-7.7 Abs Lymphocytes 2.9 10^3/uL N 1.0-4.8 Abs Monocytes 0.5 10^3/uL N 0-0.8 Abs Eosinophils 0.1 10^3/uL N 0-0.6 Abs Basophils 0 10^3/uL N 0-0.2 Abs Nucleated RBC 0.01 10^3/uL N Granulocyte % 44.6 % N 38-83 Lymphocyte % 45.2 % N 25-47 Monocyte % 7.9 % N 1-9 Eosinophil % 1.9 % N 0-6 Basophil % 0.4 % N 0-2 Nucleated Red Blood Cells % 0.1 N Connective Tissue 07/12/2016 [facility] Anti-Nuclear 0.4 U N [address] [place] [address] [phone] Cyclic Citrullinated Peptide <15.6 U N 38 Interpretation See Comment N 39 Comp Metabolic Panel 07/12/2016 [facility] Sodium 135 mmol/L N 133-[address] [place] [address] [phone] Potassium 3.7 mmol/L N 3.5-5.0 Chloride 103 mmol/L N 101-111 Co2 Carbon Dioxide 26 mmol/L N 22-32 Anion Gap 6 mmol/L N 2-11 Glucose 86 mg/dL N 70-100 Blood Urea Nitrogen 9 mg/dL N 6-24 Creatinine 0.64 mg/dL N 0.51-0.95 BUN/Creatinine Ratio 14.1 N 8-20 Calcium 9.2 mg/dL N 8.6-10.3 Total Protein 6.9 g/dL N 6.4-8.9 Albumin 4.2 g/dL N 3.2-5.2 Globulin 2.7 g/dL N 2-4 Albumin/Globulin Ratio 1.6 N 1-3 Total Bilirubin 0.40 mg/dL N 0.2-1.0 Alkaline Phosphatase 64 U/L N 34-104 Alt 10 U/L N 7-52 Ast 13 U/L N 13-39 Egfr Non- 106.2 N >60 Egfr 136.6 N >60 40 Lipid Profile 07/12/2016 [facility] Triglycerides 63 mg/dL N 41 (Trig/Chol/HDL) [address] [place] [address] [phone] Cholesterol 144 mg/dL N 42 HDL Cholesterol 53.4 mg/dL N 43 LDL Cholesterol 78 mg/dL N 44 Laboratory test 06/19/2016 [facility] Surgical SEE RESULT [address] [place] [address] [phone] 1 2 weeks Copy Result to: PEDRITO JENKINS ([id number]) 2 Because ethnic data is not always readily [...] 15-29 5 Kidney failure <15 (or dialysis) 3 2 weeks Copy Result to: PEDRITO JENKINS ([id number]) 4 Auto Body Repair Estimator: [id number] If is still suspected, please repeat test after 48 to 72 hours. 5 Auto Body Repair Estimator: [id number] 6 Because ethnic data is not always readily [...] 15-29 5 Kidney failure <15 (or dialysis) 7 <5.0 Negative 5.0 - 25.0 Indeterminate (Repeat testing recommended after 72 hours) >25.0 Positive Perimenopausal women can display HCG levels of up to 20 mIU/mL 8 Auto Body Repair Estimator: [id number] 9 Auto Body Repair Estimator: [id number] If is still suspected, please repeat test after 48 to 72 hours. 10 Because ethnic data is not always [...] 5 Kidney failure <15 (or dialysis) 11 Auto Body Repair Estimator: [id number] 12 [id number] 13 Acute inflammation: >10.00 14 Because ethnic data is not always readily [...] 15-29 5 Kidney failure <15 (or dialysis) 15 Because ethnic data is not always readily [...] 15-29 5 Kidney failure <15 (or dialysis) 16 Auto Body Repair Estimator: [id number] 17 SEE RESULT BELOW Name: JEAN CLAUDE ORELLANA : [address]: Elise Tripp MD Acct: [id number] Unit: [id number] AGE: 37 Location: [facility] Re05/14/17 SEX: F Status: REG REF SPEC: [id number] JIMMY: 05/14/17-[address] [facility] [address]: Elise Tripp MD REQ: [id number] RECD: 05/14/17 STATUS: COMP _ SOURCE: JANA SPDESC: ORDERED: Flu A B Request COMMENTS: [id number] Procedure Result Reported Site Rapid Influenza A B Request Final 05/14/171927 ML Specimen received for Influenza A/B Molecular testing * ML - MAIN LAB ([facility]) . END OF REPORT * ML=Testing performed at Main Lab DEPARTMENT OF PATHOLOGY, [address] [place] [address] Remington Pruitt M.D. Director [facility] # [id number] 18 Auto Body Repair Estimator: [id number] 20 SEE RESULT BELOW Name: JEAN CLAUDE ORELLANA : [address]: Alexander Sands MD Acct: [id number] Unit: [id number] AGE: 37 Location: [facility] Re04/26/17 SEX: F Status: REG REF SPEC: [id number] JIMMY: 04/26/17-[address] [facility] [address]: Alexander Sands MD REQ: [id number] RECD: 04/26/17 STATUS: MAGO YANEZ DR: Pedrito Jenkins MD _ ORDERED: TP IMAGE ANAL, HPV/Thin Prep, HPV 16/18 GENE COMMENTS: [id number] Negative for Intraepithelial lesion or Malignancy A. [...] and 68. Signed (signature on file) LISA Mckeon(ASCP) 04/30 8749 This Pap test was evaluated with the assistance of the TechFaith Wireless TechnologyPrep Test Imaging System. Due to cytologic findings at the stress engineer microscope, comprehensive manual rescreening by a Welt Sole Layer may be required. The Pap Smear is [...] performed at Main Lab DEPARTMENT OF PATHOLOGY, [address] [place] [address] Remington Pruitt M.D. Director [facility] # [id number] 21 <5.0 Negative 5.0 - 25.0 Indeterminate (Repeat testing recommended after 72 hours) >25.0 Positive Perimenopausal women can display HCG levels of up to 20 mIU/mL 22 Because ethnic data is not always [...] 5 Kidney failure <15 (or dialysis) 23 Because ethnic data is not always readily [...] 15-29 5 Kidney failure <15 (or dialysis) 24 Because ethnic data is not always readily [...] 15-29 5 Kidney failure <15 (or dialysis) 25 >100 to <200 pg/mL: likely compensated congestive heart failure (CHF) 200 to 400 pg/mL: likely moderate CHF >400 pg/mL: likely moderate to severe CHF 26 Please note: The following may produce a false positive D Dimer test: - Rheumatoid factor greater than 60 IU/ml - Plasma hemoglobin greater than 0.05 gm/dl - Bilirubin greater than 50 mg/dl - Lipids greater than 1000 mg/dl - FDP greater than 20 ug/ml 27 Because ethnic data is not always readily [...] 15-29 5 Kidney failure <15 (or dialysis) 28 <5.0 Negative 5.0 - 25.0 Indeterminate (Repeat testing recommended after 72 hours) >25.0 Positive Perimenopausal women can display HCG levels of up to 20 mIU/mL 29 Therapeutic target for the treatment of diabetes Mellitus patients is <7% HBA1C, and in selective patients <6.0%.Please refer to [place] [employer] Diabetic care guidelines for further information. 30 WIS Severe Sepsis and Septic Shock Management Bundle Measure requires all lactic acids initially measuring >2.0 mmol/L be repeated. 31 Because ethnic data is not always readily [...] 15-29 5 Kidney failure <15 (or dialysis) 32 <5.0 Negative 5.0 - 25.0 Indeterminate (Repeat testing recommended after 72 hours) >25.0 Positive Perimenopausal women can display HCG levels of up to 20 mIU/mL 33 99th percentile=0.04 ng/mL Troponin results at [facility] and [facility] are not interchangeable. 34 Because ethnic data is not always readily [...] 15-29 5 Kidney failure <15 (or dialysis) 35 <5.0 Negative 5.0 - 25.0 Indeterminate (Repeat testing recommended after 72 hours) >25.0 Positive Perimenopausal women can display HCG levels of up to 20 mIU/mL 36 Normal Range 180 to 914 Indeterminate Range 145 to 180 Deficient Range <145 37 REFERENCE VALUE <=1.0 (Negative) 38 REFERENCE VALUE <20.0 (Negative) 39 Tests for antibodies to dsDNA and LEON antigens are not performed automatically unless the ALINA result is > or= 3.0 U. Studies performed at [facility] indicate that positive ALINA results <3.0 U are rarely accompanied by positive second order tests. Test Performed by: [address] [address] 40 Because ethnic data is not always readily [...] 15-29 5 Kidney failure <15 (or dialysis) 41 Desirable <150 Borderline high 150-199 High 200-499 Very High >500 42 Desirable <200 Borderline high 200-239 High >239 43 Low <40 Desirable: 40-60 High: >60 44 Desirable: <100 mg/dL Near Optimal: 100-129 mg/dL Borderline High: 130-159 mg/dL High: 160-189 mg/dL Very High: >189 mg/dL 45 SEE RESULT BELOW Name: JEAN CLAUDE ORELLANA : [address]: Lacey Friend MD Acct: [id number] Unit: [id number] AGE: 36 Location: [facility] Re06/19/16 SEX: F Status: REG [facility] SPEC: JIMMY: 06/19/[address] [facility] [address]: Lacey Friend MD REQ: [id number] RECD: 06/19/16 STATUS: SOUT _ ORDERED: LEVEL III FINAL DIAGNOSIS Knee, left, arthroscopic shavings: -- Benign synovial tissue fragments with reactive change. CLINICAL HISTORY No history given GROSS DESCRIPTION The specimen is received in formalin labeled, Left Knee Shavings, and consists of a 3.5 x 2.7 x 0.5 cm aggregate of yellow-white to brown tissue fragments. Outside Production Inspector sections, one cassette. Signed (signature on file) Peggy Palafox MD 11/30 1312 END OF REPORT * ML=Testing performed at Main Lab DEPARTMENT OF PATHOLOGY, [address] [place] [address] Remington Pruitt M.D. Director [facility] # [id number] Procedures Date Code Description Status 01/02/2018 84406 Holter Monitor Review (24 hr)dr review & interp only Completed 01/01/2018 38373 ECG Monitor/Recording W/Visual Superimposition Completed Scanning 01/01/2018 11589 ECG Monitor/Recording W/Visual Superimposition Completed Scanning 11/29/2017 78630 EKG Tracing & Interpretation Completed 11/23/2017 [id number] Diabetic Retinal Eye Exam Completed 09/18/2017 99265 EKG Tracing & Interpretation Completed 05/15/2017 04920 EKG Tracing & Interpretation Completed 12/13/2016 34140 EKG Tracing & Interpretation Completed 11/24/2016 97877 ECHO Transthoracic, Real-Time 2D With Doppler And Completed Color Flow 10/31/2016 55675 EKG Tracing & Interpretation Completed 08/15/2016 92205 Holter Monitor Review (24 hr) review & interp only Completed 08/09/2016 02635 ECG Monitor/Recording W/Visual Superimposition Completed Scanning 06/19/2016 80009 Arthroscopy,Unlisted Procedure Completed 06/19/2016 40534 Arthroscopy,Knee,Meniscectomy Media & Lateral Completed 06/19/2016 62820 Arthroscopy,Knee,Meniscectomy Media & Lateral Completed Encounters Type Date Location Provider Dx Diagnosis Office Visit 01/29/2018 [facility] Lesley Mendoza, I47.1 Supraventricular 11:00a Of Linda N.PMonae tachycardia F41.9 Anxiety disorder, unspecified I51.7 Cardiomegaly Office Visit 01/28/2018 8:50a [facility] Niranjan Calvillo MD L70.0 Acne vulgaris L71.0 Perioral dermatitis Office Visit 01/09/2018 11:00a [facility] Magdalena Dee, F41.9 Anxiety disorder, 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 tachycardia Film Sorter E87.6 Hypokalemia R00.2 Palpitations I49.3 Ventricular premature depolarization Office Visit 10/26/2017 10:00a [facility] Internal Wilbur R10.10 Upper abdominal Medicine - Jorge Jenkins pain, unspecified [address] K59.09 Other constipation Office Visit 09/18/2017 10:40a [facility] Arnaud Santiago F41.9 Anxiety disorder, Jorge Kiran unspecified R00.2 Palpitations I49.3 Ventricular premature depolarization Office Visit 08/29/2017 9:00a [facility] Internal Abnernelly Juárez, MANAGER GROUP R25.3 Fasciculation Medicine - Watts R21 Rash and other nonspecific skin eruption Office Visit 07/30/2017 1:40p [facility] Internal Karrie F41.9 Anxiety disorder , Medicine - Albertina, MANAGER GROUP unspecified [address] Office Visit 06/13/2017 9:40a [facility] Internal Zsofia Luiz, R14.3 Flatulence Medicine - COMPOSING ROOM 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 respiratory [place] infection, unspecified Office Visit 03/13/2017 9:00a [facility] Niko Rcihey R51 Headache Services Of Linda De Dios M.D. Office Visit 02/16/2017 8:40a [facility] Internal Pedrito F41.9 Anxiety disorder, Medicine - [place], unspecified Rd Jorge F40.01 Agoraphobia with panic disorder E66.8 Other obesity R79.9 Abnormal finding of blood chemistry, unspecified Office Visit 01/25/2017 9:40a [facility] Internal Pedritocris Jenkins, R51 Headache Medicine - [address] Jorge M67.442 Ganglion, left hand F41.9 Anxiety disorder, unspecified Office Visit 01/10/2017 10:00a [facility] Dermatology Niranjan Yerebelzer, L21.8 Other seborrheic MD dermatitis L70.0 Acne vulgaris Office Visit 01/09/2017 1:40p [facility] Internal Pedrito Jenkins, R21 Rash and other Medicine - M.DMonae nonspecific skin [address] eruption R10.9 Unspecified abdominal pain F41.9 Anxiety disorder, unspecified Office Visit 12/28/2016 Orthopedic Lacey Leonalma, S83.512D Sprain of anterior 10:15a Services Of cruciate ligament C.M.A. of left knee, subs Office Visit 12/13/2016 [facility] Colleen Acuna, R00.2 Palpitations 9:00a Cardiology PA I34.0 Nonrheumatic mitral (valve) insufficiency E87.6 Hypokalemia Office Visit 11/23/2016 10:20a [facility] Internal Estuardo Macias S83.512D Sprain of Medicine Bayron Harris M.D.,FACP anterior [address] cruciate ligament of left knee, subs R00.2 Palpitations Office Visit 10/31/2016 2:00p [facility] Arnaud Santiago E87.6 Hypokalemia Jorge Kiran R00.2 Palpitations F41.9 Anxiety disorder, unspecified F17.210 Nicotine dependence, cigarettes, uncomplicated G47.9 Sleep disorder, unspecified R01.1 Cardiac murmur, unspecified Office Visit 10/16/2016 3:00p [facility] Internal Pedrito F40.01 Agoraphobia with Medicine Bayron Jenkins M.D. panic disorder [address] E87.6 Hypokalemia R00.2 Palpitations Office Visit 08/29/2016 9:20a [facility] Internal Pedrito Jenkins, F41.9 Anxiety disorder, Medicine - M.D. unspecified [address] F17.210 Nicotine dependence, cigarettes, uncomplicated Office Visit 08/08/2016 8:40a [facility] Internal Pedrito Jenkins, I10 Essential (primary) Medicine - M.D. hypertension [address] R42 Dizziness and giddiness Office Visit 08/01/2016 2:20p [facility] Internal Pedrito Jenkins, I10 Essential (primary) Medicine - M.D. hypertension [address] M79.676 Pain in unspecified toe(s) Office Visit 07/25/2016 9:40a [facility] Internal Pedrito Jenkins, I10 Essential (primary) Medicine - M.D. hypertension [address] G63 Polyneuropathy in diseases classified elsewhere Office Visit 07/11/2016 [facility] Internal Pedrito T78.3xxA Angioneurotic 1:40p Elyssa Jenkins M.D. edema, initial [address] encounter I10 Essential (primary) hypertension R20.2 Paresthesia of skin Office Visit 06/09/2016 8:15a Orthopedic Lacey Friend, S83.231A Complex tear Services Of MD of medial C.M.A. mensc, current injury, r knee, init S83.412A Sprain of medial collateral ligament of left knee, init S83.512A Sprain of anterior cruciate ligament of left knee, init S83.232A Complex tear of medial mensc, current injury, l knee, init Office Visit 05/12/2016 11:00a Orthopedic Lacey Friend, S83.231A Complex tear Services Of of medial C.M.A. mensc, current injury, r knee, init S83.242A Oth tear of medial meniscus, current injury, left knee, init S83.412A Sprain of medial collateral ligament of left knee, init S83.512A Sprain of anterior cruciate ligament of left knee, init Office Visit 05/10/2016 11:15a [facility]opedic Services Maya Villalta, M25.562 Pain in left Of C.M.A. M.D. knee M25.462 Effusion, left knee S83.412D Sprain of medial collateral ligament of left knee, subs M23.612 Oth spon disrupt of anterior cruciate ligament of left knee Office Visit 04/24/2016 10:15a Orthopedic Services Maya Villalta, M25.562 Pain in left Of C.M.A. M.D. knee M25.462 Effusion, left knee S83.412A Sprain of medial collateral ligament of left knee, init Plan of Treatment Future Appointment(s):05/15/2018 11:20 am - JEANETTE Nicholson at [facility] Internal Medicine - [address]08/27/2018 2:00 pm - Niko De Dios M.D. at [facility]04/01/2018 8:50 am - Niranjan Calvillo MD at [facility] Dfwdaidjqhp02/28/2018 - Magdalena Dee, [id number] HeadacheComments:~B_HEADACHE:~b_ We talked about your headaches today and agreed to monitor this symptom for now. Please start with PT for upper back and neck pain.Let me know if there is any change in intensity, character or frequency.Follow up:2 bbiebZ49.2 CervicalgiaNew Therapy:Physical TherapyComments:~B_NECK PAIN:~b_Neck pain indicate spondylosis or so called cervical osteoarthritis that causes damage to joints of the neck. This is progressive process; the discs in the cervical spine gradually losefluid, become stiffer and may break down.Often there is a large component of muscle spasm involved.Treatment: In most cases, cervical spondylosis treatments are conservative. May use ice or heat; seewhich provides more durable relief. You might also benefit from range of motion exercises as well astherapeutic ultrasound. Referral to PT is recommended. Given the fragility of the cervical neck region, manipulation of spine at this region is not recommended.F17.210 Nicotine dependence, cigarettes, uncomplicatedComments: We had a deal that you are trying to stop smoking all together so we do not have to give you the pneumonia vaccine
--- NOTE | 2018-04-05 11:43 | ED ---
Dizziness - HPI Summary HPI Summary: This pt is a 38 y/o female presenting to [facility] c/o dizziness today. Pt describes dizziness as lightheadedness and feeling of passing out. She states " I get like this sometimes." Additionally reports nausea, headache, and palpitations. She states she has palpitations "always" and notes it's because her magnesium and potassium are "low at times." Denies chest pain, SOB, visual changes, diplopia, blurry vision, fever, chills, diarrhea, constipation. LMP: currently on period. - History Of Current Complaint Chief Complaint: EDDizziness Stated Complaint: LIGHT HEADED DIZZY Time Seen by Provider: 04/05/18 11:18 Hx Obtained From: Patient Onset/Duration: Still Present Timing: Hours Severity Currently: Moderate Character: Lightheaded, Dizzy Aggravating Factor(s): Nothing Alleviating Factor(s): Nothing Associated Signs And Symptoms: Positive: Nausea, Palpitations, Other: - POS: headache. NEG: diarrhea, constipation. Negative: Vomiting, Diarrhea, Chest Pain , SOB, Visual Changes, Fever, Chills - Allergies/Home Medications Allergies/Adverse Reactions: Allergies Allergy/AdvReac Type Severity Reaction Status Date / Time amlodipine Allergy Rash Verified 04/05/18 11:49 losartan Allergy Swelling Verified 04/05/18 11:49 Home Medications: Home Medications ALPRAZolam TAB* [Xanax TAB*] 0.5 mg PO DAILY PRN 04/05/18 [History Confirmed ] Magnesium Oxide [Magnesium] 500 mg PO DAILY 04/05/18 [History Confirmed 04/05/18 ] Potassium Bicarbonate/Cit AC [Effer-K 25 Meq Tablet Eff] 25 meq PO DAILY [History Confirmed 04/05/18] medroxyPROGESTERone ACETATE* [DEPO-Provera*] 150 mg IM ONCE 04/05/18 [History Confirmed 04/05/18] PMH/Surg Hx/FS Hx/Imm Hx Endocrine/Hematology History: Denies: Hx Anticoagulant Therapy, Hx Blood Disorders, Hx Diabetes, Hx Thyroid Disease Cardiovascular History: Reports: Hx Hypertension - h/o - controlled w/ lifetsyle changes (weight loss, nutritional changes) Denies: Hx Aneurysm, Hx Myocardial Infarction, Hx Pacemaker/ICD Respiratory History: Denies: Hx Asthma GI History: Reports: Hx Gastroesophageal Reflux Disease - on occassion History: Denies: Hx Renal Disease Musculoskeletal History: Reports: Other Musculoskeletal History - had L knee surgery in past: ACL and medial meniscus tear awaiting surgery Sensory History: Denies: Hx Contacts or Glasses, Hx Hearing Aid Opthamlomology History: Denies: Hx Contacts or Glasses Neurological History: Denies: Hx Migraine Psychiatric History: Reports: Hx Anxiety - untreated - felt "fight or flight" w / sertraline 25mg - reluctant to try , Hx Depression Denies: Hx Panic Disorder, Other Psychiatric Issues/Disorders - Surgical History Surgery Procedure, Year, and Place: LEFT KNEE DISLOCATED/GANGLION CYST 2012. WRIST LEFT VERTICAL TEAR/GANGLION CYCT 2015. LEFT knee meniscus repair June Hx Anesthesia Reactions: No Infectious Disease History: No Infectious Disease History: Denies: History Other Infectious Disease, Traveled Outside the [place] in Last 30 Days - Family History Known Family History: Positive: Cardiac Disease - [place] - mother, at 40s - heavy use of ETOH, tob and crack cocaine, Hypertension - both parents, Diabetes - Social History Alcohol Use: Rare Alcohol Amount: socially once a month Hx Substance Use: Yes Substance Use Type: Reports: None Hx Tobacco Use: Yes Smoking Status (MU): Light Every Day Tobacco Smoker Type: Cigarettes Amount Used/How Often: 2-3 cigs Review of Systems Negative: Fever, Chills Negative: Blurred Vision, Diplopia Positive: Palpitations. Negative: Chest Pain Negative: Shortness Of Breath Positive: Nausea. Negative: Diarrhea, Other - constipation Neurological: Other - POSITIVE: dizziness, lightheadedness Positive: Headache All Other Systems Reviewed And Are Negative: Yes Physical Exam - Summary Physical Exam Summary: VITAL SIGNS: Reviewed. GENERAL: Patient is a well-developed and nourished female who is lying comfortable in the stretcher. Patient is not in any acute respiratory distress. HEAD AND FACE: No signs of trauma. No ecchymosis, hematomas or skull depressions. No sinus tenderness. EYES: PERRLA, EOMI x 2, No injected conjunctiva, no nystagmus. EARS: Hearing grossly intact. Ear canals and tympanic membranes are within normal limits. MOUTH: Oropharynx within normal limits. NECK: Supple, trachea is midline, no adenopathy, no JVD, no carotid bruit, no c- spine tenderness, neck with full ROM. CHEST: Symmetric, no tenderness at palpation LUNGS: Clear to auscultation bilaterally. No wheezing or crackles. CVS: Regular rate and rhythm, S1 and S2 present, no murmurs or gallops appreciated. ABDOMEN: Soft, non-tender. No signs of distention. No rebound, no guarding, and no masses palpated. Bowel sounds are normal. EXTREMITIES: FROM in all major joints, no edema, no cyanosis or clubbing. NEURO: Alert and oriented x 3. No acute neurological deficits. Speech is normal and follows commands. SKIN: Dry and warm Triage Information Reviewed: Yes Vital Signs On Initial Exam: Initial Vitals Temp Pulse Resp BP Pulse Ox 98.1 F 85 18 138/100 98 04/05/18 11:03 04/05/18 11:03 04/05/18 11:03 04/05/18 11:03 04/05/18 11:03 Vital Signs Reviewed: Yes Diagnostics - Vital Signs Vital Signs Temp Pulse Resp BP Pulse Ox 04/05/18 11:03 98.1 F 85 18 138/100 98 - Laboratory Result Diagrams: 04/05/18 12:01 04/05/18 12:01 Lab Statement: Any lab studies that have been ordered have been reviewed, and results considered in the medical decision making process. - EKG 1145 Cardiac Rate: NL - at 72 bpm EKG Rhythm: Sinus Rhythm Summary of EKG Findings: No ST elevations Re-Evaluation - Re-Evaluation First Eval Re-Evaluation Time: 13:12 Change: Improved Comment: Dizziness has resolved. I reviewed the lab results with the pt. She will be discharged home. Dizzy Course/Dx - Course Assessment/Plan: This pt is a 38 y/o female presenting to [facility] c/o dizziness today. Pt describes dizziness as lightheadedness and feeling of passing out. She states "I get like this sometimes." Additionally reports nausea, headache, and palpitations. She states she has palpitations "always" and notes it's because her magnesium and potassium are "low at times." Denies chest pain, SOB, visual changes, diplopia, blurry vision, fever, chills, diarrhea, constipation. LMP: currently on period. Blood work without any significant abnormality, urinalysis is negative for UTI. EKG is a normal sinus rhythm without ST elevations. In the ED course the patient was given IV fluids and attempted rehydration. I reexamined the patient at approximately 1 PM and symptoms have resolved. At this time the patient is completely asymptomatic therefore I will discharge the patient home with follow-up from primary care physician. She will be given a prescription for Zofran. Patient is hemodynamically stable, alert and oriented 3. I discussed all the findings and test results with the patient. Patient was instructed to return to the emergency room immediately if any of the symptoms return or worsens. Plan of care was discussed with the patient, and she understands and agrees. All questions were answered at patient satisfaction. There were no further complaints or concerns. Lung exam before discharge: CTA B/L. Good air exchange. No wheezing or crackles heard. CVS: S1 and S2 present. No murmurs appreciated. Patient is alert and oriented x 3. Patient is hemodynamically stable. Patient will be discharged home with follow up from her PCP in the next 2-3 days. - Diagnoses Provider Diagnoses: Dizziness Discharge - Sign-Out/Discharge Documenting (check all that apply): Patient Departure - Discharge home - Discharge Plan Condition: Stable Disposition: HOME Prescriptions: Ondansetron ODT TAB* [Zofran 4 MG Odt TAB*] 4 mg PO Q6H PRN #10 tab.odt PRN Reason: Nausea Patient Education Materials: Dizziness (ED) Referrals: Pedrito Jenkins MD [Primary Care Provider] - Additional Instructions: FOLLOW UP WITH YOUR PRIMARY CARE PROVIDER WITHIN ONE WEEK FOR HIGH BLOOD PRESSURE NOTED TODAY. RETURN TO THE ED FOR ANY NEW OR WORSENING SYMPTOMS. - Billing Disposition and Condition Condition: STABLE Disposition: Home - Attestation Statements Document Initiated by Queenie: Yes Documenting Kathibe: Yamilet Salas Provider For Whom Queenie is Documenting (Include Credential): Manuel Bernard MD Scribe Attestation: Yamilet Felix, scribed for Manuel Bernard MD on 04/05/18 at 1903. Scribe Documentation Reviewed: Yes Provider Attestation: The documentation as recorded by the Yamilet rpingle accurately reflects the service I personally performed and the decisions made by me, Manuel Bernard MD Status of Scribe Document: Viewed
[2018-04-05] MEDS: NS 0.9% 1000 ML* 1,000 ML IV ONE (12:03)
[2018-04-05] MEDS: Ondansetron INJ* 2 MG/ML VIAL IV ONE (12:03)
[2018-04-05 12:21] LABS: ABS Basophils 0.1 10^3/ul (0-0.2); ABS Eosinophils 0.4 10^3/ul (0-0.6); ABS Lymphocytes 2.3 10^3/ul (1.0-4.8); ABS Monocytes 0.4 10^3/ul (0-0.8); ABS Neutrophils 2.2 10^3/ul (1.5-7.7); ABS Nucleated RBC 0 10^3/ul; Eosinophil % 7.2 %; Hematocrit 42 % (35-47); Hemoglobin 13.9 g/dl (12.0-16.0); Mean Corpuscular HGB Conc 33 g/dl (31-36); Mean Corpuscular Hemoglobin 30 pg (27-31); Mean Corpuscular Volume 88 fL (80-97); Mean Platelet Volume 7.9 fL (7.4-10.4); Nucleated Red Blood Cells % 0.1; Platelet Count 193 10^3/ul (150-450); Red Blood Count 4.71 10^6/ul (4.00-5.40); Red Cell Distribution Width 14 % (10.5-15); White Blood Count 5.4 10^3/ul (3.5-10.8)
[2018-04-05 12:39] LABS: Urine Appearance Clear; Urine Bacteria 1+ (Absent); Urine Bilirubin Negative (Negative); Urine Blood 2+ (Negative); Urine Color Colorless; Urine Glucose Negative (Negative); Urine Ketones Negative (Negative); Urine Nitrite Negative (Negative); Urine Protein Negative (Negative); Urine Red Blood Cell Absent (Absent); Urine Specific Gravity 1.001 (1.010-1.030); Urine Urobilinogen Negative (Negative); Urine White Blood Cell Absent (Absent)
[2018-04-05 12:40] LABS: ALT 13 U/L (7-52); AST 16 U/L (13-39); Albumin 4.4 g/dL (3.2-5.2); Albumin/Globulin Ratio 1.5 (1-3); Alkaline Phosphatase 57 U/L (34-104); Anion Gap 5 mmol/L (2-11); BUN/Creatinine Ratio 23.5 (8-20); Blood Urea Nitrogen 16 mg/dL (6-24); C Reactive Protein 1.69 mg/L (<8.01); CO2 Carbon Dioxide 27 mmol/L (22-32); Calcium 9.8 mg/dL (8.6-10.3); Chloride 106 mmol/L (101-111); EGFR Non-African American 97.9 (>60); Glucose 89 mg/dL (70-100); Potassium 3.9 mmol/L (3.5-5.0); Sodium 138 mmol/L (135-145); Total Protein 7.4 g/dL (6.4-8.9)
[2018-04-05 12:48] LABS: HCG Pregnancy < 0.60 mIU/mL
[2018-04-05 13:09] LABS: TSH (Thyroid Stimulating Horm) 0.57 mcIU/mL (0.34-5.60)
[2018-04-05 13:24] VITALS: BP 127/91
== END 2018-04-05 13:23 | disposition home or self-care (01) ==
LOC: ED 11:00
DX: R42 Dizziness and giddiness (principal); F17.210 Nicotine dependence, cigarettes, uncomplicated
CPT/HCPCS: 36415; 80053; 81003; 81015; 83605; 83735; 84443; 84702; 85025; 86140; 87086; 93005; 96361; 96374; 99283; J2405

== ENCOUNTER 2018-04-06 11:05 | Emergency (ER) | payer OTHER ==
--- NOTE | 2018-04-06 11:32 | ED ---
Dizziness - HPI Summary HPI Summary: This patient is a 38 year old F presenting to [facility] with a chief complaint of feeling faint since this morning. She also describes it as feeling unsteady, a bit faint, the same as when you feel hungover, in a fog, and uneasy on her feet. Patient reports congestion with post-nasal drip (about 1 month), urinary frequency, and urinary urgency. Patient denies feelings of near-syncopy , numbness in extremity, palpitations, and cough. She denies drinking alcohol for the past few days. She was here at [facility] yesterday for a similar issue. She is currently taking potassium tabs, Xanax, and magnesium. - History Of Current Complaint Chief Complaint: EDGeneral Stated Complaint: GROGGY, FEELING FAINT Time Seen by Provider: 04/06/18 11:20 Hx Obtained From: Patient Onset/Duration: Still Present, Suddenly Timing: Constant Character: Weak Associated Signs And Symptoms: Positive: Unsteady Gait, Other: - Reports congestion with post-nasal drip (about 1 month), urinary frequency, and urinary urgency. Denies feelings of near-syncope, numbness in extremity, palpitations, and cough. - Allergies/Home Medications Allergies/Adverse Reactions: Allergies Allergy/AdvReac Type Severity Reaction Status Date / Time amlodipine Allergy Rash Verified 04/05/18 11:49 losartan Allergy Swelling Verified 04/05/18 11:49 PMH/Surg Hx/FS Hx/Imm Hx Endocrine/Hematology History: Denies: Hx Anticoagulant Therapy, Hx Blood Disorders, Hx Diabetes, Hx Thyroid Disease Cardiovascular History: Reports: Hx Hypertension - h/o - controlled w/ lifetsyle changes (weight loss, nutritional changes) Denies: Hx Aneurysm, Hx Myocardial Infarction, Hx Pacemaker/ICD Respiratory History: Denies: Hx Asthma GI History: Reports: Hx Gastroesophageal Reflux Disease - on occassion History: Denies: Hx Renal Disease Musculoskeletal History: Reports: Other Musculoskeletal History - had L knee surgery in past: ACL and medial meniscus tear awaiting surgery Sensory History: Denies: Hx Contacts or Glasses, Hx Hearing Aid Opthamlomology History: Denies: Hx Contacts or Glasses Neurological History: Denies: Hx Migraine Psychiatric History: Reports: Hx Anxiety - untreated - felt "fight or flight" w / sertraline 25mg - reluctant to try , Hx Depression Denies: Hx Panic Disorder, Other Psychiatric Issues/Disorders - Surgical History Surgery Procedure, Year, and Place: LEFT KNEE DISLOCATED/GANGLION CYST 2012. WRIST LEFT VERTICAL TEAR/GANGLION CYCT 2015. LEFT knee meniscus repair June Hx Anesthesia Reactions: No Infectious Disease History: No Infectious Disease History: Denies: History Other Infectious Disease, Traveled Outside the [place] in Last 30 Days - Family History Known Family History: Positive: Cardiac Disease - [place] - mother, at 40s - heavy use of ETOH, tob and crack cocaine, Hypertension - both parents, Diabetes - Social History Alcohol Use: Rare Alcohol Amount: socially once a month Hx Substance Use: Yes Substance Use Type: Reports: None Hx Tobacco Use: Yes Smoking Status (MU): Light Every Day Tobacco Smoker Type: Cigarettes Amount Used/How Often: 2-3 cigs Review of Systems Negative: Palpitations Positive: Other - Congestion. Negative: Cough Positive: frequency, urgency Neurological: Other - "Feeling faint" Negative: Numbness, Syncope - Denies feelings of near-syncope All Other Systems Reviewed And Are Negative: Yes Physical Exam - Summary Physical Exam Summary: Appearance: Well appearing, no pain distress Skin: warm, dry, reflects adequate perfusion Head/face: normal Eyes: EOMI, CLIFF ENT: mucous membranes moist Neck: supple, non-tender Respiratory: CTA, breath sounds present Cardiovascular: RRR, pulses symmetrical Abdomen: non-tender, soft Bowel Sounds: present Musculoskeletal: normal, strength/ROM intact Neuro: normal, sensory motor intact, A&Ox3 Triage Information Reviewed: Yes Vital Signs On Initial Exam: Initial Vitals Temp Pulse Resp BP Pulse Ox 97.2 F 83 10 137/89 96 04/06/18 11:17 04/06/18 11:17 04/06/18 11:17 04/06/18 11:17 04/06/18 11:17 Vital Signs Reviewed: Yes Diagnostics - Vital Signs Vital Signs Temp Pulse Resp BP Pulse Ox 04/06/18 11:17 97.2 F 83 10 137/89 96 - Laboratory Lab Statement: Any lab studies that have been ordered have been reviewed, and results considered in the medical decision making process. Dizzy Course/Dx - Course Course Of Treatment: Nurse's note reviewed. Patient presents 1 day after ER evaluation for same complaint. She has nonspecific symptoms including congestion and a faint feeling. She feels better now. She has not had any palpitations. She has had urinary frequency and her urinalysis from yesterday shows 1+ bacteria. I will treat her symptomatically for UTI and also her upper respiratory congestion. She'll follow closely with her primary care physician. - Diagnoses Differential Diagnosis/HQI/PQRI: Hyperventilation, Hypovolemia, Labyrinthitis, Metabolic Abnormality, Other - UTI, upper respiratory infection Provider Diagnoses: UTI (urinary tract infection), Sinus congestion, Lightheadedness Discharge - Sign-Out/Discharge Documenting (check all that apply): Patient Departure - D/C - Discharge Plan Condition: Improved Disposition: HOME Prescriptions: Cephalexin CAP* [Keflex CAP*] 500 mg PO TID #21 cap Guaifenesin/Pseudo 600/60(NF) [Mucinex D 600/60 (NF)] 1 tab PO BID #12 tab Patient Education Materials: Urinary Tract Infection in Women (ED) Referrals: Pedrito Jenkins MD [Primary Care Provider] - Additional Instructions: Drink plenty of fluids, cranberry juice may help. Humidifier while sleeping. Return with fever, vomiting, dizziness, worse, passing out or other concerns. Call your family doctor on Sunday to schedule prompt follow-up. - Billing Disposition and Condition Condition: IMPROVED Disposition: Home - Attestation Statements Document Initiated by Scribe: Yes Documenting Scribe: Peña Caldwell Provider For Whom Queenie is Documenting (Include Credential): Jose Grayson MD Scribe Attestation: Peña Felix scribed for Jose Grayson MD on 04/06/18 at 1150. Scribe Documentation Reviewed: Yes Provider Attestation: The documentation as recorded by the Peña pringle accurately reflects the service I personally performed and the decisions made by me, Jose Grayson MD Status of Scribe Document: Viewed
[2018-04-06 11:37] VITALS: BP 140/98
== END 2018-04-06 11:35 | disposition home or self-care (01) ==
LOC: ED 11:05
DX: N39.0 Urinary tract infection, site not specified (principal); R09.81 Nasal congestion; R42 Dizziness and giddiness; B96.89 Other specified bacterial agents as the cause of diseases classified elsewhere; I10 Essential (primary) hypertension; K21.9 Gastro-esophageal reflux disease without esophagitis; F17.210 Nicotine dependence, cigarettes, uncomplicated
CPT/HCPCS: 99282

== ENCOUNTER 2018-04-25 09:52 | Emergency (ER) | payer OTHER ==
[2018-04-25 09:58] VITALS: BP 114/74
--- NOTE | 2018-04-25 10:16 | UC ---
Complaint Female HPI - HPI Summary HPI Summary: 38 y/o female presents to the urgent care c/o frequency on urination for the past 2 days. Pt reports she was seen in the [facility] [facility] about 1 week ago and Dx w / UTI and Rx Keflex PO. However since It was 3X/day she wasn't very compliant w / medications and she missed some doses. Pt also states she developed a white vaginal discharge w/ itchiness for the past 2 days. Pt denies hematuria, flank pain, burning on urination, pelvic pain, abdominal pain, Hx of STD's, SOB, chest pain, N/V/D. LMP:04/02/2018 w/ regular menstrual cycles. - History Of Current Complaint Chief Complaint: UCGU Stated Complaint: POSS UTI Time Seen by Provider: 04/25/18 10:13 Hx Obtained From: Patient Hx Last Menstrual Period: 04/02/18 ?: No Onset/Duration: Gradual Onset, Lasting Days - 4 days, Still Present, Worse Since - 2 days Timing: Constant Severity Initially: Mild Severity Currently: Mild Pain Intensity: 1 Pain Scale Used: 0-10 Numeric Character: Not Applicable Aggravating Factor(s): Urination Alleviating Factor(s): Nothing Associated Signs And Symptoms: Positive: Vaginal Discharge - white. Negative: Fever, Back Pain, Nausea, Vomiting(# Of Episodes =), Genital Swelling, Genital Blisters - Risk Factors Ectopic Risk Factor: Negative Ovarian Torsion Risk Factor: Negative - Allergies/Home Medications Allergies/Adverse Reactions: Allergies Allergy/AdvReac Type Severity Reaction Status Date / Time amlodipine Allergy Rash Verified 04/25/18 09:59 losartan Allergy Swelling Verified 04/25/18 09:59 PMH/Surg Hx/FS Hx/Imm Hx Previously Healthy: Yes Other Cardiovascular History: hypokalemia Psychological History: Anxiety, Depression Other History Of: Negative For: Anticoagulant Therapy - Surgical History Surgical History: Yes Surgery Procedure, Year, and Place: LEFT KNEE DISLOCATED/GANGLION CYST 2012. WRIST LEFT VERTICAL TEAR/GANGLION CYCT 2015. LEFT knee meniscus repair June - Family History Known Family History: Positive: Cardiac Disease - [place] - mother, at 40s - heavy use of ETOH, tob and crack cocaine, Hypertension - both parents, Diabetes - Social History Occupation: Employed Full-time Lives: With Family Alcohol Use: Rare Alcohol Amount: socially once a month Substance Use Type: None Smoking Status (MU): Light Every Day Tobacco Smoker Type: Cigarettes Amount Used/How Often: 2-3 cigs Household Exposure Type: Cigarettes - Immunization History Most Recent Influenza Vaccination: None Review of Systems All Other Systems Reviewed And Are Negative: Yes Constitutional: Positive: Negative Skin: Positive: Negative Eyes: Positive: Negative ENT: Positive: Negative Respiratory: Positive: Negative Cardiovascular: Positive: Negative Gastrointestinal: Positive: Negative Genitourinary: Positive: Frequency, Vaginal/Penile Itching, Vaginal/Penile Discharge - white Motor: Positive: Negative Neurovascular: Positive: Negative Musculoskeletal: Positive: Negative Neurological: Positive: Negative Psychological: Positive: Negative Is Patient Immunocompromised?: No Physical Exam - Summary Physical Exam Summary: Vital signs: reviewed General: well developed, well nourished female sitting in the examining table w /o any acute distress. Head: Normocephalic, no lesions. Eyes: PERRLA, EOM's full, conjunctiva clear, fundi grossly normal. Ears: EAC's clear, TM's normal. Nose: Mucosa normal, no obstruction. Throat: Clear, no exudates, no lesions. Neck: Supple, no masses, no thyromegaly, no bruits. Chest: Lungs clear, no rales, no rhonchi, no wheezes. Heart: RR, no murmurs, no rubs, no gallops. Abdomen: Soft, no tenderness, no masses, BS normal. Pelvic: I was assisted by Nurse Dennise. External genitalia within normal limits. There is no lesions there is no masses noted. Speculum exam: The vaginal ortiz are within normal limits w/ cottage cheese white vaginal discharge , no the lesions or rashes. The cervix is closed with no lesions or masses. There is no CMT's, and no adnexal masses. Sample sent to Lab Affirm panel. Rectal: No lesions, no hemorrhoids, Back: Normal curvature, no B/L CVA tenderness. Extremities: FROM, no deformities, no edema, no erythema. Neuro: Physiological, no localizing findings. Skin: Normal, no rashes, no lesions noted. Triage Information Reviewed: Yes Vital Signs: Initial Vital Signs Temp 97.4 F 04/25/18 09:54 Pulse 78 04/25/18 09:54 Resp 20 04/25/18 09:54 BP 114/74 04/25/18 09:54 Pulse Ox 100 04/25/18 09:54 Complaint Female Dx - Course Course Of Treatment: 38 y/o female presents to the urgent care c/o frequency on urination for the past 2 days. Pt reports she was seen in the [place] ER about 1 week ago and Dx w/ UTI and Rx Keflex PO. However since It was 3X/day she wasn't very compliant w/ medications and she missed some doses. Pt also states she developed a white vaginal discharge w/ itchiness for the past 2 days. Pt denies hematuria, flank pain, burning on urination, pelvic pain, abdominal pain, Hx of STD's, SOB, chest pain, N/V/D. LMP:04/02/2018 w/ regular menstrual cycles. Hx obtained. PE:WNL,Speculum exam: The vaginal ortiz are within normal limits w/ cottage cheese white vaginal discharge, no lesions or rashes. The cervix is closed WNL, no masses. There is no CMT's, and no adnexal masses. Sample sent to Lab for affirm panel. UA: + trace blood. test:negative. Pt Rx Fluconazole and Probiotics to alleviate symptoms. Pt advised to increase hydration. Pt will be notified if any abnormal result from lab. D/C instructions explained. Pt understood and agreed with plan of care. - Differential Dx/Diagnosis Differential Diagnosis/HQI/PQRI: Cervicitis, Pelvic Inflammatory Disease, , Renal Colic, Ureteral Stone, Urinary Tract Infection Provider Diagnosis: Vulvovaginal candidiasis Discharge - Sign-Out/Discharge Documenting (check all that apply): Patient Departure - D/c home All imaging exams completed and their final reports reviewed: No Studies - Discharge Plan Condition: Stable Disposition: HOME Prescriptions: Fluconazole 150 MG TAB* [Diflucan 150 MG TAB*] 150 mg PO ONCE #1 tablet Lactobacillus Rhamnosus R0011 [Probiotic Digestive Care] 1 each PO ONCE #1 box Patient Education Materials: Yeast Infection (ED) Referrals: Pedrito Jenkins MD [Primary Care Provider] - 3 Days Additional Instructions: 1- Please take medications as directed. Increase fluid intake 2- Specimen were sent to lab, if anything abnormal you will receive a call from us for further treatment. 3-If not improvement of symptoms please return to the urgent care or f/u with your JOY OPERATOR HELPER in 3 days for further treatment - Billing Disposition and Condition Condition: STABLE Disposition: Home
== END 2018-04-25 11:07 | disposition home or self-care (01) ==
LOC: UCEAST 09:52
DX: B37.3 Candidiasis of vulva and vagina (principal); F17.210 Nicotine dependence, cigarettes, uncomplicated; Z88.8 Allergy status to other drugs, medicaments and biological substances
CPT/HCPCS: 81003; 84702; 87480; 87510; 99212; G0463

== ENCOUNTER 2018-05-11 13:45 | Emergency (ER) | payer OTHER ==
[2018-05-11 13:53] VITALS: BP 116/76
--- NOTE | 2018-05-11 14:23 | UC ---
Complaint Female HPI - HPI Summary HPI Summary: pt started yesterday with itchy vaginal area, today has curdy white d/c. she has had same symps several times in the past. denies odor, bleeding or any concern for STI - History Of Current Complaint Chief Complaint: UCGU Stated Complaint: UTI Time Seen by Provider: 05/11/18 13:56 Hx Obtained From: Patient Hx Last Menstrual Period: 04/28/18 ?: No Onset/Duration: Gradual Onset Pain Intensity: 0 Character: Burning Aggravating Factor(s): Urination Alleviating Factor(s): Nothing Associated Signs And Symptoms: Positive: Negative, Vaginal Discharge. Negative : Fever, Back Pain - Allergies/Home Medications Allergies/Adverse Reactions: Allergies Allergy/AdvReac Type Severity Reaction Status Date / Time amlodipine Allergy Rash Verified 05/11/18 13:48 losartan Allergy Swelling Verified 05/11/18 13:48 PMH/Surg Hx/FS Hx/Imm Hx Previously Healthy: Yes Psychological History: Anxiety Other History Of: Negative For: Anticoagulant Therapy - Surgical History Surgical History: Yes Surgery Procedure, Year, and Place: LEFT KNEE DISLOCATED/GANGLION CYST 2012. WRIST LEFT VERTICAL TEAR/GANGLION CYCT 2015. LEFT knee meniscus repair June. late term - 2008 - Family History Known Family History: Positive: Cardiac Disease - [place] - mother, at 40s - heavy use of ETOH, tob and crack cocaine, Hypertension - both parents, Diabetes - Social History Occupation: Employed Part-time Lives: With Family Alcohol Use: Occasionally Alcohol Amount: socially once a month Substance Use Type: None Smoking Status (MU): Light Every Day Tobacco Smoker Type: Cigarettes Amount Used/How Often: 2-3 cigs Household Exposure Type: Cigarettes Cessation Counseling: Patient Advised to Stop - Immunization History Most Recent Influenza Vaccination: None Review of Systems All Other Systems Reviewed And Are Negative: Yes Constitutional: Positive: Negative Skin: Positive: Negative. Negative: Rash Respiratory: Positive: Negative Cardiovascular: Positive: Negative Genitourinary: Positive: Vaginal/Penile Burning, Vaginal/Penile Itching, Vaginal /Penile Discharge. Negative: Dysuria, Hematuria, Frequency Neurovascular: Positive: Negative Musculoskeletal: Positive: Negative Neurological: Positive: Negative Psychological: Positive: Negative Is Patient Immunocompromised?: No Physical Exam Triage Information Reviewed: Yes Appearance: Well-Appearing, No Pain Distress, Well-Nourished Vital Signs: Initial Vital Signs Temp 99.2 F 05/11/18 13:49 Pulse 67 05/11/18 13:49 Resp 18 05/11/18 13:49 BP 116/76 05/11/18 13:49 Pulse Ox 100 05/11/18 13:49 Vital Signs Reviewed: Yes Respiratory Exam: Normal Cardiovascular Exam: Normal Pelvic Exam: Positive: Other - exam declined by patient d/t histry of same symps nad 2 young children with her in room Neurological Exam: Normal Psychological Exam: Normal Skin Exam: Normal Complaint Female Dx - Differential Dx/Diagnosis Differential Diagnosis/HQI/PQRI: Sexually Transmitted Disease, Urinary Tract Infection, Other - vaginitis Provider Diagnosis: Vaginitis Discharge - Sign-Out/Discharge Documenting (check all that apply): Patient Departure All imaging exams completed and their final reports reviewed: No Studies - Discharge Plan Condition: Good Disposition: HOME Prescriptions: Fluconazole [Diflucan 150 MG (NF)] 150 mg PO ONCE #1 tab Patient Education Materials: Vaginitis (ED) Referrals: Pedrito Jenkins MD [Primary Care Provider] - 2 Days (if no better) Additional Instructions: take diflucan as prescribed - Billing Disposition and Condition Condition: GOOD Disposition: Home
== END 2018-05-11 14:28 | disposition home or self-care (01) ==
LOC: UCEAST 13:45
DX: N76.0 Acute vaginitis (principal); Z88.8 Allergy status to other drugs, medicaments and biological substances; F17.210 Nicotine dependence, cigarettes, uncomplicated
CPT/HCPCS: 81003; 84702; 87086; 99212; G0463

== ENCOUNTER 2018-05-27 23:24 | Emergency (ER) | payer OTHER ==
--- NOTE | 2018-05-28 00:25 | ED ---
GI/ HPI - HPI Summary HPI Summary: 38-year-old female presents with lower abdominal pain for the past day. States she started her period. States it feels like when she's had ovarian cysts before. She denies any urinary symptoms. She states the pain is in her pelvic area is intermittent. she is currently on her period. no abdominal vaginal discharge and denies any chance of stds. She denies nausea or vomiting. States that family was diagnosed with the flu. She also admits to generalized headache. No photophobia. No neck stiffness. She denies any cough or shortness of breath. No chest pain. Has no medical conditions. States she is trying to get . - History of Current Complaint Chief Complaint: EDGeneral Time Seen by Provider: 05/28/18 00:06 Stated Complaint: BACK/NECK PAIN, HEADACHE Hx Last Menstrual Period: 04/28/18 Pain Intensity: 8 - Allergy/Home Medications Allergies/Adverse Reactions: Allergies Allergy/AdvReac Type Severity Reaction Status Date / Time amlodipine Allergy Rash Verified 05/27/18 23:32 losartan Allergy Swelling Verified 05/27/18 23:32 PMH/Surg Hx/FS Hx/Imm Hx Endocrine/Hematology History: Denies: Hx Anticoagulant Therapy, Hx Blood Disorders, Hx Diabetes, Hx Thyroid Disease Cardiovascular History: Denies: Hx Aneurysm, Hx Hypertension, Hx Myocardial Infarction, Hx Pacemaker/ ICD Respiratory History: Denies: Hx Asthma, Hx Chronic Obstructive Pulmonary Disease (COPD) GI History: Reports: Hx Gastroesophageal Reflux Disease - on occassion Denies: Hx Ulcer History: Denies: Hx Renal Disease Musculoskeletal History: Reports: Other Musculoskeletal History - had L knee surgery in past: ACL and medial meniscus tear awaiting surgery Sensory History: Denies: Hx Contacts or Glasses, Hx Hearing Aid Opthamlomology History: Denies: Hx Contacts or Glasses Neurological History: Denies: Hx Migraine Psychiatric History: Reports: Hx Anxiety - untreated - felt "fight or flight" w / sertraline 25mg - reluctant to try , Hx Depression Denies: Hx Panic Disorder, Other Psychiatric Issues/Disorders - Surgical History Surgery Procedure, Year, and Place: LEFT KNEE DISLOCATED/GANGLION CYST 2012. WRIST LEFT VERTICAL TEAR/GANGLION CYCT 2015. LEFT knee meniscus repair June. late term - 2008 Hx Anesthesia Reactions: No Infectious Disease History: No Infectious Disease History: Denies: Hx Hepatitis, Hx Human Immunodeficiency Virus (HIV), History Other Infectious Disease, Traveled Outside the [place] in Last 30 Days - Family History Known Family History: Positive: Cardiac Disease - [place] - mother, at 40s - heavy use of ETOH, tob and crack cocaine, Hypertension - both parents, Diabetes - Social History Alcohol Use: Occasionally Alcohol Amount: socially once a month Hx Substance Use: Yes Substance Use Type: Reports: None Hx Tobacco Use: Yes Smoking Status (MU): Light Every Day Tobacco Smoker Type: Cigarettes Amount Used/How Often: 2-3 cigs Review of Systems Negative: Fever Negative: Chest Pain Negative: Shortness Of Breath Positive: Abdominal Pain, Vomiting, Diarrhea, Nausea Negative: dysuria Positive: Headache All Other Systems Reviewed And Are Negative: Yes Physical Exam Triage Information Reviewed: Yes Vital Signs On Initial Exam: Initial Vitals Temp Pulse Resp BP Pulse Ox 97.3 F 93 16 132/87 99 05/27/18 23:25 05/27/18 23:25 05/27/18 23:25 05/27/18 23:25 05/27/18 23:25 Vital Signs Reviewed: Yes Appearance: Positive: Well-Appearing Skin: Positive: Warm, Dry Head/Face: Positive: Normal Head/Face Inspection Eyes: Positive: Normal, EOMI, CLIFF, Conjunctiva Clear ENT: Positive: Normal ENT inspection, Pharynx normal, TMs normal Respiratory/Lung Sounds: Positive: Clear to Auscultation, Breath Sounds Present Cardiovascular: Positive: Normal, RRR Abdomen Description: Positive: Nontender, Soft. Negative: CVA Tenderness (R), CVA Tenderness (L) Bowel Sounds: Positive: Present Musculoskeletal: Positive: Normal Neurological: Positive: Normal Psychiatric: Positive: Normal Diagnostics - Vital Signs Vital Signs Temp Pulse Resp BP Pulse Ox 05/27/18 23:25 97.3 F 93 16 132/87 99 - Laboratory Result Diagrams: 05/28/18 00:36 05/28/18 00:36 Lab Statement: Any lab studies that have been ordered have been reviewed, and results considered in the medical decision making process. GIGU Course/Dx - Course Course Of Treatment: 38-year-old female presents with lower abdominal pain for the past day. States she started her period. States it feels like when she's had ovarian cysts before. She denies any urinary symptoms. She states the pain is in her pelvic area is intermittent. she is currently on her period. no abdominal vaginal discharge and denies any chance of stds. She denies nausea or vomiting. States that family was diagnosed with the flu. She also admits to generalized headache. No photophobia. No neck stiffness. She denies any cough or shortness of breath. No chest pain. Has no medical conditions. States she is trying to get . On exam nontender abdomen. Negative CVA tenderness. Normal neuro exam. wbc normal. crp normal. hcg normal. urine likely contaminant. discussed that do not have ultrasound at this time to check for cyst although has nontender abd at this point. gave ibuprofen. told to follow up with drapery installer. patient understand and agrees with plan. - Diagnoses Differential Diagnoses - Female: Gastroenteritis (Viral), Ovarian Cyst, Urinary Tract Infection Provider Diagnoses: Headache, Abdominal pain Discharge - Sign-Out/Discharge Documenting (check all that apply): Patient Departure Patient Received Moderate/Deep Sedation with Procedure: No - Discharge Plan Condition: Good Disposition: HOME Prescriptions: Ibuprofen TAB* [Motrin TAB* 800 MG] 800 mg PO Q6H #20 tab Patient Education Materials: Pelvic Pain in Women (ED) Referrals: Pedrito Jenkins MD [Primary Care Provider] - Additional Instructions: follow up with drapery installer place heat on abdomen Take tyenlol or ibuprofen as needed for pain every 6-8 hours follow up with primary Return to ED if develop any new or worsening symptoms - Billing Disposition and Condition Condition: GOOD Disposition: Home
[2018-05-28 00:41] LABS: ABS Basophils 0.1 10^3/ul (0-0.2); ABS Eosinophils 0.3 10^3/ul (0-0.6); ABS Lymphocytes 2.8 10^3/ul (1.0-4.8); ABS Monocytes 0.5 10^3/ul (0-0.8); ABS Nucleated RBC 0 10^3/ul; Hematocrit 41 % (35-47); Hemoglobin 13.6 g/dl (12.0-16.0); Lymphocyte % 49.2 %; Mean Corpuscular HGB Conc 34 g/dl (31-36); Mean Corpuscular Hemoglobin 29 pg (27-31); Mean Corpuscular Volume 88 fL (80-97); Mean Platelet Volume 7.8 fL (7.4-10.4); Nucleated Red Blood Cells % 0.2; Platelet Count 157 10^3/ul (150-450); Red Blood Count 4.63 10^6/ul (4.00-5.40); Red Cell Distribution Width 14 % (10.5-15); White Blood Count 5.8 10^3/ul (3.5-10.8)
[2018-05-28 00:54] LABS: Urine Appearance Cloudy; Urine Bacteria Absent (Absent); Urine Bilirubin Negative (Negative); Urine Blood 3+ (Negative); Urine Color Yellow; Urine Glucose Negative (Negative); Urine Ketones Negative (Negative); Urine Nitrite Negative (Negative); Urine Protein Negative (Negative); Urine Red Blood Cell 3+(>10/hpf) (Absent); Urine Specific Gravity 1.021 (1.010-1.030); Urine Squamous Epithelial Cell Present (Absent); Urine Urobilinogen Negative (Negative); Urine White Blood Cell 1+(6-10/hpf) (Absent)
[2018-05-28 01:02] LABS: ALT 14 U/L (7-52); AST 19 U/L (13-39); Albumin 4.2 g/dL (3.2-5.2); Albumin/Globulin Ratio 1.6 (1-3); Alkaline Phosphatase 66 U/L (34-104); Anion Gap 7 mmol/L (2-11); BUN/Creatinine Ratio 19.7 (8-20); Blood Urea Nitrogen 15 mg/dL (6-24); C Reactive Protein 7.49 mg/L (<8.01); CO2 Carbon Dioxide 24 mmol/L (22-32); Calcium 9.1 mg/dL (8.6-10.3); Chloride 105 mmol/L (101-111); EGFR African American 104.2 (>60); EGFR Non-African American 86.1 (>60); Globulin 2.6 g/dL (2-4); Glucose 101 mg/dL (70-100); Potassium 3.7 mmol/L (3.5-5.0); Sodium 136 mmol/L (135-145); Total Protein 6.8 g/dL (6.4-8.9)
[2018-05-28 01:09] LABS: HCG Pregnancy < 0.60 mIU/mL
[2018-05-28 01:14] LABS: Influenza A Molecular NEGATIVE (Negative); Influenza B Molecular NEGATIVE (Negative)
[2018-05-28] MEDS ORDERED: Ibuprofen TAB* 800 MG PO ONE (01:23)
[2018-05-28 02:11] VITALS: BP 120/84
== END 2018-05-28 02:10 | disposition home or self-care (01) ==
LOC: ED 23:24
DX: R51 Headache (principal); R10.9 Unspecified abdominal pain; M54.9 Dorsalgia, unspecified; F17.210 Nicotine dependence, cigarettes, uncomplicated; R11.2 Nausea with vomiting, unspecified; R19.7 Diarrhea, unspecified
CPT/HCPCS: 36415; 80053; 81003; 81015; 83690; 84702; 85025; 86140; 87086; 99282; A9270-GY

== ENCOUNTER 2018-05-30 17:40 | Emergency (ER) | payer OTHER ==
[2018-05-30 19:29] VITALS: BP 111/82
--- NOTE | 2018-05-30 19:36 | UC ---
FLU HPI - HPI Summary HPI Summary: 38 y/o female presents to the urgent care c/o Her kids have the flu. Symptoms- headache for 4 days. Neck and shoulder pain. Sore throat. - History of Current Complaint Chief Complaint: UCRespiratory Stated Complaint: SORE THROAT, AND ACHES Time Seen by Provider: 05/30/18 19:30 Hx Obtained From: Patient Hx Last Menstrual Period: 05/29/18 Pain Intensity: 6 - Allergy/Home Medications Allergies/Adverse Reactions: Allergies Allergy/AdvReac Type Severity Reaction Status Date / Time amlodipine Allergy Rash Verified 05/30/18 19:29 losartan Allergy Swelling Verified 05/30/18 19:29 PMH/Surg Hx/FS Hx/Imm Hx Other History Of: Negative For: Anticoagulant Therapy - Surgical History Surgical History: Yes Surgery Procedure, Year, and Place: LEFT KNEE DISLOCATED/GANGLION CYST 2012. WRIST LEFT VERTICAL TEAR/GANGLION CYCT 2015. LEFT knee meniscus repair June. late term - 2008 - Family History Known Family History: Positive: Cardiac Disease - [place] - mother, at 40s - heavy use of ETOH, tob and crack cocaine, Hypertension - both parents, Diabetes - Social History Alcohol Use: Occasionally Alcohol Amount: socially once a month Substance Use Type: None Smoking Status (MU): Light Every Day Tobacco Smoker Type: Cigarettes Amount Used/How Often: 2-3 cigs Household Exposure Type: Cigarettes - Immunization History Most Recent Influenza Vaccination: None Physical Exam Vital Signs: Initial Vital Signs Temp 98.1 F 05/30/18 19:23 Pulse 82 05/30/18 19:23 Resp 12 05/30/18 19:23 BP 111/82 05/30/18 19:23 Pulse Ox 100 05/30/18 19:23 Flu Course/Dx - Differential Dx/Diagnosis Differential Diagnosis/HQI/PQRI: Bronchitis, Influenza, Upper Respiratory Infection Provider Diagnosis: Exposure to influenza Discharge - Discharge Plan Condition: Stable Disposition: HOME Prescriptions: Oseltamivir CAP* [Tamiflu CAP*] 75 mg PO DAILY #10 cap Patient Education Materials: Influenza (ED) Referrals: Pedrito Jenkins MD [Primary Care Provider] - 3 Days Additional Instructions: 1- Please take the full course of the antiviral as directed for phlophylaxis agains influenza since your children have the flu. Encourage hand washing and wear a mask to avoid spreading. 2-Please continue taking Ibuprofen PO q6-8hrs prn as instructed after meals to alleviate fever, and sore throat. Increase fluid intake, eat well, rest and avoid strenuous exercise 3-If symptoms do not improve or worsen please return to the urgent care or f/u with your PCP in 2 days for further evaluation and treatment. - Billing Disposition and Condition Condition: STABLE Disposition: Home
[2018-05-30 20:12] LABS: Influenza A Molecular NEGATIVE (Negative); Influenza B Molecular NEGATIVE (Negative)
== END 2018-05-30 20:30 | disposition home or self-care (01) ==
LOC: UCEAST 17:40
DX: Z20.828 Contact with and (suspected) exposure to other viral communicable diseases (principal); R51 Headache; M54.2 Cervicalgia; M25.519 Pain in unspecified shoulder; J02.9 Acute pharyngitis, unspecified; Z88.8 Allergy status to other drugs, medicaments and biological substances; F17.210 Nicotine dependence, cigarettes, uncomplicated
CPT/HCPCS: 99212; G0463

== ENCOUNTER 2018-06-18 09:03 | Emergency (ER) | payer OTHER ==
[2018-06-18] MEDS ORDERED: Ibuprofen TAB* 600 MG PO ONE (09:16)
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
[2018-06-18 11:33] VITALS: BP 121/80
== END 2018-06-18 11:36 | disposition home or self-care (01) ==
LOC: ED 09:03
DX: S13.4XXA Sprain of ligaments of cervical spine, initial encounter (principal); M54.5 Low back pain; R51 Headache; V43.52XA Car driver injured in collision with other type car in traffic accident, initial encounter; Y92.410 Unspecified street and highway as the place of occurrence of the external cause; M50.322 Other cervical disc degeneration at C5-C6 level; Z32.02 Encounter for pregnancy test, result negative; Z88.8 Allergy status to other drugs, medicaments and biological substances; F17.210 Nicotine dependence, cigarettes, uncomplicated
CPT/HCPCS: 36415; 70450; 72125; 72131; 84702; 99283; A9270-GY

== ENCOUNTER 2018-07-20 14:50 | Emergency (ER) | payer OTHER ==
[2018-07-20 14:59] VITALS: BP 112/69
--- NOTE | 2018-07-20 15:37 | UC ---
Complaint Female HPI - HPI Summary HPI Summary: 38 her old female who is here because she's been urinating more frequently and has had mild nausea. She denies any burning on urination. She is attempting to conceive and has had a negative urine test at home and wanted one here. - History Of Current Complaint Chief Complaint: UCGU Stated Complaint: URINARY COMPLAINT Time Seen by Provider: 07/20/18 14:55 Hx Obtained From: Patient Hx Last Menstrual Period: 06/23/18 ?: No - patient is attempting to conceive Onset/Duration: Other - Eyes abdominal pain. Severity Initially: Mild Severity Currently: None Pain Intensity: 2 Character: Not Applicable - Patient denies any burning on urination, only stating urinary frequency. Has not missed any menstrual. Aggravating Factor(s): Nothing Alleviating Factor(s): Nothing Associated Signs And Symptoms: Positive: Negative - Allergies/Home Medications Allergies/Adverse Reactions: Allergies Allergy/AdvReac Type Severity Reaction Status Date / Time amlodipine Allergy Rash Verified 07/20/18 15:00 losartan Allergy Swelling Verified 07/20/18 15:00 Home Medications: Home Medications ALPRAZolam TAB* [Xanax TAB*] 0.25 mg PO Q6HR PRN 07/20/18 [History Confirmed 10/02] PMH/Surg Hx/FS Hx/Imm Hx Previously Healthy: Yes Other History Of: Negative For: Anticoagulant Therapy - Surgical History Surgical History: Yes Surgery Procedure, Year, and Place: LEFT KNEE DISLOCATED/GANGLION CYST 2012. WRIST LEFT VERTICAL TEAR/GANGLION CYCT 2015. LEFT knee meniscus repair June. late term - 2008 - Family History Known Family History: Positive: Cardiac Disease - [place] - mother, at 40s - heavy use of ETOH, tob and crack cocaine, Hypertension - both parents, Diabetes - Social History Alcohol Use: Occasionally Alcohol Amount: socially once a month Substance Use Type: None Smoking Status (MU): Light Every Day Tobacco Smoker Type: Cigarettes Amount Used/How Often: 2-3 cigs Have You Smoked in the Last Year: Yes Household Exposure Type: Cigarettes - Immunization History Most Recent Influenza Vaccination: None Review of Systems All Other Systems Reviewed And Are Negative: Yes Genitourinary: Positive: Frequency. Negative: Dysuria, Hematuria, Vaginal/ Penile Burning, Vaginal/Penile Itching, Vaginal/Penile Discharge, Abnormal Bleeding Is Patient Immunocompromised?: No Physical Exam Triage Information Reviewed: Yes Appearance: Well-Appearing, No Pain Distress, Well-Nourished Vital Signs: Initial Vital Signs Temp 98.2 F 07/20/18 14:54 Pulse 66 07/20/18 14:54 Resp 16 07/20/18 14:54 BP 112/69 07/20/18 14:54 Pulse Ox 100 07/20/18 14:54 Vital Signs Reviewed: Yes Eye Exam: Normal ENT Exam: Normal Neck exam: Normal Respiratory Exam: Normal Cardiovascular Exam: Normal Abdomen Description: Positive: Nontender, No Organomegaly, Soft. Negative: Guarding, Hepatomegaly, Splenomegaly Bowel Sounds: Positive: Present Musculoskeletal Exam: Normal Neurological Exam: Normal Psychological Exam: Normal Skin Exam: Normal Complaint Female Dx - Course Course Of Treatment: Pt has been comfortable here. Her urine test was negative for an infection. Urine test was negative. She is attempting to conceive and I advised her she could do a urine test at home using an early-morning specimen which would be the most accurate. She is to follow-up with her primary care provider or [employer] physician as needed. - Differential Dx/Diagnosis Provider Diagnosis: Urinary frequency Discharge - Sign-Out/Discharge Documenting (check all that apply): Patient Departure All imaging exams completed and their final reports reviewed: No Studies - Discharge Plan Condition: Good Disposition: HOME Patient Education Materials: Dysuria (ED) Referrals: Pedrito Jenkins MD [Primary Care Provider] - Additional Instructions: Repeat your home test after you have missed a period and be certain to do an early-morning specimen. Follow-up with your primary care provider as needed. - Billing Disposition and Condition Condition: GOOD Disposition: Home
== END 2018-07-20 15:40 | disposition home or self-care (01) ==
LOC: UCEAST 14:50
DX: R35.0 Frequency of micturition (principal); F17.210 Nicotine dependence, cigarettes, uncomplicated
CPT/HCPCS: 81003; 84702; 99211; G0463

== ENCOUNTER 2018-09-05 08:38 | Emergency (ER) | payer OTHER ==
[2018-09-05 08:46] VITALS: BP 122/84
--- OUTSIDE RECORDS SUMMARY | 2018-09-05 08:47 | XMS REPORT | Continuity of Care Document ---
:1980 External Reference #:[id number] Author Name Wynne Raven Care Team Providers Name Role Phone Magdalena Dee IDENTIFICATION TECHNICIAN Primary Care Physician Unavailable Payers Date Identification Numbers Payment Provider Subscriber Policy Number: [id number] [place] Medicaid Jean Claude Orellana PayID: [id number] [address] [address] [place] [address] Effective: 2016 Policy Number: [id number] Medicaid Jean Claude Orellana Expires: 2016 PayID: [id number] [address] [place] [address] Advance Directives Type Date Description Status Comment Other Directive 02/06/2017 Health Care Proxy Current and Verified Problems Active Problems Provider Date Sprain of medial collateral ligament of knee Maya Villalta M.D. Onset: 2016 Derangement of knee Maya Villalta M.D. Onset: 05/10/2016 Current tear of medial cartilage AND/OR Lacey Friend MD Onset: 05/12/2016 meniscus of knee Sprain of anterior cruciate ligament of left Lacey Friend MD Onset: 2016 knee, subsequent encounter Angioedema Pedrito Jenkins M.D. Onset: 07/11/2016 Essential hypertension Pedrito Jenkins M.D. Onset: 07/11/2016 Skin sensation disturbance Pedrito Jenkins M.D. Onset: 07/11/2016 Pain in limb Pedrito Jenkins M.D. Onset: 08/01/2016 Dizziness and giddiness Pedrito Jenkins M.D. Onset: 08/08/2016 Anxiety state Pedrito Jenkins M.D. Onset: 08/29/2016 Panic disorder with agoraphobia Pedrito Jenkins M.D. Onset: 10/16/2016 Eruption Pedrito Jenkins M.D. Onset: 01/09/2017 Headache Pedrito Jenkins M.D. Onset: 01/25/2017 Obesity Pedrito Jenkins M.D. Onset: 02/16/2017 HPV - Human papillomavirus test positive Elise Tripp M.D. Onset: 2017 Cigarette smoker Hafsa Israel M.D. 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 Family History Date Family Member(s) Observation Comments General Diabetes General Heart Disease General Stroke General Cancer Father Hypertension Father Osteoarthritis Mother GA Mother Hypercholesterolemia Mother Hypertension Siblings 1 No known CAD Social History Type Date Description Comments Sex Unknown Marital Status Lives With Spouse Occupation Unemployed getting job at [employer] ETOH Use Occasionally consumes 1x month alcohol Recreational Drug Use Denies Drug Use Tobacco Use Start: Unknown Light tobacco smoker smokes 1-2 cig/day (10 or fewer cigarettes/day) Smoking Status Reviewed: 08/23/18 Light tobacco smoker smokes 1-2 cig/day (10 or fewer cigarettes/day) Exercise Type/Frequency Exercises regularly Allergies, Adverse Reactions, Alerts Active Allergies Reaction Severity Comments Date Losartan Anaphylaxis 10/31/2016 Amlodipine Anaphylaxis 10/31/2016 Inactive Allergies NKDA 04/24/2016 Medications Active Medications SIG Qnty Indications Ordering Provider Date Hydroxyzine HCL take 2 tabs by 90tabs F41.9 Magdalena Dee, 01/09/2018 10mg mouth twice daily IDENTIFICATION TECHNICIAN Tablets as needed for anxiety. Effer-K dissolve 1 tablet 90tabs E87.6 Lesley Mendoza, 11/29/2017 25Meq Tablets by mouth once N.P. Efferv daily Magnesium Take 1 Tablet By 30units E87.6 Laceyofia Luiz, 11/29/2017 500mg Mouth Once Daily IDENTIFICATION TECHNICIAN Alprazolam take 1 tablet by 30tabs F41.9 Magdalena Dee, 11/27/2017 0.5mg mouth in the IDENTIFICATION TECHNICIAN Tablets evening only as needed for anxiety Epipen 2-Marcelo use as directed 2units T78.3xxA Pedrito Jenkins, 07/11/2016 Jorge 0.3mg/0.3ML Solution Auto-Inject Blood Pressure check bp daily 1units I10 Pedrito Gregory, 07/11/2016 Monitor Auto M.DMonae Inflate Misc Butalbital/Acetamino Take 1 Tablet By 14tabs Magdalena Dee, phen/Caffeine Mouth Every 6 IDENTIFICATION TECHNICIAN Hours as Needed . 50-325-40mg Tablets DO Not Exceed 4 Per 24 Hours Vitamin B-1 1 by mouth every Unknown 100mg day Tablets Vitamin 1 by mouth every Unknown day Tablets Cranberry daily Unknown 200mg Capsules History Medications Vitamin And 1 tab po qday 90tabs Z30.09 Laceyofia Luiz, 2017 - Mineral IDENTIFICATION TECHNICIAN 01/28/2018 28-0.8mg Tablets Xanax Twice Daily Unknown 12/14/2017 - 0.25mg Tablets 01/09/2018 Magnesium Every Day Unknown 12/14/2017 - 30mg 01/28/2018 Tablets Pantoprazole Sodium 1 in the morning 30tabs R10.10 [place] 10/26/2017 - empty stomach Gregory, 01/28/[address] Patel Plan B One-Step by mouth x 1 1tabs [place] 10/16/2017 - 1.5mg Gregory, 10/26/2017 Tablets Jorge Triamcinolone apply thin film 80gm R21 Abner Juárez NP 08/29/2017 - Acetonide twice daily 10/26/2017 0.1% Cream Diazepam may take 1 tab by 30tabs [place] 07/30/2017 - 5mg Tablets mouth 1-2 times a [facility], 11/27/2017 day for anxiety as MMonaeDMonae needed (30day supply) Oseltamivir 1 tab twice a day 10caps J06.9 Elise 05/14/2017 - Phosphate x 5 days Jorge Tripp 05/19/2017 75mg Capsules Guaifenesin-Codeine 5 milliliters 120ml J06.9 Elise 05/14/2017 - every 8 hours as Jorge Tripp 09/17/2017 100-10mg/5ML Syrup needed for cough Naproxen 1 twice a day as 60tabs R51 Niko Richey 03/13/2017 - 500mg needed for Jorge De Dios 10/26/2017 Tablets headache Escitalopram Oxalate 1 by mouth every 30tabs [place] 01/31/2017 - day [facility], 03/12/2017 5mg Tablets M.D. Metoprolol Tartrate 1 by mouth twice a 60tabs R51 [place] 01/25/2017 - day [facility], 03/12/2017 25mg Tablets M.D. Amitriptyline HCL 1 by mouth every 30tabs R51 [place] 01/25/2017 - night at bedtime [facility], 01/25/2017 25mg Tablets M.D. Sumatriptan use at onset of 9tabs R51 [place] 01/25/2017 - Succinate head ache,august [facility], 03/12/2017 100mg repeat after 2h as M.D. Tablets needed Docusate Sodium 2 cap at bedtime 60caps R10.9 [place] 01/09/2017 - 100mg as needed [facility], 05/14/2017 Capsules M.DMonae Effer-K 1 by mouth daily 90tabs E87.6 Arnaud Santiago 10/31/2016 - 25Meq Tablets Jorge Kiran 03/13/2017 Efferv Sertraline HCL 1 by mouth every 30tabs F40.01 [place] 10/18/2016 - 50mg day [facility], 01/31/2017 Tablets M.DMonae Sertraline HCL 1 by mouth every 60tabs F40.01 [place] 10/16/2016 - 25mg day x 1 week then [facility], 10/18/2016 Tablets 2 tab daily M.D. Lorazepam 1 tablet every 12 30tabs F40.01 [place] 10/16/2016 - 0.5mg hours as needed(30 [facility], 08/08/2017 Tablets day supply) mdd 2 M.D. Tramadol HCL 1 tablet by mouth 40tabs Lacey Friend 09/01/2016 - 50mg every 8 hours as MD 03/12/2017 Tablets needed pain Acetaminophen 1-2 tab 3 times 180tabs Estuardo Macias 08/08/2016 - 500mg daily as needed Steven, 05/14/2017 Tablets M.DMonae,FACP Triamterene/Hydrochl 1/2 tab by mouth 14tabs [place] 08/04/2016 - orothiazide every day in am [facility], 08/29/2016 37.5-25mg M.D. Tablets Losartan Potassium 1 by mouth every 30tabs Other Ordering 07/27/2016 - day Provider 08/08/2016 50mg Tablets Metoprolol Tartrate 1 by mouth twice a 60tabs I10 [place] 07/25/2016 - day [facility], 07/28/2016 25mg Tablets M.D. Ibuprofen Not taking take 1 60tabs S83.231D Lacey Friend, 06/29/2016 - 600mg by mouth every 8 MD 07/11/2016 Tablets hours as needed for pain Keflex 1 tab by mouth 40caps [place] 06/19/2016 - 500mg Capsules four times a day Jorge Mishra 07/11/2016 Tramadol HCL 1-2 tablet by 60tabs Lacey Friend, 06/09/2016 - 50mg mouth every 4-6 MD 07/11/2016 Tablets hours as needed pain Oxycodone-Acetaminop take 1 tab every 8 40tabs M23.612 Lacey Friend, 05/12 - hen hours as needed MD 10/16/2016 5-325mg Tablets for pain Naproxen Not taking. 1 30tabs M25.562 Maya Villalta, 04/24/2016 - 500mg tablet with food M.D. 07/11/2016 Tablets by mouth twice a day Tramadol HCL 1 tablet by mouth 60tabs M25.562 Maya Villalta, 04/24/2016 - 50mg every 6 hours as M.D. 04/11/2017 Tablets needed pain Modere Burn 2 tablets daily Unknown - 12/12/2016 Oxycodone-Acetaminop take 5-10 Unknown - hen milliliters every 03/12/2017 5-325mg/5ML 4-6 hours as Solution needed for pain. mdd of 40 milliliters-all out K-Effervescent 1 by mouth every 30tabs [place] - 25Meq day [facility], 11/29/2017 Tablets Efferv M.D. Benzonatate prn Unknown - 100mg 10/26/2017 Capsules Cheratussin ac prn Unknown - 10/26/2017 100-10mg/5ML Syrup Cranberry daily Unknown - 200mg 06/20/2018 Capsules Immunizations Description No Information Available Vital Signs Date Vital Result Comment 08/23/2018 8:45am Height 62 inches 5'2" Weight 163.12 lb Clothes/shoes Heart Rate 84 /min Radial BP Systolic Sitting 130 mmHg Lue reg cuff BP Diastolic Sitting 68 mmHg Lue reg cuff BP Systolic Standing 122 mmHg Lue reg cuff BP Diastolic Standing 60 mmHg Lue reg cuff BMI (Body Mass Index) 29.8 kg/m2 Ejection Fraction 55-60% Echo 11/24/2016 06/20/2018 10:20am Height 62 inches 5'2" Weight 158.00 lb Heart Rate 86 /min Body Temperature 97.6 F Pain Level 8 O2 % BldC Oximetry 97 % BMI (Body Mass Index) 28.9 kg/m2 05/15/2018 10:53am Height 61 inches 5'1" Weight 163.00 lb Heart Rate 79 /min BP Systolic Sitting 116 mmHg BP Diastolic Sitting 68 mmHg Body Temperature 97.6 F O2 % BldC Oximetry 98 % BMI (Body Mass Index) 30.8 kg/m2 03/13/2018 11:29am Height 61 inches 5'1" Weight [...] Date Facility Test Result H/L Range Note Laboratory test 07/20/2018 [facility] Poc Negative Negative [address] , [place] [address] Urine [phone] Poc Urinalysis 07/20/2018 [facility] Poc Glucose, Negative Negative [address] [place] [address] [phone] Poc Bilirubin, Urine Negative Negative Poc Ketone, Urine Trace Abnormal Negative Poc Specific [place], Urine 1.025 N 1.010-1.030 Poc Blood, Urine Trace-intact Abnormal Negative Poc pH, Urine 5.5 N 5-9 Poc Protein, Urine 1+ Abnormal Negative Poc Urobilinogen, Urine 0.2 Negative Poc Nitrite, Urine Negative Negative Poc Leukocytes, Urine Negative Negative Poc Color, Urine Dark yellow Poc Clarity, Urine Cloudy 2 Laboratory test 06/18/2018 [facility] HCG < 0.60 mIU/ mL [address] [place] [address] [phone] Rapid Influenza 05/30/2018 [facility] Influenza A NEGATIVE Negative 4 A & B Molecular [address] [place] [address] [phone] Influenza B Molecular NEGATIVE Negative CBC Auto Diff 05/28/2018 [facility] White Blood 5.8 10^3/uL N 3.5-10.[address] [place] [address] [phone] Red Blood Count 4.63 10^6/uL N 4.00-5.40 Hemoglobin 13.6 g/dL N 12.0-16.0 Hematocrit 41 % N 35-47 Mean Corpuscular Volume 88 fL N 80-97 Mean Corpuscular Hemoglobin 29 pg N 27-31 Mean Corpuscular HGB Conc 34 g/dL N 31-36 Red Cell Distribution Width 14 % N 10.5-15 Platelet Count 157 10^3/uL N 150-450 Mean Platelet Volume 7.8 fL N 7.4-10.4 Abs Neutrophils 2.0 10^3/uL N 1.5-7.7 Abs Lymphocytes 2.8 10^3/uL N 1.0-4.8 Abs Monocytes 0.5 10^3/uL N 0-0.8 Abs Eosinophils 0.3 10^3/uL N 0-0.6 Abs Basophils 0.1 10^3/uL N 0-0.2 Abs Nucleated RBC 0 10^3/uL Granulocyte % 34.4 % Lymphocyte % 49.2 % Monocyte % 9.4 % Eosinophil % 6.0 % Basophil % 1.0 % Nucleated Red Blood Cells % 0.2 Laboratory test finding 05/28/2018 [facility] Lipase 25 U/L N 11.0-82.[address] [place] [address] [phone] C Reactive Protein 7.49 mg/L N <8.01 HCG < 0.60 mIU/mL 5 Rapid Influenza A B Antigen SEE RESULT BELOW 6 Comp Metabolic Panel 05/28/2018 [facility] Sodium 136 mmol/L N 135-[address] [place] [address] [phone] Potassium 3.7 mmol/L N 3.5-5.0 Chloride 105 mmol/L N 101-111 Co2 Carbon Dioxide 24 mmol/L N 22-32 Anion Gap 7 mmol/L N 2-11 Glucose 101 mg/dL High 70-100 Blood Urea Nitrogen 15 mg/dL N 6-24 Creatinine 0.76 mg/dL N 0.51-0.95 BUN/Creatinine Ratio 19.7 N 8-20 Calcium 9.1 mg/dL N 8.6-10.3 Total Protein 6.8 g/dL N 6.4-8.9 Albumin 4.2 g/dL N 3.2-5.2 Globulin 2.6 g/dL N 2-4 Albumin/Globulin Ratio 1.6 N 1-3 Total Bilirubin 0.20 mg/dL N 0.2-1.0 Alkaline Phosphatase 66 U/L N 34-104 Alt 14 U/L N 7-52 Ast 19 U/L N 13-39 Egfr Non- 86.1 >60 Egfr 104.2 >60 7 Urine Culture And 05/28/2018 [facility] Urine Culture SEE RESULT [address] [place] [address] [phone] Urinalysis Profile 05/28/2018 [facility] Urine Color Yellow [address] [place] [address] [phone] Urine Appearance Cloudy Urine Specific [place] 1.021 N 1.010-1.030 Urine pH 6.0 N 5-9 Urine Urobilinogen Negative Negative Urine Ketones Negative Negative Urine Protein Negative Negative Urine Leukocytes 1+ Abnormal Negative Urine Blood 3+ Abnormal Negative Urine Nitrite Negative Negative Urine Bilirubin Negative Negative Urine Glucose Negative Negative Urine White Blood Cell 1+(6-10/hpf) Abnormal Absent Urine Red Blood Cell 3+(>10/hpf) Abnormal Absent Urine Bacteria Absent Absent Urine Squamous Epithelial Cell Present Abnormal Absent Rapid Influenza 05/28/2018 [facility] Influenza A NEGATIVE Negative 9 A & B Molecular [address] Molecular [place], [place] [id number] [phone] Influenza B Molecular NEGATIVE Negative GC/Chlamydia 05/15/2018 [facility] Chlamydia Negative Negative 10 Amplified [address] [place] [address] [phone] Neisseria gonorrhoeae (GC) Rna Negative Negative Laboratory test 05/15/2018 [facility] Trichomonas Negative Negative [address] [place] [address] [phone] Laboratory test 05/15/2018 [facility] Cytology SEE RESULT [address] BEL[address] [place], [place] [id number] [phone] Urine Culture 05/11/2018 [facility] Urine Culture SEE RESULT 13, And [address] BELOW 14 Sensitivities [place], [place] [id number] [phone] Laboratory test 05/11/2018 [facility] Poc , Negative Negative [address] Urine [place], [place] [id number] [phone] Poc Urinalysis 05/11/2018 [facility] Poc Glucose, Negative Negative [address] [place]rine [place], [place] [address] [phone] Poc Bilirubin, Urine Negative Negative Poc Ketone, Urine Negative Negative Poc Specific [place], Urine 1.025 N 1.010-1.030 Poc Blood, Urine Trace-intact Abnormal Negative Poc pH, Urine 6.0 N 5-9 Poc Protein, Urine Negative Negative Poc Urobilinogen, Urine 0.2 Negative Poc Nitrite, Urine Negative Negative Poc Leukocytes, Urine 1+ Abnormal Negative Poc Color, Urine Yellow Poc Clarity, Urine Clear 16 Poc Urinalysis 04/29/2018 [facility] Poc Glucose, Negative Negative [address] Urine [place], [place] [id number] [phone] Poc Bilirubin, Urine Negative Negative Poc Ketone, Urine Negative Negative Poc Specific [place], Urine 1.010 N 1.010-1.030 Poc Blood, Urine 3+ Abnormal Negative Poc pH, Urine 7.0 N 5-9 Poc Protein, Urine Trace Abnormal Negative Poc Urobilinogen, Urine 0.2 Negative Poc Nitrite, Urine Negative Negative Poc Leukocytes, Urine Trace Abnormal Negative Poc Color, Urine Red Abnormal Poc Clarity, Urine Cloudy 17 Laboratory test 04/29/2018 [facility] Poc Negative Negative [address] , [place] [address] Urine [phone] Urine Culture And 04/29/2018 [facility] Urine Culture SEE RESULT 19, Sensitivities [address] BELOW 20 [place] [address] [phone] Laboratory test 04/29/2018 [facility] HCG < 0.60 21, finding [address] mIU/mL 22 [place] [address] [phone] Laboratory test 04/25/2018 [facility] Gardnerella/Y SEE RESULT 23, finding [address] east: Vaginal BELOW 24 [place] [address] Dna [phone] Laboratory test 04/25/2018 [facility] Poc Negative Negative [address] , [place] [address] Urine [phone] Poc Urinalysis 04/25/2018 [facility] Poc Glucose, Negative Negative [address] [place] [address] [phone] Poc Bilirubin, Urine Negative Negative Poc Ketone, Urine Negative Negative Poc Specific [place], Urine 1.015 N 1.010-1.030 Poc Blood, Urine Trace-intact Abnormal Negative Poc pH, Urine 8.5 N 5-9 Poc Protein, Urine 1+ Abnormal Negative Poc Urobilinogen, Urine 0.2 Negative Poc Nitrite, Urine Negative Negative Poc Leukocytes, Urine Negative Negative Poc Color, Urine Yellow Poc Clarity, Urine Clear 26 Urinalysis Profile 04/05/2018 [facility] Urine Color Colorless [address] [place] [address] [phone] Urine Appearance Clear Urine Specific [place] 1.001 Low 1.010-1.030 Urine pH 9.0 N 5-9 Urine Urobilinogen Negative Negative Urine Ketones Negative Negative Urine Protein Negative Negative Urine Leukocytes Negative Negative Urine Blood 2+ Abnormal Negative Urine Nitrite Negative Negative Urine Bilirubin Negative Negative Urine Glucose Negative Negative Urine White Blood Cell Absent Absent Urine Red Blood Cell Absent Absent Urine Bacteria 1+ Abnormal Absent Urine Squamous Epithelial Cell Present Abnormal Absent CBC Auto Diff 04/05/2018 [facility] White Blood 5.4 10^3/uL N 3.5-10.[address] [place] [address] [phone] Red Blood Count 4.71 10^6/uL N 4.00-5.40 Hemoglobin 13.9 g/dL N 12.0-16.0 Hematocrit 42 % N 35-47 Mean Corpuscular Volume 88 fL N 80-97 Mean Corpuscular Hemoglobin 30 pg N 27-31 Mean Corpuscular HGB Conc 33 g/dL N 31-36 Red Cell Distribution Width 14 % N 10.5-15 Platelet Count 193 10^3/uL N 150-450 Mean Platelet Volume 7.9 fL N 7.4-10.4 Abs Neutrophils 2.2 10^3/uL N 1.5-7.7 Abs Lymphocytes 2.3 10^3/uL N 1.0-4.8 Abs Monocytes 0.4 10^3/uL N 0-0.8 Abs Eosinophils 0.4 10^3/uL N 0-0.6 Abs Basophils 0.1 10^3/uL N 0-0.2 Abs Nucleated RBC 0 10^3/uL Granulocyte % 40.7 % Lymphocyte % 43.0 % Monocyte % 7.8 % Eosinophil % 7.2 % Basophil % 1.3 % Nucleated Red Blood Cells % 0.1 Laboratory test 04/05/2018 [facility] Lactic Acid 0.9 mmol/L N 0.5-2.[address] [place] [address] [phone] Comp Metabolic 04/05/2018 [facility] Sodium 138 mmol/L N 135- 145 Panel [address] [place] [address] [phone] Potassium 3.9 mmol/L N 3.5-5.0 Chloride 106 mmol/L N 101-111 Co2 Carbon Dioxide 27 mmol/L N 22-32 Anion Gap 5 mmol/L N 2-11 Glucose 89 mg/dL N 70-100 Blood Urea Nitrogen 16 mg/dL N 6-24 Creatinine 0.68 mg/dL N 0.51-0.95 BUN/Creatinine Ratio 23.5 High 8-20 Calcium 9.8 mg/dL N 8.6-10.3 Total Protein 7.4 g/dL N 6.4-8.9 Albumin 4.4 g/dL N 3.2-5.2 Globulin 3.0 g/dL N 2-4 Albumin/Globulin Ratio 1.5 N 1-3 Total Bilirubin 0.40 mg/dL N 0.2-1.0 Alkaline Phosphatase 57 U/L N 34-104 Alt 13 U/L N 7-52 Ast 16 U/L N 13-39 Egfr Non- 97.9 >60 Egfr 118.5 >60 28 Laboratory test 04/05/2018 [facility] Magnesium 2.0 mg/dL N 1.9-2.[address] [place] [address] [phone] C Reactive Protein 1.69 mg/L N <8.01 HCG < 0.60 mIU/mL 29 TSH (Thyroid Stim Horm) 0.57 mcIU/mL N 0.34-5.60 Urine Culture And 04/05/2018 [facility] Urine Culture SEE RESULT [address] [place] [address] [phone] Basic Metabolic 12/27/2017 [facility] Sodium 136 mmol/L N 135- 1 [address] [place] [address] [phone] Potassium 4.3 mmol/L N 3.5-5.0 Chloride 105 mmol/L N 101-111 Co2 Carbon Dioxide 25 mmol/L N 22-32 Anion Gap 6 mmol/L N 2-11 Glucose 85 mg/dL N 70-100 Blood Urea Nitrogen 13 mg/dL N 6-24 Creatinine 0.66 mg/dL N 0.51-0.95 BUN/Creatinine Ratio 19.7 N 8-20 Calcium 8.8 mg/dL N 8.6-10.3 Egfr Non- 101.9 >60 Egfr 123.3 >60 32 Laboratory test 12/27/2017 [facility] Magnesium 2.0 mg/dL N 1.9-2.7 [address] [place] [address] [phone] Laboratory test 12/11/2017 [facility] Poc , Negative Negative [address] Urine [place], [place] [address] [phone] Poc Urinalysis 12/11/2017 [facility] Poc Glucose, Negative Negative [address] [place] [address] [phone] Poc Bilirubin, Urine Negative Negative Poc Ketone, Urine Negative Negative Poc Specific [place], Urine 1.010 N 1.010-1.030 Poc Blood, Urine Trace-lysed Abnormal Negative Poc pH, Urine 7.0 N 5-9 Poc Protein, Urine Negative Negative Poc Urobilinogen, Urine 0.2 Negative Poc Nitrite, Urine Negative Negative Poc Leukocytes, Urine Negative Negative Poc Color, Urine Yellow Poc Clarity, Urine Clear 35 Inr/Protime 11/26/2017 [facility] Inr 0.87 N 0.77-1.[address] [place] [address] [phone] Laboratory test 11/26/2017 [facility] Partial 36.0 seconds N 26.0-36.[address] [place] [address] PTT [phone] Comp Metabolic 11/26/2017 [facility] Sodium 137 mmol/L N 135- [address] [place] [address] [phone] Potassium 3.6 mmol/L N 3.5-5.0 Chloride 105 [...] Egfr Non- 64.6 >60 Egfr 78.1 >60 36 Laboratory test 11/26/2017 [facility] Magnesium 1.9 mg/dL N 1.9-2.[address] [place] [address] [phone] Troponin-I (TnI) 0.00 ng/mL <0.04 HCG < 0.60 mIU/mL 37 CBC Auto Diff 11/26/2017 [facility] White Blood 8.0 10^3/uL N 3.5-10.[address] [place] [address] [phone] Red Blood Count 4.45 10^6/uL N 4.00-5.40 [...] Red Blood Cells % 0.1 Laboratory test 10/23/2017 [facility] Poc , Negative Negative [address] [place] [address] [phone] Poc Urinalysis 10/23/2017 [facility] Poc Glucose, Negative Negative [address] [place] [address] [phone] Poc Bilirubin, Urine Negative Negative Poc Ketone, Urine Negative Negative Poc Specific [place], Urine <=1.005 Low 1.010-1.030 Poc Blood, Urine Trace-lysed Abnormal Negative Poc pH, Urine 6.0 N 5-9 Poc Protein, Urine Negative Negative Poc Urobilinogen, Urine 0.2 Negative Poc Nitrite, Urine Negative Negative Poc Leukocytes, Urine Negative Negative Poc Color, Urine Yellow Poc Clarity, Urine Clear 39 Laboratory test 09/28/2017 [facility] Magnesium 2.0 mg/dL N 1.9-2.[address] [place] [address] [phone] TSH (Thyroid Stim Horm) 0.42 mcIU/mL N 0.34-5.60 Comp Metabolic Panel 09/28/2017 [facility] Sodium 137 mmol/L N 135-[address] [place] [address] [phone] Potassium 4.2 mmol/L N 3.5-5.0 Chloride 104 [...] Egfr Non- 85.3 >60 Egfr 109.7 >60 40 CBC Auto Diff 09/28/2017 [facility] White Blood 6.9 10^3/uL N 3.5-10.[address] [place] [address] [phone] Red Blood Count 4.58 10^6/uL N 4.00-5.40 [...] Blood Cells % 0.1 Poc Urinalysis 06/07/2017 [facility] Poc Glucose, Negative Negative [address] [place] [address] [phone] Poc Bilirubin, Urine Negative Negative Poc Ketone, Urine Negative Negative Poc Specific [place], Urine 1.010 N 1.010-1.030 Poc Blood, Urine Trace-intact Abnormal Negative Poc pH, Urine 6.0 N 5-9 Poc Protein, Urine Negative Negative Poc Urobilinogen, Urine 0.2 Negative Poc Nitrite, Urine Negative Negative Poc Leukocytes, Urine Negative Negative Poc Color, Urine Yellow Poc Clarity, Urine Clear 41 Laboratory test 06/07/2017 [facility] C Reactive 1.50 mg/L N < 5.00 42, [address] [place] [address] [phone] Comp Metabolic 06/07/2017 [facility] Sodium 135 N 133-[address] mmol/[place] [address] [phone] Potassium 4.4 mmol/L N 3.5-5.0 Chloride 105 [...] Egfr Non- 96.8 >60 Egfr 124.5 >60 44 CBC Auto Diff 06/07/2017 [facility] White Blood 6.0 10^3/uL N 3.5-10.[address] [place] [address] [phone] Red Blood Count 4.64 10^6/uL N 4.0-5.4 [...] Blood Cells % 0.1 Laboratory test 05/28/2017 [facility] Magnesium 1.9 mg/dL N 1.9-2.[address] [place] [address] [phone] Basic Metabolic 05/28/2017 [facility] [facility] Sodium 136 mmol/L N 133- [address] [place] [address] [phone] Potassium 4.5 mmol/L N 3.5-5.0 Chloride 103 mmol/L N 101-111 Co2 Carbon Dioxide 27 mmol/L N 22-32 Anion Gap 6 mmol/L N 2-11 Glucose 78 mg/dL N 70-100 Blood Urea Nitrogen 15 mg/dL N 6-24 Creatinine 0.66 mg/dL N 0.51-0.95 BUN/Creatinine Ratio 22.7 High 8-20 Calcium 9.3 mg/dL N 8.6-10.3 Egfr Non- 101.9 >60 Egfr 131.1 >60 45 CBC Auto Diff 05/28/2017 [facility] White Blood 5.9 10^3/uL N 3.5-10.[address] [place] [address] [phone] Red Blood Count 4.66 10^6/uL N 4.0-5.4 [...] 0-2 Nucleated Red Blood Cells % 0 Laboratory test 05/14/2017 [facility] Influenza A & SEE RESULT [address] [place] [address] [phone] Rapid Influenza 05/14/2017 [facility] Influenza A NEGATIVE Negative 47 A & B Molecular [address] [place] [address] [phone] Influenza B Molecular POSITIVE Abnormal Negative Rapid Influenza 05/10/2017 [facility] Influenza A NEGATIVE Negative 48 A & B Molecular [address] [place] [address] [phone] Influenza B Molecular NEGATIVE Negative Laboratory 04/26/2017 [facility] Cytology SEE RESULT 49, 50 test finding [address] [place] [address] [phone] GC/Chlamydia 04/26/2017 [facility] Chlamydia Negative Negative Amplified Rna [address] [place] [address] Rna [phone] Neisseria gonorrhoeae (GC) Rna Negative Negative HPV 16, 18/45 04/26/2017 [facility] HPV 16 Genotype Negative Negative Genotype [address] [place] [address] [phone] HPV 18/45 Genotype Negative Negative Laboratory test 02/16/2017 [facility] House Hemoglobin A1c 5.8 5-7 finding Laboratory test 01/19/2017 [facility] Troponin-I (TnI) 0.00 ng/ mL N <0.04 finding [address] [place] [address] [phone] HCG < 0.60 mIU/mL N 51 Comp Metabolic Panel 01/19/2017 [facility] Sodium 136 mmol/L N 133-145 [address] [place] [address] [phone] Potassium 3.8 mmol/L N 3.5-5.0 Chloride 102 [...] 92.7 N >60 Egfr 119.2 N >60 52 Laboratory test 11/27/2016 [facility] Magnesium 2.0 mg/dL N 1.9-2.[address] [place] [address] [phone] Comp Metabolic 11/27/2016 [facility] Sodium 138 mmol/L N 133- [address] [place] [address] [phone] Potassium 3.7 mmol/L N 3.5-5.0 Chloride 104 [...] 87.1 N >60 Egfr 112.0 N >60 53 CBC Auto Diff 11/27/2016 [facility] White Blood 8.9 10^3/uL N 3.5-10.[address] [place] [address] [phone] Red Blood Count 5.05 10^6/uL N 4.0-5.4 [...] % 0.1 N Basic Metabolic Panel 11/14/2016 [facility] Sodium 135 mmol/L N 133-145 [address] [place] [address] [phone] Potassium 4.3 mmol/L N 3.5-5.0 Chloride 104 mmol/L N 101-111 Co2 Carbon Dioxide 24 mmol/L N 22-32 Anion Gap 7 mmol/L N 2-11 Glucose 85 mg/dL N 70-100 Blood Urea Nitrogen 13 mg/dL N 6-24 Creatinine 0.67 mg/dL N 0.51-0.95 BUN/Creatinine Ratio 19.4 N 8-20 Calcium 9.0 mg/dL N 8.6-10.3 Egfr Non- 100.8 N >60 Egfr 129.6 N >60 54 Laboratory test 11/03/2016 [facility] Troponin-I (TnI) 0.00 ng/ mL N <0.04 finding [address] [place] [address] [phone] TSH (Thyroid Stim Horm) 0.99 mcIU/mL N 0.34-5.60 HCG < 0.60 mIU/mL N 55 Hemoglobin A1c (Glyco HGB) 8.7 % High Less than 6.0 56 Comp Metabolic Panel 11/03/2016 [facility] Sodium 134 mmol/L N 133-145 [address] [place] [address] [phone] Potassium 3.9 mmol/L N 3.5-5.0 Chloride 105 [...] 112.3 N >60 Egfr 144.4 N >60 57 Laboratory test 11/03/2016 [facility] Partial 38.6 High 26.0- 36.[address] [address] PTT [phone] D Dimer Quantitative < 200 ng/mL N Less Than 230 58 Inr/Protime 11/03/2016 [facility] Inr 0.84 Low 0.89-1.[address] [place] [address] [phone] Laboratory test 11/03/2016 [facility] B-Type 11 pg/mL N [address] [place] [address] Peptide BNP [phone] CBC Auto Diff 11/03/2016 [facility] White Blood 8.0 N 3.5- 10.[address] Count 10^3/[place] [address] [phone] Red Blood Count 4.36 10^6/uL N 4.0-5.4 [...] Blood Cells % 0.1 N Laboratory test 10/10/2016 [facility] Potassium 3.4 mmol/L Low 3.5-5.[address] [place] [address] [phone] Magnesium 1.9 mg/dL N 1.9-2.7 Laboratory test 10/08/2016 [facility] Lactic Acid 1.0 mmol/L N 0.5-2.0 [address] [place] [address] [phone] CBC Auto Diff 10/08/2016 [facility] White Blood 8.1 10^3/uL N 3.5-10.[address] [place] [address] [phone] Red Blood Count 4.28 10^6/uL N 4.0-5.4 [...] % 0.1 N Comp Metabolic Panel 10/08/2016 [facility] Sodium 137 mmol/L N 133-145 [address] [place] [address] [phone] Potassium 3.5 mmol/L N 3.5-5.0 Chloride 107 [...] 79.8 N >60 Egfr 102.6 N >60 61 Laboratory test 10/08/2016 [facility] Magnesium 1.8 mg/dL Low 1.9-2.[address] [place] [address] [phone] Troponin-I (TnI) 0.00 ng/mL N <0.04 TSH (Thyroid Stim Horm) 0.63 mcIU/mL N 0.34-5.60 HCG < 0.60 mIU/mL N 62 CBC Auto Diff 08/07/2016 [facility] White Blood 8.4 10^3/uL N 3.5-10.[address] [place] [address] [phone] Red Blood Count 5.03 10^6/uL N 4.0-5.4 [...] Cells % 0.2 N Laboratory test 08/07/2016 [facility] Troponin-I 0.00 ng/mL N <0.[address] (TnI) [place] [address] [phone] Comp Metabolic 08/07/2016 [facility] Sodium 135 mmol/L N 133- [address] [place] [address] [phone] Potassium 3.8 mmol/L N 3.5-5.0 Chloride 100 [...] 97.4 N >60 Egfr 125.3 N >60 64 Laboratory test 08/07/2016 [facility] Magnesium 2.0 mg/dL N 1.9-2.7 finding [address] [place] [address] [phone] TSH (Thyroid Stim Horm) 0.36 mcIU/mL N 0.34-5.60 HCG < 0.60 mIU/mL N 65 Urinalysis Profile 08/07/2016 [facility] Urine Color Straw N [address] [place] [address] [phone] Urine Appearance Clear N Urine Specific [place] 1.010 N 1.010-1.030 Urine pH 6.0 N [...] Cell Present Abnormal Absent Laboratory test 08/02/2016 [facility] Uric Acid 5.9 mg/dL N 2.3-6.6 finding [address] [address] [phone] Vitamin B12 And 07/19/2016 [facility] Vitamin B12 424 pg/mL N 180-914 66 Folate Serum [address] [place] [address] [phone] Folic Acid (Folate) > 20.00 ng/mL N >3.99 CBC Auto Diff 07/12/2016 [facility] White Blood 6.4 10^3/uL N 3.5-10.[address] [place] [address] [phone] Red Blood Count 4.48 10^6/uL N 4.0-5.4 [...] Cells % 0.1 N Connective Tissue 07/12/2016 [facility] Anti-Nuclear 0.4 U N 67 Panel [address] [facility] [place] [place] [address] [phone] Cyclic Citrullinated Peptide <15.6 U N 68 Interpretation See Comment N 69 Comp Metabolic Panel 07/12/2016 [facility] Sodium 135 mmol/L N 133-145 [address] [place] [address] [phone] Potassium 3.7 mmol/L N 3.5-5.0 Chloride 103 [...] 106.2 N >60 Egfr 136.6 N >60 70 Lipid Profile 07/12/2016 [facility] Triglycerides 63 mg/dL N 71 (Trig/Chol/HDL) [address] [place] [address] [phone] Cholesterol 144 mg/dL N 72 HDL Cholesterol 53.4 mg/dL N 73 LDL Cholesterol 78 mg/dL N 74 Laboratory test 06/19/2016 [facility] Surgical SEE RESULT [address] [place] [address] [phone] 1 Materials Recycler: [id number] Test Disclaimer: Positive bacteria, red blood cells, white blood cells, early , low specific gravity, and other factors may cause false positive or negative results. It is recommended to retest unexpected results within 24 to 72 hours with a serum test when applicable. If is still suspected, please repeat test after 48 to 72 hours. 2 Materials Recycler: [id number] 3 <5.0 Negative 5.0 - 25.0 Indeterminate (Repeat testing recommended after 72 hours) >25.0 Positive Perimenopausal women can display HCG levels of up to 20 mIU/mL 4 Materials Recycler: [id number] 5 <5.0 Negative 5.0 - 25.0 Indeterminate (Repeat testing recommended after 72 hours) >25.0 Positive Perimenopausal women can display HCG levels of up to 20 mIU/mL 6 SEE RESULT BELOW Name: GARRETJEAN CLAUDE : [address]: Carlos Deluna MD Acct: [id number] Unit: [id number] AGE: 38 Location: ED Re05/27/18 SEX: F Status: REG ER SPEC: [id number] JIMMY: 05/28/[address] [facility] [address]: Peggy LIRA REQ: [id number] RECD: 05/28/18 STATUS: NEIL YANEZ DR: [place] Jenkins MD _ SOURCE: NASAL SPDESC: ORDERED: Flu A B Request Procedure Result Reported Site Rapid Influenza A B Request Final 05/28/18- 012 ML Specimen received for Influenza A/B Molecular testing * ML - Main Lab . END OF REPORT DEPARTMENT OF PATHOLOGY, [address] [place] [address] Remington Pruitt M.D. Director [facility] # [id number] 7 Because ethnic data is not always [...] 5 Kidney failure <15 (or dialysis) 8 SEE RESULT BELOW Name: JEAN CLAUDE ORELLANA : [address]: Carlos Deluna MD Acct: [id number] Unit: [id number] AGE: 38 Location: ED Re05/27/18 SEX: F Status: DEP ER SPEC: [id number] JIMMY: 05/28/[address]: Peggy LIRA REQ: [id number] RECD: 05/28/18 STATUS: NEIL YANEZ DR: [place] Jenkins MD _ SOURCE: URINE SPDESC: ORDERED: Urine Culture Procedure Result Reported Site Urine Culture Final 05/29/18- 0943 ML No Growth (<1,000 CFU/mL) * ML - Main Lab . END OF REPORT DEPARTMENT OF PATHOLOGY, [address] [place] [address] Remington Pruitt M.D. Director [facility] # [id number] 9 Materials Recycler: [id number] GC/Chlamydia Source?: Endocervical Trichomonas Source: Endocervical 12 SEE RESULT BELOW Name: JEAN CLAUDE ORELLANA : [address]: Magdalena Dee NP Acct: [id number] Unit: [id number] AGE: 38 Location: [facility] Re05/15/18 SEX: F Status: REG REF SPEC: [id number] JIMMY: 05/15/18-[address] [facility] [address]: Magdalena Dee NP REQ: [id number] RECD: 05/15/18 STATUS: SOUT _ ORDERED: TP IMAGE ANALYS COMMENTS: [id number] Negative for Intraepithelial lesion or Malignancy Shift in luis suggestive of bacterial vaginosis A. Ectocervical/Endocervical Specimen Adequacy: Satisfactory of evaluation Transformation zone component not identified Patient Information: HPV: Thin Layer Pap Test w/reflex to high risk HPV RNA testing when ASCUS Actual Specimen Date: 05/15/18 Last Menstrual Date: 05/14/18 ?: N Post Menopausal?: N Hysterectomy?: N Previous Abnormal Pap Smears?:N Signed by and Reported on: LISA Mckeon(ASCP) 0923 This Pap test was evaluated with the assistance of the [employer] Test Imaging System. Due to cytologic findings at the account services analyst microscope, comprehensive manual rescreening by a Ribbon Cutter may be required. The Pap Smear is [...] evaluated every 1-3 years. END OF REPORT DEPARTMENT OF PATHOLOGY, [address] [place] [address] Remington Pruitt M.D. Director [facility] # [id number] 13 [id number] 14 SEE RESULT BELOW Name: JEAN CLAUDE ORELLANA : [address]: Sukhdev Justice MD Acct: [id number] Unit: [id number] AGE: 38 Location: [facility] Re05/11/18 SEX: F Status: DEP ER SPEC: [id number] JIMMY: 05/11/[address]: Pantera Jones NP REQ: [id number] RECD: 05/12/18 STATUS: NEIL YANEZ DR: [facility] Pedrito Jenkins MD _ SOURCE: URINE SPDESC: ORDERED: Urine Culture COMMENTS: [id number] Procedure Result Reported Site Urine Culture Final 05/13/18- 1202 ML No Growth (<1,000 CFU/mL) * ML - Main Lab . END OF REPORT DEPARTMENT OF PATHOLOGY, [address] [place] [address] Remington Pruitt M.D. Director [facility] # [id number] 15 Materials Recycler: [id number] Test Disclaimer: Positive bacteria, red blood cells, white blood cells, early , low specific gravity, and other factors may cause false positive or negative results. It is recommended to retest unexpected results within 24 to 72 hours with a serum test when applicable. If is still suspected, please repeat test after 48 to 72 hours. 16 Materials Recycler: [id number] Materials Recycler: [id number] 18 Materials Recycler: [id number] Test Disclaimer: Positive bacteria, red blood cells, white blood cells, early , low specific gravity, and other factors may cause false positive or negative results. It is recommended to retest unexpected results within 24 to 72 hours with a serum test when applicable. If is still suspected, please repeat test after 48 to 72 hours. 19 [id number] 20 SEE RESULT BELOW Name: JEAN CLAUDE ORELLANA : [address]: Chiki Ashby MD Acct: [id number] Unit: [id number] AGE: 38 Location: [facility] Re04/29/18 SEX: F Status: DEP ER SPEC: [id number] JIMMY: 04/29/[address] [facility] [address]: Robyn LIRA REQ: [id number] RECD: 04/29/18 STATUS: NEIL YANEZ DR: Pedrito Ashby MD _ SOURCE: URINE SPDESC: ORDERED: Urine Culture COMMENTS: [id number] Procedure Result Reported Site Urine Culture Final 04/30/18- 1250 ML No growth of clinically significant organisms * ML - Main Lab . END OF REPORT DEPARTMENT OF PATHOLOGY, [address] [place] [address] Remington Pruitt M.D. Director [facility] # [id number] 21 [id number] AT 1612) 22 <5.0 Negative 5.0 - 25.0 Indeterminate (Repeat testing recommended after 72 hours) >25.0 Positive Perimenopausal women can display HCG levels of up to 20 mIU/mL 23 [id number] Would you like to order Trichomonas Vaginalis RNA testing? N 24 SEE RESULT BELOW Name: JEAN CLAUDE ORELLANA : [address]: Chiki Ashby MD Acct: [id number] Unit: [id number] AGE: 38 Location: [facility] Re04/25/18 SEX: F Status: DEP ER SPEC: [id number] JIMMY: 04/25/18-[address] [facility] [address]: Deepali LIRA REQ: [id number] RECD: 04/25/18120 STATUS: NEIL YANEZ DR: Pedrito Ashby MD _ SOURCE: VAGINAL SPDESC: ORDERED: Maycol,Yeast DNA COMMENTS: [id number] Would you like to order Trichomonas Vaginalis RNA testing? N Procedure Result Reported Site Gardnerella/Yeast: Vaginal DNA Final 04/26/18- 1030 ML Organism 1 Negative Gardnerella Organism 2 Negative Aubree The presence of G. vaginalis, although suggestive, is not diagnostic for bacterial vaginosis. Results should be interpreted in conjuction with other clinical and laboratory data available. Women with vaginal discharge should be evaluated for risk factors of cervicitis and pelvic inflammatory disease, toxic shock syndrome (S.aureus), and if present, evaluated for organisms not included in this assay such as N. gonorrhoeae, C. trachomatis, Mobiluncus, Mycoplasma and/or Prevotella. Mixed infections may occur. The performance of this test on patient specimens collected during or immediately after antimicrobial therapy is unknown. The presence or absence of Aubree species, or G. vaginalis cannot be used as a test for therapeutic success or failure. * ML - Main Lab . END OF REPORT DEPARTMENT OF PATHOLOGY, [address] [place] [address] Remington Pruitt M.D. Director [facility] # [id number] 25 Materials Recycler: [id number] Test Disclaimer: Positive bacteria, red blood cells, white blood cells, early , low specific gravity, and other factors may cause false positive or negative results. It is recommended to retest unexpected results within 24 to 72 hours with a serum test when applicable. If is still suspected, please repeat test after 48 to 72 hours. 26 Materials Recycler: [id number] 27 [facility] Severe Sepsis and Septic Shock Management Bundle Measure requires all lactic acids initially measuring >2.0 mmol/L be repeated. 28 Because ethnic data is not always readily [...] 15-29 5 Kidney failure <15 (or dialysis) 29 <5.0 Negative 5.0 - 25.0 Indeterminate (Repeat testing recommended after 72 hours) >25.0 Positive Perimenopausal women can display HCG levels of up to 20 mIU/mL 30 SEE RESULT BELOW Name: JEAN CLAUDE ORELLANA : [address]: Manuel Bernard MD Acct: [id number] Unit: [id number] AGE: 38 Location: ED Re04/05/18 SEX: F Status: DEP ER SPEC: [id number] JIMMY: 04/05/[address] [facility] [address]: Manuel Bernard MD REQ: [id number] RECD: 04/05/18 STATUS: NEIL YANEZ DR: Pedrito Jenkins MD _ SOURCE: URINE SPDESC: ORDERED: Urine Culture Procedure Result Reported Site Urine Culture Final 04/06/18- 1212 ML No growth of clinically significant organisms * ML - Main Lab . END OF REPORT DEPARTMENT OF PATHOLOGY, [address] [place] [address] Remington Pruitt M.D. Director [facility] # [id number] 31 2 weeks Copy Result to: PEDRITO JENKINS ([id number]) 32 Because ethnic data is not always readily [...] 15-29 5 Kidney failure <15 (or dialysis) 33 2 weeks Copy Result to: PEDRITO JENKINS ([id number]) 34 Materials Recycler: [id number] If is still suspected, please repeat test after 48 to 72 hours. 35 Materials Recycler: [id number] 36 Because ethnic data is not always readily [...] 15-29 5 Kidney failure <15 (or dialysis) 37 <5.0 Negative 5.0 - 25.0 Indeterminate (Repeat testing recommended after 72 hours) >25.0 Positive Perimenopausal women can display HCG levels of up to 20 mIU/mL 38 Materials Recycler: [id number] If is still suspected, please repeat test after 48 to 72 hours. 39 Materials Recycler: [id number] 40 Because ethnic data is not always [...] 5 Kidney failure <15 (or dialysis) 41 Materials Recycler: [id number] 43 Acute inflammation: >10.00 44 Because ethnic data is not always readily [...] 15-29 5 Kidney failure <15 (or dialysis) 45 Because ethnic data is not always readily [...] 15-29 5 Kidney failure <15 (or dialysis) 46 SEE RESULT BELOW Name: JEAN CLAUDE ORELLANA : [address]: Elise Tripp MD Acct: [id number] Unit: [id number] AGE: 37 Location: [facility] Re05/14/17 SEX: F Status: REG REF SPEC: [id number] JIMMY: 05/14/[address] [facility] [address]: Elise Tripp MD REQ: [id number] RECD: 05/14/17 STATUS: COMP _ SOURCE: [facility]: ORDERED: Flu A B Request COMMENTS: [id number] Procedure Result Reported Site Rapid Influenza A B Request Final 05/14/171927 ML Specimen received for Influenza A/B Molecular testing * ML - MAIN LAB ([facility]) . END OF REPORT * ML=Testing performed at Main Lab DEPARTMENT OF PATHOLOGY, [address] [place] [address] Remington Pruitt M.D. Director [facility] # [id number] 47 Materials Recycler: [id number] Materials Recycler: [id number] 50 SEE RESULT BELOW Name: JEAN CLAUDE ORELLANA : [address]: Alexander Sands MD Acct: [id number] Unit: [id number] AGE: 37 Location: [facility] Re04/26/17 SEX: F Status: REG REF SPEC: [id number] JIMMY: 04/26/17-[address] [facility] [address]: Alexander Sands MD REQ: [id number] RECD: 04/26/17 STATUS: MAGO YANEZ DR: Pedrito Jenkins MD _ ORDERED: TP IMAGE ANAL, HPV/Thin Prep, HPV 16/18 GENE COMMENTS: [id number] Negative for Intraepithelial lesion or Malignancy A. [...] Signed (signature on file) LISA Mckeon(ASCP) 04/30 2422 This Pap test was evaluated with the assistance of the [employer] Test Imaging System. Due to cytologic findings at the account services analyst microscope, comprehensive manual rescreening by a Ribbon Cutter may be required. The Pap Smear is [...] performed at Main Lab DEPARTMENT OF PATHOLOGY, [address] [place] [address] Remington Pruitt M.D. Director [facility] # [id number] 51 <5.0 Negative 5.0 - 25.0 Indeterminate (Repeat testing recommended after 72 hours) >25.0 Positive Perimenopausal women can display HCG levels of up to 20 mIU/mL 52 Because ethnic data is not always readily [...] 15-29 5 Kidney failure <15 (or dialysis) 53 Because ethnic data is not always readily [...] 15-29 5 Kidney failure <15 (or dialysis) 54 Because ethnic data is not always readily [...] 15-29 5 Kidney failure <15 (or dialysis) 55 <5.0 Negative 5.0 - 25.0 Indeterminate (Repeat testing recommended after 72 hours) >25.0 Positive Perimenopausal women can display HCG levels of up to 20 mIU/mL 56 Therapeutic target for the treatment of diabetes Mellitus patients is <7% HBA1C, and in selective patients <6.0%.Please refer to [place] [employer] Diabetic care guidelines for further information. 57 Because ethnic data is not always readily [...] 15-29 5 Kidney failure <15 (or dialysis) 58 Please note: The following may produce a false positive D Dimer test: - Rheumatoid factor greater than 60 IU/ml - Plasma hemoglobin greater than 0.05 gm/dl - Bilirubin greater than 50 mg/dl - Lipids greater than 1000 mg/dl - FDP greater than 20 ug/ml 59 >100 to <200 pg/mL: likely compensated congestive heart failure (CHF) 200 to 400 pg/mL: likely moderate CHF >400 pg/mL: likely moderate to severe CHF 60 [place] Severe Sepsis and Septic Shock Management Bundle Measure requires all lactic acids initially measuring >2.0 mmol/L be repeated. 61 Because ethnic data is not always readily [...] 15-29 5 Kidney failure <15 (or dialysis) 62 <5.0 Negative 5.0 - 25.0 Indeterminate (Repeat testing recommended after 72 hours) >25.0 Positive Perimenopausal women can display HCG levels of up to 20 mIU/mL 63 99th percentile=0.04 ng/mL Troponin results at [facility] and [facility] are not interchangeable. 64 Because ethnic data is not always readily [...] 15-29 5 Kidney failure <15 (or dialysis) 65 <5.0 Negative 5.0 - 25.0 Indeterminate (Repeat testing recommended after 72 hours) >25.0 Positive Perimenopausal women can display HCG levels of up to 20 mIU/mL 66 Normal Range 180 to 914 Indeterminate Range 145 to 180 Deficient Range <145 67 REFERENCE VALUE <=1.0 (Negative) 68 REFERENCE VALUE <20.0 (Negative) 69 Tests for antibodies to dsDNA and LEON antigens are not performed automatically unless the ALINA result is > or= 3.0 U. Studies performed at [facility] indicate that positive ALINA results <3.0 U are rarely accompanied by positive second order tests. Test Performed by: [facility] - [address] [address] 70 Because ethnic data is not always readily [...] 15-29 5 Kidney failure <15 (or dialysis) 71 Desirable <150 Borderline high 150-199 High 200-499 Very High >500 72 Desirable <200 Borderline high 200-239 High >239 73 Low <40 Desirable: 40-60 High: >60 74 Desirable: <100 mg/dL Near Optimal: 100-129 mg/dL Borderline High: 130-159 mg/dL High: 160-189 mg/dL Very High: >189 mg/dL 75 SEE RESULT BELOW Name: JEAN CLAUDE ORELLANA : [address]: Lacey Friend MD Acct: [id number] Unit: [id number] AGE: 36 Location: [facility] Re06/19/16 SEX: F Status: REG SD SPEC: JIMMY: 06/19/[address]: Lacey Friend MD REQ: [id number] RECD: 06/19/16 STATUS: SOUT _ ORDERED: LEVEL III FINAL DIAGNOSIS Knee, left, arthroscopic shavings: -- Benign synovial tissue fragments with reactive change. CLINICAL HISTORY No history given GROSS DESCRIPTION The specimen is received in formalin labeled, Left Knee Shavings, and consists of a 3.5 x 2.7 x 0.5 cm aggregate of yellow-white to brown tissue fragments. Recreation Engineer sections, one cassette. Signed (signature on file) Peggy Palafox MD 11/30 1312 END OF REPORT * ML=Testing performed at Main Lab DEPARTMENT OF PATHOLOGY, [address] [place] [address] Remington Pruitt M.D. Director [facility] # [id number] Procedures Date Code Description Status 01/02/2018 88018 Holter Monitor Review (24 hr)dr review & interp only Completed 01/01/2018 78472 ECG Monitor/Recording W/Visual Superimposition Completed Scanning 01/01/2018 43622 ECG Monitor/Recording W/Visual Superimposition Completed Scanning 11/29/2017 53022 EKG Tracing & Interpretation Completed 11/23/2017 [id number] Diabetic Retinal Eye Exam Completed 09/18/2017 33623 EKG Tracing & Interpretation Completed 05/15/2017 07770 EKG Tracing & Interpretation Completed 12/13/2016 99913 EKG Tracing & Interpretation Completed 11/24/2016 48994 ECHO Transthoracic, Real-Time 2D With Doppler And Completed Color Flow 10/31/2016 47120 EKG Tracing & Interpretation Completed 08/15/2016 74691 Holter Monitor Review (24 hr)dr review & interp only Completed 08/09/2016 80960 ECG Monitor/Recording W/Visual Superimposition Completed Scanning 06/19/2016 00711 Arthroscopy,Unlisted Procedure Completed 06/19/2016 72464 Arthroscopy,Knee,Meniscectomy Media & Lateral Completed 06/19/2016 06438 Arthroscopy,Knee,Meniscectomy Media & Lateral Completed Encounters Type Date Location Provider Dx Diagnosis Office Visit 06/20/2018 Orthopedic Lacey Friend MD M23.52 Chronic instability 10:00a Services Of [place] of knee, left knee Office Visit 05/15/2018 [facility] Internal Magdalena Dee, Z12.4 Encounter for 11:20a Medicine - [place] IDENTIFICATION TECHNICIAN screening for Rd malignant neoplasm of cervix B37.3 Candidiasis of vulva and vagina N89.8 Other specified noninflammatory disorders of vagina Office Visit 04/01/2018 8:50a [facility] Dermatology Niranjan Calvillo, L70.0 Acne vulgaris Office Visit 03/13/2018 11:40a [facility] Internal Magdalena Dee, R51 Headache Medicine - [place] [address] IDENTIFICATION TECHNICIAN M54.2 Cervicalgia F17.210 Nicotine dependence, cigarettes, uncomplicated I47.1 Supraventricular tachycardia Office Visit 01/29/2018 [place] SMonae I47.1 Supraventricular 11:00a Cardiology Of Reji N.P. tachycardia [facility] F41.9 Anxiety disorder, unspecified I51.7 Cardiomegaly Office Visit 01/28/2018 8:50a [facility] Dermatology Niranjan Calvillo MD L70.0 Acne vulgaris L71.0 Perioral dermatitis Office Visit 01/09/2018 11:00a [facility] Internal Magdalena Dee, F41.9 Anxiety disorder, Medicine - [place] IDENTIFICATION TECHNICIAN unspecified Rd I47.1 Supraventricular tachycardia R51 Headache Z30.09 Encounter for oth general coun and advice on contraception F17.210 Nicotine dependence, cigarettes, uncomplicated Office Visit 11/29/2017 [place] Lesley S. I47.1 Supraventricular 11:00a Cardiology Of [place], N.P. tachycardia [facility] E87.6 Hypokalemia R00.2 Palpitations I49.3 Ventricular premature depolarization Office Visit 10/26/2017 10:00a [facility] Internal Pedrito R10.10 Upper abdominal Medicine - Jorge Jenkins pain, unspecified [place] [address] K59.09 Other constipation Office Visit 09/18/2017 10:40a [place] [facility] Arnaud Santiago F41.9 Anxiety disorder, Jorge Kiran unspecified R00.2 Palpitations I49.3 Ventricular premature depolarization Office Visit 08/29/2017 9:00a 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 Internal Karrie F41.9 Anxiety disorder , Medicine - [place] PUBLIC TRANSIT BUS DRIVER unspecified [address] [address] Office Visit 06/13/2017 9:40a [facility] Internal Magdalena Dee, R14.3 Flatulence Medicine - IDENTIFICATION TECHNICIAN [address] R10.13 Epigastric pain Office Visit 05/15/2017 10:20a [place] [facility] Arnaud Santiago R00.2 Palpitations Jorge Kiran I49.3 Ventricular premature depolarization I34.0 Nonrheumatic mitral (valve) insufficiency Office Visit 05/14/2017 11:30a [facility] Internal Elise J06.9 Acute upper Medicine - Jorge Tripp respiratory [place] infection, unspecified Office Visit 03/13/2017 9:00a [place] Neurologic Niko SMonae R51 Headache Services Of Linda De Dios M.D. Office Visit 02/16/2017 8:40a [facility] Internal [place] F41.9 Anxiety disorder, Medicine - [place], unspecified Rd Jorge F40.01 Agoraphobia with panic disorder E66.8 Other obesity R79.9 Abnormal finding of blood chemistry, unspecified Office Visit 01/25/2017 9:40a [facility] Internal [place] Pachchantell, R51 Headache Medicine - [place] [address] Antonio.Colleen M67.442 Ganglion, left hand F41.9 Anxiety disorder, unspecified Office Visit 01/10/2017 10:00a [facility] Dermatology Niranjan Yentzer, L21.8 Other seborrheic MD dermatitis L70.0 Acne vulgaris Office Visit 01/09/2017 1:40p [facility] Internal [place] Jenkins, R21 Rash and other Medicine - M.DMonae nonspecific skin [address] eruption R10.9 Unspecified abdominal pain F41.9 Anxiety disorder, unspecified Office Visit 12/28/2016 Orthopedic Lacey Friend, S83.512D Sprain of anterior 10:15a Services Of cruciate ligament C.M.A. of left knee, subs Office Visit 12/13/2016 [place] Colleen Acuna, R00.2 Palpitations 9:00a Cardiology PA I34.0 Nonrheumatic mitral (valve) insufficiency E87.6 Hypokalemia Office Visit 11/23/2016 10:20a [facility] Internal Estuardo Macias S83.512D Sprain of Medicine Bayron Harris M.D.,FACP anterior [address] cruciate ligament of left knee, subs R00.2 Palpitations Office Visit 10/31/2016 2:00p [place] [facility] Arnaud Santiago E87.6 Hypokalemia Jorge Kiran R00.2 Palpitations F41.9 Anxiety disorder, unspecified F17.210 Nicotine dependence, cigarettes, uncomplicated G47.9 Sleep disorder, unspecified R01.1 Cardiac murmur, unspecified Office Visit 10/16/2016 3:00p [facility] Internal [place] F40.01 Agoraphobia with Medicine - Jorge Jenkins panic disorder [address] E87.6 Hypokalemia R00.2 Palpitations Office Visit 08/29/2016 9:20a [facility] Internal [place] Jenkins, F41.9 Anxiety disorder, Medicine - M.D. unspecified [address] F17.210 Nicotine dependence, cigarettes, uncomplicated Office Visit 08/08/2016 8:40a [facility] Internal [place] Jenkins, I10 Essential (primary) Medicine - M.D. hypertension [address] R42 Dizziness and giddiness Office Visit 08/01/2016 2:20p [facility] Internal Virginiacris Jenkins, I10 Essential (primary) Medicine - M.D. hypertension [address] M79.676 Pain in unspecified toe(s) Office Visit 07/25/2016 9:40a [facility] Internal [place] Gregory, I10 Essential (primary) Medicine - M.D. hypertension [address] G63 Polyneuropathy in diseases classified elsewhere Office Visit 07/11/2016 [facility] Internal [place] T78.3xxA Angioneurotic 1:40p Elyssa Jenkins [...] of left knee, init Plan of Treatment 08/23/2018 - Lesley Mendoza, N.P.I47.1 Supraventricular tachycardiaFollow up:OV 8mo OV JFMRecommendations:Stay off potassium for now Have labs checked to see where level is If it is greater than 4.0 and youfeel good, ok to stay off oyvehdidvI25.210 Nicotine dependence, cigarettes, svpqayvyhixqoH07.9 Anxiety disorder, fudpdvjvyruH65.6 BishdlqsuhiV20.2 Palpitations
--- NOTE | 2018-09-05 10:03 | UC ---
Complaint Female HPI - HPI Summary HPI Summary: 38-year-old woman comes in with chief complaint of vaginal discharge for 3 days. Also has had some bumps on the left side of her labia for similar amount of time. The bumps are not painful she wonders if it's folliculitis she does shave in that area. The discharge is whitish. Her last menstrual period was about 3 weeks ago. She is attempting to get . She is in a monogamous relationship. No fevers or chills no abdominal pain feels well otherwise. No dysuria. No prior history of herpes. - History Of Current Complaint Chief Complaint: UCGU Stated Complaint: URINE ISSUES Time Seen by Provider: 09/05/18 09:51 Hx Last Menstrual Period: 08/20/18 Pain Intensity: 0 - Allergies/Home Medications Allergies/Adverse Reactions: Allergies Allergy/AdvReac Type Severity Reaction Status Date / Time amlodipine Allergy Rash Verified 09/05/18 08:46 losartan Allergy Swelling Verified 09/05/18 08:46 PMH/Surg Hx/FS Hx/Imm Hx Previously Healthy: Yes Other History Of: Negative For: Anticoagulant Therapy - Surgical History Surgical History: Yes Surgery Procedure, Year, and Place: LEFT KNEE DISLOCATED/GANGLION CYST 2012. WRIST LEFT VERTICAL TEAR/GANGLION CYCT 2015. LEFT knee meniscus repair June. late term - 2008 - Family History Known Family History: Positive: Cardiac Disease - [place] - mother, at 40s - heavy use of ETOH, tob and crack cocaine, Hypertension - both parents, Diabetes - Social History Alcohol Use: Occasionally Alcohol Amount: socially once a month Substance Use Type: None Smoking Status (MU): Light Every Day Tobacco Smoker Type: Cigarettes Amount Used/How Often: 2-3 cigs Have You Smoked in the Last Year: Yes Household Exposure Type: Cigarettes - Immunization History Most Recent Influenza Vaccination: None Review of Systems All Other Systems Reviewed And Are Negative: Yes Constitutional: Positive: Negative Skin: Positive: Other - SEE HPI Eyes: Positive: Negative ENT: Positive: Negative Respiratory: Positive: Negative Cardiovascular: Positive: Negative Gastrointestinal: Positive: Negative Genitourinary: Positive: Negative, Vaginal/Penile Discharge Motor: Positive: Negative Neurovascular: Positive: Negative Musculoskeletal: Positive: Negative Neurological: Positive: Negative Psychological: Positive: Negative Is Patient Immunocompromised?: No Physical Exam Triage Information Reviewed: Yes Appearance: Well-Appearing, No Pain Distress, Well-Nourished Vital Signs: Initial Vital Signs Temp 98.3 F 09/05/18 08:44 Pulse 81 09/05/18 08:44 Resp 17 09/05/18 08:44 BP 122/84 09/05/18 08:44 Pulse Ox 99 09/05/18 08:44 Vital Signs Reviewed: Yes Eye Exam: Normal Eyes: Positive: Conjunctiva Clear Neck: Positive: Supple Respiratory: Positive: No respiratory distress Abdomen Description: Positive: Nontender, Soft Bowel Sounds: Positive: Present Pelvic Exam: Positive: No Cerv. Motion Tender, Other - Some thick white discharge. No odor. Just lateral to the inferior left labia there are some 1mm bumps in the skin most consistent with hair follicles. No vesicles/ulcerations/ drainage.. Negative: Active Bleeding, Cervicitis Musculoskeletal Exam: Normal Musculoskeletal: Positive: Strength Intact, ROM Intact Neurological Exam: Normal Neurological: Positive: Alert, Muscle Tone Normal Psychological Exam: Normal Psychological: Positive: Age Appropriate Behavior Complaint Female Dx - Course Course Of Treatment: on examination there is some thick white discharge that is not clumping. Overall my impression is this could be slightly thicker normal discharge versus early yeast infection. There is no rash. Clinically and on examination it does not appear to be herpes. GC chlamydia Trichomonas Gardnerella Aubree and HSV were all sent. At this time the patient prefers to only treat based on results. She can get recheck sooner if worse or any other questions or concerns. - Differential Dx/Diagnosis Provider Diagnosis: Vaginal discharge, Skin irritation Discharge - Sign-Out/Discharge Documenting (check all that apply): Patient Departure All imaging exams completed and their final reports reviewed: No Studies - Discharge Plan Condition: Stable Disposition: HOME Patient Education Materials: Vaginal Discharge (ED) Referrals: Magdalena Dee NP [Primary Care Provider] - Additional Instructions: FOLLOW UP WITH YOUR DOCTOR IF NOT COMPLETELY IMPROVED. YOUR LAB TEST RESULTS ARE PENDING. GET RECHECKED SOONER IF YOUR CONDITION WORSENS OR ANY QUESTIONS OR CONCERNS. - Billing Disposition and Condition Condition: STABLE Disposition: Home
[2018-09-06 11:36] LABS: Neisseria gonorrhoeae (GC) RNA Negative (Negative)
[2018-09-06 11:51] LABS: Trichomonas vaginalis Result Negative (Negative)
[2018-09-06 17:02] LABS: HSV 1 PCR Negative (Negative); Herpes Source LABIA
== END 2018-09-05 10:30 | disposition home or self-care (01) ==
LOC: UCEAST 08:38
DX: N89.8 Other specified noninflammatory disorders of vagina (principal); L98.9 Disorder of the skin and subcutaneous tissue, unspecified; F17.210 Nicotine dependence, cigarettes, uncomplicated
CPT/HCPCS: 81003; 84702; 87480; 87491; 87510; 87529; 87591; 87661; 99211; G0463

== ENCOUNTER 2018-09-14 08:41 | Emergency (ER) | payer OTHER ==
--- NOTE | 2018-09-14 09:09 | ED ---
Complex/Multi-Sys Presentation - HPI Summary HPI Summary: This pt is a 38 y/o female presenting to [facility] c/o left arm pain and tingling, left sided face tingling, and left sided headache. Pt reports she was [place] yesterday and noticed she had pain and tingling on her left arm. She notes then she developed a headache on the left side around the left lutheran. This morning she woke up feeling off and "groggy" but no longer had a headache today. She additionally states the left side of her face was swollen and tingly today. Denies trauma or injury to face. Pt had a tooth extraction 3 weeks ago but notes it is not infected and has been eating on that side normally. Denies chest pain, SOB, nausea, vomiting, palpitations, neck pain, photophobia. LMP: currently on it now. - History Of Current Complaint Chief Complaint: EDHeadache Time Seen by Provider: 09/14/18 08:59 Hx Obtained From: Patient Onset/Duration: Lasting Hours, Still Present Timing: Hours Severity Currently: Moderate Aggravating Factor(s): nothing Alleviating Factor(s): nothing Associated Signs And Symptoms: Positive: Headache, Other - POS: left arm pain, "groggy," swelling on left side of face, tingling in LUE and left side of face.. Negative: SOB, Chest Pain, Palpitations, Nausea, Vomiting, Fever - Allergies/Home Medications Allergies/Adverse Reactions: Allergies Allergy/AdvReac Type Severity Reaction Status Date / Time amlodipine Allergy Rash Verified 09/14/18 08:49 losartan Allergy Swelling Verified 09/14/18 08:49 PMH/Surg Hx/FS Hx/Imm Hx Endocrine/Hematology History: Denies: Hx Anticoagulant Therapy, Hx Blood Disorders, Hx Diabetes, Hx Thyroid Disease Cardiovascular History: Denies: Hx Aneurysm, Hx Hypertension, Hx Myocardial Infarction, Hx Pacemaker/ ICD Respiratory History: Denies: Hx Asthma, Hx Chronic Obstructive Pulmonary Disease (COPD) GI History: Reports: Hx Gastroesophageal Reflux Disease - on occassion Denies: Hx Ulcer History: Denies: Hx Renal Disease Musculoskeletal History: Reports: Other Musculoskeletal History - had L knee surgery in past: ACL and medial meniscus tear awaiting surgery Sensory History: Denies: Hx Contacts or Glasses, Hx Hearing Aid Opthamlomology History: Denies: Hx Contacts or Glasses Neurological History: Denies: Hx Migraine Psychiatric History: Reports: Hx Anxiety - untreated - felt "fight or flight" w / sertraline 25mg - reluctant to try , Hx Depression Denies: Hx Panic Disorder, Other Psychiatric Issues/Disorders - Surgical History Surgery Procedure, Year, and Place: LEFT KNEE DISLOCATED/GANGLION CYST 2012. WRIST LEFT VERTICAL TEAR/GANGLION CYCT 2015. LEFT knee meniscus repair June. late term - 2008 Hx Anesthesia Reactions: No Infectious Disease History: No Infectious Disease History: Denies: Hx Hepatitis, Hx Human Immunodeficiency Virus (HIV), History Other Infectious Disease, Traveled Outside the [place] in Last 30 Days - Family History Known Family History: Positive: Cardiac Disease - [place] - mother, at 40s - heavy use of ETOH, tob and crack cocaine, Hypertension - both parents, Diabetes - Social History Alcohol Use: Occasionally Alcohol Amount: socially once a month Hx Substance Use: Yes Substance Use Type: Reports: None Hx Tobacco Use: Yes Smoking Status (MU): Light Every Day Tobacco Smoker Type: Cigarettes Amount Used/How Often: 2-3 cigs Have You Smoked in the Last Year: Yes Review of Systems Negative: Fever Negative: Photophobia ENT: Other - POS: swelling on the left side of the face Musculoskeletal: Other - POS: left arm pain Negative: Other - NEG: neck pain Neurological: Other - POS: groggy Positive: Headache - on the left side, Paresthesia - in LUE and left side of face All Other Systems Reviewed And Are Negative: Yes Physical Exam - Summary Physical Exam Summary: VITAL SIGNS: Reviewed. GENERAL: Patient is a well-developed and nourished female who is lying comfortable in the stretcher. Patient is not in any acute respiratory distress. HEAD AND FACE: No signs of trauma. No ecchymosis, hematomas or skull depressions. No sinus tenderness. EYES: PERRLA, EOMI x 2, No injected conjunctiva, no nystagmus. EARS: Hearing grossly intact. Ear canals and tympanic membranes are within normal limits. MOUTH: Oropharynx within normal limits. NECK: Supple, trachea is midline, no adenopathy, no JVD, no carotid bruit, no c- spine tenderness, neck with full ROM. CHEST: Symmetric, no tenderness at palpation LUNGS: Clear to auscultation bilaterally. No wheezing or crackles. CVS: Regular rate and rhythm, S1 and S2 present, no murmurs or gallops appreciated. ABDOMEN: Soft, non-tender. No signs of distention. No rebound no guarding, and no masses palpated. Bowel sounds are normal. EXTREMITIES: FROM in all major joints, no edema, no cyanosis or clubbing. NEURO: Alert and oriented x 3. No acute neurological deficits. Speech is normal and follows commands. NIH stroke scale is 0. SKIN: Dry and warm GCS: 15 Triage Information Reviewed: Yes Vital Signs On Initial Exam: Initial Vitals Temp Pulse Resp BP Pulse Ox 98.9 F 100 16 137/92 98 09/14/18 08:43 09/14/18 08:43 09/14/18 08:43 09/14/18 08:43 09/14/18 08:43 Vital Signs Reviewed: Yes Diagnostics - Vital Signs Vital Signs Temp Pulse Resp BP Pulse Ox 09/14/18 08:43 98.9 F 100 16 137/92 98 - Laboratory Result Diagrams: 09/14/18 09:55 09/14/18 09:55 Lab Statement: Any lab studies that have been ordered have been reviewed, and results considered in the medical decision making process. National Institutes Of Health - NIH Scale Level of Consciousness: Alert/Keenly Responsive Ask Patient the Month and His/Her Age: Both Correct Ask Pt to Open/Close Eyes and Mechanical Design Drafter/Release Non-Paretic Hand: Both Correctly Best Gaze (Only Horizontal Eye Movement): Normal Visual Field Testing: No Visual Loss Facial Paresis-Pt to Smile & Close Eyes or Grimace Symmetry: Normal/Symmetrical Motor Function - Right Arm: No Drift-Holds 10 Seconds Motor Function - Left Arm: No Drift-Holds 10 Seconds Motor Function - Right Leg: No Drift-Holds 10 Seconds Motor Function - Left Leg: No Drift-Holds 10 Seconds Limb Ataxia-Must be out of Proportion to Weakness Present: Absent Sensory (Use Pinprick to Test Arms/Legs/Trunk/Face): Normal Best Language (Describe Picture, Name Items): No Aphasia Dysarthria (Read Several Words): Normal Extinction and Inattention: No Abnormality Total Score: 0 Re-Evaluation - Re-Evaluation First Eval Re-Evaluation Time: 10:48 Comment: Reviewed all lab results with pt. She will be discharged home with follow up from her PCP. Complex Multi-Symp Course/Dx Assessment/Plan: This pt is a 38 y/o female presenting to [facility] c/o left arm pain and tingling, left sided face tingling, and left sided headache. Pt reports she was at [place] yesterday and noticed she had pain and tingling on her left arm. She notes then she developed a headache on the left side around the left lutheran. This morning she woke up feeling off and "groggy." She additionally states the left side of her face was swollen with tingling. Denies trauma or injury to face. Pt had a tooth extraction 3 weeks ago but notes it is not infected and has been eating on that side normally. Denies chest pain, SOB, nausea, vomiting, palpitations. LMP: currently on it now. Blood work without any significant abnormality. Patient had a head CT on and the impression is no intracranial mass or hemorrhage is noted. Therefore I do not believe that the patient needs another head CT at this time. The patient has a normal neurological exam, and the NIH score is equal to 0 therefore I have no suspicion for a CVA. Patient reported that she had a headache yesterday but not today. She denies any neck pain, photophobia or any other symptoms today. Since the test results are within normal limits the patient will be discharged home with follow-up from her primary care physician. Patient was instructed to return to the emergency department if she develops any other symptoms. She understands and agrees. The patient is ambulating in the ED without any ataxia and a good steady walk. - Diagnoses Provider Diagnoses: Headache Discharge - Sign-Out/Discharge Documenting (check all that apply): Patient Departure - Discharge home Patient Received Moderate/Deep Sedation with Procedure: No - Discharge Plan Condition: Stable Disposition: HOME Patient Education Materials: General Headache (ED) Referrals: Magdalena Dee NP [Primary Care Provider] - Additional Instructions: FOLLOW UP WITH YOUR PRIMARY CARE PROVIDER IN 2-3 DAYS. RETURN TO THE EMERGENCY DEPARTMENT FOR ANY WORSENING OR NEW SYMPTOMS. - Billing Disposition and Condition Condition: STABLE Disposition: Home - Attestation Statements Document Initiated by Scribe: Yes Documenting Scribe: Yamilet Salas Provider For Whom Scribe is Documenting (Include Credential): Manuel Bernard MD Scribe Attestation: Yamilet Felix, scribed for Manuel Bernard MD on 09/14/18 at 1051. Scribe Documentation Reviewed: Yes Provider Attestation: The documentation as recorded by the scribeYamilet accurately reflects the service I personally performed and the decisions made by me, Manuel Bernard MD Status of Scribe Document: Viewed
[2018-09-14 10:03] LABS: ABS Basophils 0.1 10^3/ul (0-0.2); ABS Eosinophils 0.1 10^3/ul (0-0.6); ABS Lymphocytes 1.7 10^3/ul (1.0-4.8); ABS Monocytes 0.4 10^3/ul (0-0.8); ABS Neutrophils 2.4 10^3/ul (1.5-7.7); Eosinophil % 2.8 %; Hematocrit 39 % (35-47); Lymphocyte % 35.9 %; Mean Corpuscular HGB Conc 34 g/dL (31-36); Mean Corpuscular Hemoglobin 30 pg (27-31); Mean Corpuscular Volume 87 fL (80-97); Mean Platelet Volume 7.4 fL (7.4-10.4); Platelet Count 186 10^3/uL (150-450); Red Blood Count 4.42 10^6 /uL (3.70-4.87); Red Cell Distribution Width 14 % (10.5-15); White Blood Count 4.6 10^3/uL (3.5-10.8)
[2018-09-14 10:23] LABS: Albumin/Globulin Ratio 1.4 (1-3); BUN/Creatinine Ratio 19.7 (8-20); Calcium 9.1 mg/dL (8.6-10.3); EGFR African American 112.7 (>60); EGFR Non-African American 93.1 (>60); Globulin 2.8 g/dL (2-4); Potassium 3.8 mmol/L (3.5-5.0); Total Bilirubin 0.3 mg/dL (0.2-1.0); Total Protein 6.8 g/dL (6.4-8.9)
[2018-09-14 10:25] LABS: Urine Appearance Cloudy; Urine Bacteria Absent (Absent); Urine Bilirubin Negative (Negative); Urine Blood 3+ (Negative); Urine Color Straw; Urine Glucose Negative (Negative); Urine Ketones Negative (Negative); Urine Nitrite Negative (Negative); Urine Protein Negative (Negative); Urine Red Blood Cell 3+(>10/hpf) (Absent); Urine Squamous Epithelial Cell Present (Absent); Urine Urobilinogen Negative (Negative); Urine White Blood Cell Trace(0-5/hpf) (Absent)
[2018-09-14 11:12] VITALS: BP 128/92
== END 2018-09-14 11:11 | disposition home or self-care (01) ==
LOC: ED 08:41
DX: R51 Headache (principal); K21.9 Gastro-esophageal reflux disease without esophagitis; F41.9 Anxiety disorder, unspecified; F32.9 Major depressive disorder, single episode, unspecified; F17.210 Nicotine dependence, cigarettes, uncomplicated; Z88.8 Allergy status to other drugs, medicaments and biological substances
CPT/HCPCS: 36415; 80053; 81003; 81015; 83605; 84484; 85025; 87086; 99282

== ENCOUNTER 2018-11-25 19:37 | Emergency (ER) | payer OTHER ==
[2018-11-25 20:14] VITALS: BP 129/92
--- NOTE | 2018-11-25 20:21 | UC ---
Hand/Wrist HPI - HPI Summary HPI Summary: 38-year-old female presents with complaints of right hand pain. States 4 days ago she was moving her bed and she accidentally dropped the foot of the bed on to her right hand. States had a fair amount of discomfort for the first 2 days , started to improve, but today the pain began to worsen again. Complains of pain to the lateral and proximal aspect of the right hand. Pain worsens with flexion of the wrist and with lifting. Has taken acetaminophen with some mild relief in the pain. Reports full range of motion to all of her fingers. Denies any numbness or tingling. - History Of Current Complaint Chief Complaint: UCUpperExtremity Stated Complaint: RT METACARPLE INJURY Time Seen by Provider: 11/25/18 20:19 Hx Obtained From: Patient Hx Last Menstrual Period: [id number] Pain Intensity: 8 - Allergies/Home Medications Allergies/Adverse Reactions: Allergies Allergy/AdvReac Type Severity Reaction Status Date / Time amlodipine Allergy Rash Verified 11/25/18 20:14 losartan Allergy Swelling Verified 11/25/18 20:14 Home Medications: Home Medications Acetaminophen TAB* [Tylenol TAB*] 975 mg PO Q6H PRN 11/25/18 [History Confirmed 11/25/18] Ibuprofen TAB* [Motrin TAB* 800 MG] 800 mg PO Q6H PRN 11/25/18 [History Confirmed 11/25/18] PMH/Surg Hx/FS Hx/Imm Hx Previously Healthy: Yes Psychological History: Anxiety Other History Of: Negative For: Anticoagulant Therapy - Surgical History Surgical History: Yes Surgery Procedure, Year, and Place: LEFT KNEE DISLOCATED/GANGLION CYST 2012. WRIST LEFT VERTICAL TEAR/GANGLION CYCT 2015. LEFT knee meniscus repair June. late term - 2008 - Family History Known Family History: Positive: Cardiac Disease - [place] - mother, at 40s - heavy use of ETOH, tob and crack cocaine, Hypertension - both parents, Diabetes - Social History Occupation: Employed Full-time Lives: With Family Alcohol Use: Rare Alcohol Amount: socially once a month Substance Use Type: None Smoking Status (MU): Light Every Day Tobacco Smoker Type: Cigarettes Amount Used/How Often: 2-3 cigs Have You Smoked in the Last Year: Yes Household Exposure Type: Cigarettes - Immunization History Most Recent Influenza Vaccination: None Review of Systems All Other Systems Reviewed And Are Negative: Yes Constitutional: Positive: Negative Skin: Negative: Bruising Respiratory: Positive: Negative Cardiovascular: Positive: Negative Gastrointestinal: Positive: Negative Genitourinary: Positive: Negative Motor: Negative: Weakness Neurovascular: Negative: Decreased Sensation Musculoskeletal: Positive: Other: - See HPI Neurological: Positive: Negative Is Patient Immunocompromised?: No Physical Exam - Summary Physical Exam Summary: GENERAL APPEARANCE: Well developed, well nourished, alert and cooperative, and appears to be in no acute distress. CARDIAC: Normal S1 and S2. No S3, S4 or murmurs. Rhythm is regular. There is no peripheral edema, cyanosis or pallor. Extremities are warm and well perfused. Capillary refill is less than 2 seconds. Peripheral pulses intact. LUNGS: Clear to auscultation without rales, rhonchi, wheezing or diminished breath sounds. ABDOMEN: Positive bowel sounds. Soft, nondistended, nontender. No guarding or rebound. No masses or hepatosplenomegally. MUSKULOSKELETAL: Normal muscular development. Normal gait. EXTREMITIES: Tenderness over the proximal 5th metacarpal without gross deformity , ecchymosis, or edema. Circulation and sensation intact. SKIN: Skin normal color, texture and turgor. Triage Information Reviewed: Yes Vital Signs: Initial Vital Signs Temp 98.0 F 11/25/18 20:07 Pulse 75 11/25/18 20:07 Resp 16 11/25/18 20:07 BP 129/92 11/25/18 20:07 Pulse Ox 100 11/25/18 20:07 Vital Signs Reviewed: Yes Procedures - Splinting Right Upper Extremity Location: right arm Hand-Made Type: orthoglass Splint: volar Pre-Proc Neuro Vasc Exam: normal Post-Proc Neuro Vasc Exam: normal Diagnostics - Radiology No standard instances Radiology Interpretation Completed By: ED Physician Summary of Radiographic Findings: Nondisplaced fracture of the proximal 5th metacarpal that extends into the joint space. Hand/Wrist Course/Dx - Course Course Of Treatment: 38-year-old female presents with complaints of right hand pain. States 4 days ago she was moving her bed and she accidentally dropped the foot of the bed on to her right hand. States had a fair amount of discomfort for the first 2 days , started to improve, but today the pain began to worsen again. Complains of pain to the lateral and proximal aspect of the right hand. Pain worsens with flexion of the wrist and with lifting. Has taken acetaminophen with some mild relief in the pain. Reports full range of motion to all of her fingers. Denies any numbness or tingling. Afebrile. VSS. Patient had tenderness over the proximal 5th metacarpal without gross deformity, ecchymosis, or edema, circulation and sensation were intact, and otherwise unremarkable exam. Preliminary reading for x-ray was nondisplaced fracture of the proximal 5th metacarpal that extends into the joint space. Patient was placed in a volar wrist splint by myself using orthoglass. Sensation and circulation were intact pre- and post-application. Recommending conservative treatment at this time. She is to follow up with orthopedic surgery in 2-3 days for further evaluation and treatment. Anticipatory guidance and warning symptoms reviewed with patient. Verbalizes understanding and agrees with POC. - Differential Dx/Diagnosis Differential Diagnosis/HQI/PQRI: Contusion, Dislocation, Fracture, Sprain Provider Diagnosis: Nondisplaced fracture of metacarpal bone of right hand Discharge - Sign-Out/Discharge Documenting (check all that apply): Patient Departure All imaging exams completed and their final reports reviewed: No - Discharge Plan Condition: Stable Disposition: HOME Prescriptions: Naproxen [Naproxen 500 mg tab] 500 mg PO Q12HR PRN #30 tablet PRN Reason: Pain - Moderate Patient Education Materials: Hand Fracture (ED), Splint Care (ED) Referrals: Magdalena Dee NP [Primary Care Provider] - Lacey Friend MD [Medical Doctor] - 2 Days (Call for appointment.) Additional Instructions: The x-ray performed in the clinic today showed evidence of a proximal 5th metarcarpal fracture. Rest the hand as much as possible. Wear the splint that was applied in the clinic at all times. Do not get this wet. Apply ice to the affected area for 15-20 minutes at least 4 times a day to help with the pain and swelling. Elevate the hand to help reduce swelling. Take naproxen 500 mg 1 tab every 12 hours as needed for pain. Follow up with orthopedic surgery in 2-3 days for further evaluation and treatment. Call tomorrow morning for appointment. Seek immediate medical attention if you have severe pain not managed with pain medication, you are unable to walk or bear any weight, develop numbness or tingling in the hand or fingers, or have any worsening of symptoms. - Billing Disposition and Condition Condition: STABLE Disposition: Home
--- NOTE | 2018-11-26 10:15 | UC ---
- Progress Note Progress Note: RN to call pt - encourage f/u as advised with hand surgeon. Xray Hand Radiology report Impression: Fracture through the base of the 5th metatarsal (sic - actually c/w metacarpal) with questionable intra-articluar extension. Course/Dx - Diagnoses Provider Diagnoses: Nondisplaced fracture of metacarpal bone of right hand Discharge - Sign-Out/Discharge Documenting (check all that apply): Post-Discharge Follow Up All imaging exams completed and their final reports reviewed: Yes - Discharge Plan Condition: Stable Disposition: HOME Prescriptions: Naproxen [Naproxen 500 mg tab] 500 mg PO Q12HR PRN #30 tablet PRN Reason: Pain - Moderate Patient Education Materials: Hand Fracture (ED), Splint Care (ED) Referrals: Lacey Friend MD [Medical Doctor] - 2 Days (Call for appointment.) Magdalena Dee NP [Primary Care Provider] - Additional Instructions: The x-ray performed in the clinic today showed evidence of a proximal 5th metarsal fracture. Rest the hand as much as possible. Wear the splint that was applied in the clinic at all times. Do not get this wet. Apply ice to the affected area for 15-20 minutes at least 4 times a day to help with the pain and swelling. Elevate the hand to help reduce swelling. Take naproxen 500 mg 1 tab every 12 hours as needed for pain. Follow up with orthopedic surgery in 2-3 days for further evaluation and treatment. Call tomorrow morning for appointment. Seek immediate medical attention if you have severe pain not managed with pain medication, you are unable to walk or bear any weight, develop numbness or tingling in the hand or fingers, or have any worsening of symptoms. - Billing Disposition and Condition Condition: STABLE Disposition: Home
== END 2018-11-25 21:34 | disposition home or self-care (01) ==
LOC: UCEAST 19:37
DX: S62.346A Nondisplaced fracture of base of fifth metacarpal bone, right hand, initial encounter for closed fracture (principal); W22.8XXA Striking against or struck by other objects, initial encounter; Y93.E6 Activity, residential relocation; Y92.013 Bedroom of single-family (private) house as the place of occurrence of the external cause; Y99.8 Other external cause status; F17.210 Nicotine dependence, cigarettes, uncomplicated
CPT/HCPCS: 26600; 99212; G0463

== ENCOUNTER 2019-01-09 08:17 | Emergency (ER) | payer OTHER ==
--- OUTSIDE RECORDS SUMMARY | 2019-01-09 08:23 | XMS REPORT | Continuity of Care Document ---
:1980 External Reference #:[id number] Author Name Abner Juárez NP (transmitted by agent of provider Gemma Ornelas) Address [address] [place] [address] Care Team Providers Name Role Phone Patient's Choice Care Team Information Nail Specialist Unavailable Niko De Dios MD - Neurology Care Team Information Nail Specialist Erica Carter, PhD. - Clinical Care Team Information Nail Specialist [phone] Arnaud Kiran MD - Cardiovascular Care Team Information Nail Specialist Disease Niranjan Calvillo MD - Dermatology Care Team Information Nail Specialist [phone] Leon Galeana MD - Ophthalmology Care Team Information Nail Specialist [phone] [facility] - Care Team Information Nail Specialist Fitter / Welder Gabino Danielle MD - Gastroenterology Care Team Information Nail Specialist Magdalena Dee - Nurse Care Team Information Nail Specialist [phone] Practitioner Problems Active Problems Provider Date Sprain of [...] Hafsa Israel M.D. 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 Nondisplaced fracture of base of fifth Pino Cazares MD Onset: 11/27/2018 metacarpal bone, right hand, initial encounter for closed fracture Social History Type Date Description Comments Sex Unknown ETOH Use Denies alcohol use Recreational Drug Use Denies Drug Use Tobacco Use Start: Unknown Light tobacco smoker smokes 1-2 cig/day (10 or fewer cigarettes/day) Smoking Status Reviewed: 12/20/18 Light tobacco smoker smokes 1-2 cig/day (10 or fewer cigarettes/day) Exercise Type/Frequency Does not exercise Allergies, Adverse Reactions, Alerts Active Allergies Reaction Severity Comments Date Losartan Anaphylaxis 10/31/2016 Amlodipine Anaphylaxis 10/31/2016 Inactive Allergies NKDA 04/24/2016 Medications Active Medications SIG Qnty Indications Ordering Date Provider Take 1 Tablet By Mouth 90tabs Zsofia Luiz, 11/18/2018 27-0.8mg Once Daily 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 Magnesium Take 1 Tablet By Mouth 30units E87.6 Zsofia Luiz, 11/29/2017 500mg Once Daily ENGRAVING PATTERN[employer]ER Alprazolam take 1 tablet by mouth 30tabs F41.9 Zsofia Luiz, 11/27/2017 0.5mg in the evening only as ENGRAVING PATTERNMAKER Tablets needed for anxiety Epipen 2-Marcelo use as directed 2units T78.3xxA Randolph 07/11/2016 Pachikara, 0.3mg/0.3ML M.D. Solution Auto-Inject Blood Pressure check bp daily 1units I10 Randolph 07/11/2016 Monitor Auto Pachikara, Inflate M.D. Misc Butalbital/Acetamin Take 1 Tablet By Mouth 14tabs Zsofia Luiz, ophen/Caffeine Every 6 Hours as ENGRAVING PATTERNMAKER Needed . DO Not Exceed 50-325-40mg Tablets 4 Per 24 Hours Vitamin B-1 1 by mouth every day Unknown 100mg Tablets Vitamin 1 by mouth every day Unknown Tablets Cranberry daily Unknown 200mg Capsules Prednisone Leon Sun, 5mg MD Tablets Aspirin 81 1 by mouth every day Unknown 81mg Tablets DR Progesterone Inject 1 ML (cc) Unknown Intramuscularly Once 50mg/ml Oil Daily as Directed Progesterone Take 1 Capsule By Unknown Micronized Mouth Twice Daily 200mg Capsules History Medications Cyclobenzaprine HCL take 1 tablet 5tabs R25.3 Elise Tripp, 08/26/2018 - 5mg by mouth daily M.D. 09/25/2018 Tablets at night Immunizations Description No Information Available Vital Signs Date Vital Result Comment 12/20/2018 10:49am Height 62 inches 5'2" Weight 165.00 lb Heart Rate 84 /min BP Systolic 121 mmHg BP Diastolic 86 mmHg Body Temperature 97.9 F O2 % BldC Oximetry 98 % BMI (Body Mass Index) 30.2 kg/m2 12/05/2018 2:39pm Height 62 inches 5'2" Weight 165.00 lb Heart Rate 88 /min BP Systolic 122 mmHg BP Diastolic 70 mmHg Respiratory Rate 14 /min Pain Level 5 BMI (Body Mass Index) 30.2 kg/m2 Results Test Date Facility Test Result H/L Range Note CBC Auto 09/14/2018 [facility] White Blood 4.6 10^3/uL Normal 3.5-10.[address] [place] [address] [phone] Red Blood Count 4.42 10^6/uL Normal 3.70-4.87 Hemoglobin 13.0 g/dL Normal 12.0-16.0 Hematocrit 39 % Normal 35-47 Mean Corpuscular Volume 87 fL Normal 80-97 Mean Corpuscular Hemoglobin 30 pg Normal 27-31 Mean Corpuscular HGB Conc 34 g/dL Normal 31-36 Red Cell Distribution Width 14 % Normal 10.5-15 Platelet Count 186 10^3/uL Normal 150-450 Mean Platelet Volume 7.4 fL Normal 7.4-10.4 Abs Neutrophils 2.4 10^3/uL Normal 1.5-7.7 Abs Lymphocytes 1.7 10^3/uL Normal 1.0-4.8 Abs Monocytes 0.4 10^3/uL Normal 0-0.8 Abs Eosinophils 0.1 10^3/uL Normal 0-0.6 Abs Basophils 0.1 10^3/uL Normal 0-0.2 Abs Nucleated RBC 0.0 10^3/uL Granulocyte % 51.8 % Lymphocyte % 35.9 % Monocyte % 7.7 % Eosinophil % 2.8 % Basophil % 1.8 % Nucleated Red Blood Cells % 0.0 Laboratory test 09/14/2018 [facility] Lactic Acid 1.1 mmol/L Normal 0.5-2.0 1 finding [address] [place] [address] [phone] Comp Metabolic 09/14/2018 [facility] Sodium 138 mmol/L Normal 135-145 Panel [address] [place] [address] [phone] Potassium 3.8 mmol/L Normal 3.5-5.0 Chloride 109 mmol/L Normal 101-111 Co2 Carbon Dioxide 25 mmol/L Normal 22-32 Anion Gap 4 mmol/L Normal 2-11 Glucose 92 mg/dL Normal 70-100 Blood Urea Nitrogen 14 mg/dL Normal 6-24 Creatinine 0.71 mg/dL Normal 0.51-0.95 BUN/Creatinine Ratio 19.7 Normal 8-20 Calcium 9.1 mg/dL Normal 8.6-10.3 Total Protein 6.8 g/dL Normal 6.4-8.9 Albumin 4.0 g/dL Normal 3.2-5.2 Globulin 2.8 g/dL Normal 2-4 Albumin/Globulin Ratio 1.4 Normal 1-3 Total Bilirubin 0.30 mg/dL Normal 0.2-1.0 Alkaline Phosphatase 56 U/L Normal 34-104 Alt 12 U/L Normal 7-52 Ast 14 U/L Normal 13-39 Egfr Non- 93.1 >60 Egfr 112.7 >60 2 Laboratory test 09/14/2018 [facility] Troponin-I (TnI) 0.00 ng/ mL <0.04 [address] [place] [address] [phone] Urinalysis 09/14/2018 [facility] Urine Color Straw Profile [address] [place] [address] [phone] Urine Appearance Cloudy Urine Specific Newton 1.010 Normal 1.010-1.030 Urine pH 7.0 Normal 5-9 Urine Urobilinogen Negative Negative Urine Ketones Negative Negative Urine Protein Negative Negative Urine Leukocytes Negative Negative Urine Blood 3+ Abnormal Negative Urine Nitrite Negative Negative Urine Bilirubin Negative Negative Urine Glucose Negative Negative Urine White Blood Cell Trace(0-5/hpf) Absent Urine Red Blood Cell 3+(>10/hpf) Abnormal Absent Urine Bacteria Absent Absent Urine Squamous Epithelial Cell Present Abnormal Absent Urine Culture And 09/14/2018 [facility] Urine SEE RESULT [address] [place] [address] [phone] Poc Urinalysis 09/05/2018 [facility] Poc Glucose, Negative Negative [address] [place] [address] [phone] Poc Bilirubin, Urine Negative Negative Poc Ketone, Urine Negative Negative Poc Specific Newton, Urine >= 1.030 Normal 1.010-1.030 Poc Blood, Urine Trace-intact Abnormal Negative Poc pH, Urine 6.0 Normal 5-9 Poc Protein, Urine Negative Negative Poc Urobilinogen, Urine 0.2 Negative Poc Nitrite, Urine Negative Negative Poc Leukocytes, Urine Negative Negative Poc Color, Urine Yellow Poc Clarity, Urine Clear 5 Laboratory test 09/05/2018 [facility] Poc , Negative Negative [address] [place] [address] [phone] Herpes Simplex 09/05/2018 [facility] Herpes Source LABIA [address] [place] [address] [phone] HSV 1 PCR Negative Negative HSV 2 PCR Negative Negative 8 Laboratory test 09/05/2018 [facility] Trichomonas Negative Negative [address] [place] [address] [phone] GC/Chlamydia 09/05/2018 [facility] Chlamydia Negative Negative Amplified Rna [address] trachomatis Rna [place], [place] [id number] [phone] Neisseria gonorrhoeae (GC) Rna Negative Negative Laboratory 09/05/2018 [facility] Gardnerella/Yeast: SEE 10 test finding [address] [place] [address] BELOW [phone] Basic 08/23/2018 [facility] Sodium 138 Normal [address] mmol/L -14 [place] [address] [phone] Potassium 4.0 mmol/L Normal 3.5-5.0 Chloride 105 mmol/L Normal 101-111 Co2 Carbon Dioxide 27 mmol/L Normal 22-32 Anion Gap 6 mmol/L Normal 2-11 Glucose 86 mg/dL Normal 70-100 Blood Urea Nitrogen 17 mg/dL Normal 6-24 Creatinine 0.81 mg/dL Normal 0.51-0.95 BUN/Creatinine Ratio 21.0 High 8-20 Calcium 9.2 mg/dL Normal 8.6-10.3 Egfr Non- 80.0 >60 Egfr 96.8 >60 11 Laboratory 08/23/2018 [facility] Magnesium 2.0 mg/dL Normal 1.9-2.7 test finding [address] [place] [address] [phone] Laboratory 07/20/2018 [facility] Poc Negative Negative 12 test finding [address] , [place] [address] Urine [phone] Poc Urinalysis 07/20/2018 [facility] Poc Glucose, Negative Negative [address] [place] [address] [phone] Poc Bilirubin, Urine Negative Negative Poc Ketone, Urine Trace Abnormal Negative Poc Specific Newton, Urine 1.025 Normal 1.010-1.030 Poc Blood, Urine Trace-intact Abnormal Negative Poc pH, Urine 5.5 Normal 5-9 Poc Protein, Urine 1+ Abnormal Negative Poc Urobilinogen, Urine 0.2 Negative Poc Nitrite, Urine Negative Negative Poc Leukocytes, Urine Negative Negative Poc Color, Urine Dark yellow Poc Clarity, Urine Cloudy 13 1 [place] Severe Sepsis and Septic Shock Management Bundle Measure requires all lactic acids initially measuring >2.0 mmol/L be repeated. 2 Because ethnic data is not always [...] 5 Kidney failure <15 (or dialysis) 3 Troponin-I testing on Plasma Separator Tubes (PST) has a known false positive rate of 0.20-0.40%. All positive troponins reflex immediately to secondary confirmatory testing. Using the [employer]glass DxI 800 Access Immunoassay systems, the 99th percentile upper reference limit was demonstrated to be < 0.03 ng/mL. 4 SEE RESULT BELOW Name: JEAN CLAUDE ORELLANA : [address]: Manuel Bernard MD Acct: [id number] Unit: [id number] AGE: 38 Location: ED Re09/14/18 SEX: F Status: DEP ER SPEC: [id number] JIMMY: 09/14/18-9 [facility] DR: Manuel Bernard MD REQ: [id number] RECD: 09/14/18 STATUS: NEIL YANEZ DR: Magdalena Dee CREDIT OFFICE MANAGER _ SOURCE: URINE SPDESC: ORDERED: Urine Culture Procedure Result Reported Site Urine Culture Final 09/15/18- 1203 ML No growth of clinically significant organisms * ML - Main Lab . END OF REPORT DEPARTMENT OF PATHOLOGY, [address] [place] [address] Remington Pruitt M.D. Director [facility] # [id number] 5 Credit Report Checker: [id number] Credit Report Checker: [id number] Test Disclaimer: Positive bacteria, red blood cells, white blood cells, early , low specific gravity, and other factors may cause false positive or negative results. It is recommended to retest unexpected results within 24 to 72 hours with a serum test when applicable. If is still suspected, please repeat test after 48 to 72 hours. 7 Would you like to order Trichomonas Vaginalis RNA testing? Y 8 ADDITIONAL INFORMATION This test has been modified from the engraver's instructions. Its performance characteristics were determined by [facility] in a manner consistent with CLIA requirements. This test has not been cleared or approved by the U.S. Food and Drug Administration. Test Performed by: [facility] - [address] [address] [id number] GC/Chlamydia Source?: Endocervical Trichomonas Source: Endocervical 10 SEE RESULT BELOW Name: JEAN CLAUDE ORELLANA : [address]: Chiki Ashby MD Acct: [id number] Unit: [id number] AGE: 38 Location: [facility] Re09/05/18 SEX: F Status: DEP ER SPEC: [id number] JIMMY: 09/05/18-[address] [facility] [address]: Chiki Ashby MD REQ: [id number] RECD: 09/05/18 STATUS: NEIL YANEZ DR: Magdalena Dee CREDIT OFFICE MANAGER _ SOURCE: VAGINAL SPDESC: ORDERED: Maycol,Yeast DNA COMMENTS: Would you like to order Trichomonas Vaginalis RNA testing? Y Procedure Result Reported Site Gardnerella/Yeast: Vaginal DNA Final 09/05/18- 1548 ML Organism 1 Negative Aubree Organism 2 Negative Gardnerella The presence of G. vaginalis, although suggestive, [...] . END OF REPORT DEPARTMENT OF PATHOLOGY, [address] [place] [address] Remington Pruitt M.D. Director [facility] # [id number] 11 Because ethnic data is not always readily [...] 15-29 5 Kidney failure <15 (or dialysis) 12 Credit Report Checker: [id number] Test Disclaimer: Positive bacteria, red blood cells, white blood cells, early , low specific gravity, and other factors may cause false positive or negative results. It is recommended to retest unexpected results within 24 to 72 hours with a serum test when applicable. If is still suspected, please repeat test after 48 to 72 hours. 13 Credit Report Checker: [id number] Procedures Date Code Description Status 12/05/2018 52328 Short Arm Splint Application Completed 11/29/2018 89315 Short Arm Splint Application Completed 11/27/2018 88292 Short Arm Cast Application Completed 11/23/2017 [id number] Diabetic Retinal Eye Exam Completed Medical Devices Description No Information Available Encounters Type Date Location Provider Dx Diagnosis Office Visit 12/05/2018 Orthopedic SORAYA Mills S62.346D Nondisp fx of [facility] 2:30p Services Of of [facility] flaquito doyle C.M.A., 7thD Office Visit 11/29/2018 Orthopedic Myra Pepe S62.346D Nondisp fx of base 2:00p Services Of RPA-C of [facility] flaquito doyle C.M.A., 7thD Office Visit 11/27/2018 Orthopedic Pino Cazares S62.346A Nondisp fx of base 10:00a Services Of MD of fifth Baires, C.M.A. right hand, init Office Visit 10/02/2018 Kerry Richey R25.3 Fasciculation 10:00a Services Of Linda De Dios M.D. 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 R51 [facility] M[facility].2 Cervicalgia F41.9 Anxiety disorder, unspecified Office Visit 08/23/2018 Kerry Lesley Richey I47.1 Supraventricular 9:00a Cardiology Foster, N.P. tachycardia F17.210 Nicotine dependence, cigarettes, uncomplicated F41.9 Anxiety disorder, unspecified E87.6 Hypokalemia R00.2 Palpitations Office Visit 06/20/2018 10:00a Orthopedic Lacey Friend, M23.52 Chronic Services Of MD marcial of C.M.A. knee, left knee Assessments Date Code Description Provider 12/20/2018 R79.9 Abnormal finding of blood chemistry, Abner Juárez NP unspecified 12/05/2018 S62.346D Nondisplaced fracture of base of fifth SORAYA Mills metacarpal bone, right hand, subsequent encounter for fracture with routine healing 11/29/2018 S62.346D Nondisplaced fracture of base of fifth EMERSON GroverC metacarpal bone, right hand, subsequent encounter for fracture with routine healing 11/27/2018 S62.346A Nondisplaced fracture of base of fifth Pino Cazares MD metacarpal bone, right hand, initial encounter for closed fracture 10/02/2018 R25.3 Fasciculation Niko De Dios M.D. 10/02/2018 R20.8 Other disturbances of skin sensation Niko De Dios M.D. 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 10/02/2018 M50.90 Cervical disc disorder, unspecified, Niko De Dios M.D. unspecified cervical re 09/25/2018 M54.2 Cervicalgia Magdalena Dee, ENGRAVING PATTERNMAKER 09/25/2018 R51 Headache Magdalena eDe, ENGRAVING PATTERNMAKER 08/26/2018 R51 Headache Elise Tripp M.D. 08/26/2018 M54.2 Cervicalgia Elise Tripp M.D. 08/26/2018 F41.9 Anxiety disorder, unspecified Elise Tripp M.D. 08/23/2018 I47.1 Supraventricular tachycardia Lesley Mendoza, N.P. 08/23/2018 F17.210 Nicotine dependence, cigarettes, Lesley Mendoza, N.P. uncomplicated 08/23/2018 F41.9 Anxiety disorder, unspecified Lesley Mendoza, N.P. 08/23/2018 E87.6 Hypokalemia Lesley Mendoza, N.P. 08/23/2018 R00.2 Palpitations Lesley Mendoza, N.P. 06/20/2018 M23.52 Chronic instability of knee, left knee Lacey Friend MD Plan of Treatment Future Appointment(s):12/24/2018 1:45 pm - Pino Cazares MD at [facility]..12/25/2018 10:00 am - JEANETTE Nicholson at [facility] Internal Medicine - [facility]10/27/2019 9:10 am - Niranjan Calvillo MD at [facility] Bnhwgcgmoqk33/06/ 2019 - Abner Juárez, NPR79.9 Abnormal finding of blood chemistry, unspecifiedComments:I have ordered the bloodwork that we discussed. I will notify you of the results. Functional Status Description No Information Available Mental Status Description No Information Available Referrals Refer to Reason for Referral Status Appt Date Jacqueline Cardoso LCSW [facility] does not take pts insurance Sent [address] [place] [phone]
--- OUTSIDE RECORDS SUMMARY | 2019-01-09 08:23 | XMS REPORT | Continuity of Care Document ---
:1980 External Reference #:[id number] Author Name SORAYA Mills (transmitted by agent of provider Nadya Lacy) Address [address] [place] [address] Care Team Providers Name Role Phone Patient's Choice Care Team Information Front End Technician Unavailable Niko De Dios MD - Neurology Care Team Information Front End Technician Erica Carter, PhD. - Clinical Care Team Information Front End Technician Arnaud Kiran MD - Cardiovascular Care Team Information Front End Technician Disease Niranjan Calvillo MD - Dermatology Care Team Information Front End Technician Leon Galeana MD - Ophthalmology Care Team Information Front End Technician [facility] - Care Team Information Front End Technician Consulting Sme Gabino Danielle MD - Gastroenterology Care Team Information Front End Technician Magdalena Dee - Nurse Care Team Information Front End Technician [phone] Practitioner Problems Active Problems Provider Date Sprain [...] Hafsa Israel M.D. Onset: 03/13/2018 Note: [facility] [employer] Nondisplaced fracture of base of fifth Pino Cazares MD Onset: 11/27/2018 metacarpal bone, right hand, initial encounter for closed fracture Social History Type Date Description Comments Sex Unknown ETOH Use Denies alcohol use Recreational Drug Use Denies Drug Use Tobacco Use Start: Unknown Light tobacco smoker smokes 1-2 cig/day (10 or fewer cigarettes/day) Smoking Status Reviewed: 12/05/18 Light tobacco smoker smokes 1-2 cig/day (10 or fewer cigarettes/day) Exercise Type/Frequency Does not exercise Allergies, Adverse Reactions, Alerts Active Allergies Reaction Severity Comments Date Losartan Anaphylaxis 10/31/2016 Amlodipine Anaphylaxis 10/31/2016 Inactive Allergies NKDA 04/24/2016 Medications Active Medications SIG Qnty Indications Ordering Provider Date Take 1 Tablet By 90tabs Laceyofijina Dee, 11/18/2018 27-0.8mg Mouth Once Daily BLE[facility]ER PULP Tablets Hydroxyzine HCL take 2 tabs by 90tabs F41.9 Laceyofijina Dee, 01/09/2018 10mg mouth twice daily [facility]LE[facility]UL[facility] Tablets as needed for anxiety. Magnesium Take 1 Tablet By 30units E87.6 Laceyofijina Dee, 11/29/2017 500mg Mouth Once Daily [facility] Alprazolam take 1 tablet by 30tabs F41.9 Laceygarret Dee, 11/27/2017 0.5mg mouth in the [facility]LE[facility]UL[facility] Tablets evening only as needed for anxiety Epipen 2-Marcelo use as directed 2units T78.3xxA Pedrito Jenkins, 07/11/2016 M.D. 0.3mg/0.3ML Solution Auto-Inject Blood Pressure check bp daily 1units I10 Pedrito Jenkins, 07/11/2016 Monitor Auto M.D. Inflate Misc Butalbital/Acetamino Take 1 Tablet By 14tabs Alekjina Dee, phen/Caffeine Mouth Every 6 BLEACHER PULP Hours as Needed . 50-325-40mg Tablets DO Not Exceed 4 Per 24 Hours Vitamin B-1 1 by mouth every Unknown 100mg day Tablets Vitamin 1 by mouth every Unknown day Tablets Cranberry daily Unknown 200mg Capsules History Medications Cyclobenzaprine HCL take 1 tablet 5tabs R25.3 Elise Tripp, 08/26/2018 - 5mg by mouth daily M.D. 09/25/2018 Tablets at night Immunizations Description No Information Available Vital Signs Date Vital Result Comment 12/05/2018 2:39pm Height 62 inches 5'2" Weight 165.00 lb Heart Rate 88 /min BP Systolic 122 mmHg BP Diastolic 70 mmHg Respiratory Rate 14 /min Pain Level 5 BMI (Body Mass Index) 30.2 kg/m2 11/29/2018 9:07am Height 62 inches 5'2" Weight 164.00 lb BP Systolic 114 mmHg BP Diastolic 74 mmHg Body Temperature 97.9 F BMI (Body Mass Index) 30.0 kg/m2 Results Test Date Facility Test Result H/L Range Note CBC Auto 09/14/2018 [facility] White Blood 4.6 10^3/uL Normal 3.5-10.[address] [place] [address] [phone] Red Blood Count 4.42 10^6/uL Normal 3.70-4.87 [...] Blood Cells % 0.0 Laboratory test 09/14/2018 [facility] Lactic Acid 1.1 mmol/L Normal 0.5-2.0 1 finding [address] [place] [address] [phone] Comp Metabolic 09/14/2018 [facility] Sodium 138 mmol/L Normal 135-145 Panel [address] [place] [address] [phone] Potassium 3.8 mmol/L Normal 3.5-5.0 Chloride 109 [...] Egfr 112.7 >60 2 Laboratory test 09/14/2018 [facility] Troponin-I (TnI) 0.00 ng/ mL <0.04 [address] [place] [address] [phone] Urinalysis 09/14/2018 [facility] Urine Color Straw Profile [address] [place] [address] [phone] Urine Appearance Cloudy Urine Specific [place] 1.010 Normal 1.010-1.030 Urine pH 7.0 Normal [...] Present Abnormal Absent Urine Culture And 09/14/2018 [facility] Urine SEE RESULT [address] [place] [address] [phone] Poc Urinalysis 09/05/2018 [facility] Poc Glucose, Negative Negative [address] [place] [address] [phone] Poc Bilirubin, Urine Negative Negative Poc Ketone, Urine Negative Negative Poc Specific [place], Urine >= 1.030 Normal 1.010-1.030 Poc Blood, Urine Trace-intact Abnormal Negative Poc pH, Urine 6.0 Normal 5-9 Poc Protein, Urine Negative Negative Poc Urobilinogen, Urine 0.2 Negative Poc Nitrite, Urine Negative Negative Poc Leukocytes, Urine Negative Negative Poc Color, Urine Yellow Poc Clarity, Urine Clear 5 Laboratory test 09/05/2018 [facility] Poc , Negative Negative [address] [place] [address] [phone] Herpes Simplex 09/05/2018 [facility] Herpes Source LABIA [address] [place] [address] [phone] HSV 1 PCR Negative Negative HSV 2 PCR Negative Negative 8 Laboratory test 09/05/2018 [facility] Trichomonas Negative Negative [address] [place] [address] [phone] GC/Chlamydia 09/05/2018 [facility] Chlamydia Negative Negative Amplified Rna [address] [address] [phone] Neisseria gonorrhoeae (GC) Rna Negative Negative Laboratory 09/05/2018 [facility] Gardnerella/Yeast: SEE 10 test finding [address] [place] [address] BELOW [phone] Basic 08/23/2018 [facility] Sodium 138 Normal [address] mmol/L -14 [place] [address] 5 [phone] Potassium 4.0 mmol/L Normal 3.5-5.0 Chloride 105 mmol/L Normal 101-111 Co2 Carbon Dioxide 27 mmol/L Normal 22-32 Anion Gap 6 mmol/L Normal 2-11 Glucose 86 mg/dL Normal 70-100 Blood Urea Nitrogen 17 mg/dL Normal 6-24 Creatinine 0.81 mg/dL Normal 0.51-0.95 BUN/Creatinine Ratio 21.0 High 8-20 Calcium 9.2 mg/dL Normal 8.6-10.3 Egfr Non- 80.0 >60 Egfr 96.8 >60 11 Laboratory 08/23/2018 [facility] Magnesium 2.0 mg/dL Normal 1.9-2.7 test finding [address] [place] [address] [phone] Laboratory 07/20/2018 [facility] Poc Negative Negative 12 test finding [address] , [place] [address] Urine [phone] Poc Urinalysis 07/20/2018 [facility] Poc Glucose, Negative Negative [address] [place] [address] [phone] Poc Bilirubin, Urine Negative Negative Poc Ketone, Urine Trace Abnormal Negative Poc Specific [place], Urine 1.025 Normal 1.010-1.030 Poc Blood, Urine Trace-intact Abnormal Negative Poc pH, Urine 5.5 Normal 5-9 Poc Protein, Urine 1+ Abnormal Negative Poc Urobilinogen, Urine 0.2 Negative Poc Nitrite, Urine Negative Negative Poc Leukocytes, Urine Negative Negative Poc Color, Urine Dark yellow Poc Clarity, Urine Cloudy 13 Laboratory test 06/18/2018 [facility] HCG < 0.60 mIU/ mL [address] [place] [address] [phone] 1 [facility] Severe Sepsis and Septic Shock Management Bundle [...] immediately to secondary confirmatory testing. Using the [employer] DxI 800 Access Immunoassay systems, the 99th percentile upper reference limit was demonstrated to be < 0.03 ng/mL. 4 SEE RESULT BELOW Name: JEAN CLAUDE ORELLANA : [address]: Manuel Bernard MD Acct: [id number] Unit: [id number] AGE: 38 Location: ED Re09/14/18 SEX: F Status: DEP ER SPEC: [id number] JIMMY: 09/14/18-1008 DAVIAN COPELAND: Manuel Bernard MD REQ: [id number] RECD: 09/14/18 STATUS: NEIL YANEZ DR: Magdalena Dee SOCIALLY RESPONSIBLE INVESTMENT ADVISER _ SOURCE: URINE SPDESC: ORDERED: Urine Culture Procedure Result Reported Site Urine Culture Final 09/15/18- 1203 ML No growth of clinically significant organisms * ML - Main Lab . END OF REPORT DEPARTMENT OF PATHOLOGY, [address] [place] [address] Remington Pruitt M.D. Director [facility] # [id number] 5 Test Department Helper: [id number] Test Department Helper: [id number] Test Disclaimer: Positive bacteria, red blood cells, [...] This test has been modified from the gaming surveillance observer's instructions. Its performance characteristics were determined by [facility] in a manner consistent with CLIA requirements. This test has not been cleared or approved by the U.S. Food and Drug Administration. Test Performed by: [address] [id number] GC/Chlamydia Source?: Endocervical Trichomonas Source: Endocervical 10 SEE RESULT BELOW Name: JEAN CLAUDE ORELLANA : [address]: Chiki Ashby MD Acct: [id number] Unit: [id number] AGE: 38 Location: [facility] Re09/05/18 SEX: F Status: DEP ER SPEC: [id number] JIMMY: 09/05/18-[address] [facility] [address]: Chiki Ashby MD REQ: [id number] RECD: 09/05/18-1309 STATUS: NEIL YANEZ DR: Magdalena Dee SOCIALLY RESPONSIBLE INVESTMENT ADVISER _ SOURCE: VAGINAL SPDESC: ORDERED: Maycol,Yeast DNA [...] . END OF REPORT DEPARTMENT OF PATHOLOGY, [address] [place] [address] Remington Pruitt M.D. Director [facility] # [id number] 11 Because ethnic data is not always [...] 5 Kidney failure <15 (or dialysis) 12 Test Department Helper: [id number] Test Disclaimer: Positive bacteria, red blood cells, white blood cells, early , low specific gravity, and other factors may cause false positive or negative results. It is recommended to retest unexpected results within 24 to 72 hours with a serum test when applicable. If is still suspected, please repeat test after 48 to 72 hours. 13 Test Department Helper: [id number] <5.0 Negative 5.0 - 25.0 Indeterminate (Repeat testing recommended after 72 hours) >25.0 Positive Perimenopausal women can display HCG levels of up to 20 mIU/mL Procedures Date Code Description Status 12/05/2018 54100 Short Arm Cast Application Completed 11/29/2018 82946 Short Arm Cast Application Completed 11/27/2018 50379 Short Arm Cast Application Completed 11/23/2017 [id number] Diabetic Retinal Eye Exam Completed Medical Devices Description No Information Available Encounters Type Date Location Provider Dx Diagnosis Office Visit 10/02/2018 [place] [facility] Niko De Dios, R25.3 Fasciculation 10:00a [facility] Patel R20.8 Other disturbances of skin sensation 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 R51 Headache - [facility] M54.2 Cervicalgia F41.9 Anxiety disorder, unspecified Office Visit 08/23/2018 [place] Lesley Richey I47.1 Supraventricular 9:00a Cardiology Reji, N.P. tachycardia F17.210 Nicotine dependence, cigarettes, uncomplicated F41.9 Anxiety disorder, unspecified E87.6 Hypokalemia R00.2 Palpitations Office Visit 06/20/2018 10:00a Orthopedic Lacey Freind, M23.52 [facility] Services Of MD marcial of C.M.A. knee, left knee Assessments Date Code Description Provider 12/05/2018 S62.346D Nondisplaced fracture of base of fifth SORAYA Mills metacarpal bone, right hand, subsequent encounter for fracture with routine healing 11/29/2018 S62.346D Nondisplaced fracture of base of fifth Myra Pepe, [place] -C metacarpal bone, right hand, subsequent encounter for [...] cervical re 09/25/2018 M54.2 Cervicalgia Magdalena Dee, BLEACHER PULP 09/25/2018 R51 Headache Magdalena Dee, BLEACHER PULP 08/26/2018 R51 Headache Elise Tripp M.D. 08/26/2018 [...] - Pino Cazares MD at [facility]12/25/2018 10:00 am - JEANETTE Nicholson at [facility] Internal Medicine - C[facility]ob10/27/2019 9:10 am - Niranjan Calvillo MD at [facility] Uodsusiydtl53/22/ 2019 - Donnie Greer, PAS62.346D Nondisplaced fracture of base of fifth metacarpal bone, right hand, subsequent encounter for fracture with routine healingNew Xrays:Hand Right 3+ VWS, Ordered: 12/05/18Follow up:Follow up: 2 weeks Functional Status Description No Information Available Mental Status Description No Information Available Referrals Refer to Dr Reason for Referral Status Appt Date Jacqueline Cardoso LCSW [facility] does not take pts insurance Sent [address] [place] [id number] [phone]
--- OUTSIDE RECORDS SUMMARY | 2019-01-09 08:23 | XMS REPORT | Continuity of Care Document ---
:1980 External Reference #:[id number] Author Name KRISTOPHER Grover (transmitted by agent of provider Birgit Chinchilla) Address [address] [place] [address] Care Team Providers Name Role Phone Patient's Choice Care Team Information Leather Currier Unavailable Niko De Dios MD - Neurology Care Team Information Leather Currier [phone] Erica Carter, PhD. - Clinical Care Team Information Leather Currier [phone] Arnaud Kiran MD - Cardiovascular Care Team Information Leather Currier [phone] Disease Niranjan Calvillo MD - Dermatology Care Team Information Leather Currier Leon Galeana MD - Ophthalmology Care Team Information Leather Currier [facility] - Care Team Information Leather Currier [phone] Therapy Assistant Gabino Danielle MD - Gastroenterology Care Team Information Leather Currier Magdalena Dee - Nurse Care Team Information Leather Currier [phone] Practitioner Problems Active Problems Provider Date Sprain [...] Hafsa Israel M.D. 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 Nondisplaced fracture of base of fifth Pino Cazares MD Onset: 11/27/2018 metacarpal bone, right hand, initial encounter for closed fracture Social History Type Date Description Comments Sex Unknown ETOH Use Denies alcohol use Recreational Drug Use Denies Drug Use Tobacco Use Start: Unknown Light tobacco smoker smokes 1-2 cig/day (10 or fewer cigarettes/day) Smoking Status Reviewed: 11/29/18 Light tobacco smoker smokes 1-2 cig/day (10 or fewer cigarettes/day) Exercise Type/Frequency Does not exercise Allergies, Adverse Reactions, Alerts Active Allergies Reaction Severity Comments Date Losartan Anaphylaxis 10/31/2016 Amlodipine Anaphylaxis 10/31/2016 Inactive Allergies NKDA 04/24/2016 Medications Active Medications SIG Qnty Indications Ordering Provider Date Take 1 Tablet By 90tabs Laceyofijina Dee, 11/18/2018 27-0.8mg Mouth Once Daily ANESTHESIOLOGY FACULTY Tablets Hydroxyzine HCL take 2 tabs by 90tabs F41.9 Laceyofijina Dee, 01/09/2018 10mg mouth twice daily ANESTHESIOLOGY FACULTY Tablets as needed for anxiety. Magnesium Take 1 Tablet By 30units E87.6 Laceyofijina Dee, 11/29/2017 500mg Mouth Once Daily ANESTHESIOLOGY FACULTY Alprazolam take 1 tablet by 30tabs F41.9 Laceygarret Dee, 11/27/2017 0.5mg mouth in the ANESTHESIOLOGY FACULTY Tablets evening only as needed for anxiety Epipen 2-Marcelo use as directed 2units T78.3xxA Pedrito Jenkins, 07/11/2016 M.D. 0.3mg/0.3ML Solution Auto-Inject Blood Pressure check bp daily 1units I10 Pedrito Jenkins, 07/11/2016 Monitor Auto M.D. Inflate Misc Butalbital/Acetamino Take 1 Tablet By 14tabs Alekjina Dee, phen/Caffeine Mouth Every 6 ANESTHESIOLOGY FACULTY Hours as Needed . 50-325-40mg Tablets DO [...] Available Vital Signs Date Vital Result Comment 11/29/2018 9:07am Height 62 inches 5'2" Weight 164.00 lb BP Systolic 114 mmHg BP Diastolic 74 mmHg Body Temperature 97.9 F BMI (Body Mass Index) 30.0 kg/m2 11/27/2018 10:38am Height 62 inches 5'2" Weight 163.00 lb Heart Rate 82 /min BP Systolic 128 mmHg BP Diastolic 88 mmHg Respiratory Rate 12 /min Pain Level 9 BMI (Body Mass Index) 29.8 kg/m2 Results Test Date Facility Test Result H/L Range Note CBC Auto 09/14/2018 [facility] White Blood 4.6 10^3/uL Normal 3.5-10.[address] [place] [address] [phone] Red Blood Count 4.42 10^6/uL Normal 3.70-4.87 [...] Blood Cells % 0.0 Laboratory test 09/14/2018 [facility] Lactic Acid 1.1 mmol/L Normal 0.5-2.0 1 finding [address] [place] [address] [phone] Comp Metabolic 09/14/2018 [facility] Sodium 138 mmol/L Normal 135-145 Panel [address] [place] [address] [phone] Potassium 3.8 mmol/L Normal 3.5-5.0 Chloride 109 [...] Egfr 112.7 >60 2 Laboratory test 09/14/2018 [facility] Troponin-I (TnI) 0.00 ng/ mL <0.04 [address] [place] [address] [phone] Urinalysis 09/14/2018 [facility] Urine Color Straw Profile [address] [place] [address] [phone] Urine Appearance Cloudy Urine Specific Urania 1.010 Normal 1.010-1.030 Urine pH 7.0 Normal [...] Present Abnormal Absent Urine Culture And 09/14/2018 [facility] Urine SEE RESULT [address] [place] [address] [phone] Poc Urinalysis 09/05/2018 [facility] Poc Glucose, Negative Negative [address] [place] [address] [phone] Poc Bilirubin, Urine Negative Negative Poc Ketone, Urine Negative Negative Poc Specific Urania, Urine >= 1.030 Normal 1.010-1.030 Poc Blood, Urine Trace-intact Abnormal Negative Poc pH, Urine 6.0 Normal 5-9 Poc Protein, Urine Negative Negative Poc Urobilinogen, Urine 0.2 Negative Poc Nitrite, Urine Negative Negative Poc Leukocytes, Urine Negative Negative Poc Color, Urine Yellow Poc Clarity, Urine Clear 5 Laboratory test 09/05/2018 [facility] Poc , Negative Negative [address] [place] [address] [phone] Herpes Simplex 09/05/2018 [facility] Herpes Source LABIA [address] [place] [address] [phone] HSV 1 PCR Negative Negative HSV 2 PCR Negative Negative 8 Laboratory test 09/05/2018 [facility] Trichomonas Negative Negative [address] [place] [address] [phone] GC/Chlamydia 09/05/2018 [facility] Chlamydia Negative Negative Amplified Rna [address] [place] [address] [phone] Neisseria gonorrhoeae (GC) Rna Negative Negative Laboratory 09/05/2018 [facility] Gardnerella/Yeast: SEE 10 test finding [address] [place] [address] BELOW [phone] Basic 08/23/2018 [facility] Sodium 138 Normal [address] mmol/L -14 [place] [address] 5 [phone] Potassium 4.0 mmol/L Normal 3.5-5.0 Chloride 105 mmol/L Normal 101-111 Co2 Carbon Dioxide 27 mmol/L Normal 22-32 Anion Gap 6 mmol/L Normal 2-11 Glucose 86 mg/dL Normal 70-100 Blood Urea Nitrogen 17 mg/dL Normal 6-24 Creatinine 0.81 mg/dL Normal 0.51-0.95 BUN/Creatinine Ratio 21.0 High 8-20 Calcium 9.2 mg/dL Normal 8.6-10.3 Egfr Non- 80.0 >60 Egfr 96.8 >60 11 Laboratory 08/23/2018 [facility] Magnesium 2.0 mg/dL Normal 1.9-2.7 test finding [address] [place] [address] [phone] Laboratory 07/20/2018 [facility] Poc Negative Negative 12 test finding [address] , [place] [address] Urine [phone] Poc Urinalysis 07/20/2018 [facility] Poc Glucose, Negative Negative [address] [place] [address] [phone] Poc Bilirubin, Urine Negative Negative Poc Ketone, Urine Trace Abnormal Negative Poc Specific Urania, Urine 1.025 Normal 1.010-1.030 Poc Blood, Urine Trace-intact Abnormal Negative Poc pH, Urine 5.5 Normal 5-9 Poc Protein, Urine 1+ Abnormal Negative Poc Urobilinogen, Urine 0.2 Negative Poc Nitrite, Urine Negative Negative Poc Leukocytes, Urine Negative Negative Poc Color, Urine Dark yellow Poc Clarity, Urine Cloudy 13 Laboratory test 06/18/2018 [facility] HCG < 0.60 mIU/ mL [address] [place] [address] [phone] 1 [facility] Severe Sepsis and Septic Shock Management [...] immediately to secondary confirmatory testing. Using the [employer] DxI 800 Access Immunoassay systems, the 99th percentile upper reference limit was demonstrated to be < 0.03 ng/mL. 4 SEE RESULT BELOW Name: JEAN CLAUDE ORELLANA : [address]: Manuel Bernard MD Acct: [id number] Unit: [id number] AGE: 38 Location: ED Re09/14/18 SEX: F Status: DEP ER SPEC: [id number] JIMMY: 09/14/18-1008 DAVIAN COPELAND: Manuel Bernard MD REQ: [id number] RECD: 09/14/18 STATUS: NEIL YANEZ DR: Magdalena Dee RAIL SPECIALIST _ SOURCE: URINE SPDESC: ORDERED: Urine Culture Procedure Result Reported Site Urine Culture Final 09/15/18- 1203 ML No growth of clinically significant organisms * ML - Main Lab . END OF REPORT DEPARTMENT OF PATHOLOGY, [address] [place] [address] Remington Pruitt M.D. Director [facility] # [id number] 5 Cost Specialist: [id number] Cost Specialist: [id number] Test Disclaimer: Positive bacteria, red blood cells, [...] This test has been modified from the wheat combine driver's instructions. Its performance characteristics were determined by [facility] in a manner consistent with CLIA requirements. This test has not been cleared or approved by the U.S. Food and Drug Administration. Test Performed by: [address] [id number] GC/Chlamydia Source?: Endocervical Trichomonas Source: Endocervical 10 SEE RESULT BELOW Name: JEAN CLAUDE ORELLANA : [address]: Chiki Ashby MD Acct: [id number] Unit: [id number] AGE: 38 Location: [facility] Re09/05/18 SEX: F Status: DEP ER SPEC: [id number] JIMMY: 09/05/18-[address] [facility] [address]: Chiki Ashby MD REQ: [id number] RECD: 09/05/18-1309 STATUS: NEIL YANEZ DR: Magdalena Dee RAIL SPECIALIST _ SOURCE: VAGINAL SPDESC: ORDERED: Maycol,Yeast DNA [...] . END OF REPORT DEPARTMENT OF PATHOLOGY, [address] [place] [address] Remington Pruitt M.D. Director [facility] # [id number] 11 Because ethnic data is not always [...] 5 Kidney failure <15 (or dialysis) 12 Cost Specialist: [id number] Test Disclaimer: Positive bacteria, red blood cells, white blood cells, early , low specific gravity, and other factors may cause false positive or negative results. It is recommended to retest unexpected results within 24 to 72 hours with a serum test when applicable. If is still suspected, please repeat test after 48 to 72 hours. 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 R51 Headache - [facility] M54.2 Cervicalgia F41.9 Anxiety disorder, unspecified Office Visit 08/23/2018 [facility] Lesley Richey I47.1 Supraventricular 9:00a Cardiology Reji, N.P. tachycardia F17.210 Nicotine dependence, cigarettes, uncomplicated F41.9 Anxiety disorder, unspecified E87.6 Hypokalemia R00.2 Palpitations Office Visit 06/20/2018 10:00a Orthopedic Lacey Friend, M23.52 Chronic Services Of instability of [facility] knee, left knee Assessments Date Code Description Provider 11/27/2018 S62.346A Nondisplaced fracture of base of [...] cervical re 09/25/2018 M54.2 Cervicalgia Magdalena Dee, [facility] 09/25/2018 R51 Headache Magdalena Dee, [facility] 08/26/2018 R51 Headache Elise Tripp M.D. 08/26/2018 M54.2 Cervicalgia Elise Tripp M.D. 08/26/2018 F41.9 Anxiety disorder, unspecified Elise rTipp M.D. 08/23/2018 I47.1 Supraventricular tachycardia Lesley Mendoza, N.P. 08/23/2018 F17.210 Nicotine dependence, cigarettes, Lesley Mendoza, N.P. uncomplicated 08/23/2018 F41.9 Anxiety disorder, unspecified Lesley Mendoza, N.P. 08/23/2018 E87.6 Hypokalemia Lesley Mendoza, N.P. 08/23/2018 R00.2 Palpitations Lesley Mendoza, N.P. 06/20/2018 M23.52 Chronic instability of knee, left knee Lacey Friend MD Plan of Treatment Future Appointment(s):12/05/2018 2:30 pm - SORAYA [place] at [facility]12/25/2018 10:00 am - JEANETTE Nicholson at [facility] Internal Medicine - [facility]10/27/2019 9:10 am - Niranjan Calvillo MD at [facility] Dermatology Functional Status Description No Information Available Mental Status Description No Information Available Referrals Refer to Dr Reason for Referral Status Appt Date Jacqueline Cardoso, [employer] ROASTER HELPER Janae does not take pts insurance Sent [address] [place] [id number] [phone]
--- OUTSIDE RECORDS SUMMARY | 2019-01-09 08:23 | XMS REPORT | Continuity of Care Document ---
:1980 External Reference #:[id number] Author Name Pino Cazares MD (transmitted by agent of provider Nadya Lacy) Address [address] [place] [address] Care Team Providers Name Role Phone Patient's Choice Care Team Information Head Of Measurement & Insights Unavailable Niko De Dios MD - Neurology Care Team Information Head Of Measurement & Insights [phone] Erica Carter, PhD. - Clinical Care Team Information Head Of Measurement & Insights [phone] Arnaud Kiran MD - Cardiovascular Care Team Information Head Of Measurement & Insights Disease Niranjan Calvillo MD - Dermatology Care Team Information Head Of Measurement & Insights Leon Galeana MD - Ophthalmology Care Team Information Head Of Measurement & Insights [facility] - Care Team Information Head Of Measurement & Insights Golf Technician Gabino Danielle MD - Gastroenterology Care Team Information Head Of Measurement & Insights Magdalena Dee - Nurse Care Team Information Head Of Measurement & Insights [phone] Practitioner Problems Active Problems Provider Date Sprain [...] Hafsa Israel M.D. 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 Nondisplaced fracture of base of fifth Pino Cazares MD Onset: 11/27/2018 metacarpal bone, right hand, initial encounter for closed fracture Social History Type Date Description Comments Sex Unknown ETOH Use Denies alcohol use Recreational Drug Use Denies Drug Use Tobacco Use Start: Unknown Light tobacco smoker smokes 1-2 cig/day (10 or fewer cigarettes/day) Smoking Status Reviewed: 11/27/18 Light tobacco smoker smokes 1-2 cig/day (10 or fewer cigarettes/day) Exercise Type/Frequency Does not exercise Allergies, Adverse Reactions, Alerts Active Allergies Reaction Severity Comments Date Losartan Anaphylaxis 10/31/2016 Amlodipine Anaphylaxis 10/31/2016 Inactive Allergies NKDA 04/24/2016 Medications Active Medications SIG Qnty Indications Ordering Provider Date Take 1 Tablet By 90tabs Laceyofijina Dee, 11/18/2018 27-0.8mg Mouth Once Daily 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 Magnesium Take 1 Tablet By 30units E87.6 Laceyofijina Dee, 11/29/2017 500mg Mouth Once Daily [employer]APP[employer] MACHINE TENDER Alprazolam take 1 tablet by 30tabs F41.9 Zsofijina Dee, 11/27/2017 0.5mg mouth in the LAPPING MACHINE TENDER Tablets evening only as needed for anxiety Epipen 2-Marcelo use as directed 2units T78.3xxA Pedrito Jenkins, 07/11/2016 M.D. 0.3mg/0.3ML Solution Auto-Inject Blood Pressure check bp daily 1units I10 Pedrito Jenkins, 07/11/2016 Monitor Auto M.D. Inflate Misc Butalbital/Acetamino Take 1 Tablet By 14tabs Alekjina Sheikhk, phen/Caffeine Mouth Every 6 LAPPING MACHINE TENDER Hours as Needed . 50-325-40mg Tablets DO [...] Available Vital Signs Date Vital Result Comment 11/27/2018 10:38am Height 62 inches 5'2" Weight 163.00 lb Heart Rate 82 /min BP Systolic 128 mmHg BP Diastolic 88 mmHg Respiratory Rate 12 /min Pain Level 9 BMI (Body Mass Index) 29.8 kg/m2 10/02/2018 10:07am Height 62 inches 5'2" Weight 166.00 lb Heart Rate 88 /min BP Systolic 118 mmHg BP Diastolic 80 mmHg BMI (Body Mass Index) 30.4 kg/m2 Results Test Date Facility Test Result H/L Range Note CBC Auto 09/14/2018 [facility] White Blood 4.6 10^3/uL Normal 3.5-10.[address] [place] [address] [phone] Red Blood Count 4.42 10^6/uL Normal 3.70-4.87 [...] Blood Cells % 0.0 Laboratory test 09/14/2018 [facility] Lactic Acid 1.1 mmol/L Normal 0.5-2.0 1 finding [address] [place] [address] [phone] Comp Metabolic 09/14/2018 [facility] Sodium 138 mmol/L Normal 135-145 Panel [address] [place] [address] [phone] Potassium 3.8 mmol/L Normal 3.5-5.0 Chloride 109 [...] Egfr 112.7 >60 2 Laboratory test 09/14/2018 [facility] Troponin-I (TnI) 0.00 ng/ mL <0.04 [address] [place] [address] [phone] Urinalysis 09/14/2018 [facility] Urine Color Straw Profile [address] [place] [address] [phone] Urine Appearance Cloudy Urine Specific Maskell 1.010 Normal 1.010-1.030 Urine pH 7.0 Normal [...] Present Abnormal Absent Urine Culture And 09/14/2018 [facility] Urine SEE RESULT [address] [place] [address] [phone] Poc Urinalysis 09/05/2018 [facility] Poc Glucose, Negative Negative [address] [place] [address] [phone] Poc Bilirubin, Urine Negative Negative Poc Ketone, Urine Negative Negative Poc Specific Maskell, Urine >= 1.030 Normal 1.010-1.030 Poc Blood, Urine Trace-intact Abnormal Negative Poc pH, Urine 6.0 Normal 5-9 Poc Protein, Urine Negative Negative Poc Urobilinogen, Urine 0.2 Negative Poc Nitrite, Urine Negative Negative Poc Leukocytes, Urine Negative Negative Poc Color, Urine Yellow Poc Clarity, Urine Clear 5 Laboratory test 09/05/2018 [facility] Poc , Negative Negative [address] [place] [address] [phone] Herpes Simplex 09/05/2018 [facility] Herpes Source LABIA [address] [place] [address] [phone] HSV 1 PCR Negative Negative HSV 2 PCR Negative Negative 8 Laboratory test 09/05/2018 [facility] Trichomonas Negative Negative [address] [place] [address] [phone] GC/Chlamydia 09/05/2018 [facility] Chlamydia Negative Negative Amplified Rna [address] [place] [address] [phone] Neisseria gonorrhoeae (GC) Rna Negative Negative Laboratory 09/05/2018 [facility] Gardnerella/Yeast: SEE 10 test finding [address] [place] [address] BELOW [phone] Basic 08/23/2018 [facility] Sodium 138 Normal [address] mmol/L -14 [place] [address] 5 [phone] Potassium 4.0 mmol/L Normal 3.5-5.0 Chloride 105 mmol/L Normal 101-111 Co2 Carbon Dioxide 27 mmol/L Normal 22-32 Anion Gap 6 mmol/L Normal 2-11 Glucose 86 mg/dL Normal 70-100 Blood Urea Nitrogen 17 mg/dL Normal 6-24 Creatinine 0.81 mg/dL Normal 0.51-0.95 BUN/Creatinine Ratio 21.0 High 8-20 Calcium 9.2 mg/dL Normal 8.6-10.3 Egfr Non- 80.0 >60 Egfr 96.8 >60 11 Laboratory 08/23/2018 [facility] Magnesium 2.0 mg/dL Normal 1.9-2.7 test finding [address] [place] [address] [phone] Laboratory 07/20/2018 [facility] Poc Negative Negative 12 test finding [address] , [place] [address] Urine [phone] Poc Urinalysis 07/20/2018 [facility] Poc Glucose, Negative Negative [address] [place] [address] [phone] Poc Bilirubin, Urine Negative Negative Poc Ketone, Urine Trace Abnormal Negative Poc Specific Maskell, Urine 1.025 Normal 1.010-1.030 Poc Blood, Urine Trace-intact Abnormal Negative Poc pH, Urine 5.5 Normal 5-9 Poc Protein, Urine 1+ Abnormal Negative Poc Urobilinogen, Urine 0.2 Negative Poc Nitrite, Urine Negative Negative Poc Leukocytes, Urine Negative Negative Poc Color, Urine Dark yellow Poc Clarity, Urine Cloudy 13 Laboratory test 06/18/2018 [facility] HCG < 0.60 mIU/ mL [address] [place] [address] [phone] 1 [facility] Severe Sepsis and Septic Shock Management Bundle [...] immediately to secondary confirmatory testing. Using the [employer] DxI 800 Access Immunoassay systems, the 99th percentile upper reference limit was demonstrated to be < 0.03 ng/mL. 4 SEE RESULT BELOW Name: JEAN CLAUDE ORELLANA : [address]: Manuel Bernard MD Acct: [id number] Unit: [id number] AGE: 38 Location: ED Re09/14/18 SEX: F Status: DEP ER SPEC: [id number] JIMMY: 09/14/18-[address]: Manuel Bernard MD REQ: [id number] RECD: 09/14/18 STATUS: NEIL YANEZ DR: Magdalena Dee STEEL TIER _ SOURCE: URINE [facility]: ORDERED: Urine Culture Procedure Result Reported Site Urine Culture Final 09/15/18- 1203 ML No growth of clinically significant organisms * ML - Main Lab . END OF REPORT DEPARTMENT OF PATHOLOGY, [address] [place] [address] Remington Pruitt M.D. Director [facility] # [id number] 5 Flower Cutter: [id number] Flower Cutter: [id number] Test Disclaimer: Positive bacteria, red blood cells, [...] This test has been modified from the newspaper editor managing's instructions. Its performance characteristics were determined by [facility] in a manner consistent with CLIA requirements. This test has not been cleared or approved by the U.S. Food and Drug Administration. Test Performed by: [address] [address] 9 [id number] GC/Chlamydia Source?: Endocervical Trichomonas Source: Endocervical 10 SEE RESULT BELOW Name: JEAN CLAUDE ORELLANA : [address]: Chiki Ashby MD Acct: [id number] Unit: [id number] AGE: 38 Location: [facility] Re09/05/18 SEX: F Status: DEP ER SPEC: [id number] JIMMY: 09/05/18-[address] [facility] [address]: Chiki Ashby MD REQ: [id number] RECD: 09/05/18 STATUS: NEIL YANEZ DR: Magdalena Dee STEEL TIER _ SOURCE: VAGINAL SPDESC: ORDERED: Maycol,Yeast DNA [...] . END OF REPORT DEPARTMENT OF PATHOLOGY, [address] [place] [address] Remington Pruitt M.D. Director [facility] # [id number] 11 Because ethnic data is not always [...] 5 Kidney failure <15 (or dialysis) 12 Flower Cutter: [id number] Test Disclaimer: Positive bacteria, red blood cells, white blood cells, early , low specific gravity, and other factors may cause false positive or negative results. It is recommended to retest unexpected results within 24 to 72 hours with a serum test when applicable. If is still suspected, please repeat test after 48 to 72 hours. 13 Flower Cutter: [id number] 14 <5.0 Negative 5.0 - 25.0 Indeterminate (Repeat testing recommended after 72 hours) >25.0 Positive Perimenopausal women can display HCG levels of up to 20 mIU/mL Procedures Date Code Description Status 11/27/2018 51516 Short Arm Cast Application Completed 11/23/2017 113319256 Diabetic Retinal Eye Exam Completed Medical Devices Description No Information Available Encounters Type Date Location Provider Dx Diagnosis Office Visit 10/02/2018 [place] Niko De Dios, R25.3 Fasciculation 10:00a [facility] R20.8 Other disturbances of skin sensation 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 R51 Headache - [facility] M54.2 Cervicalgia F41.9 Anxiety disorder, unspecified Office Visit 08/23/2018 [place] Lesley Richey I47.1 Supraventricular 9:00a Cardiology Reji, [...] cervical re 09/25/2018 M54.2 Cervicalgia Magdalena Dee, [facility] 09/25/2018 R51 Headache Magdalena Dee, [facility] 08/26/2018 R51 Headache Elise Tripp M.D. [...] - SORAYA [facility]12/25/2018 10:00 am - JEANETTE Nicholson at [facility] Internal Medicine - [facility]10/27/2019 9:10 am - Niranjan Calvillo MD at [facility] [id number]/14/ 2019 - Pino Cazares, MDS62.346A Nondisplaced fracture of base of fifth metacarpal bone, right hand, initial encounter for closed fractureFollow up: Follow up: 1 week with Donnie Functional Status Description No Information Available Mental Status Description No Information Available Referrals Refer to Reason for Referral Status Appt Date Jacqueline Cardoso LCSW [facility] does not take pts insurance Sent [address] [place] [address] [phone]
[2019-01-09 08:28] VITALS: BP 118/74
--- NOTE | 2019-01-09 08:51 | UC ---
UC General HPI - HPI Summary HPI Summary: 38-year-old woman comes in with a chief complaint of 2 days of nausea. She also reports some spinning type dizziness that can happen with head movement or at rest. Denies any abdominal pain. She is able to drink water. She has been able to eat but not as much as usual. No vomiting. No fevers or chills no upper respiratory tract infection symptoms no ear pain. Patient does not think she is however her last period was approximately a month ago and she has not started her period yet and she states it is possible that she is . - History of Current Complaint Chief Complaint: UCGI Stated Complaint: NAUSEA Time Seen by Provider: 01/09/19 08:38 Hx Last Menstrual Period: [id number] Pain Intensity: 0 - Allergy/Home Medications Allergies/Adverse Reactions: Allergies Allergy/AdvReac Type Severity Reaction Status Date / Time amlodipine Allergy Rash Verified 01/09/19 08:28 losartan Allergy Swelling Verified 01/09/19 08:28 PMH/Surg Hx/FS Hx/Imm Hx Previously Healthy: Yes Other History Of: Negative For: Anticoagulant Therapy - Surgical History Surgical History: Yes Surgery Procedure, Year, and Place: LEFT KNEE DISLOCATED/GANGLION CYST 2012. WRIST LEFT VERTICAL TEAR/GANGLION CYCT 2015. LEFT knee meniscus repair June. late term - 2008 - Family History Known Family History: Positive: Cardiac Disease - [place] - mother, at 40s - heavy use of ETOH, tob and crack cocaine, Hypertension - both parents, Diabetes - Social History Alcohol Use: Rare Alcohol Amount: socially once a month Substance Use Type: None Smoking Status (MU): Light Every Day Tobacco Smoker Type: Cigarettes Amount Used/How Often: 2-3 cigs Have You Smoked in the Last Year: Yes Household Exposure Type: Cigarettes - Immunization History Most Recent Influenza Vaccination: None Review of Systems All Other Systems Reviewed And Are Negative: Yes Constitutional: Positive: Other - SEE HPI Skin: Positive: Negative Eyes: Positive: Negative ENT: Positive: Negative Respiratory: Positive: Negative Cardiovascular: Positive: Negative Gastrointestinal: Positive: Nausea Genitourinary: Positive: Negative Motor: Positive: Negative Neurovascular: Positive: Negative Musculoskeletal: Positive: Negative Neurological: Positive: Negative Psychological: Positive: Negative Is Patient Immunocompromised?: No Physical Exam Triage Information Reviewed: Yes Appearance: Well-Appearing, No Pain Distress, Well-Nourished Vital Signs: Initial Vital Signs Temp 97.7 F 01/09/19 08:23 Pulse 77 01/09/19 08:23 Resp 18 01/09/19 08:23 BP 118/74 01/09/19 08:23 Pulse Ox 100 01/09/19 08:23 Vital Signs Reviewed: Yes Eye Exam: Normal Eyes: Positive: Conjunctiva Clear ENT: Positive: Pharynx normal, TMs normal Neck: Positive: Supple Respiratory: Positive: Lungs clear, Normal breath sounds, No respiratory distress Cardiovascular: Positive: RRR Abdomen Description: Positive: Nontender Musculoskeletal: Positive: Strength Intact, ROM Intact Neurological: Positive: Alert Psychological: Positive: Age Appropriate Behavior Skin Exam: Normal Course/Dx - Course Course Of Treatment: Patient has nausea and some symptoms of dizziness which may be vertigo. Vertigo may be causing the nausea therefore treating with meclizine and also Zofran to be used as needed. No upper respiratory tract infection symptoms no ear pain. Urine in clinic was negative. Patient reports in the past urine has been negative and blood positive therefore the blood test is pending. Patient will wait for the blood test before starting any medications. She will not start the medications if she is . Follow-up with primary care doctor get reevaluated sooner if worse or any questions or concerns. - Diagnoses Provider Diagnosis: Nausea, Dizziness Discharge ED - Sign-Out/Discharge Documenting (check all that apply): Patient Departure All imaging exams completed and their final reports reviewed: No Studies - Discharge Plan Condition: Stable Disposition: HOME Prescriptions: Meclizine HCl [Motion Sickness Relief] 25 mg PO Q6HR PRN #15 tablet PRN Reason: Dizziness Ondansetron ODT TAB* [Zofran 4 MG Odt TAB*] 4 mg PO Q6H PRN #10 tab.odt PRN Reason: Nausea Patient Education Materials: Acute Nausea and Vomiting (ED), Dizziness (ED) Referrals: Magdalena Dee NP [Primary Care Provider] - Additional Instructions: FOLLOW UP WITH YOUR DOCTOR IF NOT COMPLETELY IMPROVED. Take the meclizine as prescribed for dizziness and vertigo as needed. Take the Zofran as directed as needed for nausea. You are blood test is pending do not take any of these medications if the blood test is positive. GET RECHECKED SOONER IF YOUR CONDITION WORSENS OR ANY QUESTIONS OR CONCERNS. - Billing Disposition and Condition Condition: STABLE Disposition: Home
--- NOTE | 2019-01-10 07:59 | UC ---
- Progress Note Progress Note: I CALLED THE PT. NAME AND VERIFIED. ADVISED PT OF INDETERMINATE SERUM HCG LEVEL. PATIENT STATES SHE HAD IVF EMBRYO TRANSFER 1 WEEK AGO ON 01/02/19. I ADVISED THE PATIENT TO CALL HER FERTILITY CLINIC TODAY AND INFORM THEM OF HER HCG RESULT. Course/Dx - Diagnoses Provider Diagnoses: Nausea, Dizziness Discharge ED - Sign-Out/Discharge Documenting (check all that apply): Post-Discharge Follow Up All imaging exams completed and their final reports reviewed: No Studies - Discharge Plan Condition: Stable Disposition: HOME Prescriptions: Meclizine HCl [Motion Sickness Relief] 25 mg PO Q6HR PRN #15 tablet PRN Reason: Dizziness Ondansetron ODT TAB* [Zofran 4 MG Odt TAB*] 4 mg PO Q6H PRN #10 tab.odt PRN Reason: Nausea Patient Education Materials: Acute Nausea and Vomiting (ED), Dizziness (ED) Referrals: Magdalena Dee, [employer] [Primary Care Provider] - Additional Instructions: FOLLOW UP WITH YOUR DOCTOR IF NOT COMPLETELY IMPROVED. Take the meclizine as prescribed for dizziness and vertigo as needed. Take the Zofran as directed as needed for nausea. You are blood test is pending do not take any of these medications if the blood test is positive. GET RECHECKED SOONER IF YOUR CONDITION WORSENS OR ANY QUESTIONS OR CONCERNS. - Billing Disposition and Condition Condition: STABLE Disposition: Home
== END 2019-01-09 09:26 | disposition home or self-care (01) ==
LOC: UCEAST 08:17
DX: R11.0 Nausea (principal); R42 Dizziness and giddiness; F17.210 Nicotine dependence, cigarettes, uncomplicated
CPT/HCPCS: 36415; 84702; 99211; G0463

== ENCOUNTER 2019-02-19 22:12 | Emergency (ER) | payer OTHER ==
--- OUTSIDE RECORDS SUMMARY | 2019-02-19 22:40 | XMS REPORT | Continuity of Care Document ---
:1980 External Reference #:[id number] Author Name JEANETTE Nicholson (transmitted by agent of provider Jojo Saenz) Address [address] [place] [address] Care Team Providers Name Role Phone Patient's Choice Care Team Information Braille And Talking Books Clerk Unavailable Niko De Dios MD - Neurology Care Team Information Braille [employer] Talking Books Clerk [phone] Erica Carter, PhD. - Clinical Care Team Information Braille [employer] Talking Books Clerk [phone] Arnaud Kiran MD - Cardiovascular Care Team Information [employer]alking Books Clerk Disease Niranjan Calvillo MD - Dermatology Care Team Information Braille And Talking Books Clerk Leon Galeana MD - Ophthalmology Care Team Information Braille And Talking Books Clerk [facility] - Care Team Information Braille And Talking Books Clerk Paper Cup Machine Operator Gabino Danielle MD - Gastroenterology Care Team Information Bra[employer] Talking Books Clerk [phone] Manuel Leo III, MD - Internal Care Team Information Bra[employer] Talking Books Clerk Medicine Problems Active Problems Provider Date Sprain of [...] Hafsa Israel M.D. Onset: 03/13/2018 Note: Health News Director Nondisplaced fracture of base of fifth Pino Cazares MD Onset: 11/27/2018 metacarpal bone, right hand, initial encounter for closed fracture Social History Type Date Description Comments Sex Unknown ETOH Use Denies alcohol use Recreational Drug Use Denies Drug Use Tobacco Use Start: Unknown Light tobacco smoker smokes 1-2 cig/day (10 or fewer cigarettes/day) Smoking Status Reviewed: 01/22/19 Light tobacco smoker smokes 1-2 cig/day (10 or fewer cigarettes/day) Exercise Type/Frequency Does not exercise Allergies, Adverse Reactions, Alerts Active Allergies Reaction Severity Comments Date Losartan Anaphylaxis 10/31/2016 Amlodipine Anaphylaxis 10/31/2016 Inactive Allergies NKDA 04/24/2016 Medications Active Medications SIG Qnty Indications Ordering Date Provider Take 1 Tablet By Mouth 90tabs Zsofia Luiz, 11/18/2018 27-0.8mg Once Daily RADIOLOGIC TECHNOLOGY INSTRUCTOR Tablets Hydroxyzine HCL take 2 tabs by mouth 90tabs F41.9 Zsofia Luiz, 2017 twice daily as needed RADIOLOGIC TECHNOLOGY INSTRUCTOR 10mg Tablets for anxiety. Magnesium Take 1 Tablet By Mouth 30units E87.6 Zsofia Luiz, 11/29/2017 500mg Once Daily RADIOLOGIC TECHNOLOGY INSTRUCTOR Alprazolam take 1 tablet by mouth 30tabs F41.9 Laceyofijina Sheikhk, 11/27/2017 0.5mg in the evening only as RADIOLOGIC TECHNOLOGY INSTRUCTOR Tablets needed for anxiety Epipen 2-Marcelo use as directed 2units T78.3xxA [place] 07/11/2016 P[place], 0.3mg/0.3ML M.D. Solution Auto-Inject Blood Pressure check bp daily 1units I10 [place] 07/11/2016 Monitor Auto Pachikara, Inflate M.D. Misc Zithromax Z-Marcelo day number one two Unknown tablets then day 250mg Tablets number two thru day number five one every day Estradiol three times daily Unknown 2mg orally, 1 time Tablets vaginally Progesterone Take 1 Capsule By Unknown Micronized Mouth Twice Daily 200mg Capsules Progesterone Inject 1 ML (cc) Unknown Intramuscularly Once 50mg/ml Oil Daily as Directed Aspirin 81 1 by mouth every day Unknown 81mg Tablets Leon Georges, 5mg MD Tablets Cranberry daily Unknown 200mg Capsules Vitamin 1 by mouth every day Unknown Tablets Vitamin B-1 1 by mouth every day Unknown 100mg Tablets Butalbital/Acetamin Take 1 Tablet By Mouth 14tabs Laceyofia Luiz, ophen/Caffeine Every 6 Hours as RADIOLOGIC TECHNOLOGY INSTRUCTOR Needed . DO Not Exceed 50-325-40mg Tablets 4 Per 24 Hours History Medications Cyclobenzaprine HCL take 1 tablet 5tabs R25.3 Elise Tripp, 08/26/2018 - 5mg by mouth daily M.D. 09/25/2018 Tablets at night Immunizations CPT Code Status Date Vaccine Lot # [id number] Given 01/04/2019 Influenza Virus Vaccine, Quadrivalent, Split, Preservative Free Vital Signs Date Vital Result Comment 01/22/2019 10:08am Height 62 inches 5'2" Weight 170.38 lb Heart Rate 84 /min BP Systolic 122 mmHg BP Diastolic 83 mmHg Body Temperature 98.0 F O2 % BldC Oximetry 100 % BMI (Body Mass Index) 31.2 kg/m2 12/20/2018 10:49am Height 62 inches 5'2" Weight 165.00 lb Heart Rate 84 /min BP Systolic 121 mmHg BP Diastolic 86 mmHg Body Temperature 97.9 F O2 % BldC Oximetry 98 % BMI (Body Mass Index) 30.2 kg/m2 Results Test Date Facility Test Result H/L Range Note Laboratory test [facility] HCG 6.16 mIU/mL 1, [address] [place] [address] [phone] Laboratory test [facility] Poc , Negative Negative [address] [place] [address] [phone] Laboratory test [facility] TSH (Thyroid 0.34 mcIU/mL Normal 0.34-5.[address] Stim [place]orm) [place] [address] [phone] Free T4 (Free Thyroxine) 0.91 ng/dL Normal 0.61-1.12 T3 Total 123 ng/dL Normal 87-178 Laboratory test 09/14/2018 [facility] Lactic Acid 1.1 mmol/L Normal 0.5-2.[address] [place] [address] [phone] Comp Metabolic 09/14/2018 [facility] Sodium 138 mmol/L Normal 135-145 [place] [address] [phone] Potassium 3.8 mmol/L Normal 3.5-5.0 Chloride 109 [...] Egfr Non- 93.1 >60 Egfr 112.7 >60 5 Laboratory test 09/14/2018 [facility] Troponin-I (TnI) 0.00 ng/ mL <0.04 [address] [place] [address] [phone] Urinalysis 09/14/2018 [facility] Urine Color Straw Profile [address] [place] [address] [phone] Urine Appearance Cloudy Urine Specific [place] 1.010 Normal 1.010-1.030 Urine pH 7.0 Normal [...] Present Abnormal Absent Urine Culture And 09/14/2018 [facility] Urine SEE RESULT [address] [place] [address] [phone] CBC Auto Diff 09/14/2018 [facility] White Blood 4.6 10^3/uL Normal 3.5-[address] Count 0.8 [place] [address] [phone] Red Blood Count 4.42 10^6/uL Normal 3.70-4.87 [...] Nucleated Red Blood Cells % 0.0 Laboratory 09/05/2018 [facility] Gardnerella/Yeast: SEE RESULT 8, 9 test finding [address] Vaginal Dna BELOW [place], [place] [id number] [phone] GC/Chlamydia 09/05/2018 [facility] Chlamydia Negative Negative Amplified Rna [address] trachomatis Rna [place], [place] [id number] [phone] Neisseria gonorrhoeae (GC) Rna Negative Negative Laboratory test 09/05/2018 [facility] Trichomonas Negative Negative [address] [place] [address] [phone] Herpes Simplex 09/05/2018 [facility] Herpes Source LABIA PCR [address] [place] [address] [phone] HSV 1 PCR Negative Negative HSV 2 PCR Negative Negative 11 Laboratory test 09/05/2018 [facility] Poc , Negative Negative [address] Urine [place], [place] [address] [phone] Poc Urinalysis 09/05/2018 [facility] Poc Glucose, Negative Negative [address] [place] [address] [phone] Poc Bilirubin, Urine Negative Negative Poc Ketone, Urine Negative Negative Poc Specific [place], Urine >= 1.030 Normal 1.010-1.030 Poc Blood, Urine Trace-intact Abnormal Negative Poc pH, Urine 6.0 Normal 5-9 Poc Protein, Urine Negative Negative Poc Urobilinogen, Urine 0.2 Negative Poc Nitrite, Urine Negative Negative Poc Leukocytes, Urine Negative Negative Poc Color, Urine Yellow Poc Clarity, Urine Clear 13 Basic Metabolic 08/23/2018 [facility] Sodium 138 mmol/L Normal 135-[address] [place] [address] [phone] Potassium 4.0 mmol/L Normal 3.5-5.0 Chloride 105 mmol/L Normal 101-111 Co2 Carbon Dioxide 27 mmol/L Normal 22-32 Anion Gap 6 mmol/L Normal 2-11 Glucose 86 mg/dL Normal 70-100 Blood Urea Nitrogen 17 mg/dL Normal 6-24 Creatinine 0.81 mg/dL Normal 0.51-0.95 BUN/Creatinine Ratio 21.0 High 8-20 Calcium 9.2 mg/dL Normal 8.6-10.3 Egfr Non- 80.0 >60 Egfr 96.8 >60 14 Laboratory test 08/23/2018 [facility] Magnesium 2.0 mg/dL Normal 1.9-2.[address] [place], [place] [address] [phone] 1 [id number] 2 <5.0 Negative 5.0 - 25.0 Indeterminate (Repeat testing recommended after 72 hours) >25.0 Positive Perimenopausal women can display HCG levels of up to 20 mIU/mL 3 Department Of Sociology Chair: [id number] Test Disclaimer: Positive bacteria, red blood cells, white blood cells, early , low specific gravity, and other factors may cause false positive or negative results. It is recommended to retest unexpected and borderline results with a serum test when applicable. If is still suspected, please repeat test after 48 to 72 hours. 4 [facility] Severe Sepsis and Septic Shock Management Bundle Measure requires all lactic acids initially measuring >2.0 mmol/L be repeated. 5 Because ethnic data is not always [...] 5 Kidney failure <15 (or dialysis) 6 Troponin-I testing on Plasma Separator Tubes (PST) has a known false positive rate of 0.20-0.40%. All positive troponins reflex immediately to secondary confirmatory testing. Using the [employer] ([employer]il[employer]) DxI 800 Access Immunoassay systems, the 99th percentile upper reference limit was demonstrated to be < 0.03 ng/mL. 7 SEE RESULT BELOW Name: JEAN CLAUDE ORELLANA : [address]: Manuel Bernard MD Acct: [id number] Unit: [id number] AGE: 38 Location: ED Re09/14/18 SEX: F Status: DEP ER SPEC: [id number] JIMMY: 09/14/18-[address]: Manuel Bernard MD REQ: [id number] RECD: 09/14/18 STATUS: NEIL YANEZ DR: Magdalena Dee PRINCIPAL PROCESS ENGINEER _ SOURCE: URINE SPDESC: ORDERED: Urine Culture Procedure Result Reported Site Urine Culture Final 09/15/18- 1203 ML No growth of clinically significant organisms * ML - Main Lab . END OF REPORT DEPARTMENT OF PATHOLOGY, [address] [place] [address] Remington Pruitt M.D. Director [facility] # [id number] Would you like to order Trichomonas Vaginalis RNA testing? Y 9 SEE RESULT BELOW Name: JEAN CLAUDE ORELLANA : [address]: Chiki Ashby MD Acct: [id number] Unit: [id number] AGE: 38 Location: [facility] Re09/05/18 SEX: F Status: DEP ER SPEC: [id number] JIMMY: 09/05/18-[address]: Chiki Ashby MD REQ: [id number] RECD: 09/05/181310 STATUS: NEIL YANEZ DR: Magdalena Dee PRINCIPAL PROCESS ENGINEER _ SOURCE: VAGINAL SPDESC: ORDERED: Maycol,Yeast DNA [...] . END OF REPORT DEPARTMENT OF PATHOLOGY, [address] [address] Remington Pruitt M.D. Director [facility] # [id number] GC/Chlamydia Source?: Endocervical Trichomonas Source: Endocervical 11 ADDITIONAL INFORMATION This test has been modified from the manager paper's instructions. Its performance characteristics were determined by [facility] in a manner consistent with CLIA requirements. This test has not been cleared or approved by the U.S. Food and Drug Administration. Test Performed by: [place] [address] 12 Department Of Sociology Chair: [id number] Test Disclaimer: Positive bacteria, red blood cells, white blood cells, early , low specific gravity, and other factors may cause false positive or negative results. It is recommended to retest unexpected results within 24 to 72 hours with a serum test when applicable. If is still suspected, please repeat test after 48 to 72 hours. 13 Department Of Sociology Chair: [id number] 14 Because ethnic data is not always [...] 15-29 5 Kidney failure <15 (or dialysis) Procedures Date Code Description Status 12/05/2018 99304 Short Arm Splint Application Completed 11/29/2018 82685 Short Arm Splint Application Completed 11/27/2018 99889 Short Arm Cast Application Completed 11/23/2017 [id number] Diabetic Retinal Eye Exam Completed Medical Devices Description No Information Available Encounters Type Date Location Provider Dx Diagnosis Office Visit 12/20/2018 [facility] Internal Abner Juárez NP R79.9 Abnormal finding of 10:40a Medicine - [facility] blood chemistry, unspecified Office Visit 12/05/2018 [facility] SORAYA Mills S62.346D Nondisp fx of base 2:30p at [place] [facility] bone, r hand, 7thD Office Visit 11/29/2018 [facility] Myra Pepe, S62.346D Nondisp fx of base 2:00p at [place] [facility] bone, r hand, 7thD Office Visit 11/27/2018 [facility] Pino Cazares S62.346A Nondisp fx of base 10:00a at [place] [facility] bone, right hand, init Office Visit 10/02/2018 [facility] Niko Richey R25.3 Fasciculation 10:00a [facility] Jorge De Dios R20.8 Other disturbances of skin sensation 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 R51 Headache - [facility] M54.2 Cervicalgia F41.9 Anxiety disorder, unspecified Office Visit 08/23/2018 [facility] Lesley SMonae I47.1 Supraventricular 9:00a Cardiology Foster, N.P. tachycardia F17.210 Nicotine dependence, cigarettes, uncomplicated F41.9 Anxiety disorder, unspecified E87.6 Hypokalemia R00.2 Palpitations Assessments Date Code Description Provider 01/22/2019 R79.9 Abnormal finding of blood chemistry, JEANETTE Nicholson unspecified 01/22/2019 N97.9 Female infertility, unspecified JEANETTE Nicholson 12/20/2018 R79.9 Abnormal finding of blood chemistry, Abner Juárez NP unspecified 12/05/2018 S62.346D Nondisplaced fracture of base of fifth SORAYA Mills metacarpal bone, right hand, subsequent encounter for fracture with routine healing 11/29/2018 S62.346D Nondisplaced fracture of base of fifth MEERSON Grover metacarpal bone, right hand, subsequent encounter for [...] M.D. unspecified cervical re 09/25/2018 M54.2 Cervicalgia JEANETTE Nicholson 09/25/2018 R51 Headache Magdalena Dee, JEANETTE 08/26/2018 R51 Headache Elise Tripp M.D. 08/26/2018 M54.2 Cervicalgia Elise Tripp M.D. 08/26/2018 F41.9 Anxiety disorder, unspecified Elise Tripp M.D. 08/23/2018 I47.1 Supraventricular tachycardia Lesley Mendoza, N.P. 08/23/2018 F17.210 Nicotine dependence, cigarettes, Lesley Mendoza, N.P. uncomplicated 08/23/2018 F41.9 Anxiety disorder, unspecified Lesley Mendoza, N.P. 08/23/2018 E87.6 Hypokalemia Lesley Mendoza, N.P. 08/23/2018 R00.2 Palpitations Lesley Mendoza, N.P. Plan of Treatment Future Appointment(s):01/29/2019 8:00 am - JEANETTE Nicholson at [facility] Internal Medicine - [facility]10/27/2019 9:10 am - Niranjan Calvillo MD at [facility] Bfiyrusrfog51/09/ 2019 - Magdalena Dee, FNPR79.9 Abnormal finding of blood chemistry, unspecifiedComments:I call you if the thyroid hormone level is high and will refer you to see Dr. Mckeon.N97.9 Female infertility, unspecified Functional Status Description No Information Available Mental Status Description No Information Available Referrals Refer to Reason for Referral Status Appt Date Jacqueline Cardoso LCSW [facility] does not take pts insurance Sent [address] [place] [id number] [phone]
[2019-02-19 22:55] LABS: ABS Basophils 0.1 10^3/ul (0-0.2); ABS Eosinophils 0.1 10^3/ul (0-0.6); ABS Lymphocytes 2.9 10^3/ul (1.0-4.8); ABS Monocytes 0.8 10^3/ul (0-0.8); ABS Neutrophils 14.9 10^3/ul (1.5-7.7); Eosinophil % 0.6 %; Hematocrit 41 % (35-47); Hemoglobin 14.1 g/dL (12.0-16.0); Lymphocyte % 15.3 %; Mean Corpuscular HGB Conc 34 g/dL (31-36); Mean Corpuscular Hemoglobin 30 pg (27-31); Mean Corpuscular Volume 88 fL (80-97); Platelet Count 283 10^3/uL (150-450); Red Blood Count 4.67 10^6 /uL (3.70-4.87); Red Cell Distribution Width 15 % (10-15); White Blood Count 18.8 10^3/uL (3.5-10.8)
[2019-02-19 23:11] LABS: Albumin 4.1 g/dL (3.2-5.2); Albumin/Globulin Ratio 1.4 (1-3); Calcium 9.3 mg/dL (8.6-10.3); EGFR African American 98.2 (>60); EGFR Non-African American 81.2 (>60); Globulin 2.9 g/dL (2-4); Potassium 3.7 mmol/L (3.5-5.0); Total Bilirubin 0.2 mg/dL (0.2-1.0)
[2019-02-19 23:17] LABS: HCG Pregnancy 61.88 mIU/mL
--- NOTE | 2019-02-19 23:34 | ED ---
Abdominal Pain/Female - HPI Summary HPI Summary: 38 year old F presenting to [facility] complains of persistent lower abdominal pain rated 8/10 in severity described as "twinges" radiating to her lower back since 0700 today 02/19/19. Patient states she went to bed yesterday PM feeling fine. Patient states she woke up at 0500 today 02/19/19 feeling fine. Symptoms aggravated by nothing. Symptoms alleviated by nothing. Patient states she is . Patient states she is on her third cycle of IVF treatment. Patient states she takes progesterone. States she called her on-call fertility physician in [place] who referred patient to ED for an ultrasound. - History of Current Complaint Chief Complaint: EDAbdPain Stated Complaint: 4 WKS PREG ABD AND BACK PAIN PER PT Time Seen by Provider: 02/19/19 23:29 Hx Obtained From: Patient Hx Last Menstrual Period: [id number] ?: Yes Onset/Duration: Lasting Hours, Still Present Timing: Constant Severity Currently: Severe Pain Intensity: 8 Pain Scale Used: 0-10 Numeric Location: Other - lower Radiates: Yes Radiates to: Back - lower Aggravating Factor(s): Nothing Alleviating Factor(s): Nothing Allergies/Adverse Reactions: Allergies Allergy/AdvReac Type Severity Reaction Status Date / Time amlodipine Allergy Rash Verified 02/19/19 22:17 losartan Allergy Swelling Verified 02/19/19 22:17 PMH/Surg Hx/FS Hx/Imm Hx Endocrine/Hematology History: Denies: Hx Anticoagulant Therapy, Hx Blood Disorders, Hx Diabetes, Hx Thyroid Disease Cardiovascular History: Denies: Hx Aneurysm, Hx Hypertension, Hx Myocardial Infarction, Hx Pacemaker/ ICD Respiratory History: Denies: Hx Asthma, Hx Chronic Obstructive Pulmonary Disease (COPD) GI History: Reports: Hx Gastroesophageal Reflux Disease - on occassion Denies: Hx Ulcer History: Denies: Hx Renal Disease Musculoskeletal History: Reports: Other Musculoskeletal History - had L knee surgery in past: ACL and medial meniscus tear awaiting surgery Sensory History: Denies: Hx Contacts or Glasses, Hx Hearing Aid Opthamlomology History: Denies: Hx Contacts or Glasses Neurological History: Denies: Hx Migraine Psychiatric History: Reports: Hx Anxiety - untreated - felt "fight or flight" w / sertraline 25mg - reluctant to try , Hx Depression Denies: Hx Panic Disorder, Other Psychiatric Issues/Disorders - Surgical History Surgery Procedure, Year, and Place: LEFT KNEE DISLOCATED/GANGLION CYST 2012. WRIST LEFT VERTICAL TEAR/GANGLION CYCT 2016. LEFT knee meniscus repair June. late term - 2008 Hx Anesthesia Reactions: No Infectious Disease History: No Infectious Disease History: Denies: Hx Hepatitis, Hx Human Immunodeficiency Virus (HIV), History Other Infectious Disease, Traveled Outside the [place] in Last 30 Days - Family History Known Family History: Positive: Cardiac Disease - [place] - mother, at 40s - heavy use of ETOH, tob and crack cocaine, Hypertension - both parents, Diabetes - Social History Alcohol Use: Rare Alcohol Amount: socially once a month Hx Substance Use: Yes Substance Use Type: Reports: None Hx Tobacco Use: Yes Smoking Status (MU): Light Every Day Tobacco Smoker Type: Cigarettes Amount Used/How Often: 2-3 cigs Have You Smoked in the Last Year: Yes Review of Systems Positive: Abdominal Pain Positive: Other - lower back pain All Other Systems Reviewed And Are Negative: Yes Physical Exam - Summary Physical Exam Summary: Appearance: Well-appearing, Well-nourished, lying in bed comfortably Skin: Warm, dry, no obvious rash Eyes: sclera anicteric, no conjunctival pallor ENT: mucous membranes moist, pharynx appears normal Neck: Supple, nontender Respiratory: Clear to auscultation, no signs of respiratory distress Cardiovascular: Normal S1, S2. No murmurs. Normal distal pulses in tibial and radial bilaterally. Abdomen: Soft, nontender, normal active bowel sounds present Musculoskeletal: Normal, Strength/ROM Intact Neurological: A&Ox3, awake and alert, mentation is normal, speech is fluent and appropriate Psychiatric: affect is normal, does not appear anxious or depressed Triage Information Reviewed: Yes Vital Signs On Initial Exam: Initial Vitals Temp Pulse Resp BP Pulse Ox 99.1 F 90 18 153/104 99 02/19/19 22:14 02/19/19 22:14 02/19/19 22:14 02/19/19 22:14 02/19/19 22:14 Vital Signs Reviewed: Yes Procedures - Sedation Patient Received Moderate/Deep Sedation with Procedure: No Diagnostics - Vital Signs Vital Signs Temp Pulse Resp BP Pulse Ox 02/19/19 22:14 99.1 F 90 18 153/104 99 - Laboratory Lab Results: Lab Results 02/19/19 02/19/19 02/19/19 Range/Units 22:45 22:46 22:46 WBC 18.8 H (3.5-10.8) 10^3/uL RBC 4.67 (3.70-4.87) 10^6 /uL Hgb 14.1 (12.0-16.0) g/dL Hct 41 (35-47) % MCV 88 (80-97) fL MCH 30 (27-31) pg MCHC 34 (31-36) g/dL RDW 15 (10-15) % Plt Count 283 (150-450) 10^3/uL MPV 7.0 L (7.4-10.4) fL Neut % (Auto) 79.4 % Lymph % (Auto) 15.3 % [place] % (Auto) 4.3 % Eos % (Auto) 0.6 % Baso % (Auto) 0.4 % Absolute Neuts (auto) 14.9 H (1.5-7.7) 10^3/ul Absolute Lymphs (auto) 2.9 (1.0-4.8) 10^3/ul Absolute Monos (auto) 0.8 (0-0.8) 10^3/ul Absolute Eos (auto) 0.1 (0-0.6) 10^3/ul Absolute Basos (auto) 0.1 (0-0.2) 10^3/ul Absolute Nucleated RBC 0.0 10^3/ul Nucleated RBC % 0.0 Sodium 136 (135-145) mmol/L Potassium 3.7 (3.5-5.0) mmol/L Chloride 102 (101-111) mmol/L Carbon Dioxide 25 (22-32) mmol/L Anion Gap 9 (2-11) mmol/L BUN 12 (6-24) mg/dL Creatinine 0.80 (0.51-0.95) mg/dL Est GFR ( Amer) 98.2 (>60) Est GFR (Non-Af Amer) 81.2 (>60) BUN/Creatinine Ratio 15.0 (8-20) Glucose 134 H (70-100) mg/dL Calcium 9.3 (8.6-10.3) mg/dL Total Bilirubin 0.20 (0.2-1.0) mg/dL AST 12 L (13-39) U/L ALT 17 (7-52) U/L Alkaline Phosphatase 77 (34-104) U/L Total Protein 7.0 (6.4-8.9) g/dL Albumin 4.1 (3.2-5.2) g/dL Globulin 2.9 (2-4) g/dL Albumin/Globulin Ratio 1.4 (1-3) Beta HCG, Quant 61.88 mIU/mL Blood Type O Positive Antibody Screen Negative Result Diagrams: 02/19/19 22:46 02/19/19 22:46 Lab Statement: Any lab studies that have been ordered have been reviewed, and results considered in the medical decision making process. - Ultrasound Transvaginal Ultrasound Interpretation Completed By: Radiologist Summary of Ultrasound Findings: Tiny cystic structure in endometrial cavity with no pole or yolk sac identified, possibly representing an early gestational sac corresponding to 4 weeks 4 days gestation, concordant with dates by LMP. However, failed or ectopic cannot be excluded. Recommend correlation with serial BHCG levels and followup US as indicated. ED physician has reviewed this report. Abdominal Pain Fem Course/Dx - Course Course Of Treatment: 38 year old F complains of persistent lower abdominal pain described as "twinges" radiating to her lower back since 0700 today 02/19/19. Patient states she is . Patient states she is on her third cycle of IVF treatment. States she called her on-call fertility physician in [place] who referred patient to ED for an ultrasound. Physical exam findings: unremarkable. Bloodwork results with no significant abnormalities except for WBC 18.8, MPV 7.0, absolute neuts 14.9, glucose 134, AST 12. US transvaginal shows, per radiologist: Tiny cystic structure in endometrial cavity with no pole or yolk sac identified, possibly representing an early gestational sac corresponding to 4 weeks 4 days gestation, concordant with dates by LMP. However, failed or ectopic cannot be excluded. Recommend correlation with serial BHCG levels and followup US as indicated. Patient will be discharged home with follow up from her fertility physician. Patient was instructed to return to Emergency Department for new or worsening symptoms. Patient understands and is agreeable to this plan. - Diagnoses Provider Diagnoses: Pelvic pain Discharge ED - Sign-Out/Discharge Documenting (check all that apply): Patient Departure - Discharge - Discharge Plan Condition: Good Disposition: HOME Patient Education Materials: Ectopic (DC) Referrals: Magdalena Dee NP [Primary Care Provider] - Additional Instructions: Contact you fertility doctor in the morning, they will want to followup with you in the office I suspect. I will call you if the US report shows anything immediately worrisome tonight. - Billing Disposition and Condition Condition: GOOD Disposition: Home - Attestation Statements Document Initiated by Queenie: Yes Documenting Scribe: Josephine Renae Provider For Whom Queenie is Documenting (Include Credential): Tl Tesfaye MD Scribe Attestation: I, Josephine Renae, scribed for Tl Tesfaye MD on 02/20/19 at 0510. Scribe Documentation Reviewed: Yes Provider Attestation: The documentation as recorded by the Josephine pringle accurately reflects the service I personally performed and the decisions made by me, Tl Tesfaye MD Status of [place] Document: Viewed
[2019-02-20 01:25] VITALS: BP 117/91
== END 2019-02-20 01:25 | disposition home or self-care (01) ==
LOC: ED 22:12
DX: R10.2 Pelvic and perineal pain (principal); K21.9 Gastro-esophageal reflux disease without esophagitis; F41.9 Anxiety disorder, unspecified; F32.9 Major depressive disorder, single episode, unspecified; F17.210 Nicotine dependence, cigarettes, uncomplicated; Z88.8 Allergy status to other drugs, medicaments and biological substances; Z79.890 Hormone replacement therapy
CPT/HCPCS: 36415; 76817; 80053; 84702; 85025; 86850; 86900; 86901; 99282

== ENCOUNTER 2019-03-08 17:21 | Emergency (ER) | payer OTHER ==
--- NOTE | 2019-03-08 18:50 | ED ---
- HPI Summary HPI Summary: Patient with confirmed complains of nausea and abdominal cramping 5 days. Cramping is lower abdomen, occasionally radiating to her back. Presents with persistent abdominal cramping and one episode of blood on toilet paper while wiping after urination. Denies blood in toilet bowel. Denies fever, cough, sore throat, CP, N/V/D, change in urine, change in BM, vaginal pain or discharge. Patient has been evaluated twice before for same transvaginal ultrasounds. No SUBSTATION MANAGER at this time. Medical history is none. History of one prior miscarriage. Ultrasound/ negative. Ultrasound/ positive IUP. Ultrasound 03/07 positive IUP with small fluid collection. - History of Current Complaint Chief Complaint: EDOBProblems Stated Complaint: ABD CRAMPS/5 WEEKS PREG PER PT Time Seen by Provider: 03/08/19 18:26 Hx Obtained From: Patient Onset/Duration: Started Days Ago Timing: Intermittent Severity: Moderate Current Severity: Moderate Pain Intensity: 7 Location of Pain: Suprapubic Character: Cramping Aggravating Factors: Nothing Alleviating Factors: Nothing Associated Signs and Symptoms: Positive: Back Pain - Assessment Hx Now: No Hx Hysterectomy: No - Allergies/Home Medications Allergies/Adverse Reactions: Allergies Allergy/AdvReac Type Severity Reaction Status Date / Time amlodipine Allergy Rash Verified 03/08/19 17:29 losartan Allergy Swelling Verified 03/08/19 17:29 Home Medications: Home Medications Estradiol TAB(NF) 2 mg PO TID 03/08/19 [History Confirmed 03/08/19] Vitamin TAB* 1 tab PO DAILY 03/08/19 [History Confirmed 03/08/19] Progesterone MICRONIZED(NF) 1 tab PO BID 03/08/19 [History Confirmed 03/08/19] Progesterone* [Progesterone in Oil*] 1 syringe IM DAILY 03/08/19 [History Confirmed 03/08/19] predniSONE [Prednisone 5 MG TAB] 5 mg PO DAILY 03/08/19 [History Confirmed 03/08] PMH/Surg Hx/FS Hx/Imm Hx Endocrine/Hematology History: Denies: Hx Anticoagulant Therapy, Hx Blood Disorders, Hx Diabetes, Hx Thyroid Disease Cardiovascular History: Denies: Hx Aneurysm, Hx Hypertension, Hx Myocardial Infarction, Hx Pacemaker/ ICD Respiratory History: Denies: Hx Asthma, Hx Chronic Obstructive Pulmonary Disease (COPD) GI History: Reports: Hx Gastroesophageal Reflux Disease - on occassion Denies: Hx Ulcer History: Denies: Hx Renal Disease Musculoskeletal History: Reports: Other Musculoskeletal History - had L knee surgery in past: ACL and medial meniscus tear awaiting surgery Sensory History: Denies: Hx Contacts or Glasses, Hx Hearing Aid Opthamlomology History: Denies: Hx Contacts or Glasses Neurological History: Denies: Hx Migraine Psychiatric History: Reports: Hx Anxiety - untreated - felt "fight or flight" w / sertraline 25mg - reluctant to try , Hx Depression Denies: Hx Panic Disorder, Other Psychiatric Issues/Disorders - Surgical History Surgery Procedure, Year, and Place: LEFT KNEE DISLOCATED/GANGLION CYST 2012. WRIST LEFT VERTICAL TEAR/GANGLION CYCT 2015. LEFT knee meniscus repair June. late term - 2008 Hx Anesthesia Reactions: No Infectious Disease History: No Infectious Disease History: Denies: Hx Hepatitis, Hx Human Immunodeficiency Virus (HIV), History Other Infectious Disease, Traveled Outside the [place] in Last 30 Days - Family History Known Family History: Positive: Cardiac Disease - [place] - mother, at 40s - heavy use of ETOH, tob and crack cocaine, Hypertension - both parents, Diabetes - Social History Alcohol Use: Rare Alcohol Amount: socially once a month Hx Substance Use: Yes Substance Use Type: Reports: None Hx Tobacco Use: Yes Smoking Status (MU): Light Every Day Tobacco Smoker Type: Cigarettes Amount Used/How Often: 2-3 cigs Have You Smoked in the Last Year: Yes Review of Systems Constitutional: Negative Eyes: Negative ENT: Negative Cardiovascular: Negative Respiratory: Negative Positive: Abdominal Pain, Nausea Genitourinary: Negative Musculoskeletal: Negative Skin: Negative Neurological: Negative Psychological: Normal All Other Systems Reviewed And Are Negative: Yes Physical Exam - Summary Physical Exam Summary: Abdomen soft nontender. - Physical Exam Triage Information Reviewed: Yes Vital Signs Reviewed: Yes Appearance: Positive: Well-Appearing Skin: Positive: Warm Head/Face: Positive: Normal Head/Face Inspection Eyes: Positive: Normal Neck: Positive: Supple Respiratory/Lung Sounds: Positive: Clear to Auscultation Cardiovascular: Positive: Normal Abdomen Description: Positive: Nontender Musculoskeletal: Positive: Normal Neurological: Positive: Normal Psychiatric: Positive: Normal AVPU Assessment: Alert - [place] Coma Scale Eye: 4 - Spontaneous Motor: 6 - Obeys Commands Verbal: 5 - Oriented Coma Scale Total: 15 Procedures - Sedation Patient Received Moderate/Deep Sedation with Procedure: No Diagnostics - Vital Signs Vital Signs Temp Pulse Resp BP Pulse Ox 03/08/19 17:25 98.0 F 97 16 141/94 98 - Laboratory Result Diagrams: 03/08/19 19:06 03/08/19 19:06 Lab Statement: Any lab studies that have been ordered have been reviewed, and results considered in the medical decision making process. Course/Dx - Course Course Of Treatment: Patient with confirmed complains of nausea and abdominal cramping 5 days. Cramping is lower abdomen, occasionally radiating to her back. Presents with persistent abdominal cramping and one episode of blood on toilet paper while wiping after urination. Denies blood in toilet bowel. Denies fever, cough, sore throat, CP, N/V/D, change in urine, change in BM, vaginal pain or discharge. Patient has been evaluated twice before for same transvaginal ultrasounds. No SUBSTATION MANAGER at this time. Medical history is none. History of one prior miscarriage. Ultrasound/ negative. Ultrasound/ positive IUP. Ultrasound 03/07 positive IUP with small fluid collection. Vital signs within normal limits. Labs unremarkable. HCG continuing to rise. Ultrasound positive for 2 gestational sacs within the endometrial cavity. Contained within the gestational sac A is a pole with cardiac activity 118 bpm. Estimated age 5 weeks 6 days. Gestational sac be does not continue pole, sac of unknown viability. Suggest follow-up ultrasound for institutional guidelines in one week. Subchorionic bleed is not visualized. Patient left prior to results of ultrasound, states she will access them thru patient portal. Advised to follow up with SUBSTATION MANAGER . - Diagnoses Provider Diagnoses: Cramping affecting , antepartum Discharge ED - Sign-Out/Discharge Documenting (check all that apply): Patient Departure - Discharge Plan Condition: Stable Disposition: HOME Patient Education Materials: (ED) Referrals: Magdalena Dee NP [Primary Care Provider] - Additional Instructions: Results of ultrasound will be available on patient portal. Return to the ED for any new or worsening symptoms. Follow up with SUBSTATION MANAGER Dr Shook for further evaluation of . - Billing Disposition and Condition Condition: STABLE Disposition: Home - Attestation Statements Provider Attestation: I was available for consult. This patient was seen by the CARM[facility]. The patient was not presented to, seen by, or examined by me. Barry Vazquez MD
[2019-03-08 19:15] LABS: ABS Basophils 0.1 10^3/ul (0-0.2); ABS Eosinophils 0.3 10^3/ul (0-0.6); ABS Lymphocytes 3.3 10^3/ul (1.0-4.8); ABS Monocytes 0.9 10^3/ul (0-0.8); ABS Neutrophils 6.9 10^3/ul (1.5-7.7); Eosinophil % 2.7 %; Hematocrit 39 % (35-47); Hemoglobin 13.4 g/dL (12.0-16.0); Lymphocyte % 28.6 %; Mean Corpuscular HGB Conc 34 g/dL (31-36); Mean Corpuscular Hemoglobin 31 pg (27-31); Mean Corpuscular Volume 89 fL (80-97); Mean Platelet Volume 7.1 fL (7.4-10.4); Nucleated Red Blood Cells % 0.1; Platelet Count 219 10^3/uL (150-450); Red Blood Count 4.37 10^6 /uL (3.70-4.87); Red Cell Distribution Width 15 % (10-15); White Blood Count 11.5 10^3/uL (3.5-10.8)
[2019-03-08 19:49] LABS: Urine Appearance Cloudy; Urine Bilirubin Negative (Negative); Urine Blood 2+ (Negative); Urine Color Yellow; Urine Glucose Negative (Negative); Urine Ketones Trace (Negative); Urine Nitrite Negative (Negative); Urine Protein Negative (Negative); Urine Specific Gravity 1.027 (1.010-1.030); Urine Urobilinogen Negative (Negative)
[2019-03-08 19:49] LABS: Albumin 3.8 g/dL (3.2-5.2); Calcium 9.2 mg/dL (8.6-10.3); Potassium 4.3 mmol/L (3.5-5.0); Total Bilirubin 0.2 mg/dL (0.2-1.0)
[2019-03-08 19:52] LABS: Urine Bacteria Absent (Absent); Urine Red Blood Cell 3+(>10/hpf) (Absent); Urine Squamous Epithelial Cell Present (Absent); Urine White Blood Cell Trace(0-5/hpf) (Absent)
[2019-03-08 19:55] LABS: Albumin/Globulin Ratio 1.3 (1-3); BUN/Creatinine Ratio 14.4 (8-20); C Reactive Protein 16.87 mg/L (<8.01); EGFR African American 78.2 (>60); EGFR Non-African American 64.6 (>60); Total Protein 6.8 g/dL (6.4-8.9)
[2019-03-08 22:31] VITALS: BP 147/99
== END 2019-03-08 22:30 | disposition home or self-care (01) ==
LOC: ED 17:21
DX: O26.891 Other specified pregnancy related conditions, first trimester (principal); R10.9 Unspecified abdominal pain; O99.331 Smoking (tobacco) complicating pregnancy, first trimester; F17.210 Nicotine dependence, cigarettes, uncomplicated; Z3A.01 Less than 8 weeks gestation of pregnancy; K21.9 Gastro-esophageal reflux disease without esophagitis; Z88.8 Allergy status to other drugs, medicaments and biological substances; Z79.899 Other long term (current) drug therapy
CPT/HCPCS: 36415; 76817; 80053; 81003; 81015; 84702; 85025; 86140; 87086; 99283

== ENCOUNTER 2019-03-28 08:37 | Emergency (ER) | payer OTHER ==
[2019-03-28 08:54] VITALS: BP 135/78
--- NOTE | 2019-03-28 09:07 | UC ---
Complaint Female HPI - HPI Summary HPI Summary: About 4 days ago she slipped on the ice and fell back onto her back. She began to complain of low back pain almost immediately and had to use a heating pad to low back pain is not exacerbated by movement and seems to come around to the front or she feels cramping. She has had a little pinkish discharge. She is about 9 weeks from in vitro fertilization. She's been followed with ultrasounds at [facility] [place] the most recent being 2 weeks ago. She was scheduled to follow up with Dr. Miller as she has been released by the IVF clinic. - History Of Current Complaint Chief Complaint: UCBackPain Stated Complaint: PERSONAL Time Seen by Provider: 03/28/19 08:56 Hx Obtained From: Patient Hx Last Menstrual Period: [id number] ?: Yes Onset/Duration: Sudden Onset, Lasting Days Timing: Constant Severity Initially: Mild Severity Currently: Moderate Pain Intensity: 7 Character: Dull, Cramping Aggravating Factor(s): Nothing Alleviating Factor(s): Nothing Associated Signs And Symptoms: Positive: Vaginal Discharge - Slight pinkish - Allergies/Home Medications Allergies/Adverse Reactions: Allergies Allergy/AdvReac Type Severity Reaction Status Date / Time amlodipine Allergy Rash Verified 03/28/19 08:54 losartan Allergy Swelling Verified 03/28/19 08:54 PMH/Surg Hx/FS Hx/Imm Hx Previously Healthy: Yes Other History Of: Negative For: Anticoagulant Therapy - Surgical History Surgical History: Yes Surgery Procedure, Year, and Place: LEFT KNEE DISLOCATED/GANGLION CYST 2012. WRIST LEFT VERTICAL TEAR/GANGLION CYCT 2015. LEFT knee meniscus repair June. late term - 2008 - Family History Known Family History: Positive: Cardiac Disease - [place] - mother, at 40s - heavy use of ETOH, tob and crack cocaine, Hypertension - both parents, Diabetes - Social History Alcohol Use: None Alcohol Amount: socially once a month Substance Use Type: None Smoking Status (MU): Former Smoker Type: Cigarettes Amount Used/How Often: 2-3 cigs Have You Smoked in the Last Year: Yes Household Exposure Type: Cigarettes - Immunization History Most Recent Influenza Vaccination: None Review of Systems All Other Systems Reviewed And Are Negative: Yes Genitourinary: Positive: Vaginal/Penile Discharge Musculoskeletal: Positive: Other: - Low back pain Physical Exam - Summary Physical Exam Summary: She is nontoxic in appearance with stable vital signs. Triage Information Reviewed: Yes Appearance: Well-Appearing, No Pain Distress Vital Signs: Initial Vital Signs Temp 98.8 F 03/28/19 08:47 Pulse 88 03/28/19 08:47 Resp 16 03/28/19 08:47 BP 135/78 03/28/19 08:47 Pulse Ox 100 03/28/19 08:47 Vital Signs Reviewed: Yes Abdomen Description: Positive: Nontender Musculoskeletal Exam: Normal Diagnostics - Radiology transvaginal U/S Radiology Interpretation Completed By: Radiologist Summary of Radiographic Findings: Demise Complaint Female Dx - Course Course Of Treatment: Ultrasound revealed demise most likely. I discussed with her and recommended she follow up with the IV of physicians for the next steps. I warned her that she likely would have a miscarriage in the next few days. - Differential Dx/Diagnosis Provider Diagnosis: Miscarriage Discharge ED - Sign-Out/Discharge Documenting (check all that apply): Patient Departure All imaging exams completed and their final reports reviewed: Yes - Discharge Plan Condition: Stable Disposition: HOME Patient Education Materials: Miscarriage (ED) Referrals: Magdalena Dee NP [Primary Care Provider] - Additional Instructions: Please call your IVF physician for further advice today - Billing Disposition and Condition Condition: STABLE Disposition: Home
== END 2019-03-28 10:57 | disposition home or self-care (01) ==
LOC: UCEAST 08:37
DX: O9A.211 Injury, poisoning and certain other consequences of external causes complicating pregnancy, first trimester (principal); Z3A.09 9 weeks gestation of pregnancy; M54.5 Low back pain; Z88.8 Allergy status to other drugs, medicaments and biological substances; Z87.891 Personal history of nicotine dependence
CPT/HCPCS: 36415; 76817; 84702; 99211; G0463

== ENCOUNTER 2020-07-06 07:57 | Inpatient (IN) ==
[2020-07-06] MEDS ORDERED: Buffered Lidocaine 1% SYRIN 1 ml INTRADERM ONE (09:32)
[2020-07-06] MEDS ORDERED: Lactated Ringers 1000 ml BAG 1,000 ML IV ONE ×2 (09:32→13:54)
[2020-07-06] MEDS ORDERED: Lactated Ringers 1000 ml BAG 1,000 ML IV SCH ×2 (10:00→14:00)
[2020-07-06 10:56] LABS: Urine Benzodiazepine Screen None Detected (None Detect); Urine Cannabinoids Screen None Detected (None Detect); Urine Opiates Screen None Detected (None Detect)
[2020-07-06] MEDS ORDERED: Oxytocin in LR 20 UNITS/1,000 ML BAG IVPB ONE (11:06)
[2020-07-06 11:27] LABS: ABS Eosinophils 0.1 10^3/ul (0-0.6); ABS Lymphocytes 1.4 10^3/ul (1.0-4.8); ABS Monocytes 0.5 10^3/ul (0-0.8); ABS Neutrophils 2.6 10^3/ul (1.5-7.7); Eosinophil % 2.3 %; Hematocrit 41 % (35-47); Hemoglobin 13.9 g/dL (12.0-16.0); Mean Corpuscular HGB Conc 34 g/dL (31-36); Mean Corpuscular Hemoglobin 29 pg (27-31); Mean Corpuscular Volume 86 fL (80-97); Mean Platelet Volume 8.5 fL (7.4-10.4); Nucleated Red Blood Cells % 0.1; Platelet Count 172 10^3/uL (150-450); Red Blood Count 4.72 10^6 /uL (3.70-4.87); Red Cell Distribution Width 15 % (10-15); White Blood Count 4.7 10^3/uL (3.5-10.8)
[2020-07-06] MEDS ORDERED: Oxytocin in LR 20 UNITS/1,000 ML BAG IVPB SCH (12:00)
[2020-07-06] MEDS ORDERED: OBEPIDURAL 250 ML EPIDURAL ONE (12:31)
[2020-07-06] MEDS ORDERED: Bupivacaine 0.25% SDV PF 10 ML VIAL INJ ONE (13:14)
[2020-07-06] MEDS ORDERED: Phenylephrine 40 mcg/mL 10mL (400mcg) SYRINGE IV PUSH PRN ×2 (13:54)
[2020-07-06] MEDS ORDERED: EPHEDrine (Pressors) 50 MG/ML VIAL IV PUSH PRN ×2 (13:54)
[2020-07-06] MEDS ORDERED: Sodium Citrate/Citric Acid LIQ 15 ML UDC PO PRN (13:54)
[2020-07-06 14:48] LABS: Urine Appearance Clear; Urine Bilirubin Negative (Negative); Urine Blood Negative (Negative); Urine Color Straw; Urine Glucose Negative (Negative); Urine Ketones Negative (Negative); Urine Nitrite Negative (Negative); Urine Protein Negative (Negative); Urine Specific Gravity 1.005 (1.010-1.030); Urine Urobilinogen Negative (Negative)
[2020-07-06] MEDS ORDERED: Dinoprostone 10 MG VAG.SUPP VAGINAL ONE (22:26)
[2020-07-07] MEDS: OBEPIDURAL 250 ML EPIDURAL SCH ×2 (11:30→18:20)
[2020-07-07] MEDS ORDERED: Oxytocin in LR 20 UNITS/1,000 ML BAG IVPB SCH ×2 (11:45→19:00)
[2020-07-07] MEDS ORDERED: Lidocaine 2% w/ EPI 1:200,000 MPF 20 ML SDV VIAL ONE (18:45)
[2020-07-07] MEDS ORDERED: Bupivacaine 0.25% SDV PF 10 ML VIAL INJ ONE (23:13)
[2020-07-08] MEDS ORDERED: ceFOXitin 2 GM IVPREMIX 2 GM/50 ML BAG IVPB ONE (00:22)
[2020-07-08] MEDS ORDERED: Dibucaine 1% OINT 28.35 GM TUBE PR PRN (00:32)
[2020-07-08] MEDS ORDERED: Witch Hazel PAD JAR TOPICAL PRN (00:32)
[2020-07-08] MEDS ORDERED: Lactated Ringers 1000 ml BAG 1,000 ML IV SCH (01:00)
[2020-07-08] MEDS ORDERED: Oxytocin in LR 20 UNITS/1,000 ML BAG IVPB SCH (01:00)
[2020-07-08] MEDS ORDERED: Lidocaine 1% VIAL 10 MG/ML VIAL ONE (02:18)
[2020-07-09 08:34] LABS: ABS Basophils 0.1 10^3/ul (0-0.2); ABS Eosinophils 0.3 10^3/ul (0-0.6); ABS Lymphocytes 1.7 10^3/ul (1.0-4.8); ABS Monocytes 0.9 10^3/ul (0-0.8); ABS Neutrophils 4.6 10^3/ul (1.5-7.7); Eosinophil % 3.3 %; Hematocrit 33 % (35-47); Hemoglobin 11.5 g/dL (12.0-16.0); Lymphocyte % 23.1 %; Mean Corpuscular HGB Conc 35 g/dL (31-36); Mean Corpuscular Hemoglobin 30 pg (27-31); Mean Corpuscular Volume 86 fL (80-97); Mean Platelet Volume 8.6 fL (7.4-10.4); Platelet Count 123 10^3/uL (150-450); Red Blood Count 3.86 10^6 /uL (3.70-4.87); Red Cell Distribution Width 15 % (10-15); White Blood Count 7.5 10^3/uL (3.5-10.8)
[2020-07-09 09:39] VITALS: BP 137/68
== END 2020-07-09 12:50 | disposition home or self-care (01) | DRG 560 ==
LOC: MCHOBOUT 07:57 → MCHOB 08:48
PROVIDERS: ADMIT Midwife; ATTEND Midwife